=== PATIENT | female | born 1945 | race Caucasian/White ===

== ENCOUNTER → 2016-05-28 | Outpatient (CLI) | payer MEDICARE ==
[~2016-05-28] MED LIST: *BLDWK3; *CXR; /ESCI20TA OR; /ESOM40CA PO; /WARF25TA; /WARF2TA OR; ACET500T2 OR; ACET650T12 PO; ALBOTERNEB INHALATION; AMIT10TA2; AMIT25TA PO; AMITRIP25 PO; ANTIDEPRESSANT PO; AVELOX PO; BATTERY; BUDE3CAP INH; COUMADIN PO; COUMADIN25 PO; COUMADIN5 PO; DEPA500T PO; DEPA500T2; DRIS50002 PO; DYAZIDE PO; DuoNeb INH; ELIQ5TAB PO; EQL400TA PO; ESTRACE PO; FLEXERIL; FLEXERIL PO; FLEXERIL10 PO; FOLI1TAB; FOLI1TAB OR; FOLI1TAB2 PO; FOLIC1 PO; FURO40TA2 OR; IMODIUM2 PO; K-TA10TA PO; KADIAN PO; KDUR20 PO; KEFL500C; KEFL500C7 PO; LASI40TA; LASI40TA PO; LASIX40 PO; LEVAQUI500 PO; LIDODERM TOPICAL; LIPI20TA PO; LIS; LISINOPR10 PO; LISIPOW PO; LOSA50TA20 PO; LOTRIMIN; LOVENOX150 SQ; LYRI150C; LYRI150C PO; LYRICA PO; MAGN200T PO; MILKSUS; MS C PO; MS C30TA2; MULTIVIT PO; NEURONTIN3 PO; NEXI20CA; NEXI40CA PO; NEXI40GR OR; NEXIUM PO; NITR0.4S; NITR0.4S SL; NORC10TA2 PO; NYST100024 TOP; OMEPRAZ20 PO; POTA10CA2 OR; POTA20TA; POTASSI20 PO; PREDNISO10 PO; PREDNISO20 PO; PREG50CA OR; SENN8.6T7 PO; TESSALO100 PO; TYLENOLCOD PO; ULTRTA PO; VALTREX100 PO; VICO5TAB; VICODIN PO; VICODIN7.5 PO; VICODINES TAB; VOLT1GEL24 TD; ZANA4TAB PO; ZEBE5TAB PO; [UNRECOGNIZED DRUG - CODE] PO; [UNRECOGNIZED DRUG - CODE] PO; [UNRECOGNIZED DRUG - OTHER]; [UNRECOGNIZED DRUG - OTHER]; [UNRECOGNIZED DRUG - SUPPLY]; [UNRECOGNIZED DRUG - SUPPLY]
--- NOTE | 2016-05-28 11:35 | REPMRS ---
Patient History The patient states she has not had a clinical breast exam in over a year. Patient is postmenopausal. Family history of breast cancer in sister at age 67 and breast cancer in mother at age 50 or over. Benign radio exam breast specimen of the left breast, November 03, 2014. Benign stereotatic loc for ea lesion of the left breast, November 03, 2014. Benign lumpectomy of the right breast. Digital Mammo Screening Bilat: May 28, 2016 - Exam #: [id number] Bilateral CC and MLO view(s) were taken. Technologist: Nay Neumann Technologist Prior study comparison: October 18, 2014, digital mammo diagnostic bilateral performed at [facility]. October 04, 2014, digital woman screen mammo, performed at [facility]. FINDINGS: There are scattered fibroglandular densities. There has been no change in the appearance of the mammogram from the prior studies. There is a mild amount of scattered fibroglandular density which is fairly symmetric. There is no interval development of dominant mass, architectural distortion, or clustered microcalcification suggestive of malignancy. ASSESSMENT: BI-RADS/ACR category 1 mammogram. Negative. Recommendation Routine screening mammogram in 1 year (for women over age 40). This mammogram was interpreted with the aid of an FDA-approved computer-aided dectection system. Electronically Signed By: Kirill Chong MD 05/28/16 [id number]
== END ==
LOC: M RAD 09:40
PROVIDERS: ATTEND Family Medicine
DX: Z12.31 Encounter for screening mammogram for malignant neoplasm of breast (principal); Z78.0 Asymptomatic menopausal state; Z80.3 Family history of malignant neoplasm of breast

== ENCOUNTER → 2016-06-14 | Outpatient (CLI) | payer MEDICARE ==
--- NOTE | 2016-06-14 14:24 | REP ---
LEFT KNEE: HISTORY: Pain and arthritis. There is tricompartmental marginal osteophytosis with asymmetric patellofemoral joint space narrowing and medial compartmental narrowing. Calcifications are seen in both medial and lateral compartments. There is no acute fracture. IMPRESSION: Chronic changes as described above. Meniscal calcification secondary to either calcified degenerative meniscal changes or calcium pyrophosphate deposition disorder. Correlate clinically. Signed by Jeff Perales DO 06/14/2016 02:25 P
--- NOTE | 2016-06-14 14:24 | REP ---
LEFT HIP: HISTORY: Pain and arthritis. COMPARISON: 11/27/2011 There is no change in the appearance of the hip joint. There is no prominent marginal osteophytosis or buttressing. There is mild unchanged rather symmetric appearing hip joint space narrowing. There is no acute fracture or dislocation. IMPRESSION: No significant change. Signed by Jeff Perales DO 06/14/2016 02:24 P
== END ==
LOC: M RAD 07:13
PROVIDERS: ATTEND Family Medicine
DX: M17.0 Bilateral primary osteoarthritis of knee (principal)

== ENCOUNTER → 2016-06-20 | Outpatient (REF) | payer MEDICARE ==
[2016-06-20 12:03] LABS: BASO # 0.1 K/mm3 (0.0-0.2); BASO % 2.2 % (0.0-1.0); EOS # 0.2 K/mm3 (0.0-0.50); EOS % 4.3 % (0.0-3.0); LARGE UNSTAINED CELL # 0.1 K/mm3 (0.0-0.4); LARGE UNSTAINED CELL % 1.8 % (0.0-4.0); LYMPH # 2.4 K/mm3 (1.5-4.5); LYMPH % 38.8 % (24.0-44.0); MEAN CORPUSCULAR HEMOGLOBIN 33.5 pg (27.0-33.0); MEAN CORPUSCULAR HGB CONC 33.7 g/dl (32.0-36.5); MEAN CORPUSCULAR VOLUME 99.2 fl (80.0-96.0); MONO # 0.6 K/mm3 (0.0-0.8); MONO % 9.8 % (0.0-5.0); NEUTROPHILS # 2.5 K/mm3 (1.8-7.7); NEUTROPHILS % 43.1 % (36.0-66.0); PLATELET COUNT, AUTOMATED 238 k/mm3 (150-450); RED CELL DISTRIBUTION WIDTH 12.4 % (11.5-14.5); WHITE BLOOD COUNT 5.8 K/mm3 (4.0-10.0)
[2016-06-20 12:26] LABS: VITAMIN B12 LEVEL 409 PG/ML (247-911)
[2016-06-20 12:29] LABS: ALBUMIN 3.6 GM/DL (3.2-5.2); ALBUMIN/GLOBULIN RATIO 1.24 (1.00-1.93); ALKALINE PHOSPHATASE 65 U/L (45-117); ALT/SGPT 19 U/L (12-78); ANION GAP 5 MEQ/L (8-16); AST/SGOT 16 U/L (15-37); BILIRUBIN,TOTAL 0.5 MG/DL (0.2-1.0); BLOOD UREA NITROGEN 15 MG/DL (7-18); CALCIUM LEVEL 8.4 MG/DL (8.8-10.2); CARBON DIOXIDE LEVEL 32 MEQ/L (21-32); CHLORIDE LEVEL 102 MEQ/L (98-107); CHOLESTEROL LEVEL 211 MG/DL (<200); CREATININE FOR GFR 0.94 MG/DL (0.55-1.02); GLOMERULAR FILTRATION RATE > 60.0 (>39); GLUCOSE, FASTING 91 MG/DL (83-110); POTASSIUM SERUM 3.7 MEQ/L (3.5-5.1); SODIUM LEVEL 139 MEQ/L (136-145); TOTAL PROTEIN 6.5 GM/DL (6.4-8.2); TRIGLYCERIDES LEVEL 126 MG/DL (<150)
[2016-06-20 14:31] LABS: PRETREATED FOLATE FOR RBCFOL 7.5 NG/ML
[2016-06-23 13:39] LABS: ALBUMIN % 59.3 % (55.8-66.1)
[2016-06-23 13:40] LABS: ALBUMIN 3.85 GM/DL (3.29-5.55); GAMMA GLOBULIN % 10.4 % (11.1-18.8)
== END ==
LOC: M SFHCPLAZ 09:14
PROVIDERS: ATTEND Family Medicine
DX: E78.2 Mixed hyperlipidemia (principal); D75.89 Other specified diseases of blood and blood-forming organs; K52.9 Noninfective gastroenteritis and colitis, unspecified

== ENCOUNTER → 2016-06-20 | Outpatient (REF) | payer MEDICARE | LOC: M SFHCPLAZ 09:33 | PROVIDERS: ATTEND Family Medicine | DX: K52.9 Noninfective gastroenteritis and colitis, unspecified (principal); E78.2 Mixed hyperlipidemia; D75.89 Other specified diseases of blood and blood-forming organs ==

== ENCOUNTER → 2016-07-10 | Outpatient (CLI) | payer MEDICARE ==
[~2016-07-10] VITALS: Ht 160 cm; Wt 74.8 kg
[~2016-07-10] MED LIST changes: +BISO10TA PO; +BISO5TAB5 PO; +DULO1CAP PO; +MAG400TA PO; +NORC7.5T PO; +NS 1,000 ML IV ONE; +PROPOFOL 200 MG/20 ML VIAL As Ordered ONE
--- NOTE | 2016-07-10 09:01 | ROOR ---
Patient Name: Latisha Carrasco Procedure Date: 07/10/2016 8:49 AM Date of : 1945 Age: 70 Room: [facility] Gender: Female Note Status: Finalized Procedure: Colonoscopy Indications: High risk colon cancer surveillance: Personal history of colonic polyps, Last colonoscopy: October 2012 Providers: Eliazar MARKHAM MD Referring MD: Ayad De La Cruz MD Requesting Provider: Medicines: Monitored Anesthesia Care Complications: No immediate complications. Procedure: Pre-Anesthesia Assessment: - The heart rate, respiratory rate, oxygen saturations, blood pressure, adequacy of pulmonary ventilation, and response to care were monitored throughout the procedure. The Colonoscope was introduced through the anus and advanced to the cecum, identified by appendiceal orifice and ileocecal valve. The colonoscopy was performed without difficulty. The patient tolerated the procedure well. The quality of the bowel preparation was good. Findings: The perianal and digital rectal examinations were normal. Multiple medium-mouthed diverticula were found in the sigmoid colon. An area of mild melanosis was found in the entire colon. The entire examined colon appeared normal on direct and retroflexion views. Impression: - Mild diverticulosis in the sigmoid colon. - The entire examined colon is normal on direct and retroflexion views. - No specimens collected. Recommendation: - Repeat colonoscopy in 5 years for surveillance based on personal history of previous adenomatous polyps. Eliazar Markham MD Eliazar MARKHAM MD 07/10/2016 9:01:39 AM This report has been signed electronically. Number of Addenda: 0 Note Initiated On: 07/10/2016 8:49 AM Estimated Blood Loss: Estimated blood loss: none.
[2016-07-10 09:20] VITALS: BP 131/69
== END | disposition home or self-care (01) ==
LOC: M OPP 07:53
PROVIDERS: ATTEND Internal Medicine Gastroenterology
DX: Z12.11 Encounter for screening for malignant neoplasm of colon (principal); Z86.010 Personal history of colon polyps; K57.30 Diverticulosis of large intestine without perforation or abscess without bleeding; K63.89 Other specified diseases of intestine; E78.00 Pure hypercholesterolemia, unspecified; M19.90 Unspecified osteoarthritis, unspecified site; J44.9 Chronic obstructive pulmonary disease, unspecified; G47.30 Sleep apnea, unspecified; F17.210 Nicotine dependence, cigarettes, uncomplicated; Z79.899 Other long term (current) drug therapy; Z88.8 Allergy status to other drugs, medicaments and biological substances; Z88.5 Allergy status to narcotic agent; Z88.0 Allergy status to penicillin; Z91.040 Latex allergy status; Z91.013 Allergy to seafood; Z86.718 Personal history of other venous thrombosis and embolism; Z86.73 Personal history of transient ischemic attack (TIA), and cerebral infarction without residual deficits

== ENCOUNTER → 2016-08-15 | Outpatient (REF) | payer MEDICARE, MEDICAID ==
[~2016-08-15] MED LIST changes: -FOLI1TAB2 PO; +FOLI1TAB4 PO; +KEFL500C17 PO; -KEFL500C7 PO; -NORC10TA2 PO; +NORC10TA21 PO; -NORC7.5T PO; +NORC7.5T35 PO; -NS 1,000 ML IV ONE; -NYST100024 TOP; +NYST1POW9 TOP; -PROPOFOL 200 MG/20 ML VIAL As Ordered ONE; +VOLT1GEL15 TD; -VOLT1GEL24 TD
== END ==
LOC: M SFHCPLAZ 15:10
PROVIDERS: ATTEND Family Medicine
DX: M19.041 Primary osteoarthritis, right hand (principal)
CPT/HCPCS: 36415; 85652; 86038; 86140; 86200; 86334; 86431; G0463

== ENCOUNTER → 2016-10-21 | Outpatient (REF) | payer MEDICARE, MEDICAID ==
[2016-10-21 13:46] LABS: MAGNESIUM LEVEL 2.3 MG/DL (1.8-2.4)
[2016-10-21 14:53] LABS: PRETREATED FOLATE FOR RBCFOL 17.1 NG/ML
== END ==
LOC: M SFHCPLAZ 11:02
PROVIDERS: ATTEND Family Medicine
DX: E78.2 Mixed hyperlipidemia (principal); D75.89 Other specified diseases of blood and blood-forming organs
CPT/HCPCS: 36415; 80061; 82550; 82747; 83735; 86140; G0463

== ENCOUNTER → 2016-12-12 | Outpatient (CLI) | payer MEDICARE ==
--- NOTE | 2016-12-29 00:38 | ECWPNPC ---
PATIENT NAME: ALEKSANDER LOUIS : 1945 GENDER: FEMALE VISIT DATE: 12/12/2016 DISCHARGE DATE: 12/12/16 1303 VISIT LOCKED DATE TIME: PHYSICIAN: WILIAN SANTIAGO PHYSICIAN PAGER NO: [phone] RESOURCE: WILIAN SANTIAGO REASON FOR APPOINTMENT 1. BACK PAIN HISTORY OF PRESENT ILLNESS FALL RISK SCREENING: SCREENING :NO FALLS IN THE PAST YEAR 71 YEAR OLD FEMALE PATIENT WITH HISTORY OF CHRONIC LOW BACK PAIN. PATIENT DESCRIBES THE PAIN SHARP, STABBING, TENDER, SORE AND HAVING IT ALL THE TIME WITH A PAIN SCORE OF 8/10. PATIENT STATES THAT THE PAIN STARTED TWO YEARS AGO WITH NO TRAUMA AND HAS GOTTEN PROGRESSIVELY WORSE. PATIENT STATES THAT ANY TYPE OF ACTIVITY INCREASES THE PAIN IN HER LOWER BACK, SUCH WALKING, STANDING, AND SITTING. PATIENT REPORTS HAVING A BALANCE ISSUE AND USES A WALKER DUE TO THIS. CURRENTLY THE PATIENT IS USING LYRICA AND TIZANIDINE FOR PAIN MANAGEMENT AT THIS TIME AND THE PATIENT STATES THAT THE MEDICATION DOES AID IN RELIEF AT TIMES. PATIENT DENIES UNEXPLAINABLE WEIGHT LOSS, FEVER, CHILLS, NEW CHANGES ON HER URINARY OR BOWEL CONTROL. PAIN SCREENING: PATIENT HAS A COMPLAINT OF ACUTE OR CHRONIC PAIN :YES CURRENT MEDICATIONS TAKING DRISDOL 03786 UNIT CAPSULE 1 CAPSULE ORALLY WEEKLY TAKING ELIQUIS 5 MG TABLET 1 TABLET ORALLY TWICE A DAY TAKING DUONEB 0.5-2.5 (3) MG/3ML SOLUTION 3 ML INHALATION QID PRN TAKING NYSTATIN - POWDER 1 NULL TO AFFECTED AREA EXTERNALLY TWICE A DAY TO B BREAST TAKING LASIX 40 MG TABLET 1 TABLET ORALLY ONCE A DAY TAKING LOSARTAN POTASSIUM 50 MG TABLET 1 TABLET ORALLY TWICE DAILY TAKING ZEBETA 5 MG TABLET 1 TABLET BY MOUTH ONCE A DAY TAKING B & B CARPAL TUNNEL BRACE - MISCELLANEOUS DIRECTED _ DAILY LEFT TAKING IMODIUM A-D 2 MG TABLET 1 TAB ORALLY BID PRN DIARRHEA TAKING LIPITOR 40 MG TABLET 1 TABLET ORALLY ONCE A DAY TAKING LYRICA 150 MG CAPSULE 1 CAPSULE ORALLY THREE TIMES DAILY MDD3 TAKING TIZANIDINE HCL 6 MG CAPSULE 1 CAPSULE NEEDED ORALLY THREE TIMES A DAY TAKING HEARING AID BATTERY 1 HEARING AID BATTERY DX: 389.9 CHANGE BATTERY NEEDED TAKING NEBULIZER/TUBING/MOUTHPIECE CUPS AND TUBING - FOR NEBULIZER ICD:496 USE NEEDED TAKING NEXIUM 40 MG CAPSULE DELAYED RELEASE 1 CAPSULE ORALLY DAILY TAKING VOLTAREN 1 % GEL DIRECTED TRANSDERMAL 4 GMS QID TO B HANDS TAKING NORCO 10-325 MG TABLET 1 TABLET NEEDED ORALLY EVERY 6 HRS, MDD 4 TAKING MAGNESIUM OXIDE 400 MG CAPSULE 1 CAPSULE ORALLY TWICE A DAY TAKING CYMBALTA 20 MG CAPSULE DELAYED RELEASE PARTICLES 1 CAPSULE ORALLY TWICE A DAY NOT-TAKING BUDESONIDE 1 MG/2ML SUSPENSION DIRECTED INHALATION BID PRN NOT-TAKING LASIX 40 MG TABLET 1 TABLET ORALLY ONCE A DAY NOT-TAKING TIZANIDINE HCL 6 MG CAPSULE 1 CAPSULE NEEDED ORALLY THREE TIMES A DAY NOT-TAKING ELIQUIS 5 MG TABLET 1 TABLET ORALLY TWICE A DAY NOT-TAKING IMODIUM A-D 2 MG TABLET 1 TAB ORALLY BID PRN DIARRHEA MEDICATION LIST REVIEWED AND RECONCILED WITH THE PATIENT PAST MEDICAL HISTORY LEFT GREAT THAN RIGHT SHOULDER IMPIGNMENT HX OF DVT/PE MULTI-LEVEL THROACIC DJD BY 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 TAVAREZ VITAMIN D DEFICIENCY BILATERAL PROFOUND HEARING LOSS SINCE CHILDHOOD SECONDARY TO INFECTION RIGHT GREATER THAN LEFT 3 5-8 MM ADENOMATOUS POLYPS BY 10/2012 COLONOSCOPY REINDL DIARRHEA, CHRONIC-10/2012 - RANDOM COLONIC BIOPSIES-REINDL MODERATE-ADVANCED PF AND MEDIAL COMPARTMENT L KNEE OA BY 08/2013 XRAY LUMBAR [id number] C L2-S1 DIFFUSE BULGES C MINIMAL TS COMPRESSION, L5/S1 GRADE 1 LITHESIS BY 04/2015 MRI L HIP MINIMAL/L KNEE MODERATE TRICOMPARTMENTAL OA BY 06/2016 XRAY ALLERGIES CIPRO: HIVES: ALLERGY DURAGESIC-25: ITCH: SIDE EFFECTS FLECTOR: IRRITABLE SKIN: SIDE EFFECTS MACROBID: NAUSEA/VOMITING: SIDE EFFECTS PENICILLIN V POTASSIUM: HIVES: ALLERGY PHENOBARBITAL: HYSTERIA: SIDE EFFECTS VALPROIC ACID: LACK OF THERAPEUTIC EFFECT SHELLFISH: ANAPHYLAXIS: ALLERGY SURGICAL HISTORY EGD/[id number] (GRADE B),NORMAL STOMACH BIOPSY, EG JUNCTION WITH MINIMAL CHRONIC INFLAMMATION BY BIOPSY, ADENOMATOUS POLYP//[id number]-V 02/2009, 07/2016 BILATERAL CATERACT-LEFT THEN RIGHT-DARCY 1 AND 04/2010 CHOLECYSTECTOMY LEFT KNEE ARTHROSCOPIC TONSILLECTOMY/ADENOIDECTOMY HERNIA REPAIR X3 BLADDER SUSPENSION SURGERY L BREAST STEREOTACTIC [facility]BENIGN[facility] 11/03/14 FAMILY HISTORY FATHER: , DIAGNOSED WITH HEART DISEASE MOTHER: , DIAGNOSED WITH OTHER 2 BROTHER(S) , 1 SISTER(S) . 3 SON(S) , 3 DAUGHTER(S) - HEALTHY. SISTER BREAST CA. SOCIAL HISTORY GENERAL: TOBACCO USE ARE YOU A:CURRENT SMOKER ARE YOU INTERESTED IN QUITTING?THINKING ABOUT QUITTING PREVIOUS QUIT ATTEMPTS?NO. COUNSELED THE PATIENT ON SMOKING CESSATION, EDUCATION [id number]/03/2017 HOW MANY CIGARETTES A DAY DO YOU SMOKE?6-10 HOW SOON AFTER YOU WAKE UP DO YOU SMOKE YOUR FIRST CIGARETTE?6-30 MIN HOW OFTEN DO YOU SMOKE CIGARETTES?EVERY DAY PATIENT COUNSELED ON THE DANGERS OF TOBACCO USE AND URGED TO QUIT:12/12/2016 SMOKING CESSATION INFORMATION GIVEN11/18/2016 LUNG CANCER SCREENING SMOKING STATUS:CURRENT SMOKER BMI CARE GOAL FOLLOW-UP ABOVE NORMAL BMI FOLLOW-UPGIVING ENCOURAGEMENT TO EXERCISE ALCOHOL SCREENING POINTS1 INTERPRETATIONNEGATIVE RECREATIONAL DRUG USE DRUG USE?YES CAFFEINE CAFFEINE USE?YES HOW OFTEN AND HOW MUCH? 2 CUPS OF COFFEE SEXUAL HX HAD SEX IN THE LAST 12 MONTHS (VAGINAL, ORAL, OR ANAL)?NO HAVE YOU EVER HAD AN STD?NO OCCUPATION: RETIRED ECONOMICS LECTURER. DIET: REGULAR. EXERCISE: NO REGULAR EXERCISE. MARITAL STATUS: .. CHRISTIAN [id number] MANDAEN LANGUAGE LANGUAGES SPOKEN:KYRGYZ EDUCATION LEVEL OF EDUCATION:GRADE SCHOOL 9TH GRADE LEARNING BARRIERS / SPECIAL NEEDS CHANGE FROM LAST VISIT?NO BARRIERS TO LEARNING?NO HEARING IMPAIRED?YES :HEARING AIDES BUT DOESN'T WEAR VISION IMPAIRED?NO COGNITIVELY IMPAIRED?NO READINESS TO LEARN?YES LEARNING PREFERENCES?NO LEARNING CAPABILITIES PRESENT?YES EMOTIONAL BARRIERS?NO SPECIAL DEVICES?YES :[facility] PFS, CLERGY, PUBLIC HEALTH REFERRALS HAS THE PATIENT BEEN EDUCATED REGARDING HIS/HER PLAN OF CARE?YES HAS THE PATIENT BEEN EDUCATED REGARDING PAIN, THE RISK FOR PAIN, THE IMPORTANCE OF EFFECTIVE PAIN MANAGEMENT, AND THE PAIN ASSESSMENT PROCESS?YES ADVANCE DIRECTIVES HEALTH CARE PROXY?YES NAME OF HCP SARAH PINEDA CONTACT # FOR HCP DAUGHTER [phone] DO YOU HAVE A DNR?YES LIVING WILL?YES POWER OF LEASE BROKER?YES NAME OF POA? SARAH PINEDA TRAVEL OUTSIDE US: NO. DOMESTIC VIOLENCE NONE. LIVES WITH DAUGHTER SARAH PINEDA(HCP/POA) AND SON-IN-LAW. HOSPITALIZATION/MAJOR DIAGNOSTIC PROCEDURE LEFT FOOT LARGE TOE INFECTION 12/2014 REVIEW OF SYSTEMS REVIEWED BY: PROVIDER: WILIAN SANTIAGO MD . CONSTITUTIONAL: ANY CHANGE IN YOUR MEDICAL CONDITION? NO, DAUGHTER STATES PT IS 80% DEAF. DAUGHTER IS CHILLING HOOD OPERATOR, PT ABLE TO READ LIPS, PT WEARS HEARING AIDE . CHILLS NO . FEVER NO . INFECTION: DO YOU HAVE NEW INFECTIONS? NO . DO YOU HAVE HISTORY OF MRSA? NO . MUSCULOSKELETAL: ANY NEW PATTERNS OF PAIN OR NUMBNESS? NO . SYTEMIC LUPUS NO . GASTROENTEROLOGY: ANY NEW CHANGE IN BOWEL CONTROL? YES, IMMODIUM FOR DIARRHEA . BARRETTS ESOPHAGUS NO . CIRRHOSIS NO . HEPATITIS NO . LIVER FAILURE NO . ACID REFLUX NO . UNEXPLAINED WEIGHT LOSS NO . GENITOURINARY: ANY NEW CHANGE IN BLADDER CONTROL? YES, UTI'S ANNUALLY . IS THERE A CHANCE YOU COULD BE ? NO . HEMATOLOGY/LYMPH: DO YOU TAKE ANY BLOOD THINNERS? (FOR EXAMPLE- COUMADIN, PLAVIX, AGGRENOX, PLATEL, PRADAXA, OR XARELTO) YES, ELIQUIS . WHEN WAS YOUR LAST DOSE? DATE: TIME: . LOW PLATELET COUNT NO . SICKLE CELL DISEASE NO . VON WILLIEBRANDS NO . FACTOR V LEIDEN NO . THALLASEMIA NO . ANEMIA NO . EASY BRUISING NO . NEUROLOGY: HAVE YOU FALLEN IN THE PAST 6 MONTHS? YES, FROM PAIN, WEAKNESS AND LOSS OF BALANCE, PT DENIES INJURIES REQUIRING MEDICAL TX . ANY NEW EXTREMITY NUMBNESS OR WEAKNESS? NO . HEAD INJURY NO . DEMENTIA NO . CEREBRAL PALSY NO . MULTIPLE SCLEROSIS NO . DIZZINESS NO . HEADACHE NO . STROKES NO . VERTIGO NO . CARDIOLOGY: DO YOU HAVE A PACEMAKER OR DEFIBRILLATOR? NO . ANGINA NO . HEART ATTACK NO . HEART SURGERY NO . CONGESTIVE HEART FAILURE/FLUID OVERLOAD NO . CHEST PAIN NO . HIGH BLOOD PRESSURE NO . IRREGULAR HEART BEAT NO . RESPIRATORY: HAVE YOU BEEN SICK IN THE PAST WEEK? NO . FEVER NO . FLU LIKE SYMPTOMS? NO . CPAP NO . BYPAP NO . ASTHMA NO . EMPHYSEMA NO . CHRONIC LUNG DISEASES NO . SHORTNESS OF BREATH ON EXERTION NO . COUGH NO . SNORING NO . INTEGUMENTARY: DO YOU HAVE ANY RASHES OR OPEN SORES? NO . ALLERGIC/IMMUNO: ARE YOU ALLERGIC TO SHELLFISH OR IV DYE? YES, SHELLFISH . ANY NEW ALLERGIES? NO . PSYCHIATRIC: DO YOU HAVE THOUGHTS OF HURTING YOURSELF OR SOMEONE ELSE? NO . ARE YOU ABUSED, NEGLECTED, OR IN AN UNSAFE ENVIRONMENT? NO . ENDOCRINOLOGY: ARE YOU DIABETIC? NO . THYROID DISORDER NO . OTHER: DO YOU NEED ANY PRESCRIPTIONS? NO . IF YES, PLEASE LIST: ____ . ANY NEW PROBLEMS WITH YOUR MEDICATIONS? NO . WHEN DID YOU LAST EAT? ____ . WHEN DID YOU LAST DRINK? ____ . WHAT DID YOU LAST DRINK? ____ . NAME OF PERSON DRIVING YOU HOME? ____ . DO YOU HAVE ANY OTHER QUESTIONS OR CONCERNS NO . VITAL SIGNS WT 173.8 LBS, HT 66 IN, BMI 28.05 INDEX, BP 124/59 MM HG, HR 66 /MIN, RR 16 /MIN, TEMP 97.4 F, OXYGEN SAT % 95%, NA INITIALS SC 10:49, REVIEWED BY: CASSANDRA. EXAMINATION : PATIENT IS ALERT O X 3 AND COOPERATIVE. TENDERNESS IN THE LOWER BACK AND PARASPINAL MUSCLE. SEVERE IN THE SACROILIAC JOINT AREA. ANTALGIC AND UNSTEADY GAIT. BOTH LEGS ARE VERY WEAK. MRI OF THE LUMBAR SPINE DONE ON 05/02/15 SHOWS DISC BULGES FROM L2-L3 THROUGH L5-S1. ASSESSMENTS SACROILIITIS, NOT ELSEWHERE CLASSIFIED - M46.1 (PRIMARY) INTERVERTEBRAL DISC DISORDER WITH RADICULOPATHY OF LUMBAR REGION - M51.16 TREATMENT SACROILIITIS, NOT ELSEWHERE CLASSIFIED NOTES: WE DISCUSSED SEVERAL ISSUES WITH MRS. LOUIS'S PAIN MANAGEMENT CASE. AT THIS TIME THE PATIENT WILL CONTINUE WITH THE SAME MEDICATION REGIME. I WOULD LIKE TO RECEIVE A CLEARANCE FROM DR. ORELLANA TO STOP THE ELOQUIS SO THAT WE MAY PROCEED WITH INTERVENTIONS IN THE SPINE IN THE FUTURE. AFTER WE HAVE RECEIVED THE CLEARANCE I WOULD LIKE TO PROCEED WITH A BILATERAL SACROILIAC JOINT INJECTION. WE DISCUSSED THE RISKS, BENEFITS, AND ALTNERATIVES OF THE INJECTION AND THE PATIENT WOULD LIKE TO PROCEED AT THIS TIME. I WOULD ALSO LIKE THE PATIENT TO BE REFERRED TO THE NEUROLOGIST DUE TO THE SEVERE WEAKNESS IN THE LEGS. INSTRUCTIONS WERE GIVEN, QUESTIONS WERE ANSWERED, PATIENT REPORTS UNDERSTANDING AND AGREES WITH THE PLAN. I, HANNA COLLAZO, DOCUMENTED THE ABOVE INFORMATION ACTING A SCRIBE FOR DR. SANTIAGO. I HAVE REVIEWED THE ABOVE DOCUMENT, WRITTEN BY HANNA SHAMPINE SCRIBE AND I VERIFY THAT IT IS ACCURATE. DEAR DR. TRAORE:THANK YOU FOR YOUR KIND REFERRAL OF MRS. LOUIS. IF YOU WANT TO DISCUSS HER CASE WITH ME PLEASE CALL ME AT THE PAIN CENTER AT [phone]. SINCERELY, WILIAN SANTIAGO MD PAIN MEDICINE. PROCEDURE CODES FA211 ESTABILISHED PATIENT THE [facility] FACILITY CHARGE G8427 DOC MEDS VERIFIED W/PT OR RE G8730 PAIN ASSESS POS TOOL F/U PLAN DOC DISPOSITION & COMMUNICATION FOLLOW UP 4 WEEKS ELECTRONICALLY SIGNED BY WILIAN SANTIAGO MD ON 12/28/2016 AT 08:32 PM EST DISCLAIMER : THIS IS A VISIT SUMMARY EXTRACTED FROM THE [employer] CHART. IT IS NOT A COPY OF THE [employer] PROGRESS NOTE. AKBAR
== END | disposition home or self-care (01) ==
LOC: M PAIN 10:45
PROVIDERS: ATTEND Anesthesiology
DX: G89.29 Other chronic pain (principal); M46.1 Sacroiliitis, not elsewhere classified; M51.16 Intervertebral disc disorders with radiculopathy, lumbar region; G43.909 Migraine, unspecified, not intractable, without status migrainosus; J44.9 Chronic obstructive pulmonary disease, unspecified; F33.9 Major depressive disorder, recurrent, unspecified; K21.9 Gastro-esophageal reflux disease without esophagitis; E55.9 Vitamin D deficiency, unspecified; Z86.711 Personal history of pulmonary embolism; Z86.718 Personal history of other venous thrombosis and embolism; Z79.899 Other long term (current) drug therapy; Z79.01 Long term (current) use of anticoagulants; Z88.0 Allergy status to penicillin; Z88.1 Allergy status to other antibiotic agents; Z88.8 Allergy status to other drugs, medicaments and biological substances; Z91.013 Allergy to seafood; F17.210 Nicotine dependence, cigarettes, uncomplicated

== ENCOUNTER → 2016-12-25 | Outpatient (CLI) | payer MEDICARE ==
[~2016-12-25] MED LIST changes: +PROHANCE 279.3MG/ML 15ML VIAL (A9576) As Ordered ONE
--- NOTE | 2016-12-25 12:36 | REP ---
MR BRAIN WITHOUT AND WITH CONTRAST: HISTORY: Diplopia. CONTRAST: ProHance 14 mL. COMPARISON: 05/01/2008 Multiple areas of increased signal intensity on T2-weighted images are present in the periventricular and subcortical white matter and olivier. These have increased in number compared to the previous study. There are no areas of abnormal signal intensity in the corpus callosum or cerebellum. There is no intraparenchymal hemorrhage, infarct, mass or midline shift. There is no abnormal enhancement. The ventricular system and cortical sulci are dilated consistent with minimal volume loss. There is no extracerebral collection. Mucosal thickening is present in the left mastoid air cells. The sinuses are clear. IMPRESSION: 1. There are multiple areas of increased signal intensity in the periventricular and subcortical white matter and olivier that have increased in number compared to the previous study. This may represent small vessel ischemic disease or atypical demyelinating disease. 2. Minimal volume loss. Signed by Ismael Jackson MD 12/25/2016 12:38 P
== END ==
LOC: M RAD 10:12
PROVIDERS: ATTEND Family Medicine
DX: H53.2 Diplopia (principal); G31.9 Degenerative disease of nervous system, unspecified
CPT/HCPCS: 70553; A9576

== ENCOUNTER → 2017-01-09 | Outpatient (CLI) | payer MEDICARE ==
[~2017-01-09] MED LIST changes: -PROHANCE 279.3MG/ML 15ML VIAL (A9576) As Ordered ONE
--- NOTE | 2017-01-09 12:43 | REP ---
Clinical: Diplopia and cerebrovascular disease . Technique: Anderson scale and color Doppler evaluation using linear high frequency transducer Findings: Two-dimensional anderson scale and color images demonstrate mild mixed atheromatous plaquing extending through the common carotid arteries, carotid bulbs and visualized internal and external carotid arteries. Normal laminar flow is appreciated bilaterally without turbulence or obvious stenosis. Color Doppler interrogation demonstrates normal arterial wave patterns and velocities with no significant spectral broadening. Normal flow direction is appreciated in the bilateral vertebral arteries. RIGHT (cm/s) LEFT (cm/s) ICA peak systolic velocity 79.4 81.9 ICA diastolic velocity 22.2 12.7 ECA peak systolic velocity 73.9 81.9 CCA peak systolic velocity 68.1 78.7 ICA/CCA ratio 1.17 0.92 Impression: No hemodynamically significant areas of narrowing or stenosis appreciated. Based on set standards narrowing falls within the less than 50% range. Signed by Ish Fiore MD 01/09/2017 12:34 P
--- NOTE | 2017-01-09 13:40 | REP ---
MRA BRAIN WITHOUT CONTRAST: HISTORY: Cerebrovascular disease. 3D [id number] MR angiography was performed at the level of the [place]. A small aneurysm is present arising from the distal right internal carotid artery. The aneurysm measures 1.5 x 2.6 mm. The aneurysm projects superior and anterior from the distal right internal carotid artery. There is no other aneurysm or arteriovenous malformation. Mild atherosclerotic disease involves the cavernous internal carotid arteries. The major intracranial vessels are patent. The right vertebral artery is dominant. IMPRESSION: 1. 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 2. Atherosclerotic disease as described above. Signed by Ismael Jackson MD 01/09/2017 01:42 P
== END ==
LOC: M RAD 10:46
PROVIDERS: ATTEND Family Medicine
DX: I65.29 Occlusion and stenosis of unspecified carotid artery (principal)

== ENCOUNTER → 2017-01-28 | Outpatient (CLI) | payer MEDICARE | LOC: M PAIN 11:30 | DX: G89.29 Other chronic pain (principal); M51.9 Unspecified thoracic, thoracolumbar and lumbosacral intervertebral disc disorder; M53.3 Sacrococcygeal disorders, not elsewhere classified; G43.909 Migraine, unspecified, not intractable, without status migrainosus; J44.9 Chronic obstructive pulmonary disease, unspecified; F32.9 Major depressive disorder, single episode, unspecified; I67.9 Cerebrovascular disease, unspecified; M17.12 Unilateral primary osteoarthritis, left knee; M16.12 Unilateral primary osteoarthritis, left hip; F17.210 Nicotine dependence, cigarettes, uncomplicated; Z88.1 Allergy status to other antibiotic agents; Z88.8 Allergy status to other drugs, medicaments and biological substances; Z91.013 Allergy to seafood; Z79.01 Long term (current) use of anticoagulants; Z79.899 Other long term (current) drug therapy | CPT/HCPCS: G0463 ==

== ENCOUNTER 2017-02-15 13:28 | Emergency (ER) | payer MEDICARE | END 2017-02-15 16:19 | disposition home or self-care (01) | LOC: M ED 13:28 | DX: J20.8 Acute bronchitis due to other specified organisms (principal); I50.9 Heart failure, unspecified; J45.909 Unspecified asthma, uncomplicated; Z86.711 Personal history of pulmonary embolism; Z79.899 Other long term (current) drug therapy; Z79.01 Long term (current) use of anticoagulants; Z88.0 Allergy status to penicillin; Z88.1 Allergy status to other antibiotic agents; Z88.8 Allergy status to other drugs, medicaments and biological substances; Z91.018 Allergy to other foods; Z91.040 Latex allergy status | CPT/HCPCS: 71046 ==

== ENCOUNTER → 2017-03-16 | Outpatient (CLI) | payer MEDICARE ==
[2017-03-16 15:54] LABS: ESTIMATED AVERAGE GLUCOSE 117 MG/DL (60-110); HEMOGLOBIN A1c 5.7 %
[2017-03-16 16:04] LABS: CPK CREATINE PHOSPHOKINASE 51 U/L (26-192)
[2017-03-16 16:04] LABS: TOTAL PROTEIN 6.7 GM/DL (6.4-8.2)
[2017-03-16 16:09] LABS: VITAMIN B12 LEVEL 830 PG/ML
[2017-03-16 16:10] LABS: FOLATE 11.3 NG/ML
[2017-03-17 11:15] LABS: ALBUMIN 3.89 GM/DL (3.29-5.55); ALBUMIN % 58.1 % (55.8-66.1); ALPHA-1-GLOBULIN % 4.9 % (2.9-4.9); ALPHA-1-GLOBULINS 0.33 GM/DL (0.17-0.41); ALPHA-2-GLOBULINS 0.84 GM/DL (0.42-0.99); ALPHA-2-GLOBULINS % 12.6 % (7.1-11.8); BETA-1-GLOBULINS 0.45 GM/DL (0.28-0.60); BETA-1-GLOBULINS % 6.7 % (4.7-7.2); BETA-2-GLOBULINS 0.36 GM/DL (0.19-0.55); BETA-2-GLOBULINS % 5.3 % (3.2-6.5); GAMMA GLOBULIN % 12.4 % (11.1-18.8); GAMMA GLOBULINS 0.83 GM/DL (0.65-1.58)
== END ==
LOC: M LAB 14:17
DX: G72.9 Myopathy, unspecified (principal); G70.00 Myasthenia gravis without (acute) exacerbation; G62.9 Polyneuropathy, unspecified; E11.9 Type 2 diabetes mellitus without complications
CPT/HCPCS: 82525

== ENCOUNTER → 2017-03-31 | Outpatient (CLI) | payer MEDICARE ==
[~2017-03-31] MED LIST changes: -*BLDWK3; -*CXR; -/ESCI20TA OR; -/ESOM40CA PO; -/WARF25TA; -/WARF2TA OR; -ACET500T2 OR; -ACET650T12 PO; -ALBOTERNEB INHALATION; -AMIT10TA2; -AMIT25TA PO; -AMITRIP25 PO; -ANTIDEPRESSANT PO; -AVELOX PO; -BATTERY; -BISO10TA PO; -BISO5TAB5 PO; -BUDE3CAP INH; +BUPIVACAINE HCL 0.25% 30 ML VIAL As Ordered; -COUMADIN PO; -COUMADIN25 PO; -COUMADIN5 PO; -DEPA500T PO; -DEPA500T2; -DRIS50002 PO; -DULO1CAP PO; -DYAZIDE PO; -DuoNeb INH; -ELIQ5TAB PO; -EQL400TA PO; -ESTRACE PO; -FLEXERIL; -FLEXERIL PO; -FLEXERIL10 PO; -FOLI1TAB; -FOLI1TAB OR; -FOLI1TAB4 PO; -FOLIC1 PO; -FURO40TA2 OR; -IMODIUM2 PO; +ISOVUE-M 300 61% 15ML VIAL (Q9967) As Ordered; -K-TA10TA PO; -KADIAN PO; -KDUR20 PO; -KEFL500C; -KEFL500C17 PO; -LASI40TA; -LASI40TA PO; -LASIX40 PO; -LEVAQUI500 PO; +LIDOCAINE 1% SDV INJ 30 ML VIAL As Ordered; -LIDODERM TOPICAL; -LIPI20TA PO; -LIS; -LISINOPR10 PO; -LISIPOW PO; -LOSA50TA20 PO; -LOTRIMIN; -LOVENOX150 SQ; -LYRI150C; -LYRI150C PO; -LYRICA PO; -MAG400TA PO; -MAGN200T PO; -MILKSUS; -MS C PO; -MS C30TA2; -MULTIVIT PO; -NEURONTIN3 PO; -NEXI20CA; -NEXI40CA PO; -NEXI40GR OR; -NEXIUM PO; -NITR0.4S; -NITR0.4S SL; -NORC10TA21 PO; -NORC7.5T35 PO; -NYST1POW9 TOP; -OMEPRAZ20 PO; -POTA10CA2 OR; -POTA20TA; -POTASSI20 PO; -PREDNISO10 PO; -PREDNISO20 PO; -PREG50CA OR; -SENN8.6T7 PO; -TESSALO100 PO; +TRIAMCINOLONE ACETONIDE SUSP 40 MG/ML VIAL (J3301) As Ordered; -TYLENOLCOD PO; -ULTRTA PO; -VALTREX100 PO; -VICO5TAB; -VICODIN PO; -VICODIN7.5 PO; -VICODINES TAB; -VOLT1GEL15 TD; -ZANA4TAB PO; -ZEBE5TAB PO; -[UNRECOGNIZED DRUG - CODE] PO; -[UNRECOGNIZED DRUG - CODE] PO; -[UNRECOGNIZED DRUG - OTHER]; -[UNRECOGNIZED DRUG - OTHER]; -[UNRECOGNIZED DRUG - SUPPLY]; -[UNRECOGNIZED DRUG - SUPPLY]
== END ==
LOC: M PAIN 11:45
DX: G89.29 Other chronic pain (principal); M46.1 Sacroiliitis, not elsewhere classified; M53.88 Other specified dorsopathies, sacral and sacrococcygeal region; G43.909 Migraine, unspecified, not intractable, without status migrainosus; J44.9 Chronic obstructive pulmonary disease, unspecified; F32.9 Major depressive disorder, single episode, unspecified; K21.9 Gastro-esophageal reflux disease without esophagitis; I87.2 Venous insufficiency (chronic) (peripheral); F17.210 Nicotine dependence, cigarettes, uncomplicated; M17.12 Unilateral primary osteoarthritis, left knee; M16.12 Unilateral primary osteoarthritis, left hip; I67.1 Cerebral aneurysm, nonruptured; R19.7 Diarrhea, unspecified; Z79.899 Other long term (current) drug therapy; Z88.0 Allergy status to penicillin; Z88.8 Allergy status to other drugs, medicaments and biological substances; Z91.013 Allergy to seafood
CPT/HCPCS: J3301

== ENCOUNTER → 2017-07-27 | Outpatient (REF) | payer MEDICARE ==
[2017-07-27 15:42] LABS: ALBUMIN 3.5 GM/DL (3.2-5.2); ALBUMIN/GLOBULIN RATIO 1.25 (1.00-1.93); ALKALINE PHOSPHATASE 106 U/L (45-117); ALT/SGPT 45 U/L (12-78); ANION GAP 8 MEQ/L (8-16); AST/SGOT 12 U/L (7-37); BILIRUBIN,TOTAL 0.4 MG/DL (0.2-1.0); BLOOD UREA NITROGEN 23 MG/DL (7-18); CALCIUM LEVEL 8.9 MG/DL (8.8-10.2); CARBON DIOXIDE LEVEL 30 MEQ/L (21-32); CHLORIDE LEVEL 106 MEQ/L (98-107); CREATININE FOR GFR 0.83 MG/DL (0.55-1.30); GLOMERULAR FILTRATION RATE > 60.0 (>39); GLUCOSE, FASTING 95 MG/DL (70-100); MAGNESIUM LEVEL 2.2 MG/DL (1.8-2.4); SODIUM LEVEL 144 MEQ/L (136-145); TOTAL PROTEIN 6.3 GM/DL (6.4-8.2)
[2017-07-27 15:45] LABS: TOTAL 25(OH) VITAMIN D 111.8 NG/ML (30.0-100.0)
[2017-07-27 16:18] LABS: ESTIMATED AVERAGE GLUCOSE 114 MG/DL (60-110); HEMOGLOBIN A1c 5.6 %
== END ==
LOC: M SFHCPLAZ 12:04
DX: I10 Essential (primary) hypertension (principal); R73.01 Impaired fasting glucose; E55.9 Vitamin D deficiency, unspecified; Z79.899 Other long term (current) drug therapy
CPT/HCPCS: 83735

== ENCOUNTER → 2018-01-04 | Outpatient (CLI) | payer MEDICARE ==
[2018-01-04 13:15] LABS: APPEARANCE, URINE CLEAR (CLEAR); BACTERIA, URINE AUTO 3+ (NEGATIVE); BILIRUBIN, URINE AUTO NEGATIVE (NEGATIVE); BLOOD, URINE BLOOD 2+ (NEGATIVE); COLOR, URINE YELLOW (YELLOW); GLUCOSE, URINE (UA) AUTO NEGATIVE (NEGATIVE); KETONE, URINE AUTO NEGATIVE (NEGATIVE); LEUKOCYTE ESTERASE, URINE AUTO NEGATIVE (NEGATIVE); MUCUS, URINE SMALL (NEGATIVE); NITRITE, URINE AUTO POSITIVE (NEGATIVE); PROTEIN, URINE AUTO NEGATIVE (NEGATIVE); RBC, URINE AUTO 5 /HPF (0-3); SPECIFIC GRAVITY URINE AUTO 1.013 (1.002-1.035); SQUAMOUS EPITHELIAL CELL UR AU 1 /HPF (0-6); UROBILINOGEN, URINE AUTO 0.2 mg/dL (0.0-2.0); WBC, URINE AUTO 3 /HPF (0-3)
[2018-01-04 13:20] LABS: RETIC HEMOGLOBIN EQUIVALENT 38.5 pg (24-36); RETICULOCYTE # 83.8 10^9/L (17-77); RETICULOCYTE % 1.8 % (0.5-1.5)
[2018-01-04 14:05] LABS: ALBUMIN 3.4 GM/DL (3.2-5.2); ALBUMIN/GLOBULIN RATIO 1.26 (1.00-1.93); ALKALINE PHOSPHATASE 77 U/L (45-117); ALT/SGPT 18 U/L (12-78); ANION GAP 7 MEQ/L (8-16); AST/SGOT 11 U/L (7-37); BILIRUBIN,TOTAL 0.3 MG/DL (0.2-1.0); BLOOD UREA NITROGEN 15 MG/DL (7-18); C REACTIVE PROTEIN QUANTITATIV < 0.30 MG/DL (0.00-0.30); CALCIUM LEVEL 8.8 MG/DL (8.8-10.2); CARBON DIOXIDE LEVEL 29 MEQ/L (21-32); CHLORIDE LEVEL 107 MEQ/L (98-107); CHOLESTEROL LEVEL 125 MG/DL (<200); CHOLESTEROL RISK RATIO 2.403 (<5); CPK CREATINE PHOSPHOKINASE 40 U/L (26-192); CREATININE FOR GFR 0.97 MG/DL (0.55-1.30); GLOMERULAR FILTRATION RATE > 60.0 (>39); GLUCOSE, FASTING 91 MG/DL (70-100); HDL CHOLESTEROL 52 MG/DL (>40); LDL CHOLESTEROL 44 MG/DL (<100); NON-HDL-C 73 MG/DL; POTASSIUM SERUM 4.3 MEQ/L (3.5-5.1); PTH INTACT 54.6 PG/ML (18.5-88.0); SODIUM LEVEL 143 MEQ/L (136-145); TOTAL PROTEIN 6.1 GM/DL (6.4-8.2); TRIGLYCERIDES LEVEL 146 MG/DL (<150)
[2018-01-04 14:47] LABS: TOTAL 25(OH) VITAMIN D 70.5 NG/ML (30.0-100.0)
== END ==
LOC: M LAB 12:04
DX: D75.89 Other specified diseases of blood and blood-forming organs (principal); Z79.899 Other long term (current) drug therapy
CPT/HCPCS: 82550

== ENCOUNTER → 2018-09-17 | Outpatient (REF) | payer MEDICARE ==
[~2018-09-17] MED LIST changes: +*BLDWK3; +*CXR; +ACET500T2 OR; +ACET650T12 PO; +ALBOTERNEB INHALATION; +AMIT10TA2; +AMIT25TA PO; +AMITRIP25 PO; +ANTIDEPRESSANT PO; +AVELOX PO; +BATTERY; +BISO10TA13 PO; +BISO5TAB9 PO; +BUDE2SUS3 IN; +BUDE3CAP INH; -BUPIVACAINE HCL 0.25% 30 ML VIAL As Ordered; +COUM1TAB16 OR; +COUM1TAB18; +COUMADIN PO; +COUMADIN25 PO; +COUMADIN5 PO; +DEPA500T PO; +DEPA500T2; +DRIS50003 PO; +DULO1CAP4 PO; +DYAZIDE PO; +DuoNeb INH; +ELIQ5TAB PO; +EQL400TA PO; +ESTRACE PO; +FLEXERIL; +FLEXERIL PO; +FLEXERIL10 PO; +FOLI1TAB; +FOLI1TAB OR; +FOLI1TAB11 PO; +FOLIC1 PO; +FURO40TA2 OR; +IMODIUM2 PO; -ISOVUE-M 300 61% 15ML VIAL (Q9967) As Ordered; +K-TA10TA PO; +KADIAN PO; +KDUR20 PO; +KEFL500C; +KEFL500C17 PO; +LASI40TA; +LASI40TA9 PO; +LASIX40 PO; +LEVAQUI500 PO; +LEXA1TAB2 OR; -LIDOCAINE 1% SDV INJ 30 ML VIAL As Ordered; +LIDODERM TOPICAL; +LIPI20TA PO; +LIS; +LISINOPR10 PO; +LISIPOW PO; +LOSA50TA88 PO; +LOTRIMIN; +LOVENOX150 SQ; +LYRI150C; +LYRI150C PO; +LYRICA PO; +MAG400TA PO; +MAGN200T PO; +MILKSUS; +MS C PO; +MS C30TA2; +MUCI600T31 PO; +MULTIVIT PO; +NEURONTIN3 PO; +NEXI1CAP3 PO; +NEXI20CA; +NEXI40CA PO; +NEXI40GR OR; +NEXIUM PO; +NITR0.4S; +NITR0.4S SL; +NORC1TAB5 PO; +NORC1TAB8 PO; +NYST1POW9 TOP; +OMEPRAZ20 PO; +POTA10CA2 OR; +POTA20TA; +POTASSI20 PO; +PREDNISO10 PO; +PREDNISO20 PO; +PREG50CA OR; +SENN1TAB41 PO; +TESSALO100 PO; -TRIAMCINOLONE ACETONIDE SUSP 40 MG/ML VIAL (J3301) As Ordered; +TYLENOLCOD PO; +ULTRTA PO; +VALTREX100 PO; +VICO5TAB; +VICODIN PO; +VICODIN7.5 PO; +VICODINES TAB; +VOLT1GEL15 TD; +ZANA4TAB PO; +ZEBE5TAB PO; +[UNRECOGNIZED DRUG - CODE] PO; +[UNRECOGNIZED DRUG - CODE] PO; +[UNRECOGNIZED DRUG - OTHER]; +[UNRECOGNIZED DRUG - OTHER]; +[UNRECOGNIZED DRUG - SUPPLY]; +[UNRECOGNIZED DRUG - SUPPLY]
[2018-09-17 12:44] LABS: BASO # 0.1 10^3/uL (0.0-0.2); BASO % 0.8 % (0.0-1.0); EOS # 0.3 10^3/uL (0.0-0.50); EOS % 3.2 % (0.0-3.0); HEMATOCRIT 47.9 % (36.0-47.0); HEMOGLOBIN 16.3 g/dl (12.0-15.5); LYMPH # 2.7 10^3/uL (1.5-4.5); MEAN CORPUSCULAR HEMOGLOBIN 33.5 pg (27.0-33.0); MEAN CORPUSCULAR VOLUME 98.4 fl (80.0-96.0); MONO # 1.3 10^3/uL (0.0-0.8); MONO % 15.7 % (0.0-5.0); NEUTROPHILS % 47.9 % (36.0-66.0); PLATELET COUNT, AUTOMATED 236 10^3/uL (150-450); RED BLOOD COUNT 4.87 10^6/uL (4.00-5.40); WHITE BLOOD COUNT 8.3 10^3/uL (4.0-10.0)
[2018-09-17 13:17] LABS: ALBUMIN 3.5 GM/DL (3.2-5.2); ALT/SGPT 21 U/L (12-78); BILIRUBIN,TOTAL 0.4 MG/DL (0.2-1.0); BLOOD UREA NITROGEN 22 MG/DL (7-18); CALCIUM LEVEL 9.6 MG/DL (8.8-10.2); CARBON DIOXIDE LEVEL 36 MEQ/L (21-32); CHLORIDE LEVEL 95 MEQ/L (98-107); CK-MB VALUE MASS < 1.0 NG/ML (<3.6); CPK CREATINE PHOSPHOKINASE 73 U/L (26-192); CREATININE FOR GFR 1.52 MG/DL (0.55-1.30); FREE T4 1.18 NG/DL (0.76-1.46); GLOMERULAR FILTRATION RATE 35.8 (>39); GLUCOSE, FASTING 92 MG/DL (70-100); MB/CK RELATIVE INDEX 1.37 (< OR =4); POTASSIUM SERUM 3.6 MEQ/L (3.5-5.1); SODIUM LEVEL 138 MEQ/L (136-145); TOTAL PROTEIN 6.7 GM/DL (6.4-8.2); TROPONIN I < 0.02 NG/ML (< 0.10)
== END ==
LOC: M SFHCPLAZ 10:55
PROVIDERS: ATTEND Physician Assistant Medical
DX: R55 Syncope and collapse (principal); I67.1 Cerebral aneurysm, nonruptured; Z86.711 Personal history of pulmonary embolism; R90.89 Other abnormal findings on diagnostic imaging of central nervous system

== ENCOUNTER → 2018-09-29 | Outpatient (CLI) | payer MEDICARE ==
[~2018-09-29] MED LIST changes: +BISO5TAB5 PO; -BISO5TAB9 PO; +PROHANCE 279.3MG/ML 15ML VIAL (A9576) As Ordered ONE
--- NOTE | 2018-09-29 11:50 | REPVR ---
EXAM: MR Head Without and With Contrast EXAM DATE/TIME: 09/29/2018 10:27 AM CLINICAL HISTORY: 72 years old, female; Walking, difficulty and weakness, extremity; Bilateral; Patient HX: Unbalanced gait, syncopal episodes increasing, memory loss, vertigo; Additional info: Cerebral vascular disease TECHNIQUE: Imaging protocol: MR of the head without and with intravenous contrast. Contrast material: PROHANCE; Contrast volume: 7 ml; Contrast route: 22G BUTTERFLY; COMPARISON: MRI-Brain W/O FOLL BY WITH 12/25/2016 11:05 AM FINDINGS: Brain: Atrophic changes. No evidence of acute cortical infarct. No evidence of restricted diffusion. There is no evidence of intracranial hemorrhage. Exam redemonstrates nonspecific Flair/T2 hyperintensities within the cerebral white matter/brainstem statistically most likely on the basis of chronic small vessel ischemic change. The burden of disease is similar to previous study. No cerebellar mass. No Chiari malformation. No abnormal enhancement. No CP angle mass. Ventricles: The ventricular system is midline and appropriate in size. No hydrocephalus. Bones/joints: Unremarkable. Soft tissues: Normal. Sinuses: The demonstrated paranasal sinuses are free of air-fluid level or suspicious mass. Mastoid air cells: Exam redemonstrates opacified inferior left mastoid air cells. The majority of the mastoid air cells are clear. Orbits: The optic chiasm is normal. No pituitary region mass. There is a partially empty sella. No suspicious orbital mass. Vasculature: Prominent flow void near the terminus of the right internal carotid artery directed anteriorly. This is consistent with patient's known aneurysm. Correlation with MRA could be considered to assess for changes in size. IMPRESSION: Prominent flow void near the terminus of the right internal carotid artery directed anteriorly. This is consistent with patient's known aneurysm. Correlation with MRA could be considered to assess for changes in size from an earlier study of 01/09/2017. Exam redemonstrates nonspecific Flair/T2 hyperintensities within the cerebral white matter/brainstem statistically most likely on the basis of chronic small vessel ischemic change. The burden of disease is similar to previous study. No abnormal enhancement. Exam redemonstrates opacified inferior left mastoid air cells. The majority of the mastoid air cells are clear. Electronically signed by: Ish Ayala On 09/29/2018 11:50:11 AM
== END ==
LOC: M RAD 09:29
PROVIDERS: ATTEND Physician Assistant Medical
DX: I67.9 Cerebrovascular disease, unspecified (principal)
CPT/HCPCS: 70553; A9576

== ENCOUNTER → 2018-10-07 | Outpatient (CLI) | payer MEDICARE ==
[~2018-10-07] MED LIST changes: -BISO5TAB5 PO; +BISO5TAB9 PO; -PROHANCE 279.3MG/ML 15ML VIAL (A9576) As Ordered ONE
--- NOTE | 2018-10-07 16:21 | REP ---
MRA of the brain without contrast Indication: Aneurysm, carotid artery, internal. Comparison: MRA brain of 01/09/2017. Technique: 3-D [id number] MR angiogram of the [place] was performed without contrast. MIP images were obtained including tumble and spin MIP projections. Findings: There is an unchanged right ICA terminus aneurysm which projects anteriorly, measuring 3 x 1 mm. No other aneurysm identified. There is antegrade flow within the distal ICAs and proximal MCAs and ACAs, the distal vertebral arteries, basilar artery and proximal java lead developer. The right vertebral artery is dominant. There is no evidence of cerebrovascular occlusion. Impression: 3 mm distal right ICA aneurysm, unchanged in appearance from the 01/09/2017 examination. Electronically Signed by Rc Mcnulty MD 10/07/2018 04:13 P
== END ==
LOC: M RAD 13:17
PROVIDERS: ATTEND Family Medicine
DX: I67.1 Cerebral aneurysm, nonruptured (principal)

== ENCOUNTER → 2018-10-20 | Outpatient (CLI) | payer MEDICARE ==
--- NOTE | 2018-10-20 14:36 | REP ---
CHEST, TWO VIEWS: COMPARISON: 02/25/2017 Two views of the chest are performed. There is bibasilar fibroatelectatic change. There is no new infiltrate. The heart does not appear to be significantly enlarged. Mediastinal silhouette is unchanged. There are degenerative changes of the spine. Metallic clips are seen in the right upper quadrant of the abdomen. IMPRESSION: Stable chronic findings without acute infiltrate. Electronically Signed by Rojas Anderson MD 10/21/2018 09:35 A
== END ==
LOC: M LRY 13:10
PROVIDERS: ATTEND Physician Assistant
DX: R05 Cough (principal)
CPT/HCPCS: 71046; 94640; G0463

== ENCOUNTER → 2019-01-31 | Outpatient (REF) | payer MEDICARE ==
[2019-01-31 13:45] LABS: BASO # 0.1 10^3/uL (0.0-0.2); BASO % 0.7 % (0.0-1.0); EOS # 0.3 10^3/uL (0.0-0.5); EOS % 4.5 % (0.0-3.0); HEMATOCRIT 48.8 % (36.0-47.0); HEMOGLOBIN 15.7 g/dl (12.0-15.5); LYMPH # 2.5 10^3/uL (1.5-5.0); LYMPH % 34.9 % (24.0-44.0); MEAN CORPUSCULAR HEMOGLOBIN 32.4 pg (27.0-33.0); MEAN CORPUSCULAR HGB CONC 32.2 g/dl (32.0-36.5); MEAN CORPUSCULAR VOLUME 100.6 fl (80.0-96.0); MONO % 13.2 % (0.0-5.0); NEUTROPHILS # 3.4 10^3/uL (1.5-8.5); NEUTROPHILS % 46.6 % (36.0-66.0); PLATELET COUNT, AUTOMATED 214 10^3/uL (150-450); RED BLOOD COUNT 4.85 10^6/uL (4.00-5.40); WHITE BLOOD COUNT 7.3 10^3/uL (4.0-10.0)
[2019-01-31 13:56] LABS: ALBUMIN 3.6 GM/DL (3.2-5.2); ALT/SGPT 16 U/L (12-78); BILIRUBIN,TOTAL 0.4 MG/DL (0.2-1.0); BLOOD UREA NITROGEN 16 MG/DL (7-18); CALCIUM LEVEL 9.2 MG/DL (8.8-10.2); CARBON DIOXIDE LEVEL 31 MEQ/L (21-32); CHLORIDE LEVEL 106 MEQ/L (98-107); CREATININE FOR GFR 0.93 MG/DL (0.55-1.30); GLOMERULAR FILTRATION RATE > 60.0 (>39); GLUCOSE, FASTING 100 MG/DL (70-100); MAGNESIUM LEVEL 1.9 MG/DL (1.8-2.4); POTASSIUM SERUM 4.3 MEQ/L (3.5-5.1); SODIUM LEVEL 142 MEQ/L (136-145); TOTAL PROTEIN 6.4 GM/DL (6.4-8.2)
[2019-01-31 13:59] LABS: VITAMIN B12 LEVEL 354 PG/ML (247-911)
[2019-02-01 11:52] LABS: ALBUMIN % 59.4 % (55.8-66.1)
[2019-02-01 11:53] LABS: ALPHA-1-GLOBULIN % 5.2 % (2.9-4.9); ALPHA-1-GLOBULINS 0.33 GM/DL (0.17-0.41); ALPHA-2-GLOBULINS 0.92 GM/DL (0.42-0.99); ALPHA-2-GLOBULINS % 14.3 % (7.1-11.8); BETA-1-GLOBULINS 0.39 GM/DL (0.28-0.60); BETA-1-GLOBULINS % 6.1 % (4.7-7.2); BETA-2-GLOBULINS 0.33 GM/DL (0.19-0.55); BETA-2-GLOBULINS % 5.2 % (3.2-6.5); GAMMA GLOBULIN % 9.8 % (11.1-18.8); GAMMA GLOBULINS 0.63 GM/DL (0.65-1.58)
== END ==
LOC: M SFHCPLAZ 11:14
PROVIDERS: ATTEND Family Medicine
DX: I10 Essential (primary) hypertension (principal); D75.89 Other specified diseases of blood and blood-forming organs; Z23 Encounter for immunization
CPT/HCPCS: 36415; 80053; 82607; 83735; 84165; 85025; 85046; 90682; G0008; G0463

== ENCOUNTER → 2019-05-13 | Outpatient (REF) | payer MEDICARE, OTHER ==
[~2019-05-13] MED LIST changes: +BISO5TAB14 PO; -BISO5TAB9 PO
[2019-05-13 13:45] LABS: CHOLESTEROL LEVEL 139 MG/DL (<200); CHOLESTEROL RISK RATIO 2.895 (<5); FERRITIN 51 NG/ML (8-252); FREE T4 0.99 NG/DL (0.76-1.46); HDL CHOLESTEROL 48 MG/DL (>40); IMMUNOGLOBULIN G 658 MG/DL (681-1648); IMMUNOGLOBULIN M 33.3 MG/DL (40-230); IRON (FE) 134 UG/DL (50-170); LDL CHOLESTEROL 63 MG/DL (<100); NON-HDL-C 91 MG/DL; PERCENT SATURATION 36.9 % (13.2-45.0); PTH INTACT 59.2 PG/ML (18.5-88.0); TOTAL 25(OH) VITAMIN D 42.5 NG/ML (30.0-100.0); TOTAL IRON BINDING CAPACITY 363 UG/DL (250-450); TOTAL PROTEIN 6.5 GM/DL (6.4-8.2); TRIGLYCERIDES LEVEL 142 MG/DL (<150); VITAMIN B12 LEVEL 412 PG/ML (247-911)
[2019-05-13 13:48] LABS: HEMOGLOBIN A1c 6.1 %
[2019-05-14 14:06] LABS: FREE KAPPA LIGHT CHAINS SERUM 20.6 mg/L (3.3-19.4); FREE LAMBDA LIGHT CHAINS SERUM 21.2 mg/L (5.7-26.3); INSULIN LEVEL 11.2 uIU/mL (2.6-24.9); KAPPA/LAMBDA RATIO SERUM 0.97 (0.26-1.65)
[2019-05-17 12:01] LABS: ALBUMIN 3.84 GM/DL (3.29-5.55); ALPHA-1-GLOBULIN % 4.6 % (2.9-4.9); ALPHA-2-GLOBULINS % 13.9 % (7.1-11.8); BETA-1-GLOBULINS 0.46 GM/DL (0.28-0.60); BETA-1-GLOBULINS % 7.1 % (4.7-7.2); BETA-2-GLOBULINS 0.34 GM/DL (0.19-0.55); BETA-2-GLOBULINS % 5.2 % (3.2-6.5); GAMMA GLOBULIN % 10.2 % (11.1-18.8); GAMMA GLOBULINS 0.66 GM/DL (0.65-1.58)
== END ==
LOC: M SFHCPLAZ 11:11
PROVIDERS: ATTEND Family Medicine
DX: E03.9 Hypothyroidism, unspecified (principal); D75.89 Other specified diseases of blood and blood-forming organs; E55.9 Vitamin D deficiency, unspecified; R73.01 Impaired fasting glucose; E78.2 Mixed hyperlipidemia; Z79.899 Other long term (current) drug therapy
CPT/HCPCS: 36415; 80061; 82306; 82607; 82728; 82784; 83036; 83525; 83550; 83883; 83970; 84165; 84439; 84443; 86335; G0463

== ENCOUNTER → 2019-07-29 | Outpatient (REF) | payer MEDICARE, OTHER ==
[~2019-07-29] MED LIST changes: +AMLO2.5T3 PO; +ATOR40TA75 PO; +CEPH500C PO; +DOCU100C16 PO; +HYDR-3719 PO; +LEVO25TA5 PO; +LOPE2CAP PO; +NORT25CA2 PO; +OMEP-221 PO; +PROAAER10 INH
[2019-07-29 17:23] LABS: HEMATOCRIT 49.6 % (36.0-47.0); HEMOGLOBIN 17.2 g/dl (12.0-15.5); MEAN CORPUSCULAR HEMOGLOBIN 32.5 pg (27.0-33.0); MEAN CORPUSCULAR HGB CONC 34.7 g/dl (32.0-36.5); MEAN CORPUSCULAR VOLUME 93.6 fl (80.0-96.0); WHITE BLOOD COUNT 4.6 10^3/uL (4.0-10.0)
[2019-07-29 17:48] LABS: ALBUMIN 3.4 GM/DL (3.2-5.2); BILIRUBIN,TOTAL 0.8 MG/DL (0.2-1.0); CALCIUM LEVEL 8.9 MG/DL (8.8-10.2); CREATININE FOR GFR 1.7 MG/DL (0.55-1.30); GLOMERULAR FILTRATION RATE 31.4 (>39); POTASSIUM SERUM 3.1 MEQ/L (3.5-5.1); TOTAL PROTEIN 7.2 GM/DL (6.4-8.2)
[2019-07-29 18:02] LABS: PLATELET COUNT, AUTOMATED 71 10^3/uL (150-450)
[2019-07-29 18:09] LABS: ATYPICAL LYMPH 10 % (0-5); LYMPHOCYTES 7 % (16-44); MONOCYTES 16 % (0-5); MYELOCYTES 1 % (0-0); NEUTROPHILS 63 % (28-66)
[2019-07-29 18:10] LABS: PLATELET ESTIMATE DECREASED (NORMAL)
== END ==
LOC: M SFHCPLAZ 15:38
PROVIDERS: ATTEND Family Medicine
DX: I10 Essential (primary) hypertension (principal); R41.0 Disorientation, unspecified; M47.816 Spondylosis without myelopathy or radiculopathy, lumbar region

== ENCOUNTER 2019-07-30 09:33 | Inpatient (IN) | payer MEDICARE, OTHER, SELFPAY ==
[~2019-07-30] VITALS: Ht 165.1 cm; Wt 81.6 kg
[~2019-07-30 09:33] MED LIST changes: -AMLO2.5T3 PO; -ATOR40TA75 PO; -CEPH500C PO; -DOCU100C16 PO; -HYDR-3719 PO; -LEVO25TA5 PO; -LOPE2CAP PO; -NORT25CA2 PO; -OMEP-221 PO; -PROAAER10 INH
[2019-07-30] MEDS ORDERED: ACETAMINOPHEN 325 MG TAB PO ONE (10:15)
--- NOTE | 2019-07-30 10:34 | REP ---
Portable chest x-ray: Single view. History: Dyspnea and cough. Comparison chest x-ray: October 20, 2018. Findings: Monitoring electrodes and oxygen delivery tubing are seen. Mild cardiomegaly is observed. Left hemidiaphragm is somewhat elevated and there is some adjacent pleuroparenchymal scarring. No romelia pleural angle blunting is seen. Mild linear scarring is seen in the left mid lung zone as well. Impression: Cardiomegaly and pleuroparenchymal scarring changes on the left. No acute abnormality. Electronically Signed by Maximus Chong MD 07/30/2019 10:26 A
[2019-07-30 10:47] LABS: VENOUS BASE EXCESS 2.4 (-2.0-2.0); VENOUS HCO3 26.5 MEQ/L (23.0-27.0); VENOUS O2 SATURATION 98.7 % (60.0-80.0); VENOUS PARTIAL PRESSURE CO2 39.3 mmHg (38.0-50.0); VENOUS PARTIAL PRESSURE O2 125.8 mmHg (30.0-50.0); VENOUS PH 7.446 UNITS (7.330-7.430); VENOUS STANDARD HCO3 26.6 MEQ/L; VENOUS TOTAL CO2 27.7 MEQ/L (24.0-28.0)
[2019-07-30] MEDS ORDERED: LEVO25TA5 PO (10:51)
[2019-07-30] MEDS ORDERED: ATOR40TA75 PO (10:51)
[2019-07-30] MEDS ORDERED: NORT25CA2 PO (10:51)
[2019-07-30] MEDS ORDERED: AMLO2.5T3 PO (10:51)
[2019-07-30] MEDS ORDERED: OMEP-221 PO (10:51)
[2019-07-30] MEDS ORDERED: HYDR-3719 PO (10:51)
[2019-07-30 10:57] LABS: INR 1.06; PROTHROMBIN TIME 13.5 SECONDS (11.8-14.0)
[2019-07-30 11:28] LABS: ALBUMIN 3.1 GM/DL (3.2-5.2); BILIRUBIN,DIRECT 0.4 MG/DL (0.0-0.2); BILIRUBIN,TOTAL 0.8 MG/DL (0.2-1.0); CALCIUM LEVEL 8.3 MG/DL (8.8-10.2); CREATININE FOR GFR 1.35 MG/DL (0.55-1.30); GLOMERULAR FILTRATION RATE 40.9 (>39); POTASSIUM SERUM 2.7 MEQ/L (3.5-5.1); THYROID STIMULATING HORMONE 1.73 uIU/ML (0.358-3.740); TOTAL PROTEIN 6.6 GM/DL (6.4-8.2)
--- NOTE | 2019-07-30 11:40 | REP ---
Duplex extremity venous ultrasound: Right lower extremity. History: Right lower extremity pain, rule out DVT. Findings: The deep veins are anechoic and fully compressible from the groin to the popliteal fossa in the right lower extremity. Color flow imaging is homogeneous. Spectral Doppler interrogation demonstrates intact respiratory variation in flow and normal manual augmentation of flow. There is no evidence of deep vein thrombosis. Impression: Negative right lower extremity duplex venous ultrasound. No evidence of deep vein thrombosis. Electronically Signed by Maximus Chong MD 07/30/2019 11:30 A
[2019-07-30 12:12] LABS: HEMATOCRIT 47.2 % (36.0-47.0); HEMOGLOBIN 16.4 g/dl (12.0-15.5); MEAN CORPUSCULAR HEMOGLOBIN 31.4 pg (27.0-33.0); MEAN CORPUSCULAR HGB CONC 34.7 g/dl (32.0-36.5); MEAN CORPUSCULAR VOLUME 90.2 fl (80.0-96.0); RED BLOOD COUNT 5.23 10^6/uL (4.00-5.40); WHITE BLOOD COUNT 3.4 10^3/uL (4.0-10.0)
[2019-07-30] MEDS ORDERED: POTASSIUM CHLORIDE 10 MEQ SR TABLET PO ONE ×3 (12:15→22:30)
[2019-07-30] MEDS ORDERED: KCL 10MEQ/100ML SWI (KRUN) 10 MEQ in IV 1 EA IV ONE (12:15)
--- NOTE | 2019-07-30 12:32 | REP ---
CT brain without contrast: History: Altered mental status. Comparison MRI study of the brain September 29, 2018. Comparison brain CT study October 14, 2009. CT findings: Preliminary digital straightener gun parts radiograph is unremarkable. Bone window settings demonstrate an intact bony calvarium. No intraorbital abnormality is seen. There is no CT evidence of significant paranasal sinus disease. There is mild distal carotid artery vascular calcification. On soft tissue window settings there are is fairly extensive small vessel atherosclerotic change in the subcortical and periventricular white matter. This is somewhat more extensive but not new when compared with the 2009 study. It is felt to be unchanged when compared with the MRI study from September 29, 2018. There is no evidence of intracranial hemorrhage. No acute infarction is seen. No mass, extra-axial fluid collection, or midline shift is appreciated. Impression: Fairly extensive small vessel changes. Vascular calcification. Minimal volume loss. No acute intracranial abnormality. Electronically Signed by Maximus Chong MD 07/30/2019 12:23 P
[2019-07-30 12:59] LABS: PLATELET COUNT, AUTOMATED 44 10^3/uL (150-450)
[2019-07-30 13:09] LABS: ATYPICAL LYMPH 3 % (0-5); LYMPHOCYTES 16 % (16-44); MONOCYTES 13 % (0-5); NEUTROPHILS 67 % (28-66); PLATELET ESTIMATE MARKED DECREASE (NORMAL)
[2019-07-30] MEDS ORDERED: GI COCKTAIL 50ML BTL(HYOSCYAMINE/MAALOX/LIDOCAINE VISCOUS)(1:3:1) PO ONE (14:00)
--- NOTE | 2019-07-30 14:38 | ECGEPIP ---
[facility] - ED Test Date: 2019-07-30 Pat Name: ALEKSANDER LOUIS Department: Room: - Gender: Female Child Guidance Counselor: : 1945 Requested By: Kathy Jones Order Number: [id number] Reading MD: Kathy Jones Measurements Intervals [place] Rate: 113 P: 22 TN: 156 QRS: 12 QRSD: 96 T: 50 QT: 332 QTc: 456 Interpretive Statements SINUS TACHYCARDIA INFERIOR MYOCARDIAL INFARCTION, PROBABLY OLD WITH POSTERIOR EXTENSION NSTTW abnormalities Electronically Signed on 07-30-2019 14:38:38 EDT by Kathy Jones
--- NOTE | 2019-07-30 14:40 | ECGEPIP ---
[facility] - ED Test Date: 2019-07-30 Pat Name: ALEKSANDER LOUIS Department: Room: - Gender: Female Tipple Supervisor: : 1945 Requested By: Kathy Jones Order Number: [id number] Reading MD: Kathy Jones Measurements Intervals [place] Rate: 91 P: 48 AL: 177 QRS: 20 QRSD: 92 T: 51 QT: 359 QTc: 444 Interpretive Statements SINUS RHYTHM PROBABLE INFERIOR MYOCARDIAL INFARCTION, PROBABLY OLD WITH POSTERIOR EXTENSION MODERATE T-WAVE ABNORMALITY, CONSIDER ISCHEMIA, MORE PRONOUNCED 07/30/19 Electronically Signed on 07-30-2019 14:40:10 EDT by Kathy Jones
[2019-07-30] MEDS ORDERED: NS IV SCH (14:45)
[2019-07-30] MEDS ORDERED: POTASSIUM CHLORIDE IV SCH (14:45)
[2019-07-30] MEDS ORDERED: LOPE2CAP PO (15:13)
[2019-07-30] MEDS ORDERED: PROAAER10 INH (15:13)
--- NOTE | 2019-07-30 15:18 | REP ---
CT CHEST WITHOUT CONTRAST: HISTORY: Fever. Hypoxia. Comparison is made with today's portable chest x-ray. Comparison chest CT study is from October 20, 2008. CT FINDINGS: There is chronic pleuroparenchymal scarring in the right lung apex, unchanged from 2009 study. There is linear fibrosis in the left upper lobe, mild in degree, also noted previously. There is pleuroparenchymal scarring in the left lung base involving the lingula and lower lobe, which is unchanged from the 2009 prior study as well. No new infiltrate is seen. No pulmonary mass lesion or significant pulmonary nodule is appreciated. There is a stable posteromedial right upper lobe pulmonary nodule, unchanged from 2009 and 7 mm in diameter. No significant pulmonary nodule is appreciated. There are scattered normal-sized stable mediastinal lymph nodes. No adrenal lesion is observed. No pleural or pericardial effusion is seen. Mild vascular calcification is seen. No bony destructive lesion is appreciated. IMPRESSION: Stable pleuroparenchymal fibrotic changes and stable 7 mm right upper lobe pulmonary nodule, unchanged from the 2009 prior study. No acute infiltrate is seen. Electronically Signed by Maximus Chong MD 07/30/2019 03:29 P
[2019-07-30 16:19] LABS: PLTBLUE- EDTA FREE CALC 41 K/mm3 (172-450)
--- NOTE | 2019-07-30 16:48 | HPEPDOC ---
General Date of Admission Jul 30, 2019 at 14:35 Date of Service: Jul 30, 2019 Chief Complaint The patient is a 73-year-old female admitted with a reason for visit of Willie,Thrombocytopenia. History of Present Illness 73 year old female with PMH of Cold agglutinin hemolytic anemia, hypertension, COPD, DVT and Pulmonary embolism , Raynauds phenomenon, came to the ED due to abnormal Lab work with primary care on 07/29/19. As per patient she has been sick for 3 days. On 3 days ago she was "completely out of it". She did not known anything and cannot remember much of the day. In the evening her daughter put on a movie which she remembers watching. The next day she made an appointment with PMD and was seen there and blood work done. Blood work showed new thrombocytopenia , WILLIE so she was sent to the ED. As per daughter she has been intermittently confused for the past 3 days. She denied any cough or phlegm, denied any dysuria or frequency of urination, denied any abdominal pain. In the ed she was febrile to 101.5. Labs were significant for thrombocytopenia of 44, Hypokalemia of 2.6, WILLIE with creatinine of 1.4 yesterday was 1.7. Lactate was normal, UA was dirty with 6 WBC. She was mildly hypoxic at 89% in room air. CT chest did not show any acute changes. Has chronic pleuroparanchymal changes. To me she complained of only right leg pain lateral aspect when she tries to walk radiating down her leg. She also complained that her fingers become white and painful when exposed to cold. She denied ny bleeding from any site. Denied any diarrhea or abdominal pain. Home Medications Scheduled Amlodipine Besylate (Amlodipine Besylate) 2.5 Mg Tablet, 2.5 MG PO DAILY, (Reported) Apixaban (Eliquis) 5 Mg Tab, 5 MG PO BID, (Reported) Atorvastatin Calcium (Atorvastatin Calcium) 40 Mg Tablet, 40 MG PO QHS, (Reported) Ergocalciferol (Vitamin D2) (Drisdol) 50,000 Unit Cap, 50,000 UNIT PO QWEEK, (Reported) THURSDAY Levothyroxine Sodium (Levothyroxine Sodium) 25 Mcg Tablet, 25 MCG PO DAILY, (Reported) Magnesium Oxide (Magnesium Oxide) 400 Mg Tab, 800 MG PO BID, (Reported) Nortriptyline HCl (Nortriptyline HCl) 25 Mg Capsule, 25 MG PO QHS, (Reported) Omeprazole (Omeprazole) 40 Mg Capsule.dr, 40 MG PO QHS, (Reported) Pregabalin (Lyrica) 150 Mg Cap, 150 MG PO TID, (Reported) Scheduled PRN Albuterol Sulfate (Proair Hfa) 8.5 Gm Hfa.aer.ad, 2 PUFF INH Q4H PRN for SHORTNESS OF BREATH, (Reported) Hydrocodone/Acetaminophen (Hydrocodone-Acetamin 10-325 mg) 1 Each Tablet, 1 TAB PO QID PRN for PAIN, (Reported) Loperamide HCl (Loperamide) 2 Mg Capsule, 2 MG PO TID PRN for DIARRHEA, (Reported) Nystatin (Nystatin Powder) 100,000 Unit/Gm Pow, 1 UNIT TOP BIDP PRN for REDNESS/IRRITATION, (Reported) UNDER BELLY AND BREASTS Tizanidine HCl (Zanaflex) 4 Mg Tab, 4 MG PO Q8H PRN for SPASMS, (Reported) [DuoNeb] , 0.5-2.5 MG INH QIDP PRN for SHORTNESS OF BREATH, (Reported) Allergies Coded Allergies: Sulfa (Sulfonamide Antibiotics) (Verified Allergy, Mild, RASH, 07/30/19) ciprofloxacin (Verified Allergy, Mild, RASH, 07/30/19) Penicillins (Verified Allergy, Unknown, 07/30/19) phenobarbital (Verified Allergy, Unknown, 07/30/19) INCREASES ANXIETY AND HEART RATE PER DAUGHTER Past Medical History Medical History HX OF DVT/PE MIGRAINE HEADACHE, ATYPICAL RECURRENT UTI COPD HX OF COLD AGGLUTININ HEMOLYTIC ANEMIA CHRONIC MDD GERD PERIPHERAL EDEMA SECONDARY TO VENOUS INSUFFICIENCY NICOTINE USE DISORDER RIGHT 6 MM NONOBSTRUCTING INTRARENAL CALCULUS STABLE VITAMIN D DEFICIENCY LEFT GREATER THAN RIGHT SHOULDER IMPINGEMENT BILATERAL PROFOUND HEARING LOSS SINCE CHILDHOOD SECONDARY INFECTION RIGHT GREATER THAN LEFT READS LIPS MODERATE-ADVANCED PF AND MEDIAL COMPARTMENT L KNEE OA , MINIMAL HIP OA MULTI-LEVEL THROACIC DJD , LUMBAR ICS-CPBK-VCOEZ ALSO CERVICAL DJD MULTIPLE T2 HI IN PV, SCWM AND CORIE 2.6 MM R ICA ANEURYSM AND B ICA STENOSIS < 50% BY 01/2017 MRI/MRA BRAIN Surgical History BILATERAL CATARACT CHOLECYSTECTOMY LEFT KNEE ARTHROSCOPIC TONSILLECTOMY/ADENOIDECTOMY HERNIA REPAIR X3 BLADDER SUSPENSION SURGERY L BREAST STEREOTACTIC BIOPSYBENIGN Family History FATHER: , DIAGNOSED WITH UNSPECIFIED HEART DISEASE SISTER BREAST CA. Social History * Smoker: current smoker Alcohol: Denies Drugs: denies A-FIB/CHADSVASC A-FIB History Current/History of A-Fib/PAF?: No Current PO Anticoag Therapy: Yes Review of Systems Constitutional: Reports: Fever, Fatigue Eyes: Denies: Pain, Vision change ENT: Denies: Head Aches, Ear Pain, Dysphagia Skin: Denies: Rash, Lesions, Breakdown Pulmonary: Denies: Dyspnea, Cough Cardiovascular: Denies: Chest Pain, Palpitations, Orthopnea, Paroxysmal Noc. Dyspnea, Lt Headedness Gastrointestinal: Denies: Nausea, Vomiting, Abdominal Pain, Diarrhea Genitourinary: Denies: Dysuria, Frequency, Incontinence, Retention Hematologic: Denies: Bruising, Bleeding Excessively Musculoskeletal: Reports: Back Pain, Shoulder Pain Neurological: Reports: Numbness, Confusion Physical Examination General Exam: Positive: Alert, Cooperative, No Acute Distress Eye Exam: Positive: PERRLA, Conjunctiva & lids normal, EOMI; Negative: Sclera icteric ENT Exam: Positive: Atraumatic, Mucous membr. moist/pink, Pharynx Normal Neck Exam: Positive: Supple; Negative: JVD, thyromegaly Chest Exam: Positive: Normal air movement, Other (bilateral basal crackles) Heart Exam: Positive: Tachycardic, Regular Rhythm, Normal S1, Normal S2; Negative: Murmurs, Rubs Abdomen Exam: Positive: Normal bowel sounds, Soft; Negative: Tenderness, Hepatospenomegaly Extremity Exam: Negative: Clubbing, Cyanosis, Edema Skin Exam: Positive: Nl turgor and temperature; Negative: Breakdown, Lesion Neuro Exam: Positive: Normal Speech, Strength at 5/5 X4 ext, Normal Tone Vital Signs Vital Signs Date Time Temp Pulse Resp B/P (MAP) Pulse Ox O2 Delivery O2 Flow Rate FiO2 07/30/19 15:30 96 82 07/30/19 15:15 131/76 (94) 07/30/19 15:00 Room Air 07/30/19 13:30 17 07/30/19 13:00 2.0 07/30/19 11:30 98.8 Laboratory Data Labs 24H Laboratory Tests 2 07/30/19 10:17: Anion Gap 9, Glomerular Filtration Rate 40.9, Lactic Acid Level 1.0, Calcium Level 8.3L, Total Bilirubin 0.8, Direct Bilirubin 0.4H, Aspartate Amino Transf (AST/SGOT) 102H, Alanine Aminotransferase (ALT/SGPT) 61, Alkaline Phosphatase 168H, FC-Hxw-C-Type Natriuretic Peptide 410H, Total Protein 6.6, Albumin 3.1L, Albumin/Globulin Ratio 0.9L, Thyroid Stimulating Hormone (TSH) 1.730 07/30/19 10:29: Prothrombin Time 13.5, Prothromb Time International Ratio 1.06, POC Glucose (Misc Panel) 119H, POC Sodium (Misc Panel) 133L, POC Potassium (Misc Panel) 2.6*L, POC Chloride (Misc Panel) 91L, POC Total CO2 (Misc Panel) 26.0, POC Blood Urea Nitrogen (Misc Panel 37H, POC Ionized Calcium (Misc Panel) 4.4L, POC Creatinine (Misc Panel) 1.4H, POC Hematocrit (Misc Panel) 49.0, Blood Gas Bicarbonate Standard 26.6, Venous Blood pH 7.446H, Venous Blood Partial Pressure CO2 39.3, Venous Blood Partial Pressure O2 125.8H, Venous Blood Total Carbon Dioxide 27.7, Venous Blood HCO3 26.5, Venous Blood Oxygen Saturation 98.7H, Venous Blood Base Excess 2.4H 07/30/19 10:31: POC Troponin I (Misc) 0.03 07/30/19 11:56: Neutrophils (%) (Auto) , Nucleated Red Blood Cells % (auto) 0.0, Neutrophils 67H, Band Neutrophils 1, Lymphocytes (Manual) 16, Monocytes (Manual) 13H, Atypi shavonne Lymphocytes 3, Platelet Estimate MARKED DECREASE 07/30/19 12:40: Urine Color YELLOW, Urine Appearance CLOUDYH, Urine pH 5.0, Urine Specific [place] 1.016, Urine Protein 2+H, Urine Glucose (UA) NEGATIVE, Urine Ketones NEGATIVE, Urine Blood 3+H, Urine Nitrite NEGATIVE, Urine Bilirubin NEGATIVE, Urine Urobilinogen 2.0H, Urine Leukocyte Esterase TRACEH, Urine WBC (Auto) 6H, Urine RBC (Auto) 14H, Urine Hyaline Casts (Auto) 0, Urine Bacteria (Auto) 3+H, Urine Squamous Epithelial Cells 0, Urine Amorphous Sediment SMALLH, Urine Mucus (Auto) SMALL, Urine Sperm (Auto) 07/30/19 16:12: CBC/BMP Laboratory Tests 07/30/19 10:17 07/30/19 11:56 Microbiology Microbiology 07/30/19 Urine Culture, Received Pending 07/30/19 Blood Culture, Received Pending 07/30/19 Blood Culture, Received Pending 07/30/19 Respiratory Virus Panel (PCR) (KONG) - Final, Complete Assessment/Plan 73 year old female with PMH of Cold agglutinin hemolytic anemia, hypertension, COPD, DVT and Pulmonary embolism , Raynauds phenomenon, came to the ED due to abnormal Lab work with primary care on 07/29/19. As per patient she has been sick for 3 days. She has been having intermittent confusion at home was febrile in ED and was found to have thrombocytopenia, WILLIE, hypokalemia. Fever and confusion In ED patient is alert and oriented rule out any infection CT chest negative UA dirty ? UTI though no symptoms Tick borne infection will give ceftriaxone. Thrombocytopenia ? etiology Infection/ medications/ ITP lyrica can cause 3% thrombocytopenia, will consult hematology Dr Robbins Elevated LDH questionable hemolysis there is noanemia, no elevation of indirect bili will check haptoglobin, peripheral smear. DVT/PE will continue eliquis at reduced dose will have to stop it if Platelet drops below 30K. COPD continue home inhalors. MONTSE ARAIZA MD Jul 30, 2019 16:48
[2019-07-30 17:02] LABS: PLTBLUE- EDTA FREE MACHINE 37 10^3/uL (172-450)
[2019-07-30] MEDS: KCL 40MEQ in NS 1000ML 1,000 ML IV SCH (17:39)
[2019-07-30] MEDS: cefTRIAXone SOD 2 GM in D5W MINI-BAG PLUS 50 ML IV SCH (17:40)
[2019-07-30] MEDS: ACETAMINOPHEN TAB 650MG DOSE (2X325MG) PO PRN ×2 (18:16→20:36)
[2019-07-30 20:00] VITALS: BP 157/68
[2019-07-30 20:18] LABS: CALCIUM LEVEL 8.1 MG/DL (8.8-10.2); CREATININE FOR GFR 1.56 MG/DL (0.55-1.30); GLOMERULAR FILTRATION RATE 34.6 (>39); POTASSIUM SERUM 2.6 MEQ/L (3.5-5.1)
[2019-07-30] MEDS: DOCUSATE SODIUM 100 MG CAP PO SCH (20:36)
[2019-07-30] MEDS: ATORVASTATIN 20 MG TAB PO SCH (20:36)
[2019-07-30] MEDS ORDERED: APIXABAN 5 MG TAB (ELIQUIS) PO SCH (21:00)
[2019-07-30] MEDS ORDERED: NORTRIPTYLINE 25 MG CAP PO SCH (21:00)
[2019-07-30] MEDS ORDERED: ALBUTEROL SULFATE 2.5 MG/0.5 ML INH NEB SOLN NEB PRN (21:30)
[2019-07-30] MEDS: OMEPRAZOLE 20 MG CAP PO SCH (21:42)
[2019-07-30] MEDS: NORCO, ANEXSIA 5/325MG TABLET (HYDROcodone/ACETAMINOPHEN) PO PRN (21:43)
[2019-07-30] MEDS: BUDESONIDE 0.5 MG/2 ML INHALATION SUSPENSION INH SCH (23:49)
[2019-07-30] MEDS: IPRATROPIUM 0.5MG/ALBUTEROL 2.5MG INH SOL UD 3ML (DUONEB) NEB SCH (23:49)
[2019-07-31] VITALS: BP 119/56
[2019-07-31 04:00] VITALS: BP 123/65
[2019-07-31] MEDS: KCL 40MEQ in NS 1000ML 1,000 ML IV SCH ×2 (04:30→11:00)
[2019-07-31 04:43] LABS: HEMATOCRIT 42.4 % (36.0-47.0); HEMOGLOBIN 14.5 g/dl (12.0-15.5); MEAN CORPUSCULAR HEMOGLOBIN 31.9 pg (27.0-33.0); MEAN CORPUSCULAR HGB CONC 34.2 g/dl (32.0-36.5); MEAN CORPUSCULAR VOLUME 93.2 fl (80.0-96.0); RED BLOOD COUNT 4.55 10^6/uL (4.00-5.40); WHITE BLOOD COUNT 3.1 10^3/uL (4.0-10.0)
[2019-07-31 04:45] LABS: PLATELET COUNT, AUTOMATED 37 10^3/uL (150-450)
[2019-07-31 05:06] LABS: BLOOD UREA NITROGEN 37 MG/DL (7-18); CALCIUM LEVEL 8.1 MG/DL (8.8-10.2); CARBON DIOXIDE LEVEL 28 MEQ/L (21-32); CHLORIDE LEVEL 103 MEQ/L (98-107); CREATININE FOR GFR 1.16 MG/DL (0.55-1.30); GLOMERULAR FILTRATION RATE 48.8 (>39); GLUCOSE, FASTING 86 MG/DL (70-100); LDH LACTATE DEHYDROGENASE 434 U/L (84-246); SODIUM LEVEL 136 MEQ/L (136-145)
[2019-07-31 05:18] LABS: ATYPICAL LYMPH 3 % (0-5); LYMPHOCYTES 35 % (16-44); MONOCYTES 10 % (0-5); NEUTROPHILS 48 % (28-66); PLATELET ESTIMATE MARKED DECREASE (NORMAL)
[2019-07-31] MEDS: LEVOTHYROXINE 25MCG TABLET (0.025MG) PO SCH (05:59)
[2019-07-31] MEDS: NORCO, ANEXSIA 5/325MG TABLET (HYDROcodone/ACETAMINOPHEN) PO PRN ×3 (07:01→21:38)
[2019-07-31] MEDS: BUDESONIDE 0.5 MG/2 ML INHALATION SUSPENSION INH SCH ×2 (07:10→23:13)
[2019-07-31] MEDS: IPRATROPIUM 0.5MG/ALBUTEROL 2.5MG INH SOL UD 3ML (DUONEB) NEB SCH ×3 (07:10→23:13)
[2019-07-31 08:00] VITALS: BP 137/65
[2019-07-31] MEDS: APIXABAN 5 MG TAB (ELIQUIS) PO SCH ×2 (10:14→21:35)
[2019-07-31] MEDS: DOCUSATE SODIUM 100 MG CAP PO SCH ×2 (10:14→21:34)
--- NOTE | 2019-07-31 11:19 | CR.PDOC ---
General Date of Consultation: Jul 30, 2019 Referring Provider: MONTSE ARAIZA MD Primary Care Physician: Ayad De La Cruz M.D. Consultation Hematology REASON FOR CONSULTATION/CHIEF COMPLAINT:Leukopenia and thrombocytopenia in setting of hyperpyrexia x 1 and progressive acute illness x 7 days History of Present Illness This pleasant 73 year old female has had a very remote history of cold aggluti kayla hemolytic anemia 15 years ago as well as a bilateral DVT present without formal diagnosis of pulmonary embolism arrived to the hospital after a week of having a systemic illness with a three day progression. She did not eat in past 24 hours prior to admission and did not take any of her medications. She has had profound fatigue x 1 week. She was well maintained on duloxetine for neuropathic pain and was forced to be switched to nortriptyline approximately 4 weeks ago. This was driven con by her insurance company and had caused havoc over the past month. She cannot tolerate BID dosing and has only be able to tolerate daily dosing. This medication caused significant hypotension. Patient has been under the excellent care of Dr. De La Cruz Prolonged discussion with the patient's daughter [phone] who is not only the primary financial solutions advisor of the patient, but a Nurses Aid at the hospital The patient was had hyperpyrexia on admission with a Temp of 101.5 The daughter reports that the patient has never been off a blood thinner and was kept on initially because of bilateral DVT without pulmonary embolism proven. Of late, she has been maintained on anticoagulation primarily due to advanced vascular disease. On admission has been on apixaban 5mg BID. Of importance was that the patient was gardening 2 weeks ago and devolved a rash on the left mid thigh. A red rash devloped. The daughter was unsure if thee was central clearing. Patient's son-in-law is working and developed a 2 day history of viral syndrome with nausea approximately 2 weeks ago. The only new medication is nortryptiiline whish can case aganulocytosis, leukopenia and thrombocytopenia Peripheral smear did indeed have some platelet clumping as well as atypical lymphocytes Elevated immature platelet fraction is reassuring that we will have recovery of counts within the next week. 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 Expect worsening on leukopenia and thrombocytopenia prior to improvement. Clinical picture consistent with systemic illness such as a viral illness causing severe fatigue, altered mental status changes dehydration with resultant acute kidney failure and hyperpyrexia x 1. Leukocyte esterase trace positive.There is a concern for tick bite on thigh. Patient has been started on empiric ceftriaxone to cover non-viral infectious cause of acute illness. RECOMMENDATIONS: 1. Would discontinue nortriptyline as this is her only new medication and has been associated with leukopenia and thrombocytopenia. It this drug is responsible for participating or causing blood count aberrations, can take more than 2 weeks to recover 2. Given she has not had a blood clot in 15 yrs, cut down abixaban to 2.5 mg BID and discontinue is platelet count goes less than 30,000 which I suspect will happen tomorrow. 3. Tick bourne panel testing initiated 4. Haptoglobin pending 5. Pancultured- await results 6. Hepatitis testing given tansaminitis and suspect that elevation of LDH is liver derived instead of hematologic Will follow with you. Thank you kindly for consult Vital Signs/I&O Vital Signs Date Time Temp Pulse Resp B/P (MAP) Pulse Ox O2 Delivery O2 Flow Rate FiO2 07/30/19 21:43 20 Room Air 07/30/19 20:00 97.4 108 157/68 (97) 97 07/30/19 13:00 2.0 Laboratory Data Labs 24H Laboratory Tests 2 07/30/19 10:17: Anion Gap 9, Glomerular Filtration Rate 40.9, Lactic Acid Level 1.0, Calcium Level 8.3L, Total Bilirubin 0.8, Direct Bilirubin 0.4H, Aspartate Amino Transf (AST/SGOT) 102H, Alanine Aminotransferase (ALT/SGPT) 61, Alkaline Phosphatase 168H, AT-Umj-Y-Type Natriuretic Peptide 410H, Total Protein 6.6, Albumin 3.1L, Albumin/Globulin Ratio 0.9L, Thyroid Stimulating Hormone (TSH) 1.730 07/30/19 10:29: Prothrombin Time 13.5, Prothromb Time International Ratio 1.06, POC Glucose (Misc Panel) 119H, POC Sodium (Misc Panel) 133L, POC Potassium (Misc Panel) 2.6*L, POC Chloride (Misc Panel) 91L, POC Total CO2 (Misc Panel) 26.0, POC Blood Urea Nitrogen (Misc Panel 37H, POC Ionized Calcium (Misc Panel) 4.4L, POC Creatinine (Misc Panel) 1.4H, POC Hematocrit (Misc Panel) 49.0, Blood Gas Bicarbonate Standard 26.6, Venous Blood pH 7.446H, Venous Blood Partial Pressure CO2 39.3, Venous Blood Partial Pressure O2 125.8H, Venous Blood Total Carbon Dioxide 27.7, Venous Blood HCO3 26.5, Venous Blood Oxygen Saturation 98.7H, Venous Blood Base Excess 2.4H 07/30/19 10:31: POC Troponin I (Misc) 0.03 07/30/19 11:55: 07/30/19 11:56: Neutrophils (%) (Auto) , Nucleated Red Blood Cells % (auto) 0.0, Neutrophils 67H, Band Neutrophils 1, Lymphocytes (Manual) 16, Monocytes (Manual) 13H, Atypical Lymphocytes 3, Platelet Estimate MARKED DECREASE, Differential Slide Review Report, Peripheral Blood Smear Path Consult PERIPHERAL SMEAR 07/30/19 12:40: Urine Color YELLOW, Urine Appearance CLOUDYH, Urine pH 5.0, Urine Specific [place] 1.016, Urine Protein 2+H, Urine Glucose (UA) NEGATIVE, Urine Ketones NEGATIVE, Urine Blood 3+H, Urine Nitrite NEGATIVE, Urine Bilirubin NEGATIVE, Urine Urobilinogen 2.0H, Urine Leukocyte Esterase TRACEH, Urine WBC (Auto) 6H, Urine RBC (Auto) 14H, Urine Hyaline Casts (Auto) 0, Urine Bacteria (Auto) 3+H, Urine Squamous Epithelial Cells 0, Urine Amorphous Sediment SMALLH, Urine Mucus (Auto) SMALL, Urine Sperm (Auto) 07/30/19 16:12: Platelet Count, EDTA Free 41L, Lactate Dehydrogenase 452H 07/30/19 19:38: Anion Gap 9, Glomerular Filtration Rate 34.6L, Calcium Level 8.1L 07/30/19 21:11: Fibrinogen 440 CBC/BMP Laboratory Tests 07/30/19 10:17 07/30/19 11:56 07/30/19 19:38 Microbiology Microbiology 07/30/19 Urine Culture, Received Pending 07/30/19 Blood Culture, Received Pending 07/30/19 Blood Culture, Received Pending 07/30/19 Respiratory Virus Panel (PCR) (KONG) - Final, Complete Allergies Coded Allergies: Sulfa (Sulfonamide Antibiotics) (Verified Allergy, Mild, RASH, 07/30/19) ciprofloxacin (Verified Allergy, Mild, RASH, 07/30/19) Penicillins (Verified Allergy, Unknown, 07/30/19) phenobarbital (Verified Allergy, Unknown, 07/30/19) INCREASES ANXIETY AND HEART RATE PER DAUGHTER Home Medications Scheduled Amlodipine Besylate (Amlodipine Besylate) 2.5 Mg Tablet, 2.5 MG PO DAILY, (Reported) Apixaban (Eliquis) 5 Mg Tab, 5 MG PO BID, (Reported) Atorvastatin Calcium (Atorvastatin Calcium) 40 Mg Tablet, 40 MG PO QHS, (Reported) Ergocalciferol (Vitamin D2) (Drisdol) 50,000 Unit Cap, 50,000 UNIT PO QWEEK, (Reported) THURSDAY Levothyroxine Sodium (Levothyroxine Sodium) 25 Mcg Tablet, 25 MCG PO DAILY, (Reported) Magnesium Oxide (Magnesium Oxide) 400 Mg Tab, 800 MG PO BID, #60 (Reported) Nortriptyline HCl (Nortriptyline HCl) 25 Mg Capsule, 25 MG PO QHS, (Reported) Omeprazole (Omeprazole) 40 Mg Capsule.dr, 40 MG PO QHS, (Reported) Pregabalin (Lyrica) 150 Mg Cap, 150 MG PO TID, (Reported) Scheduled PRN Albuterol Sulfate (Proair Hfa) 8.5 Gm Hfa.aer.ad, 2 PUFF INH Q4H PRN for SHORTNESS OF BREATH, (Reported) Hydrocodone/Acetaminophen (Hydrocodone-Acetamin 10-325 mg) 1 Each Tablet, 1 TAB PO QID PRN for PAIN, (Reported) Loperamide HCl (Loperamide) 2 Mg Capsule, 2 MG PO TID PRN for DIARRHEA, (Reported) Nystatin (Nystatin Powder) 100,000 Unit/Gm Pow, 1 UNIT TOP BIDP PRN for REDNESS/IRRITATION, (Reported) UNDER BELLY AND BREASTS Tizanidine HCl (Zanaflex) 4 Mg Tab, 4 MG PO Q8H PRN for SPASMS, (Reported) [DuoNeb] , 0.5-2.5 MG INH QIDP PRN for SHORTNESS OF BREATH, (Reported) DENISSE LOO MD Jul 30, 2019 23:10
--- NOTE | 2019-07-31 12:14 | IPNPDOC ---
Text Note Date of Service The patient was seen on 07/31/19. 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 Patient reports that she's been sick for the last 3 days and noted that on 07/27, was "completely out of it." Phone follow-up with her primary care provider. She was found to have thrombocytopenia and acute kidney injury and was sent to the emergency room for further evaluation. In the emergency room, patient was found to have a fever of 101.5. Patient was admitted to the spitalist service for further evaluation and treatment and oncology was called on consultation. Patient was seen and examined at the bedside. Currently, patient is sitting up at the side of the bed. Reports that she feels fine. Denies shortness of breath, cough, abdominal pain, nausea, vomiting, diarrhea, or urinary discomfort. Objective: Vitals (See below) General: Lying in bed, appears comfortable, AAOx3 HEENT: NC, AT CVS: +S1S2 Lungs: Fair air entry b/l, appreciable wheezing, rhonchi or crackles Abdomen: Soft, ND, NT Extremities: No evidence of edema, - Calf tenderness Assessment and plan: s/p Acute metabolic encephalopathy - possibly 2/2 infection - Currently has improved, and remains oriented to person, place and time - No focal neurologic deficits - CT head 07/30: Fairly extensive small vessel changes. Vascular calcification. Minimal volume loss. No acute intracranial abnormality. - Will start PT and OT Fever - Currently afebrile / hemodynamically stable - Leukopenia / Monocytosis - Lyme disease workup pending - UA with possible infection; Urine / Blood culture pending - CXR 07/29: Cardiomegaly and pleuroparenchymal scarring changes on the left. No acute abnormality. - Chest CT 07/29: Stable pleuroparenchymal fibrotic changes and stable 7 mm right upper lobe pulmonary nodule, unchanged from the 2009 prior study. No acute infiltrate is seen. - c/w Ceftriaxone (Day #2) Thrombocytopenia - etiology remains unclear; possibly 2/2 viral illness, possibly 2/2 medications - Patient reported questionable viral illness over the last 1 week - Hepatitis profile pending - s/p Lyrica - Oncology consulted; appreciate their input Elevated LDH - Hx of Cold agglutinin hemolytic anemia - LDH trending down - Currently Hg remains stable - Haptoglobin pending - Will continue to follow HTN - BP well controlled DLP - c/w Atorvastatin Hypothyroidism - c/w Levothyroxine COPD - No evidence of exacerbation - c/w Inhaled therapy as ordered DVT History - Duplex US R Leg 07/29: Negative right lower extremity duplex venous ultrasound. No evidence of deep vein thrombosis. - c/w adjusted dose of Eliquis Raynaud phenomenon Neuropathic pain - c/w Nortriptyline GERD - c/w Omeprazole DVT prophylaxis - c/w adjusted dose of Eliquis VS,Fishbone, I+O VS, Fishbone, I+O Laboratory Tests 07/30/19 11:56 07/30/19 19:38 07/31/19 04:20 Vital Signs Date Time Temp Pulse Resp B/P (MAP) Pulse Ox O2 Delivery O2 Flow Rate FiO2 07/31/19 08:00 99.3 109 19 137/65 (89) 93 Room Air 07/30/19 13:00 2.0 I&O- Last 24 Hours up to 6 AM 07/31/19 06:00 Intake Total 6060 ml Output Total 1325 ml Balance 4735 ml FRANKI VILLAFANA MD Jul 31, 2019 12:14
[2019-07-31 16:00] VITALS: BP 135/67
[2019-07-31] MEDS: tiZANidine 4 MG TAB PO PRN (17:33)
[2019-07-31] MEDS: cefTRIAXone SOD 2 GM in D5W MINI-BAG PLUS 50 ML IV SCH (17:34)
[2019-07-31 20:00] VITALS: BP 102/54
[2019-07-31] MEDS: ATORVASTATIN 20 MG TAB PO SCH (21:34)
[2019-07-31] MEDS: OMEPRAZOLE 20 MG CAP PO SCH (21:34)
[2019-07-31 23:32] VITALS: BP_SYST 124; BP_SYST 161; BP_DIAS 64; BP_DIAS 67
[2019-08-01] MEDS: ONDANSETRON 4 MG TAB PO PRN ×2 (01:08→08:28)
[2019-08-01] MEDS: tiZANidine 4 MG TAB PO PRN (01:08)
[2019-08-01 04:00] VITALS: BP 108/59
[2019-08-01] MEDS: NORCO, ANEXSIA 5/325MG TABLET (HYDROcodone/ACETAMINOPHEN) PO PRN ×2 (04:02→09:52)
[2019-08-01 05:34] LABS: HEMATOCRIT 38.8 % (36.0-47.0); HEMOGLOBIN 13.7 g/dl (12.0-15.5); MEAN CORPUSCULAR HEMOGLOBIN 32.6 pg (27.0-33.0); MEAN CORPUSCULAR HGB CONC 35.3 g/dl (32.0-36.5); MEAN CORPUSCULAR VOLUME 92.4 fl (80.0-96.0); WHITE BLOOD COUNT 4.5 10^3/uL (4.0-10.0)
[2019-08-01 05:41] LABS: PLATELET COUNT, AUTOMATED 45 10^3/uL (150-450)
[2019-08-01 05:53] LABS: BLOOD UREA NITROGEN 21 MG/DL (7-18); CALCIUM LEVEL 8.4 MG/DL (8.8-10.2); CARBON DIOXIDE LEVEL 29 MEQ/L (21-32); CHLORIDE LEVEL 102 MEQ/L (98-107); CREATININE FOR GFR 0.73 MG/DL (0.55-1.30); GLOMERULAR FILTRATION RATE > 60.0 (>39); GLUCOSE, FASTING 115 MG/DL (70-100); POTASSIUM SERUM 3.5 MEQ/L (3.5-5.1); SODIUM LEVEL 135 MEQ/L (136-145)
[2019-08-01] MEDS: LEVOTHYROXINE 25MCG TABLET (0.025MG) PO SCH (06:01)
[2019-08-01 06:14] LABS: ATYPICAL LYMPH 7 % (0-5); EOSINOPHILS 1 % (0-3); LYMPHOCYTES 41 % (16-44); MONOCYTES 9 % (0-5); NEUTROPHILS 40 % (28-66)
[2019-08-01 06:15] LABS: PLATELET ESTIMATE MARKED DECREASE (NORMAL)
[2019-08-01] MEDS: IPRATROPIUM 0.5MG/ALBUTEROL 2.5MG INH SOL UD 3ML (DUONEB) NEB SCH ×2 (07:58→16:00)
[2019-08-01] MEDS: BUDESONIDE 0.5 MG/2 ML INHALATION SUSPENSION INH SCH ×2 (07:59→20:00)
[2019-08-01 08:00] VITALS: BP 141/67
[2019-08-01] MEDS: DOCUSATE SODIUM 100 MG CAP PO SCH ×2 (08:29→21:41)
[2019-08-01] MEDS: ACETAMINOPHEN TAB 650MG DOSE (2X325MG) PO PRN (08:29)
[2019-08-01] MEDS: APIXABAN 5 MG TAB (ELIQUIS) PO SCH ×2 (08:30→21:41)
[2019-08-01] MEDS ORDERED: PREGABALIN 75 MG CAP(LYRICA) PO SCH (09:00)
[2019-08-01] MEDS: PREGABALIN 75 MG CAP(LYRICA) PO SCH ×3 (09:51→21:41)
[2019-08-01 09:54] LABS: HEPATITIS B SURFACE ANTIGEN NEGATIVE (NEGATIVE)
[2019-08-01] MEDS ORDERED: PERCOCET 5MG/325MG TAB PO PRN (10:00)
--- NOTE | 2019-08-01 10:10 | IPNPDOC ---
Text Note Date of Service The patient was seen on 08/01/19. NOTE Subjective: Patient was seen and examined at the bedside. Currently, patient is sitting up at the side of the bed. Reports that she feels fine. Denies shortness of breath, cough, abdominal pain, nausea, vomiting, diarrhea, or urinary discomfort. Complains of leg pain on the right lateral aspect going up to her thighs. Also as left knee soreness an both hip soreness. Daughter reported that earlier int eh month she had a bite in her thigh with black centre and surrounding redness. Pateint likes to work in the garden. Objective: Vitals (See below) General: Lying in bed, appears comfortable, AAOx3 HEENT: NC, AT CVS: +S1S2 Lungs: Fair air entry b/l, appreciable wheezing, rhonchi or crackles Abdomen: Soft, ND, NT Extremities: No evidence of edema, - Calf tenderness Assessment and plan: s/p Acute metabolic encephalopathy 2/2 infection improved. UTI Ecoli on ceftriaxone. Fever in ED. Lyme disease and other tick borne disease workup pending CXR 07/29: Cardiomegaly and pleuroparenchymal scarring changes on the left. No acute abnormality. Chest CT 07/29: Stable pleuroparenchymal fibrotic changes and stable 7 mm right upper lobe pulmonary nodule, unchanged from the 2009 prior study. No acute infiltrate is seen. c/w Ceftriaxone (Day #3) Thrombocytopenia - etiology remains unclear; possibly 2/2 viral illness/ Bacterial infection / tick borne infection/ medications /ITP Patient reported questionable viral illness over the last 1 week Hepatitis profile pending Oncology consulted; appreciate their input Elevated LDH , No signs of hemolysis at present. Peripheral smear does not show any schistocytes. Hx of Cold agglutinin hemolytic anemia LDH trending down HTN BP well controlled DLP c/w Atorvastatin Hypothyroidism c/w Levothyroxine COPD No evidence of exacerbation c/w Inhaled therapy as ordered DVT History Duplex US R Leg 07/29: Negative right lower extremity duplex venous ultrasound. No evidence of deep vein thrombosis. c/w adjusted dose of Eliquis Raynaud phenomenon Neuropathic pain dc nortriptyline due to thrombocytopenia as this may e the cause restart lyrica. GERD Omeprazole DVT prophylaxis c/w adjusted dose of Eliquis VS,Fishbone, I+O VS, Fishbone, I+O Laboratory Tests 08/01/19 05:23 Vital Signs Date Time Temp Pulse Resp B/P (MAP) Pulse Ox O2 Delivery O2 Flow Rate FiO2 08/01/19 08:00 97.5 83 18 141/67 (91) 99 Room Air 07/30/19 13:00 2.0 I&O- Last 24 Hours up to 6 AM 08/01/19 06:00 Intake Total 960 ml Output Total 850 ml Balance 110 ml MONTSE ARAIZA MD Aug 01, 2019 10:10
[2019-08-01 10:22] LABS: HEPATITIS C VIRUS ABY INDEX 0.2 INDEX (<0.8)
[2019-08-01 10:23] LABS: HEPATITIS B CORE ANTIBODY IGM NEGATIVE (NEGATIVE)
[2019-08-01 10:24] LABS: HEPATITIS A ANTIBODY IGM NEGATIVE (NEGATIVE)
[2019-08-01] MEDS ORDERED: SLF 3 ML SYR IV PRN (11:45)
[2019-08-01 12:00] VITALS: BP 142/65
[2019-08-01] MEDS: SLF 3 ML SYR IV SCH ×2 (14:39→21:41)
[2019-08-01] MEDS: cefTRIAXone SOD 2 GM in D5W MINI-BAG PLUS 50 ML IV SCH (15:55)
[2019-08-01] MEDS: PERCOCET 5MG/325MG TAB PO PRN ×2 (15:56→21:40)
[2019-08-01 16:00] VITALS: BP 130/65
[2019-08-01 19:52] VITALS: BP 126/61
[2019-08-01] MEDS: OMEPRAZOLE 20 MG CAP PO SCH (21:40)
[2019-08-01] MEDS: ATORVASTATIN 20 MG TAB PO SCH (21:41)
[2019-08-02] MEDS: PERCOCET 5MG/325MG TAB PO PRN ×2 (03:35→09:31)
[2019-08-02 04:00] VITALS: BP 128/60
[2019-08-02 05:34] LABS: HEMATOCRIT 38.1 % (36.0-47.0); HEMOGLOBIN 12.9 g/dl (12.0-15.5); MEAN CORPUSCULAR HEMOGLOBIN 31.7 pg (27.0-33.0); MEAN CORPUSCULAR HGB CONC 33.9 g/dl (32.0-36.5); MEAN CORPUSCULAR VOLUME 93.6 fl (80.0-96.0); RED BLOOD COUNT 4.07 10^6/uL (4.00-5.40); WHITE BLOOD COUNT 5.1 10^3/uL (4.0-10.0)
[2019-08-02 05:35] LABS: PLATELET COUNT, AUTOMATED 56 10^3/uL (150-450)
[2019-08-02] MEDS: SLF 3 ML SYR IV SCH (05:46)
[2019-08-02] MEDS: LEVOTHYROXINE 25MCG TABLET (0.025MG) PO SCH (05:46)
[2019-08-02] MEDS: PREGABALIN 75 MG CAP(LYRICA) PO SCH ×2 (05:46→14:09)
[2019-08-02 06:03] LABS: BLOOD UREA NITROGEN 13 MG/DL (7-18); CALCIUM LEVEL 8.5 MG/DL (8.8-10.2); CARBON DIOXIDE LEVEL 30 MEQ/L (21-32); CHLORIDE LEVEL 103 MEQ/L (98-107); CREATININE FOR GFR 0.62 MG/DL (0.55-1.30); GLOMERULAR FILTRATION RATE > 60.0 (>39); GLUCOSE, FASTING 92 MG/DL (70-100); POTASSIUM SERUM 3.5 MEQ/L (3.5-5.1); SODIUM LEVEL 137 MEQ/L (136-145)
[2019-08-02 06:39] LABS: ATYPICAL LYMPH 9 % (0-5); LYMPHOCYTES 44 % (16-44); MONOCYTES 11 % (0-5); NEUTROPHILS 36 % (28-66); PLATELET ESTIMATE MARKED DECREASE (NORMAL)
[2019-08-02] MEDS: IPRATROPIUM 0.5MG/ALBUTEROL 2.5MG INH SOL UD 3ML (DUONEB) NEB SCH ×2 (07:28)
[2019-08-02] MEDS: BUDESONIDE 0.5 MG/2 ML INHALATION SUSPENSION INH SCH (07:28)
[2019-08-02 08:00] VITALS: BP 146/65
[2019-08-02] MEDS: DOCUSATE SODIUM 100 MG CAP PO SCH (09:27)
[2019-08-02] MEDS: APIXABAN 5 MG TAB (ELIQUIS) PO SCH (09:27)
[2019-08-02] MEDS: CEPHALEXIN 500 MG CAP PO SCH ×2 (09:27→14:09)
[2019-08-02] MEDS ORDERED: DOCU100C16 PO (11:17)
[2019-08-02] MEDS ORDERED: CEPH500C PO (11:17)
--- NOTE | 2019-08-02 11:31 | DS.PDOC ---
Discharge Summary General Date of Admission Jul 30, 2019 at 14:35 Date of Discharge 08/02/2019 Specialist/Consultants Involve: DAVID GUZMAN MD Discharge Summary PROCEDURES PERFORMED DURING STAY: None ADMITTING DIAGNOSES: 1. UTI DISCHARGE DIAGNOSES: 1. Pansensitive E.coli UTI 2. Acute thrombocytopenia 3. WILLIE COMPLICATIONS/CHIEF COMPLAINT: Willie,Thrombocytopenia. 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 HOSPITAL COURSE: On evaluation she was found to have a UTI and also with new thrombocytopenia, and an WILLIE, with a fever to 101.5. CT chest did not show any acute changes despite mild hypoxemia at presentation, and only showed chronic pleuroparanchymal changes. She is ultimately being treated for an E.coli UTI and under investigation for an acute infection with a tickborne illness with pending Lyme, Ehrlichia, Babesia and I just added on Anaplasma given the strong history of a recent bite, possible transient erythema migrans and newly noted thrombocytopenia and transaminitis. She is to follow up closely with Dr. De La Cruz on this matter in the next 5d. At discharge, she has no bleeding sequela and her thrombocytopenia is improving. DISCHARGE MEDICATIONS: Please see below. ALLERGIES: Please see below. PHYSICAL EXAMINATION ON DISCHARGE: VITAL SIGNS: Please see below. Vitals: HDS, afebrile General: NAD HEENT: NC, AT CVS: RRR, no mrg, +S1S2 Lungs: CTAB, no rales, rhonchi or wheezing Abdomen: Normoactive bowel sounds, soft, NTND Extremities: No LE edema, WWP, no asymmetrical swelling or calf tenderness LABORATORY DATA: Please see below. IMAGING: CT chest did not show any acute changes despite mild hypoxemia at presentation, and only showed chronic pleuroparanchymal changes. PROGNOSIS: Good ACTIVITY: As tolerated DIET: Regular DISCHARGE PLAN: Home with services DISPOSITION: Home DISCHARGE INSTRUCTIONS: 1. Home with Keflex for 4 more days for a total 7d course for E.coli UTI. Needs close PCP follow up within 5d for tickborne panel results and potential treatment, as well a follow up labs for thrombocytopenia and transaminitis. ITEMS TO FOLLOWUP ON ON OUTPATIENT: 1. Needs close PCP follow up within 5d for tickborne panel results and potential treatment, as well a follow up labs for thrombocytopenia and transaminitis. DISCHARGE CONDITION: Stable TIME SPENT ON DISCHARGE: 34 minutes. Vital Signs/I&Os Vital Signs Date Time Temp Pulse Resp B/P (MAP) Pulse Ox O2 Delivery O2 Flow Rate FiO2 08/02/19 10:01 20 08/02/19 08:00 96.9 99 146/65 (92) 97 08/02/19 04:00 Room Air 07/30/19 13:00 2.0 I&O- Last 24 Hours up to 6 AM 08/02/19 06:00 Intake Total 150 ml Output Total 100 ml Balance 50 ml Laboratory Data Labs 24H Laboratory Tests 2 08/02/19 05:06: Neutrophils (%) (Auto) , Nucleated Red Blood Cells % (auto) 0.0, Neutrophils 36, Lymphocytes (Manual) 44, Monocytes (Manual) 11H, Atypical Lymphocytes 9H, Red Blood Cell Morphology NORMAL, Platelet Estimate MARKED DECREASE, Anion Gap 4L, Glomerular Filtration Rate > 60.0, Calcium Level 8.5L CBC/BMP Laboratory Tests 08/02/19 05:06 Microbiology Microbiology 07/30/19 Urine Culture - Final, Complete Escherichia Coli 07/30/19 Blood Culture - Preliminary, Resulted No Growth after 72 hours. All specime... 07/30/19 Blood Culture - Preliminary, Resulted No Growth after 72 hours. All specime... 07/30/19 Respiratory Virus Panel (PCR) (KONG) - Final, Complete Discharge Medications Scheduled Amlodipine Besylate (Amlodipine Besylate) 2.5 Mg Tablet, 2.5 MG PO DAILY, (Reported) Apixaban (Eliquis) 5 Mg Tab, 5 MG PO BID, (Reported) Atorvastatin Calcium (Atorvastatin Calcium) 40 Mg Tablet, 40 MG PO QHS, (Reported) Cephalexin (Cephalexin) 500 Mg Capsule, 500 MG PO QID Docusate Sodium (Docusate Sodium) 100 Mg Capsule, 100 MG PO BID Ergocalciferol (Vitamin D2) (Drisdol) 50,000 Unit Cap, 50,000 UNIT PO QWEEK, (Reported) THURSDAY Levothyroxine Sodium (Levothyroxine Sodium) 25 Mcg Tablet, 25 MCG PO DAILY, (Reported) Magnesium Oxide (Magnesium Oxide) 400 Mg Tab, 800 MG PO BID, (Reported) Omeprazole (Omeprazole) 40 Mg Capsule.dr, 40 MG PO QHS, (Reported) Pregabalin (Lyrica) 150 Mg Cap, 150 MG PO TID, (Reported) Scheduled PRN Albuterol Sulfate (Proair Hfa) 8.5 Gm Hfa.aer.ad, 2 PUFF INH Q4H PRN for SHORTNESS OF BREATH, (Reported) Hydrocodone/Acetaminophen (Hydrocodone-Acetamin 10-325 mg) 1 Each Tablet, 1 TAB PO QID PRN for PAIN, (Reported) Loperamide HCl (Loperamide) 2 Mg Capsule, 2 MG PO TID PRN for DIARRHEA, (Reported) Nystatin (Nystatin Powder) 100,000 Unit/Gm Pow, 1 UNIT TOP BIDP PRN for REDNESS/IRRITATION, (Reported) UNDER BELLY AND BREASTS Tizanidine HCl (Zanaflex) 4 Mg Tab, 4 MG PO Q8H PRN for SPASMS, (Reported) [DuoNeb] , 0.5-2.5 MG INH QIDP PRN for SHORTNESS OF BREATH, (Reported) Allergies Coded Allergies: Sulfa (Sulfonamide Antibiotics) (Verified Allergy, Mild, RASH, 07/30/19) ciprofloxacin (Verified Allergy, Mild, RASH, 07/30/19) Penicillins (Verified Allergy, Unknown, 07/30/19) phenobarbital (Verified Allergy, Unknown, 07/30/19) INCREASES ANXIETY AND HEART RATE PER DAUGHTER DAVID GUZMAN MD Aug 02, 2019 11:27
--- NOTE | 2019-08-02 11:32 | IPNPDOC ---
Text Note Date of Service The patient was seen on 08/02/19. NOTE Subjective: Feels well this AM, looking forward to getting home Objective: Vitals: HDS, afebrile General: NAD HEENT: NC, AT CVS: RRR, no mrg, +S1S2 Lungs: CTAB, no rales, rhonchi or wheezing Abdomen: Normoactive bowel sounds, soft, NTND Extremities: No LE edema, WWP, no asymmetrical swelling or calf tenderness Labs: reviewed WBC 5.1 hgb 12.9 platelets 56 na 137 K 3.5 Cr 0.62 Assessment and plan: Acute metabolic encephalopathy, resolved -2/2 pansensitive E.coli UTI fo which she is on abx as below Pansensitive E.coli UTI -switch ceftriaxone to keflex this morning. Day 3 of antibiotics. Acute thrombocytopenia: since 07/2019 etiology highly likely 2/2 viral illness vs. r/o tick borne infection vs. reactive to acute UTI. Unlikely ITP given chronicity and unlikely iatrogenic given acuity without recent med changes. -follow up tickborne panel, add anaplasma to lyme, Babesia, ehrlichia -f/u hepatitides serologies -covid-19 negative -follow up EBV -appreciate heme input Elevated LDH: No signs of hemolysis at present. Peripheral smear does not show any schistocytes. Hx of Cold agglutinin hemolytic anemia LDH trending down now, will continue to monitor HTN BP well controlled DLP c/w Atorvastatin Hypothyroidism c/w Levothyroxine COPD No evidence of exacerbation c/w Inhaled therapy as ordered DVT History Duplex US R Leg 07/29: Negative right lower extremity duplex venous ultrasound. No evidence of deep vein thrombosis. -c/w adjusted dose of Eliquis Neuropathic pain -dc'd nortriptyline in the setting of thrombocytopenia and restarted lyrica this admissions. GERD -continue Omeprazole DVT prophylaxis c/w adjusted dose of Eliquis Dispo: home with close PCP follow up VSCain, I+O VSCain, I+O Laboratory Tests 08/02/19 05:06 Vital Signs Date Time Temp Pulse Resp B/P (MAP) Pulse Ox O2 Delivery O2 Flow Rate FiO2 08/02/19 04:15 16 08/02/19 04:00 96.8 90 128/60 (82) 93 Room Air 07/30/19 13:00 2.0 I&O- Last 24 Hours up to 6 AM 08/02/19 06:00 Intake Total 150 ml Output Total 100 ml Balance 50 ml DAVID GUZMAN MD Aug 02, 2019 08:20
[2019-08-02 12:00] VITALS: BP 124/68
--- NOTE | 2019-08-02 13:08 | MEDONCTEEN ---
Date/Time of Encounter Date of Encounter: Aug 02, 2019 Time of Encounter: 13:10 Telephone Encounter Hematology Chart and labs reviewed Discharge planned for today Improvement in platelet count noted ecoli uti noted Recommend we cotinine apixaban. No contraindication for full dosing at this juncture. DENISSE LOO MD Aug 02, 2019 13:08
[2019-08-04 15:17] LABS: E CHAFFEENSIS IgG TITER Negative (Neg:<1:64); E CHAFFEENSIS IgM TITER Negative (Neg:<1:20); HUMAN GRANULCYTIC EHRLIC IgG Negative (Neg:<1:64); HUMAN GRANULCYTIC EHRLIC IgM Negative (Neg:<1:20)
== END 2019-08-02 14:00 | disposition home health service (06) | DRG 813 ==
LOC: M ED 09:33 → M ED INP 14:35 → ENRESERV 15:15 → M PCU 15:43
PROVIDERS: ADMIT Internal Medicine Nephrology; ATTEND Internal Medicine
DX: D69.59 Other secondary thrombocytopenia (principal); G93.41 Metabolic encephalopathy; N17.9 Acute kidney failure, unspecified; N39.0 Urinary tract infection, site not specified; D59.1 Other autoimmune hemolytic anemias; I10 Essential (primary) hypertension; I87.2 Venous insufficiency (chronic) (peripheral); R60.0 Localized edema; J44.9 Chronic obstructive pulmonary disease, unspecified; F32.9 Major depressive disorder, single episode, unspecified; H91.93 Unspecified hearing loss, bilateral; M51.36 Other intervertebral disc degeneration, lumbar region; M51.37 Other intervertebral disc degeneration, lumbosacral region; E03.9 Hypothyroidism, unspecified; B96.20 Unspecified Escherichia coli [E. coli] as the cause of diseases classified elsewhere; G62.9 Polyneuropathy, unspecified; M50.30 Other cervical disc degeneration, unspecified cervical region; R53.83 Other fatigue; R50.9 Fever, unspecified; M17.12 Unilateral primary osteoarthritis, left knee; F17.200 Nicotine dependence, unspecified, uncomplicated; E55.9 Vitamin D deficiency, unspecified; I73.00 Raynaud's syndrome without gangrene; Z86.711 Personal history of pulmonary embolism; Z86.718 Personal history of other venous thrombosis and embolism; Z79.01 Long term (current) use of anticoagulants; Z79.899 Other long term (current) drug therapy; Z88.2 Allergy status to sulfonamides; Z88.1 Allergy status to other antibiotic agents; Z88.0 Allergy status to penicillin; Z88.8 Allergy status to other drugs, medicaments and biological substances; Z87.442 Personal history of urinary calculi; Z98.41 Cataract extraction status, right eye; Z98.42 Cataract extraction status, left eye; Z90.49 Acquired absence of other specified parts of digestive tract; Z11.59 Encounter for screening for other viral diseases

== ENCOUNTER → 2019-08-11 | Outpatient (REF) | payer MEDICARE, OTHER ==
[~2019-08-11] MED LIST changes: +AMLO2.5T3 PO; +ATOR40TA75 PO; +CEPH500C PO; +DOCU100C16 PO; +HYDR-3719 PO; +LEVO25TA5 PO; +LOPE2CAP PO; +NORT25CA2 PO; +OMEP-221 PO; +PROAAER10 INH
[2019-08-11 13:31] LABS: HEMOGLOBIN 12.8 g/dl (12.0-15.5); MEAN CORPUSCULAR HEMOGLOBIN 31.4 pg (27.0-33.0); MEAN CORPUSCULAR HGB CONC 33.7 g/dl (32.0-36.5); MEAN CORPUSCULAR VOLUME 93.1 fl (80.0-96.0); PLATELET COUNT, AUTOMATED 272 10^3/uL (150-450); RED BLOOD COUNT 4.08 10^6/uL (4.00-5.40)
[2019-08-11 13:42] LABS: ATYPICAL LYMPH 10 % (0-5); LYMPHOCYTES 46 % (16-44); MONOCYTES 12 % (0-5); NEUTROPHILS 32 % (28-66); PLATELET ESTIMATE NORMAL (NORMAL)
[2019-08-11 13:43] LABS: ANISOCYTOSIS 1+; POIKILOCYTOSIS 1+; POLYCHROMASIA 1+
[2019-08-11 13:50] LABS: ALBUMIN 2.2 GM/DL (3.2-5.2); ALT/SGPT 29 U/L (12-78); BILIRUBIN,TOTAL 0.5 MG/DL (0.2-1.0); BLOOD UREA NITROGEN 6 MG/DL (7-18); CALCIUM LEVEL 8.1 MG/DL (8.8-10.2); CARBON DIOXIDE LEVEL 29 MEQ/L (21-32); CHLORIDE LEVEL 106 MEQ/L (98-107); CREATININE FOR GFR 0.67 MG/DL (0.55-1.30); GLOMERULAR FILTRATION RATE > 60.0 (>39); GLUCOSE, FASTING 93 MG/DL (70-100); POTASSIUM SERUM 3.3 MEQ/L (3.5-5.1); SODIUM LEVEL 140 MEQ/L (136-145); TOTAL PROTEIN 6.5 GM/DL (6.4-8.2)
[2019-08-11 18:20] LABS: APPEARANCE, URINE HAZY (CLEAR); BACTERIA, URINE AUTO 1+ (NEGATIVE); BILIRUBIN, URINE AUTO NEGATIVE (NEGATIVE); BLOOD, URINE BLOOD 1+ (NEGATIVE); COLOR, URINE YELLOW (YELLOW); GLUCOSE, URINE (UA) AUTO NEGATIVE (NEGATIVE); KETONE, URINE AUTO TRACE mg/dL (NEGATIVE); LEUKOCYTE ESTERASE, URINE AUTO NEGATIVE (NEGATIVE); MUCUS, URINE SMALL (NEGATIVE); NITRITE, URINE AUTO NEGATIVE (NEGATIVE); PROTEIN, URINE AUTO 1+ mg/dL (NEGATIVE); RBC, URINE AUTO 3 /HPF (0-3); SPECIFIC GRAVITY URINE AUTO 1.015 (1.002-1.035); SQUAMOUS EPITHELIAL CELL UR AU 16 /HPF (0-6); UROBILINOGEN, URINE AUTO 0.2 mg/dL (0.0-2.0); WBC, URINE AUTO 2 /HPF (0-3)
== END ==
LOC: M SFHCPLAZ 11:24
PROVIDERS: ATTEND Physician Assistant Medical
DX: N30.00 Acute cystitis without hematuria (principal); N17.9 Acute kidney failure, unspecified; D69.6 Thrombocytopenia, unspecified

== ENCOUNTER → 2019-08-22 | Outpatient (REF) | payer MEDICARE ==
[2019-08-22 15:54] LABS: APPEARANCE, URINE HAZY (CLEAR); BACTERIA, URINE AUTO 1+ (NEGATIVE); BILIRUBIN, URINE AUTO NEGATIVE (NEGATIVE); BLOOD, URINE BLOOD 1+ (NEGATIVE); COLOR, URINE YELLOW (YELLOW); GLUCOSE, URINE (UA) AUTO NEGATIVE (NEGATIVE); KETONE, URINE AUTO NEGATIVE (NEGATIVE); LEUKOCYTE ESTERASE, URINE AUTO 3+ (NEGATIVE); NITRITE, URINE AUTO POSITIVE (NEGATIVE); PROTEIN, URINE AUTO NEGATIVE (NEGATIVE); RBC, URINE AUTO 2 /HPF (0-3); SPECIFIC GRAVITY URINE AUTO 1.008 (1.002-1.035); SQUAMOUS EPITHELIAL CELL UR AU 0 /HPF (0-6); UROBILINOGEN, URINE AUTO 0.2 mg/dL (0.0-2.0); WBC, URINE AUTO TNTC /HPF (0-3)
== END ==
LOC: M SFHCPLAZ 14:55
PROVIDERS: ATTEND Family Medicine
DX: R30.0 Dysuria (principal)

== ENCOUNTER → 2019-10-21 | Outpatient (CLI) | payer MEDICARE ==
[2019-10-21 12:30] LABS: HEMATOCRIT 41.9 % (36.0-47.0); HEMOGLOBIN 13.9 g/dl (12.0-15.5); MEAN CORPUSCULAR HGB CONC 33.2 g/dl (32.0-36.5); MEAN CORPUSCULAR VOLUME 96.3 fl (80.0-96.0); PLATELET COUNT, AUTOMATED 211 10^3/uL (150-450); RED BLOOD COUNT 4.35 10^6/uL (4.00-5.40); WHITE BLOOD COUNT 5.7 10^3/uL (4.0-10.0)
[2019-10-21 12:47] LABS: INR 2.26; PROTHROMBIN TIME 25.5 SECONDS (11.8-14.0)
[2019-10-21 13:47] LABS: ALBUMIN 3.6 GM/DL (3.2-5.2); ALT/SGPT 18 U/L (12-78); BILIRUBIN,TOTAL 0.3 MG/DL (0.2-1.0); BLOOD UREA NITROGEN 18 MG/DL (7-18); CALCIUM LEVEL 8.9 MG/DL (8.8-10.2); CARBON DIOXIDE LEVEL 29 MEQ/L (21-32); CHLORIDE LEVEL 106 MEQ/L (98-107); CHOLESTEROL LEVEL 126 MG/DL (<200); CREATININE FOR GFR 0.79 MG/DL (0.55-1.30); FERRITIN 30 NG/ML (8-252); GLOMERULAR FILTRATION RATE > 60.0 (>39); GLUCOSE, FASTING 94 MG/DL (70-100); HDL CHOLESTEROL 51 MG/DL (>40); IRON (FE) 70 UG/DL (50-170); LDL CHOLESTEROL 49 MG/DL (<100); NON-HDL-C 75 MG/DL; PERCENT SATURATION 20.1 % (13.2-45.0); POTASSIUM SERUM 3.8 MEQ/L (3.5-5.1); SODIUM LEVEL 139 MEQ/L (136-145); TOTAL IRON BINDING CAPACITY 348 UG/DL (250-450); TRIGLYCERIDES LEVEL 130 MG/DL (<150)
== END ==
LOC: M LAB 11:26
PROVIDERS: ATTEND Family Medicine
DX: Z01.812 Encounter for preprocedural laboratory examination (principal); I50.30 Unspecified diastolic (congestive) heart failure; R73.01 Impaired fasting glucose

== ENCOUNTER → 2020-06-11 | Outpatient (CLI) | payer MEDICARE, MEDICAID ==
[~2020-06-11] MED LIST changes: -AMIT25TA PO; +AMIT25TA17 PO; -MAG400TA PO; +MAGN400T35 PO
--- NOTE | 2020-06-11 15:03 | REP ---
INDICATION: PAIN BOTH KNEES. COMPARISON: 06/14/2016. TECHNIQUE: Standing AP and lateral views performed bilaterally as well as bilateral sunrise views. FINDINGS: There is no acute fracture or dislocation bilaterally. On the right there is mild lateral joint space narrowing. There is mild spurring of the right lateral patellar facet. There is mild lateral patellofemoral compartment narrowing with subchondral sclerosis on the right. On the left there is moderate to severe medial joint space narrowing. There is subchondral sclerosis of the left medial femoral condyle and tibial plateau. There is moderate spurring of the superior pole of the left patella, as well as the medial and lateral patellar facets. There is moderately severe lateral patellofemoral compartment narrowing with subchondral sclerosis. I suspect small joint effusion on the left. IMPRESSION: Relatively mild arthritic changes right knee joint with moderate to severe arthritic changes left hip knee joint. <Electronically signed by Rojas Anderson > 06/11/20 1500
== END ==
LOC: M SOG 09:45
PROVIDERS: ATTEND Orthopaedic Surgery Adult Reconstructive Orthopaedic Surgery
DX: M17.11 Unilateral primary osteoarthritis, right knee (principal); M25.761 Osteophyte, right knee; M25.762 Osteophyte, left knee; M16.11 Unilateral primary osteoarthritis, right hip

== ENCOUNTER 2020-06-15 16:34 | Emergency (ER) | payer MEDICAID, MEDICARE ==
[~2020-06-15] VITALS: Ht 162.6 cm; Wt 75.9 kg
[2020-06-15] MEDS ORDERED: WARF-23 (16:52)
[2020-06-15] MEDS ORDERED: MORPHINE 4 MG/ML 1ML VIAL/SYRINGE (J2270) IM ONE (18:35)
[2020-06-15 19:03] LABS: BASO % 0.4 % (0.0-1.0); EOS # 0.1 10^3/uL (0.0-0.5); EOS % 0.6 % (0.0-3.0); HEMATOCRIT 48.3 % (36.0-47.0); HEMOGLOBIN 16.4 g/dl (12.0-15.5); LYMPH # 2.4 10^3/uL (1.5-5.0); LYMPH % 24.9 % (24.0-44.0); MEAN CORPUSCULAR HEMOGLOBIN 32.7 pg (27.0-33.0); MEAN CORPUSCULAR VOLUME 96.4 fl (80.0-96.0); MONO # 1.3 10^3/uL (0.0-0.8); NEUTROPHILS # 5.7 10^3/uL (1.5-8.5); NEUTROPHILS % 59.8 % (36.0-66.0); PLATELET COUNT, AUTOMATED 232 10^3/uL (150-450); RED BLOOD COUNT 5.01 10^6/uL (4.00-5.40); WHITE BLOOD COUNT 9.5 10^3/uL (4.0-10.0)
[2020-06-15 19:25] LABS: ERYTHROCYTE SEDIMENTATION RATE 2 mm/hr (0-30)
[2020-06-15 19:28] LABS: BLOOD UREA NITROGEN 11 MG/DL (7-18); C REACTIVE PROTEIN QUANTITATIV 0.39 MG/DL (0.00-0.30); CALCIUM LEVEL 9.7 MG/DL (8.8-10.2); CARBON DIOXIDE LEVEL 30 MEQ/L (21-32); CHLORIDE LEVEL 103 MEQ/L (98-107); CREATININE FOR GFR 0.77 MG/DL (0.55-1.30); GLOMERULAR FILTRATION RATE > 60.0 (>39); GLUCOSE, FASTING 94 MG/DL (70-100); POTASSIUM SERUM 4.3 MEQ/L (3.5-5.1); SODIUM LEVEL 136 MEQ/L (136-145); URIC ACID 3.8 MG/DL (2.6-6.0)
[2020-06-15] MEDS ORDERED: PRED20TA PO (20:09)
[2020-06-15] MEDS ORDERED: predniSONE 20 MG TAB PO ONE (20:10)
[2020-06-15] MEDS ORDERED: NORCO, ANEXSIA 5/325MG TABLET (HYDROcodone/ACETAMINOPHEN) PO ONE (20:45)
[2020-06-15] MEDS ORDERED: PERCOCET 5MG/325MG TAB PO ONE (20:55)
[2020-06-15 21:42] VITALS: BP 156/83
== END 2020-06-15 21:46 | disposition home or self-care (01) ==
LOC: M ED 16:34
DX: M25.462 Effusion, left knee (principal); M17.12 Unilateral primary osteoarthritis, left knee; I11.0 Hypertensive heart disease with heart failure; I50.9 Heart failure, unspecified; K21.9 Gastro-esophageal reflux disease without esophagitis; Z79.899 Other long term (current) drug therapy; Z79.890 Hormone replacement therapy; Z88.0 Allergy status to penicillin; Z88.1 Allergy status to other antibiotic agents; Z88.2 Allergy status to sulfonamides; Z88.8 Allergy status to other drugs, medicaments and biological substances
CPT/HCPCS: 36415; 80048; 84550; 85025; 85652; 86140; 96372; 99284; J2270

== ENCOUNTER → 2020-08-06 | Outpatient (REF) | payer MEDICARE ==
[~2020-08-06] MED LIST changes: +ERGO500029 PO; +PRED20TA PO; +WARF-23 PO
== END ==
LOC: M SFHCPLAZ 18:59
PROVIDERS: ATTEND Family Medicine
DX: R19.7 Diarrhea, unspecified (principal)

== ENCOUNTER → 2020-08-07 | Outpatient (CLI) | payer MEDICARE ==
[2020-08-07 15:41] LABS: BASO % 0.5 % (0.0-1.0); EOS # 0.2 10^3/uL (0.0-0.5); EOS % 3.1 % (0.0-3.0); HEMATOCRIT 47.4 % (36.0-47.0); HEMOGLOBIN 15.8 g/dl (12.0-15.5); LYMPH % 34.2 % (24.0-44.0); MEAN CORPUSCULAR HEMOGLOBIN 32.3 pg (27.0-33.0); MEAN CORPUSCULAR HGB CONC 33.3 g/dl (32.0-36.5); MEAN CORPUSCULAR VOLUME 96.9 fl (80.0-96.0); MONO # 0.8 10^3/uL (0.0-0.8); MONO % 13.3 % (2.0-8.0); NEUTROPHILS # 2.9 10^3/uL (1.5-8.5); NEUTROPHILS % 48.6 % (36.0-66.0); PLATELET COUNT, AUTOMATED 249 10^3/uL (150-450); RED BLOOD COUNT 4.89 10^6/uL (4.00-5.40); WHITE BLOOD COUNT 5.9 10^3/uL (4.0-10.0)
[2020-08-07 16:05] LABS: ERYTHROCYTE SEDIMENTATION RATE 6 mm/hr (0-30)
[2020-08-07 16:07] LABS: ALBUMIN 3.3 GM/DL (3.2-5.2); ALT/SGPT 19 U/L (12-78); BILIRUBIN,TOTAL 0.5 MG/DL (0.2-1.0); BLOOD UREA NITROGEN 13 MG/DL (7-18); CALCIUM LEVEL 8.9 MG/DL (8.8-10.2); CARBON DIOXIDE LEVEL 30 MEQ/L (21-32); CHLORIDE LEVEL 109 MEQ/L (98-107); CREATININE FOR GFR 0.72 MG/DL (0.55-1.30); GLOMERULAR FILTRATION RATE > 60.0 (>39); GLUCOSE, FASTING 90 MG/DL (70-100); LIPASE 71 U/L (73-393); POTASSIUM SERUM 3.7 MEQ/L (3.5-5.1); SODIUM LEVEL 144 MEQ/L (136-145); TOTAL PROTEIN 6.2 GM/DL (6.4-8.2)
== END ==
LOC: M PLALAB 13:55
PROVIDERS: ATTEND Physician Assistant
DX: R19.7 Diarrhea, unspecified (principal)

== ENCOUNTER → 2020-10-11 | Outpatient (CLI) | payer MEDICARE ==
--- NOTE | 2020-10-11 16:40 | REP ---
INDICATION: POST TRAUMATIC OSTEOARTHRITIS LEFT KNEE. Treatment planning. Assess bone quality and deformity. Preop. Unilateral posttraumatic osteoarthritis left knee. COMPARISON: Comparison radiographs June 11, 2020. TECHNIQUE: Estevan protocol. FINDINGS: Images at the left hip demonstrate femoroacetabular osteoarthritic spurring. There is tendon insertion site spurring on the greater trochanter. Femoral head is smooth and rounded. Hip joint space is preserved. Periarticular soft tissues are unremarkable. Images at the knee demonstrate 3 compartment osteoarthritis with patellofemoral, and medial joint space narrowing, sclerosis and spur formation. There is chondrocalcinosis predominantly in the lateral compartment the joint. Moderate spurring is seen laterally as well. No bony destructive lesion is seen. Mild subcortical cyst formation is seen beneath the tibial spines. There is a small accessory ossicle at the anterior and lateral aspect of the tibiotalar articulation. There is mild diffuse osteopenia. At the ankle, CT images show plantar and Achilles calcaneal spurring. There is mild subcortical cyst formation in the tarsal navicular bone. An os perineum is evident. IMPRESSION: Moderate osteoarthritis of the knee. Mild osteoarthritis at the hip. <Electronically signed by Kirill Chong > 10/11/20 [id number]
== END ==
LOC: M RAD 14:58
PROVIDERS: ATTEND Orthopaedic Surgery Adult Reconstructive Orthopaedic Surgery
DX: M17.32 Unilateral post-traumatic osteoarthritis, left knee (principal); M16.12 Unilateral primary osteoarthritis, left hip

== ENCOUNTER → 2020-10-15 | Outpatient (CLI) | payer MEDICARE ==
[2020-10-15 13:09] LABS: BASO # 0.1 10^3/uL (0.0-0.2); BASO % 0.9 % (0.0-1.0); EOS # 0.3 10^3/uL (0.0-0.5); EOS % 3.9 % (0.0-3.0); HEMATOCRIT 42.3 % (36.0-47.0); HEMOGLOBIN 14.4 g/dl (12.0-15.5); LYMPH # 2.7 10^3/uL (1.5-5.0); MEAN CORPUSCULAR HEMOGLOBIN 32.9 pg (27.0-33.0); MEAN CORPUSCULAR VOLUME 96.6 fl (80.0-96.0); MONO # 0.7 10^3/uL (0.0-0.8); MONO % 11.3 % (2.0-8.0); NEUTROPHILS # 2.7 10^3/uL (1.5-8.5); NEUTROPHILS % 41.7 % (36.0-66.0); PLATELET COUNT, AUTOMATED 203 10^3/uL (150-450); RED BLOOD COUNT 4.38 10^6/uL (4.00-5.40); WHITE BLOOD COUNT 6.4 10^3/uL (4.0-10.0)
[2020-10-15 13:20] LABS: INR 2.63; PARTIAL THROMBOPLASTIN TIME 43.1 SECONDS (25.9-37.0); PROTHROMBIN TIME 28.4 SECONDS (12.7-14.5)
[2020-10-15 13:28] LABS: HEMOGLOBIN A1c 5.4 %
[2020-10-15 13:54] LABS: ALBUMIN 3.1 GM/DL (3.2-5.2); BILIRUBIN,TOTAL 0.4 MG/DL (0.2-1.0); CALCIUM LEVEL 8.5 MG/DL (8.8-10.2); CREATININE FOR GFR 0.97 MG/DL (0.55-1.30); FREE T4 1.12 NG/DL (0.76-1.46); GLOMERULAR FILTRATION RATE 59.6 (>39); POTASSIUM SERUM 3.6 MEQ/L (3.5-5.1); THYROID STIMULATING HORMONE 0.855 uIU/ML (0.358-3.740); TOTAL PROTEIN 5.6 GM/DL (6.4-8.2)
[2020-10-15 13:55] LABS: PTH INTACT 55.5 PG/ML (18.5-88.0); TOTAL 25(OH) VITAMIN D 111.8 NG/ML (30.0-100.0)
== END ==
LOC: M LAB 12:46
PROVIDERS: ATTEND Physician Assistant Medical
DX: Z01.818 Encounter for other preprocedural examination (principal); I10 Essential (primary) hypertension; R73.01 Impaired fasting glucose; E55.9 Vitamin D deficiency, unspecified; Z79.899 Other long term (current) drug therapy

== ENCOUNTER → 2020-10-18 | Outpatient (CLI) | payer MEDICARE | LOC: M LABSMTC 09:33 | PROVIDERS: ATTEND Anesthesiology | DX: Z01.812 Encounter for preprocedural laboratory examination (principal); Z20.822 Contact with and (suspected) exposure to COVID-19 ==

== ENCOUNTER 2020-10-22 06:08 | Observation (INO) | payer MEDICARE ==
[~2020-10-22] VITALS: Ht 162.6 cm; Wt 70.8 kg
[2020-10-22] MEDS: LEVOTHYROXINE 25MCG TABLET (0.025MG) PO SCH (06:00)
[~2020-10-22 06:08] MED LIST changes: +LIDOCAINE 1% MDV 20ML VIAL SQ PRN; +LR 1,000 ML IV ONE
[2020-10-22 06:53] LABS: INR 0.93; PROTHROMBIN TIME 12.9 SECONDS (12.7-14.5)
[2020-10-22] MEDS ORDERED: NAPROXEN 250 MG TAB PO ONE (07:00)
[2020-10-22] MEDS ORDERED: ceFAZolin SOD 2 GM in IV 1 EA IV ONE (07:00)
[2020-10-22] MEDS ORDERED: NS 1,000 ML IV ONE (07:00)
[2020-10-22] MEDS ORDERED: dexameTHASONE 4 MG/ML 1ML VIAL (J1100 PER 1MG) IV ONE (07:00)
[2020-10-22] MEDS ORDERED: ACETAMINOPHEN 500 MG TAB PO ONE (07:00)
[2020-10-22] MEDS ORDERED: VANCOMYCIN HCL 1,000 MG, VIAL MATE ADAPTER 1 EACH in NS 250 ML IV SCH (07:00)
[2020-10-22] MEDS ORDERED: PREGABALIN 25 MG CAP (LYRICA) PO ONE (07:00)
[2020-10-22] MEDS ORDERED: ROPIVA 125MG/EPINEPH 0.25MG/CLONID 40MCG/KETOR 15MG IN NS 50ML SYRINGE PA ONE (07:00)
[2020-10-22] MEDS ORDERED: VANCOMYCIN 1000MG/20ML VIAL As Ordered ONE (07:10)
[2020-10-22] MEDS ORDERED: TRANEXAMIC ACID 100 MG/ML 10ML VIAL As Ordered ONE (07:12)
[2020-10-22] MEDS ORDERED: propofoL 200 MG/20 ML VIAL As Ordered ONE (07:19)
[2020-10-22] MEDS ORDERED: MIDAZOLAM INJ 2MG/2ML VIAL (J2250 PER 1MG) As Ordered ONE (07:19)
[2020-10-22] MEDS ORDERED: LIDOCAINE 2% 100MG/5ML SDV (FOR ANES.) As Ordered ONE (07:19)
[2020-10-22] MEDS ORDERED: ROCURONIUM BROMIDE 50 MG/5 ML VIAL As Ordered ONE (07:19)
[2020-10-22] MEDS ORDERED: fentaNYL 100 MCG/2 ML INJECTION (J3010) As Ordered ONE ×2 (07:20→08:12)
[2020-10-22] MEDS ORDERED: PHENYLephrine 500MCG 5ML (100MCG/ML) SYRINGE As Ordered ONE (07:45)
[2020-10-22] MEDS ORDERED: ePHEDrine SULFATE 25 MG/5 ML(5MG/ML) SYRINGE As Ordered ONE (08:04)
[2020-10-22] MEDS ORDERED: ONDANSETRON 4MG/2ML VIAL As Ordered ONE (08:11)
[2020-10-22] MEDS ORDERED: SUGAMMADEX SODIUM 500 MG/5 ML VIAL (BRIDION) As Ordered ONE (08:11)
[2020-10-22] MEDS ORDERED: HYDROmorphone HCL 2 MG/ML 1ML VIAL As Ordered ONE (08:49)
[2020-10-22] MEDS ORDERED: LR 1,000 ML IV SCH ×2 (09:30→10:45)
[2020-10-22] MEDS ORDERED: ONDANSETRON 4MG/2ML VIAL IV PRN ×2 (09:30→10:40)
[2020-10-22] MEDS: HYDROMORPHONE HCL 0.5 MG/ 0.5 ML SYRINGE (J1170 PER 1) IV PRN ×8 (09:50→12:50)
[2020-10-22] MEDS: oxyCODONE 5MG TAB PO PRN ×3 (09:52→16:05)
--- NOTE | 2020-10-22 09:55 | ROOPDOC ---
[facility] Report Of Operation Report of Operation DATE OF PROCEDURE: 10/22/20 PREPROCEDURE DIAGNOSES: Left knee osteoarthritis POSTPROCEDURE DIAGNOSES: Left knee osteoarthritis PROCEDURE PERFORMED: Left Estevan total knee SURGEON: Yadira Shah MD SOLID FIBER PASTER OPERATOR: Elyssa Sam PA-C ANESTHESIA: General. ESTIMATED BLOOD LOSS: Approximately less than 100 mL. COMPLICATIONS: No known complications. REMARKS: Patient was seen in the preoperative area and her left knee was marked. Consent was obtained for the Estevan left total knee arthroplasty as well. Risks and benefits were discussed as previously described. Components: [employer]bereason triathlon system press-fit 35 mm patella Size 3 tibia and size 3 femur CR 11 mm CS polyethylene FINDINGS: Tricompartmental osteoarthritis left knee SPECIMENS REMOVED: None PROCEDURE NOTE: The patient was seen in the preoperative area and her status was updated. [facility] plan was reviewed prior to surgery and adjusted appropriately. DESCRIPTION OF PROCEDURE: Patient was taken to the operating room and after a checklist was performed, the underwent a general anesthetic. The patient was then placed supine. The operative leg was then cleansed with chlorhexidine wash followed by 2 times alcohol swab followed by hydrogen peroxide wash. 2 chlorhexidine prep once were then used to clean the leg. The operative extremity was then prepped and draped in the standard sterile fashion. This was done utilizing the Estevan leg tanner device. An additional chlorhexidine wash was done after draping. Ioban was not utilized nor was Betadine utilized due to the patient's shellfish allergy. Vancomycin antibiotic was given due to a history of MRSA UTI in the remote past. A surgical pause was then carried out followed by the surgical safety checklist. 2 stab hole incisions were made approximately 4 fingerbreadths below the tibial tubercle of the left knee for the tibial array pins which were placed. The midline incision over the knee followed by the medial arthrotomy was then carried out. Cautery was used to control bleeders. The soft tissue and fat pad were removed using electrocautery. The femoral array pins were then placed in the medial femoral condyle. The femoral tracker was then placed followed by the tibial tracker. The arrays were then placed over the array pins. The hip center was checked followed by the medial and lateral condyles of the ankle. The registration of the femur and tibia then occurred using the arrays in the Estevan system. Osteophytes were removed at this point, as needed. The leg was then brought into extension and varus and valgus stresses were applied in extension and spoons were used for tensioning as well as a Bearden in flexion of approximately 95 degrees. Once the soft tissue adjustments were made to the Estevan plan, the plan was carried out utilizing the robot. The 90 degree blade cuts were made first followed by the straight blade cuts. Once all the cuts were completed with the assistance of the Estevan robot, the rongeur and osteotome were used to remove the bone segments. A lamina clothing manager was used to help remove the medial lateral menisci remnants followed by a curved osteotome to remove any posterior osteophytes from the medial or lateral femoral condyles. A trial femur was placed and secured with a pin. The tibial component was then placed with a 10 mm polyinsert. This was brought into extension and found to have appropriate stability in both flexion and extension. The leg was then brought into extension and the patella was measured using the caliper. A freehand cut using towel clips was used to remove the patellar surface. This was then clamped and reamed appropriately for the press-fit components. A trial was placed and taken through range of motion and found to be nice and stable. The tibia was then appropriately positioned with the correct amount of rotation lined up with the medial third of the tibial tubercle. This was pinned and the keel punch was completed followed by the four-point reaming for the press-fit component. The CR femur had the lug holes drilled. The RE CK local anesthetic cocktail was instilled in the standard fashion. The wound was thoroughly irrigated with pulse lavage. The tibia was then press-fit in position using the mallet and impactors. The femur was then flexed high and positioned aligning the lug holes. This component was impacted then brought out into 90 degrees and impacted further to avoid anywhere to the metal components. The 10 mm polyethylene insert was then trialed. This was increased to an 11, which found appropriate and the final component was placed and impacted. The leg was brought into extension and the p ress-fit polyethylene patellar component was tightened and impacted utilizing the compression device The leg was taken through stable range of motion. It was thoroughly irrigated. Electrocautery was used to control any bleeders. A layered closure using #1 Vicryl followed by strata fix for the arthrotomy. #1 Vicryl to close down the subcutaneous tissue followed by running subcutaneous 2.0 and then a three-point 0 Monocryl subcuticular stitch antibacterial. Layered irrigation with saline occurred. Steri-Strips were applied followed by the Mepilex dressing Patient tolerated the procedure well with no known complications. They were taken to the recovery room in stable condition. The patient will be admitted to the hospitalist service with plan for evaluation with physical therapy and possible discharge home tomorrow. She will be restarted on her blood thinner warfarin tomorrow morning. Her daughter who accompanied her in preop was advised that an appointment with her primary care for checking her anticoagulation and reassessing her warfarin dose should occur this week. Discharge Instructions Total Knee Arthroplasty 1. Pain: You may take oxycodone as prescribed for pain. Supplement with Naproxen and Tylenol as needed. Ice pack to operative knee as tolerated. 2. Wound care: Remove dressing on postop day 7. Call [phone] with any questions or concerns. Hygiene: The patient may shower. No tub baths. Check dressing seal prior to bathing. 3. Activity: WBAT left lower extremity. Front wheeled walker versus crutches for ambulation. Fall precautions. 4. Driving: No driving until cleared by your surgeon. Do not drive if taking narcotic pain medications as these may make you drowsy. 5. DVT Prophylaxis: Continue taking warfarin as prescribed for the prevention of blood clots. Ankle pumps every 1 hour while awake. RUSS hose at all times for 1 month after surgery. May remove for hygiene and wound care. 6. Placement: Plan is to discharge patient to home with home health including nursing and physical therapy. 7. Surgeon Follow-up: The patient is scheduled to be seen in Dr. Shah's office 2 weeks post op with xrays. 8. Primary care Follow-up: Please see your primary care provider in the next 2 to 5 weeks for general medical re-evaluation and medication review. 9. Labs: CBC without differential and BMP to be drawn on postop day 3 with results to PCP and please fax to [phone]. 10. Please contact [facility] if you have any questions or concerns at [phone]. YADIRA SHAH MD Oct 22, 2020 09:55
[2020-10-22] MEDS: fentaNYL 100 MCG/2 ML INJECTION (J3010) IV PRN ×4 (10:15→10:35)
--- NOTE | 2020-10-22 10:38 | REP ---
INDICATION: POST OP IN PACU COMPARISON: 06/11/2020. TECHNIQUE: AP and lateral left knee. FINDINGS: There is a total knee prosthesis in good position. Osseous structures are intact and well aligned. Postsurgical air is seen anteriorly. IMPRESSION: Total knee arthroplasty in good position <Electronically signed by Rojas Anderson > 10/22/20 1031
[2020-10-22] MEDS ORDERED: traMADol 50 MG TAB PO PRN (10:40)
[2020-10-22] MEDS ORDERED: SENNA 8.6 MG TAB (SENOKOT) PO PRN (10:40)
[2020-10-22] MEDS ORDERED: oxyCODONE 5MG TAB PO PRN (10:45)
[2020-10-22] MEDS: ACETAMINOPHEN TAB 650MG DOSE (2X325MG) PO SCH ×3 (12:00→23:20)
[2020-10-22 13:30] VITALS: BP 150/73
[2020-10-22] MEDS ORDERED: IPRATROPIUM 0.5MG/ALBUTEROL 2.5MG INH SOL UD 3ML (DUONEB) NEB PRN (13:55)
[2020-10-22] MEDS ORDERED: tiZANidine 4 MG TAB PO PRN (13:55)
[2020-10-22 14:00] VITALS: BP 149/74
[2020-10-22 15:00] VITALS: BP 128/58
[2020-10-22 16:00] VITALS: BP 131/90
[2020-10-22] MEDS: PREGABALIN 75 MG CAP(LYRICA) PO SCH ×2 (16:05→20:08)
[2020-10-22] MEDS: ASCORBIC ACID 500 MG TAB PO SCH (16:07)
[2020-10-22] MEDS: FERROUS SULFATE 325MG TAB PO SCH (16:07)
--- NOTE | 2020-10-22 16:09 | HPEPDOC ---
General Date of Admission 10/22/20 Date of Service: Oct 22, 2020 Chief Complaint The patient is a 75-year-old female admitted with a reason for visit of Left Knee Osteoarthritis. History of Present Illness 75-year-old female with past medical history of Hypertension, cold agglutinin hemolytic anemia, Raynaud's phenomenon, DVT/ PE, migraine, COPD, GERD, depression, renal stones, and severe left knee osteoarthritis was admitted for elective total left knee replacement. I am seeing the patient after surgery. Patient complains of left knee pain 5/10 in intensity sharp aching in nature with severe muscle spasms on minor movement. Home Medications Scheduled Amlodipine Besylate (Amlodipine Besylate) 2.5 Mg Tablet, 2.5 MG PO DAILY, (Rep orted) Atorvastatin Calcium (Atorvastatin Calcium) 40 Mg Tablet, 40 MG PO QHS, (Reported) Ergocalciferol (Vitamin D2) (Vitamin D2) 50,000 Units Cap, 50,000 UNITS PO 1XWK, (Reported) Levothyroxine Sodium (Levothyroxine Sodium) 25 Mcg Tablet, 25 MCG PO DAILY, (Reported) Magnesium Oxide (Magnesium Oxide) 400 Mg Tab, 800 MG PO BID, (Reported) Omeprazole (Omeprazole) 40 Mg Capsule.dr, 40 MG PO QHS, (Reported) Pregabalin (Lyrica) 150 Mg Cap, 150 MG PO TID, (Reported) Warfarin Sodium (Warfarin Sodium) 5 Mg Tablet, 5 MG PO DAILY, (Reported) Scheduled PRN Albuterol Sulfate (Proair Hfa) 8.5 Gm Hfa.aer.ad, 2 PUFF INH Q4H PRN for SHORTNESS OF BREATH, (Reported) Hydrocodone/Acetaminophen (Hydrocodone-Acetamin 10-325 mg) 1 Each Tablet, 1 TAB PO QID PRN for PAIN, (Reported) Loperamide HCl (Loperamide) 2 Mg Capsule, 2 MG PO TID PRN for DIARRHEA, (Reported) Nystatin (Nystatin Powder) 100,000 Unit/Gm Pow, 1 UNIT TOP BIDP PRN for RE DNESS/IRRITATION, (Reported) UNDER BELLY AND BREASTS Tizanidine HCl (Zanaflex) 4 Mg Tab, 4 MG PO Q8H PRN for SPASMS, (Reported) [DuoNeb] , 0.5-2.5 MG INH QIDP PRN for SHORTNESS OF BREATH, (Reported) Allergies Coded Allergies: shellfish derived (Verified Allergy, Severe, ANAPHALAXIS, 10/01/20) latex (Verified Allergy, Intermediate, swelling/rash, 10/01/20) Sulfa (Sulfonamide Antibiotics) (Verified Allergy, Mild, RASH, 10/01/20) ciprofloxacin (Verified Allergy, Mild, RASH, 10/01/20) Penicillins (Verified Allergy, Unknown, 10/01/20) phenobarbital (Verified Adverse Reaction, Intermediate, INCREASES ANXIETY AND HEART RATE, 10/01/20) PER DAUGHTER Past Medical History Medical History Hypertension, Hypothyroid, chronic diarrhea, cold agglutinin hemolytic anemia, Raynaud's phenomenon, DVT/ PE, migraine, COPD, GERD, depression, renal stones, vitamin D deficiency, bilaterally profound hearing loss since childhood secondary to infections, knee and hip osteoarthritis, spinal degenerative joint disease, right ICA aneurysm 2.6 mm, chronic venous insufficiency, bilateral shoulder impingement. Surgical History BILATERAL CATARACT SURGERY CHOLECYSTECTOMY LEFT KNEE ARTHROSCOPIC TONSILLECTOMY/ADENOIDECTOMY HERNIA REPAIR X3 BLADDER SUSPENSION SURGERY L BREAST STEREOTACTIC BIOPSY BENIGN Family History FATHER: , HEART DISEASE SISTER BREAST CA. Social History * Smoker: former Smoker, quit greater than 1 year Alcohol: Denies Drugs: denies A-FIB/CHADSVASC A-FIB History Current/History of A-Fib/PAF?: No Current PO Anticoag Therapy: Yes Review of Systems Constitutional: Denies: Chills, Fever, Night Sweats Eyes: Denies: Pain, Vision change ENT: Denies: Head Aches, Ear Pain, Dysphagia Skin: Denies: Rash, Lesions, Breakdown Pulmonary: Denies: Dyspnea, Cough Cardiovascular: Denies: Chest Pain, Palpitations, Orthopnea, Paroxysmal Noc. Dyspnea, Lt Headedness Gastrointestinal: Denies: Nausea, Vomiting, Abdominal Pain, Diarrhea Genitourinary: Denies: Dysuria, Frequency, Incontinence, Retention Hematologic: Denies: Bruising, Bleeding Excessively Musculoskeletal: Reports: Joint Pain (left knee); Denies: Neck Pain, Back Pain, Muscle Pain, Spasms Physical Examination General Exam: Positive: Alert, Cooperative, No Acute Distress Eye Exam: Positive: PERRLA, Conjunctiva & lids normal, EOMI; Negative: Sclera icteric ENT Exam: Positive: Atraumatic, Mucous membr. moist/pink, Pharynx Normal, Other ENT (bilateral hearing loss profound, reads lips. ) Neck Exam: Positive: Supple; Negative: JVD, thyromegaly Chest Exam: Positive: Clear to auscultation, Normal air movement Heart Exam: Positive: Rate Normal, Regular Rhythm, Normal S1, Normal S2; Negative: Murmurs, Rubs Abdomen Exam: Positive: Normal bowel sounds, Soft; Negative: Tenderness Extremity Exam: Negative: Clubbing, Cyanosis, Edema Skin Exam: Positive: Nl turgor and temperature; Negative: Breakdown Psych Exam: Positive: Memory Intact, Oriented x 3 Vital Signs Vital Signs Date Time Temp Pulse Resp B/P (MAP) Pulse Ox O2 Delivery O2 Flow Rate FiO2 10/22/20 10:25 87 16 163/78 (106) 93 Nasal Cannula 2.0 10/22/20 10:10 97.6 Laboratory Data Labs 24H Laboratory Tests 2 10/22/20 06:22: Prothrombin Time 12.9, Prothromb Time International Ratio 0.93 Assessment/Plan 75-year-old female with past medical history of Hypertension, cold agglutinin hemolytic anemia, Raynaud's phenomenon, DVT/ PE, migraine, COPD, GERD, depression, renal stones, and severe left knee osteoarthritis was admitted for elective total left knee replacement. Left Knee advanced OA s/p left total knee replacement on 10/22/20, Dr Arreola pain control and activity as per orthopedics continue lyrica and tizanidine PT/OT Bowel meds restart coumadin. DVT and Pulmonary embolism remote history restart coumadin Hypertension BP controlled at present. will restart amlodipine as Bp rises. COPD duonebs prn HLD statin Hypothyroid synthroid Plan / VTE VTE Prophylaxis Ordered?: Yes Ainsley Garcia MD Oct 22, 2020 10:39
[2020-10-22] MEDS ORDERED: WARFARIN SOD 5MG TAB PO SCH (17:00)
[2020-10-22] MEDS: VANCOMYCIN HCL 1,000 MG, VIAL MATE ADAPTER 1 EACH in NS 250 ML IV SCH (20:07)
[2020-10-22] MEDS: NAPROXEN 250 MG TAB PO SCH (20:09)
[2020-10-22] MEDS: DOCUSATE SODIUM 100MG CAPSULE PO SCH (20:09)
[2020-10-22 20:22] VITALS: BP 127/59
[2020-10-22] MEDS ORDERED: ATORVASTATIN 20 MG TAB PO SCH (21:00)
[2020-10-22] MEDS ORDERED: OMEPRAZOLE 20 MG CAP PO SCH (21:00)
[2020-10-23] MEDS: oxyCODONE 5MG TAB PO PRN ×3 (03:21→12:37)
[2020-10-23] MEDS: ACETAMINOPHEN TAB 650MG DOSE (2X325MG) PO SCH ×2 (05:32→12:38)
[2020-10-23] MEDS: LEVOTHYROXINE 25MCG TABLET (0.025MG) PO SCH (05:32)
[2020-10-23 05:47] VITALS: BP 125/61
[2020-10-23 06:24] LABS: BASO % 0.1 % (0.0-1.0); EOS % 0.1 % (0.0-3.0); HEMATOCRIT 34.7 % (36.0-47.0); HEMOGLOBIN 11.7 g/dl (12.0-15.5); LYMPH # 1.8 10^3/uL (1.5-5.0); LYMPH % 22.6 % (24.0-44.0); MEAN CORPUSCULAR HEMOGLOBIN 32.6 pg (27.0-33.0); MEAN CORPUSCULAR HGB CONC 33.7 g/dl (32.0-36.5); MEAN CORPUSCULAR VOLUME 96.7 fl (80.0-96.0); MONO # 1.6 10^3/uL (0.0-0.8); MONO % 20.3 % (2.0-8.0); NEUTROPHILS # 4.4 10^3/uL (1.5-8.5); NEUTROPHILS % 56.6 % (36.0-66.0); PLATELET COUNT, AUTOMATED 157 10^3/uL (150-450); RED BLOOD COUNT 3.59 10^6/uL (4.00-5.40)
[2020-10-23 06:28] LABS: INR 1.03; PROTHROMBIN TIME 13.9 SECONDS (12.7-14.5)
[2020-10-23 06:56] LABS: WHITE BLOOD COUNT 7.8 10^3/uL (4.0-10.0)
[2020-10-23 07:09] LABS: BLOOD UREA NITROGEN 12 MG/DL (7-18); CALCIUM LEVEL 8.4 MG/DL (8.8-10.2); CARBON DIOXIDE LEVEL 27 MEQ/L (21-32); CHLORIDE LEVEL 112 MEQ/L (98-107); CREATININE FOR GFR 0.56 MG/DL (0.55-1.30); GLOMERULAR FILTRATION RATE > 60.0 (>39); GLUCOSE, FASTING 95 MG/DL (70-100); POTASSIUM SERUM 3.8 MEQ/L (3.5-5.1); SODIUM LEVEL 142 MEQ/L (136-145)
--- NOTE | 2020-10-23 08:42 | IPNPDOC ---
Text Note Date of Service The patient was seen on 10/23/20. NOTE Postop day 1 left total knee arthroplasty Patient reports that she is having pain and was taking pain medication last night. She has not been mobilizing significantly with the walker due to the pain in her leg. She also reports that the leg feels heavy is difficult to bend. The bulky dressing was in place. This was taken down. The Mepilex dressing was intact without any disruption of the seal. There is no staining of blood to the dressing. Patient is grossly neurovascular intact to the left foot and ankle. She has a palpable posterior tibial pulse and dorsalis pedis pulse. X-ray imaging was independently ordered and reviewed by myself in the recovery room. This demonstrated the left total knee arthroplasty prosthesis in good position. The patient will be assessed by physical therapy and the hospitalist service today, with likely discharge home. Discharge Instructions Total Knee Arthroplasty 1. Pain: You may take oxycodone as prescribed for pain. Supplement with Naproxen and Tylenol as needed. Ice pack to operative knee as tolerated. 2. Wound care: Remove dressing on postop day 7. Call [phone] with any questions or concerns. Hygiene: The patient may shower. No tub baths. Check dressing seal prior to bathing. 3. Activity: WBAT Left lower extremity. Front wheeled walker versus crutches for ambulation. Fall precautions. 4. Driving: No driving until cleared by your surgeon. Do not drive if taking narcotic pain medications as these may make you drowsy. 5. DVT Prophylaxis: Continue taking warfarin as prescribed for the prevention of blood clots. Patient and her daughter were advised to touch base with her primary care in terms of her warfarin management this week, postoperatively. Ankle pumps every 1 hour while awake. RUSS hose at all times for 1 month after surgery. May remove for hygiene and wound care. 6. Placement: Plan is to discharge patient to home with home health including nursing and physical therapy. 7. Surgeon Follow-up: The patient is scheduled to be seen in Dr. Shah's office 2 weeks post op with xrays. 8. Primary care Follow-up: Please see your primary care provider in the next 2 to 5 weeks for general medical re-evaluation and medication review. 9. Labs: CBC without differential and BMP to be drawn on postop day 3 with results to PCP and please fax to [phone]. 10. Please contact [facility] if you have any questions or concerns at [phone]. VS,Fishbone, I+O VS, Fishbone, I+O Laboratory Tests 10/23/20 05:43 Vital Signs Date Time Temp Pulse Resp B/P (MAP) Pulse Ox O2 Delivery O2 Flow Rate FiO2 10/23/20 05:47 97.2 65 18 125/61 (82) 97 Nasal Cannula 2.0 I&O- Last 24 Hours up to 6 AM 10/23/20 06:00 Intake Total 2260 ml Output Total 1375 ml Balance 885 ml YADIRA SHAH MD Oct 23, 2020 08:42
[2020-10-23] MEDS: VANCOMYCIN HCL 1,000 MG, VIAL MATE ADAPTER 1 EACH in NS 250 ML IV SCH (08:44)
[2020-10-23] MEDS: DOCUSATE SODIUM 100MG CAPSULE PO SCH (08:45)
[2020-10-23] MEDS: PREGABALIN 75 MG CAP(LYRICA) PO SCH (08:45)
[2020-10-23] MEDS: ASCORBIC ACID 500 MG TAB PO SCH (08:45)
[2020-10-23] MEDS: FERROUS SULFATE 325MG TAB PO SCH (08:45)
[2020-10-23] MEDS: NAPROXEN 250 MG TAB PO SCH (08:46)
[2020-10-23 10:00] VITALS: BP 131/62
[2020-10-23] MEDS ORDERED: LOVE0.8I SC (11:47)
--- NOTE | 2020-10-23 11:54 | DS.PDOC ---
Discharge Summary General Date of Admission 10/22/20 Date of Discharge 10/23/20 Discharge Summary PROCEDURES PERFORMED DURING STAY: [None]. DISCHARGE DIAGNOSES: 1. Left knee replacement 2. Osteoarthritis 3. PE/DVT (chronic) COMPLICATIONS/CHIEF COMPLAINT: Left Knee Osteoarthritis. HOSPITAL COURSE: 75-year-old female with a past medical history of hypertension, cold agglutinin hemolytic anemia, Raynaud's phenomenon, DVT/PE, migraine, COPD, GERD, depression, nephrolithiasis, and severe left knee osteoarthritis was admitted for an elective total left knee replacement. This was successfully done on without complications. Following surgery, patient worked with physical therapy and she was deemed stable to return home. Of note, she was on warfarin for her history of DVT/PE which was held for the surgery. Her INR was subtherapeutic therefore she is being discharged home with Lovenox 100 mg/1Ml for which she was instructed (as well as her daughter) to administer 70 mg every 12 hours for the next 5 days overlapping with her Coumadin, and following up with her primary care physician to ensure that her INR is therapeutic (goal 2- 3). The patient understood the reason why this was being done and accepted all risks. Daughter aware of plan (as per patient's wishes) and reports she would be calling the patient's primary care physician to schedule appointment. Of note, patient was also asked to follow-up with her primary care physician for anemia (hemoglobin was 11.7g/dl at the time of discharge). DISCHARGE MEDICATIONS: Please see below. ALLERGIES: Please see below. PHYSICAL EXAMINATION ON DISCHARGE: VITAL SIGNS: Please see below General: Lying in bed, no acute distress Head/Neck/Throat: Trachea midline, mucous membranes moist Eyes: Sclera anicteric, no erythema or discharge appreciated bilaterally Thorax: Normal respiratory effort on room air, lungs clear to auscultation bilaterally, no wheezes/rales/rhonchi Cardiovascular: Normal rate, regular rhythm, normal S1, S2; no S3, S4, rubs/gallops/murmurs Abdomen: Bowel sounds present, soft/nontender/nondistended Genitourinary: No CVA tenderness, no Blake in place Musculoskeletal: Moving all extremities, no edema Skin: Right knee was wrapped without soaking appreciated (previously examined by primary orthopedics team) Neurologic: AAOx3, speech fluent and goal-directed, no focal deficits, grossly intact LABORATORY DATA: Please see below. IMAGIN10/22/20 AP and lateral left knee. FINDINGS: There is a total knee prosthesis in good position. Osseous structures are intact and well aligned. Postsurgical air is seen anteriorly. IMPRESSION: Total knee arthroplasty in good position PROGNOSIS: Good ACTIVITY: [As tolerated]. DIET: As tolerated DISCHARGE PLAN: Home with assistance brought by daughter DISCHARGE CONDITION: Stable TIME SPENT ON DISCHARGE: 25 minutes. Vital Signs/I&Os Vital Signs Date Time Temp Pulse Resp B/P (MAP) Pulse Ox O2 Delivery O2 Flow Rate FiO2 10/23/20 10:00 98.3 70 18 131/62 (85) 97 Nasal Cannula 2.0 I&O- Last 24 Hours up to 6 AM 10/23/20 06:00 Intake Total 2260 ml Output Total 1375 ml Balance 885 ml Laboratory Data Labs 24H Laboratory Tests 2 10/23/20 05:43: Immature Granulocyte % (Auto) 0.3, Neutrophils (%) (Auto) 56.6, Lymphocytes (%) (Auto) 22.6L, Monocytes (%) (Auto) 20.3H, Eosinophils (%) (Auto) 0.1, Basophils (%) (Auto) 0.1, Neutrophils # (Auto) 4.4, Lymphocytes # (Auto) 1.8, Monocytes # (Auto) 1.6H, Eosinophils # (Auto) 0.0, Basophils # (Auto) 0.0, Nucleated Red Blood Cells % (auto) 0.0, Prothrombin Time 13.9, Prothromb Time International Ratio 1.03, Activated Partial Thromboplast Time 32.0, Anion Gap 3L, Glomerular Filtration Rate > 60.0, Calcium Level 8.4L CBC/BMP Laboratory Tests 10/23/20 05:43 Discharge Medications Scheduled Amlodipine Besylate (Amlodipine Besylate) 2.5 Mg Tablet, 2.5 MG PO DAILY, (Reported) Atorvastatin Calcium (Atorvastatin Calcium) 40 Mg Tablet, 40 MG PO QHS, (Reported) Enoxaparin Sodium (Lovenox) 100 Mg/1 Ml Syringe, 70 MG SC Q12H Only administer 70 mg every 12 hours. Ergocalciferol (Vitamin D2) (Vitamin D2) 50,000 Units Cap, 50,000 UNITS PO 1XWK, (Reported) Levothyroxine Sodium (Levothyroxine Sodium) 25 Mcg Tablet, 25 MCG PO DAILY, (Reported) Magnesium Oxide (Magnesium Oxide) 400 Mg Tab, 800 MG PO BID, (Reported) Omeprazole (Omeprazole) 40 Mg Capsule.dr, 40 MG PO QHS, (Reported) Pregabalin (Lyrica) 150 Mg Cap, 150 MG PO TID, (Reported) Warfarin Sodium (Warfarin Sodium) 5 Mg Tablet, 5 MG PO DAILY, (Reported) Scheduled PRN Albuterol Sulfate (Proair Hfa) 8.5 Gm Hfa.aer.ad, 2 PUFF INH Q4H PRN for SHORTNESS OF BREATH, (Reported) Hydrocodone/Acetaminophen (Hydrocodone-Acetamin 10-325 mg) 1 Each Tablet, 1 TAB PO QID PRN for PAIN, (Reported) Loperamide HCl (Loperamide) 2 Mg Capsule, 2 MG PO TID PRN for DIARRHEA, (Reported) Nystatin (Nystatin Powder) 100,000 Unit/Gm Pow, 1 UNIT TOP BIDP PRN for REDNESS/IRRITATION, (Reported) UNDER BELLY AND BREASTS Tizanidine HCl (Zanaflex) 4 Mg Tab, 4 MG PO Q8H PRN for SPASMS, (Reported) [DuoNeb] , 0.5-2.5 MG INH QIDP PRN for SHORTNESS OF BREATH, (Reported) Allergies Coded Allergies: shellfish derived (Verified Allergy, Severe, ANAPHALAXIS, 10/01/20) latex (Verified Allergy, Intermediate, swelling/rash, 10/01/20) Sulfa (Sulfonamide Antibiotics) (Verified Allergy, Mild, RASH, 10/01/20) ciprofloxacin (Verified Allergy, Mild, RASH, 10/01/20) Penicillins (Verified Allergy, Unknown, 10/01/20) phenobarbital (Verified Adverse Reaction, Intermediate, INCREASES ANXIETY AND HEART RATE, 10/01/20) PER DAUGHTER ANGELICA BERNAL M.D. Oct 23, 2020 11:30
== END 2020-10-23 13:15 | disposition home health service (06) ==
LOC: M SDC 06:08 → M MS5PR 06:09 → M SDC 10-23 13:15
PROVIDERS: ADMIT Internal Medicine Nephrology; ATTEND Internal Medicine Nephrology
DX: M17.12 Unilateral primary osteoarthritis, left knee (principal); Z86.711 Personal history of pulmonary embolism; Z86.718 Personal history of other venous thrombosis and embolism; I10 Essential (primary) hypertension; D59.12 Cold autoimmune hemolytic anemia; I73.00 Raynaud's syndrome without gangrene; G43.909 Migraine, unspecified, not intractable, without status migrainosus; J44.9 Chronic obstructive pulmonary disease, unspecified; F32.9 Major depressive disorder, single episode, unspecified; E03.9 Hypothyroidism, unspecified; E78.5 Hyperlipidemia, unspecified; E55.9 Vitamin D deficiency, unspecified; Z86.14 Personal history of Methicillin resistant Staphylococcus aureus infection; Z87.891 Personal history of nicotine dependence; Z79.899 Other long term (current) drug therapy; Z79.01 Long term (current) use of anticoagulants; Z91.013 Allergy to seafood; Z91.040 Latex allergy status; Z88.0 Allergy status to penicillin; Z88.2 Allergy status to sulfonamides; Z88.1 Allergy status to other antibiotic agents; Z88.8 Allergy status to other drugs, medicaments and biological substances
CPT/HCPCS: 27447; 36415; 64454; 73560; 80048; 85025; 85610; 85730; 88304; 88311; 97161; 97165; 97530; C1776; G0378; J1100; J1170; J2250; J2370; J2405; J3010; J3370; S2900

== ENCOUNTER → 2020-10-24 | Outpatient (REF) | payer MEDICARE ==
[~2020-10-24] MED LIST changes: -LIDOCAINE 1% MDV 20ML VIAL SQ PRN; +LOVE0.8I SC; -LR 1,000 ML IV ONE
[2020-10-24 14:32] LABS: BASO % 0.4 % (0.0-1.0); EOS % 0.1 % (0.0-3.0); HEMATOCRIT 38.7 % (36.0-47.0); HEMOGLOBIN 12.9 g/dl (12.0-15.5); LYMPH # 1.8 10^3/uL (1.5-5.0); MEAN CORPUSCULAR HEMOGLOBIN 32.8 pg (27.0-33.0); MEAN CORPUSCULAR HGB CONC 33.3 g/dl (32.0-36.5); MEAN CORPUSCULAR VOLUME 98.5 fl (80.0-96.0); MONO % 23.4 % (2.0-8.0); NEUTROPHILS # 4.5 10^3/uL (1.5-8.5); NEUTROPHILS % 53.4 % (36.0-66.0); PLATELET COUNT, AUTOMATED 159 10^3/uL (150-450); RED BLOOD COUNT 3.93 10^6/uL (4.00-5.40)
[2020-10-24 15:01] LABS: WHITE BLOOD COUNT 8.4 10^3/uL (4.0-10.0)
[2020-10-24 15:10] LABS: BLOOD UREA NITROGEN 11 MG/DL (7-18); CALCIUM LEVEL 8.7 MG/DL (8.8-10.2); CARBON DIOXIDE LEVEL 27 MEQ/L (21-32); CHLORIDE LEVEL 109 MEQ/L (98-107); CREATININE FOR GFR 0.59 MG/DL (0.55-1.30); GLOMERULAR FILTRATION RATE > 60.0 (>39); GLUCOSE, FASTING 66 MG/DL (70-100); POTASSIUM SERUM 2.9 MEQ/L (3.5-5.1); SODIUM LEVEL 142 MEQ/L (136-145)
== END ==
LOC: M SHH 14:17
PROVIDERS: ATTEND Orthopaedic Surgery Adult Reconstructive Orthopaedic Surgery
DX: Z01.818 Encounter for other preprocedural examination (principal)

== ENCOUNTER → 2020-11-05 | Outpatient (CLI) | payer MEDICARE ==
--- NOTE | 2020-11-05 10:25 | REP ---
INDICATION: ARTIFICIAL KNEE. COMPARISON: October 22, 2020. TECHNIQUE: Three views of the left knee. FINDINGS: Three views of the left knee demonstrate left knee arthroplasty components in good position. There is minimal prepatellar soft tissue swelling. Old pin tracks are seen in the proximal tibia. IMPRESSION: Post left knee arthroplasty. <Electronically signed by Kirill Chong > 11/05/20 1021
== END ==
LOC: M SOG 09:49
PROVIDERS: ATTEND Orthopaedic Surgery Adult Reconstructive Orthopaedic Surgery
DX: Z96.652 Presence of left artificial knee joint (principal)

== ENCOUNTER 2020-11-14 14:09 | Outpatient (RCR) | payer MEDICARE | END 2020-12-09 | LOC: M PT 14:09 | PROVIDERS: ATTEND Orthopaedic Surgery Adult Reconstructive Orthopaedic Surgery | DX: Z96.652 Presence of left artificial knee joint (principal) ==

== ENCOUNTER 2020-12-11 15:35 | Inpatient (IN) | payer MEDICARE ==
[~2020-12-11] VITALS: Ht 162.6 cm; Wt 66.6 kg
[2020-12-11 16:09] VITALS: BP 173/89
[2020-12-11 16:09] LABS: BASO # 0.1 10^3/uL (0.0-0.2); BASO % 0.6 % (0.0-1.0); EOS # 0.1 10^3/uL (0.0-0.5); EOS % 0.8 % (0.0-3.0); HEMATOCRIT 46.2 % (36.0-47.0); LYMPH # 3.2 10^3/uL (1.5-5.0); LYMPH % 27.3 % (24.0-44.0); MEAN CORPUSCULAR HEMOGLOBIN 32.7 pg (27.0-33.0); MEAN CORPUSCULAR HGB CONC 34.6 g/dl (32.0-36.5); MEAN CORPUSCULAR VOLUME 94.3 fl (80.0-96.0); MONO # 1.2 10^3/uL (0.0-0.8); MONO % 10.7 % (2.0-8.0); NEUTROPHILS # 6.9 10^3/uL (1.5-8.5); NEUTROPHILS % 60.2 % (36.0-66.0); PLATELET COUNT, AUTOMATED 374 10^3/uL (150-450); WHITE BLOOD COUNT 11.5 10^3/uL (4.0-10.0)
[2020-12-11] MEDS ORDERED: ONDANSETRON 4MG/2ML VIAL IV ONE (16:15)
[2020-12-11] MEDS ORDERED: NS 1,000 ML IV ONE (16:15)
[2020-12-11 16:22] LABS: PARTIAL THROMBOPLASTIN TIME 61.4 SECONDS (25.9-37.0)
[2020-12-11] MEDS ORDERED: OXYC1TAB23 PO (16:24)
--- NOTE | 2020-12-11 16:25 | REP ---
INDICATION: CVA - Nursing interventions must not delay CT. COMPARISON: 07/30/2019 TECHNIQUE: Noncontrast s reconstructions provided oft tissue and bone windows with coronal provided. FINDINGS: The lateral ventricles are midline symmetric and proportionate in size to the mild diffuse cerebral atrophy that atrophy is greatest in the temporal and frontal lobes. Third and 4th ventricles proportionate as well. Heterogeneous low-attenuation white matter bilaterally consistent with chronic small vessel ischemic disease. I do not see a vascular territory infarct, intracranial hemorrhage, mass or mass effect. Some atherosclerotic calcifications are noted in the carotid siphons. There is spray artifact from hearing aid at the left ear somewhat limiting periphery of the posterior right temporal region. Brainstem intact the some minor atrophy of the cerebellum without posterior fossa mass or hemorrhage basal cisterns intact. Mastoid aeration and visualized sinuses were clear skull base and calvarium are without fracture or focal lesion. IMPRESSION: 1. Mild atrophy, age-appropriate proportionate ventricular size. 2. Chronic small vessel white matter ischemic changes. 3. There is no definite acute infarct, intracranial hemorrhage, mass or mass effect. 4. Skull base and calvarium without acute findings. <Electronically signed by Sandro Smith > 12/11/20 [id number]
[2020-12-11 16:40] LABS: CK-MB VALUE MASS 4.2 NG/ML (<3.6); CPK CREATINE PHOSPHOKINASE 161 U/L (26-192); MB/CK RELATIVE INDEX 2.61 (< OR =4); TROPONIN I 0.08 NG/ML (< 0.10)
--- NOTE | 2020-12-11 16:42 | REP ---
INDICATION: CVA. COMPARISON: None. TECHNIQUE: Single portable AP view of the chest was performed. FINDINGS: There is mild stable cardiomegaly. The mediastinal silhouette is unchanged. There are chronic fibrotic changes in the left lung base. There is no acute infiltrate. Metallic clips are seen in the right upper quadrant of the abdomen. IMPRESSION: No acute pulmonary disease.Stable chronic findings as above. <Electronically signed by Rojas Anderson > 12/11/20 [id number]
--- OUTSIDE RECORDS SUMMARY | 2020-12-11 16:45 | CCD ---
Author Author [facility] [employer] Organization [facility] [employer] Address Unknown Phone Unavailable Support Name Relationship Address Phone ALEKSANDER LOUIS [address] [place] [address] Abby Tg HCP & POA ECON [address] [facility] [address] [place], [place] [id number] Care Team Providers Care Industrial Rehabilitation Consultant Name Role Phone Ayad De La Cruz Unavailable PROBLEMS Type Condition ICD9-CM Code PWO91-GI Code Onset Dates Condition S tatus W/U Status Risk SNOMED Code Notes Problem Primary osteoarthritis of both knees M17.0 Act tacos confirmed 356268210 Problem Osteoarthritis of both hands M19.041 Active confirm ed 866939847 Problem Primary osteoarthritis, right hand M19.041 Activ e confirmed 13899801 Problem Chronic diarrhea K52.9 Active confirmed 236 777522 Problem Primary osteoarthritis of left hand M19.042 Acti ve confirmed 26911874 Problem Sacroiliitis, not elsewhere classified M46.1 A ctive confirmed 02127511 Problem Intervertebral disc disorder with radiculopathy of lumbar region M51.16 Active confirmed 00720261 Problem Syncope, unspecified syncope type R55 Active con firmed 282116869 Problem Bilateral carpal tunnel syndrome G56.03 Active conf irmed 57267518 Problem Personal history of pulmonary embolism Z86.711 A ctive confirmed 519883276 Problem Adenomatous polyp of colon, unspecified part of colon D12.6 Active confirmed 515533411 Problem Intertriginous candidiasis B37.2 Active confirmed 20067411 Problem Macrocytosis D75.89 Active confirmed 3283012 00 Problem Cerebral vascular disease I67.9 Active confirmed 34781044 Problem BYRON (generalized anxiety disorder) F41.1 Activ e confirmed 17443933 Problem T2 hyperintense foci present in deep weiner matter nuclei on magnetic resonance imaging R90.89 Active confirmed 781630251 Problem DJD (degenerative joint disease), lumbar M47.816 Active confirmed 743627735 Problem Aneurysm, carotid artery, internal I67.1 Activ e confirmed 47317921 Problem UTI (urinary tract infection) N39.0 Active confirm ed 90542220 Problem Sacroiliac joint pain M53.3 Active confirmed 885659967 Problem H/O deep venous thrombosis Z86.718 Active confirmed 423203361 Problem Intervertebral disc disorder M51.9 Active confirme d 05562458 Problem COPD (chronic obstructive pulmonary disease) J44.9 Active confirmed 79090320 Problem Acquired hypothyroidism E03.9 Active confirmed 808992414 Problem Breast cancer screening Z12.39 Active confirmed 958735065 Problem Osteoarthritis of spine with radiculopathy, cervical regio n M47.22 Active confirmed 014600007 Problem Nicotine addiction F17.200 Active confirmed 03978624 Problem History of pulmonary embolism Z86.711 Active confir med 457899731 Problem COPD with exacerbation J44.1 Active confirmed 016969011 Problem Gastroesophageal reflux disease, esophagitis pre sence not specified K21.9 Active confirmed 377270455 Problem intermediate designer current use of anticoagulant Z79.01 A ctive confirmed 932369079 Problem IFG (impaired fasting glucose) R73.01 Active confir med 565364998 Problem Encounter for therapeutic drug monitoring Z51.81 Active confirmed 179814214 Problem Diplopia H53.2 Active confirmed 03527484 Problem Vitamin D deficiency, unspecified E55.9 Active con firmed 12109760 Problem Carpal tunnel syndrome G56.00 Active confirmed 38380260 Problem Mixed hyperlipidemia E78.2 Active confirmed 572489122 Problem Raynaud's disease without gangrene I73.00 Activ e confirmed 634391709 Problem Chronic pain syndrome G89.4 Active confirmed 815770572 Problem Essential (primary) hypertension I10 Active conf irmed 52466863 Problem Thrombocytopenia D69.6 Active confirmed 415 113228 Problem Encounter for screening for lung cancer Z12.2 Active confirmed 533122269 ALLERGIES Allergen (clinical drug ingredient) Drug/Non Drug Allergy do cumented on EMR Reaction Allergy Type Onset Date Status ciprofloxacin Cipro(NDC Code:[address]-54) Hives Drug Allergy Active Shellfish shellfish Anaphylaxis Non Drug Allergy Active penicillin V Penicillin V Potassium(NDC Code:[address]-25) Hives Drug Allergy Active diclofenac Flector(NDC Code:[address]-11) irritable skin Drug Allerg y Active fentanyl Duragesic-25([facility] Code:[address]-57) itch Drug Aller gy Active valproate Valproic Acid([facility] Code:[address]-86) Unknown Drug [facility] r[facility] Active phenobarbital Phenobarbital([facility] Code:[address]-24) hysteria Drug A llergy Active nitrofurantoin, macrocrystals / nitrofurantoin, monohy drate Macrobid([facility] Code:[address]-56) Nausea/Vomiting Drug Allergy Active ENCOUNTERS from 1945 to 2020-10-26 Encounter Location Date Provider Diagnosis [address] [phone] [place] [address] Oct, Ayad De La Cruz H/O deep venous thrombosis Z 86.718 IMMUNIZATIONS Vaccine Route Administration Date Status Influenza 18 yrs & older Flublok IM Intramuscular Jan 31, 2019 Administered Influenza 18 yrs & older Flublok IM Intramuscular Dec 01, 2017 Administered Influenza (High Dose 65 & up) IM Intramuscular Nov 18, 2016 A dministered Pneumococcal Adult 0.5mL Pneumovax 23 IM Intramuscular April 18, 2010 Administered TDAP IM Intramuscular Dec 21, 2014 Administered Influenza 6mo & up Fluzone IM Intramuscular Nov 18, 2013 Admi nistered Influenza 6mo & up Fluzone IM Intramuscular Dec 02, 2012 Admi nistered Influenza 6mo & up Fluzone IM Intramuscular Nov 15, 2010 Admi nistered SOCIAL HISTORY Tobacco Use: Social History Observation Description Date Details (start date - stop date) Former Smoker Sex Assigned At : Social History Observation Description Sex Assigned At Unknown Education: Question Answer Notes Level of Education: Grade School 9th grade Audit Question Answer Notes Total Score: 0 Interpretation: Alcohol Education Language: Question Answer Notes Languages spoken: Icelandic Bahai: Question Answer Notes [employer] Sexual Hx: Question Answer Notes Had sex in the last 12 months (vaginal, oral, or anal)? No Have you ever had an STD? No Drug and Alcohol Question Answer Notes Total Score: 0 Interpretation: No problems reported Alcohol Screening: Question Answer Notes Did you have a drink containing alcohol in the past year? Ye s Points 1 Interpretation Negative How often did you have six or more drinks on one occas ion in the past year? Never (0 points) How many drinks did you have on a typica l day when you were drinking in the past year? 1 or 2 (0 points) How often did you have a drink containing alcohol in t he past year? Monthly or less (1 point) BMI Care Goal Follow-Up Question Answer Notes Above Normal BMI Follow-Up Giving encouragement to exercise Tobacco Use: Question Answer Notes Are you a: former smoker Smoking Cessation Information Given 05/13/2019 How long has it been since you last smoked? < 1 month REASON FOR REFERRAL No Information VITAL SIGNS No information MEDICATIONS Medication SIG (Take, Route, Frequency, Duration) Notes Start Da te End Date Status Coumadin 5 MG TAKE ONE TABLET BY MOUTH EVERY DAY Active Omeprazole 40 MG 1 cap Orally every morning for 90 day(s) Active DuoNeb 0.5-2.5 (3) MG/3ML 3 ml Inhalation qid prn for 30 day(s) Active HYDROcodone-Acetaminophen 10-325 MG 1 tablet as needed Orally every 6 hrs MDD 4 for 30 Days Oct, Active Ergocalciferol 20078 UNIT 1 capsule Orally every 7 days for 90 day(s) Active amLODIPine Besylate 2.5 MG 1 tablet Orally every morning for 90 day(s ) Active B & B Carpal Tunnel Brace - as directed _ Daily left for 99 months Active Voltaren 1 % 4 gm Transdermal QID to B knees for 30 day(s) Active Levothyroxine Sodium 25 MCG 1 tablet on an empty stoma ch in the morning Orally Once a day for 90 day(s) Active Welchol 625 MG 2 tablets Orally Twice a day for 30 day(s) Aug, Active Nystatin - 1 null to affected area Exte rnally Twice a day to B breast for 30 day(s) Active tiZANidine HCl 4 MG 1 cap Orally tid for 30 Days Active tiZANidine HCl 4 MG TAKE ONE TABLET BY MOUTH THREE TIMES A D AY NEEDED for 30 Active Imodium A-D 2 MG 1 tab Orally bid prn diarrhea for 30 day(s) Active Atorvastatin Calcium 40 MG 1 tablet Orally Once a day for 90 day(s) Active ProAir HFA 108 (90 Base) MCG/ACT 2 puffs as needed Inhalation every 4-6 hrs Active Lyrica 150 MG 1 capsule Orally three times daily MDD3 for 30 Active PROCEDURES No Information RESULTS No Results REASON FOR VISIT PT INR order MEDICAL (GENERAL) HISTORY Type Description Date Medical History left great than right shoulder impignmen t Medical History hx of DVT/PE Medical History multi-level throacic DJD by 10/2013 xray Medical History migraine headache, atypical Medical History Recurrent UTI-April 2008 MRSA UTI Medical History COPD-unable to perform spirometry Medical History Hx of cold agglutinin hemolytic anemia Medical History chronic MDD Medical History GERD Medical History Peripheral edema secondary to venous ins ufficiency Medical History nicotine use disorder Medical History right 6 mm nonobstructing in trarenal calculus stable by 10/19 ultrasound Medical History mild mitral annular calcific ation by TTE July 2005 otherwise normal- Dr. 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 greater than left Medical History 3 5-8 mm adenomatous polyps by 10/2012 co lonoscopy Reindl Medical History diarrhea, chronic-10/2012 - random coloni c biopsies-Reindl Medical History moderate-advanced PF and med ial compartment L knee OA by 08/2013 xray Medical History lumbar SQF-gixo-rmbkq c L2-S 1 diffuse bulges c minimal TS compression, L5/S1 grade 1 lithesis by 04/2015 MRI Medical History L hip minimal/L knee moderat e tricompartmental OA by 06/2016 xray Medical History multiple T2 HI in [place], [facility] a nd olivier (increased cw 04/2008), 2.6 mm R ICA aneurysm and B ICA stenosis < 50% by 01/2017 MRI/MRA brain and carotid US Medical History cervical/thoracic DJD-03/2017 MRI c mild C5-7 FA and mild diffuse thoracic FA Surgical History EGD/peopptpomop-Xqftdt-qrexs agitis (grade B),normal stomach biopsy, EG junction with minimal chronic inflammation by biopsy, adenomatous polyp//auvfz-gkftb-S 02/2009, 07/2016 Surgical History bilateral cateract-left then right-Farrah and 04/2010 Surgical History cholecystectomy Surgical History left knee arthroscopic Surgical History tonsillectomy/adenoidectomy Surgical History hernia repair x3 Surgical History bladder suspension surgery Surgical History L breast stereotactic biopsybenign-[facility] I R 11/03/14 Surgical History Total left knee-Dr. Arreola 08/14/2020 Hospitalization History Left foot large toe infection 5 Hospitalization History UTI/Tick Bite 07/2019 Goals Section No Information Health Concerns No Information MEDICAL EQUIPMENT No Information MENTAL STATUS No Information FUNCTIONAL STATUS No Information ASSESSMENTS Encounter Date Diagnosis Assessment Notes Treatment Notes Treatm ent Clinical Notes Oct, H/O deep venous thrombosis (ICD-10 - Z86.718) PLAN OF TREATMENT Medication Medication Name Sig Start Date Stop Date Voltaren 1 % 4 gm Transdermal QID to B knees for 30 day(s) Atorvastatin Calcium 40 MG 1 tablet Orally Once a day for 90 day (s) B & B Carpal Tunnel Brace - as directed _ Daily left for 99 dianne hs amLODIPine Besylate 2.5 MG 1 tablet Orally every morning for 90 day(s) Imodium A-D 2 MG 1 tab Orally bid prn diarrhea for 30 day(s) Levothyroxine Sodium 25 MCG 1 tablet on an empty stoma ch in the morning Orally Once a day for 90 day(s) Nystatin - 1 null to affected area Exte rnally Twice a day to B breast for 30 day(s) Ergocalciferol 62385 UNIT 1 capsule Orally every 7 days for 90 d ay(s) DuoNeb 0.5-2.5 (3) MG/3ML 3 ml Inhalation qid prn for 30 day(s) ProAir HFA 108 (90 Base) MCG/ACT 2 puffs as needed Inhalation ev akash 4-6 hrs tiZANidine HCl 4 MG 1 cap Orally tid for 30 Days Omeprazole 40 MG 1 cap Orally every morning for 90 day(s) Lyrica 150 MG 1 capsule Orally three times daily MDD3 for 30 HYDROcodone-Acetaminophen 10-325 MG 1 tablet as needed Orally every 6 hrs MDD 4 for 30 Days Oct, Coumadin 5 MG TAKE ONE TABLET BY MOUTH EVERY DAY Treatment Notes Test Name Order Date PT-INR 2020-10-26 Next Appt Details Provider Name:Ayad Calderón Jono, 2020-12-14 1 1:45:00 AM, [address] [facility], , [place], [address], Insurance Providers Payer Name Payer Address Payer Phone Insured Name Patient Relati onship to Insured Coverage Start Date Coverage End Date MEDICARE COMPLETE [employer] [address] [facility] [phone] ALEKSANDER LOUIS self
--- OUTSIDE RECORDS SUMMARY | 2020-12-11 16:45 | CCD | Continuity of Care Document ---
Author Author Latisha SHAH MD Organization Unknown Address [address] [facility], [facility] [place] [address] Phone [phone] Care Team Providers Care Mercantile Agent Name Role Phone Ayad De La Cruz M.D. AUTM [phone] AUTM Unavailable Problems Active Problems Provider Date Essential hypertension Onset: 08/05/2012 Social History Type Date Description Comments Sex Unknown ETOH Use Denies alcohol use Tobacco Use Start: Unknown Smokes 1/2 Pack A Day Recreational Drug Use Denies Drug Use Tobacco Use Start: Unknown Report Cessation Counseling Was Provided Smoking Status Reviewed: 09/12/20 Report Cessation Counseling W as Provided Allergies, Adverse Reactions, Alerts Active Allergies Criticality Reaction | Severity Comments Date Shellfish Unable to assess criticality 11/30/2008 Penicillins Unable to assess criticality 11/30/2008 Phenobarbital Unable to assess criticality 11/30/2008 Valproic Acid Unable to assess criticality 08/05/2012 Cipro Unable to assess criticality hives 08/05/2012 Flector Unable to assess criticality irritable skin 08/05/2012 Duragesic 25 Unable to assess criticality itching 08/05/2012 Macrobid Unable to assess criticality nausea/vomiting 08/05/2012 Penicillin Unable to assess criticality hives 08/05/2012 Phenobarbital Unable to assess criticality 09/28/2006 Penicillin Unable to assess criticality Skin Rashes/Hives 09/28/2006 Medications Active Medications SIG Qnty Indications Ordering Provide r Date Oxycodone HCL 5mg Tablets 2 tablets every 4 hours for pain, as needed 60tabs Eliazar Shah MD Potassium Chloride Cindy ER 20Meq Tablets ER 1 tablet PO Daily 14tabs Eliazar Shah MD 09/15/ 2021 Ventolin HFA 108(90Base) mcg/Act A erosol 2 Puffs qid/prn 1units Letty Matias A.N.P. 09/30/2006 Loperamide HCL 2mg Capsules Take One Capsule By Mouth Twice A Day as Needed Diarrhea Unknown Levothyroxine Sodium 25mcg Tablets Take One Tablet By Mouth Every Morning On Empty Stomach Unknown Omeprazole 40mg Capsules DR Take One Capsule By Mouth Every Morning Unknown 0 Warfarin Sodium 5mg Tablets Take One Tablet By Mouth Every Day Unknown Atorvastatin Calcium 40mg Tablets Take One Tablet By Mouth Every Day Unknown Amlodipine Besylate 2.5mg Tablets Take One Tablet By Mouth Every Morning Unknown Tizanidine HCL 4mg Tablets Take One Tablet By Mouth Three Times A Day as Needed Unknown Pregabalin 150mg Capsules Take One Capsule By Mouth Three Times A Day Maximum Daily Dose 3 Capsules Unknown Folic Acid 1mg Tablets 1 PO q d 90tabs Unknown Nexium 20mg Packet qd Unknown Klor-Con M20 20Meq Tablets ER 1 PO bid Unknown [place] 7.5-325mg Tablets take 1 tab by mouth four times daily as needed for pain Unknow n Cymbalta 20mg Caps DR Part bi d Unknown Zanaflex 4mg Capsules three times a day as needed for muscle spasms Unknown 000 Lyrica 150mg Capsules tid Unknown Magnesium Oxide 400mg Capsules bid Unknown Losartan Potassium 50mg Tablets 1 by mouth every day Unknown Vitamin D (Ergocalciferol) [id number] Capsules every week Unknown Immunizations Description No Information Available Vital Signs Date Vital Result Comment 09/12/2020 9:08am Body Temperature 97.5 F 06/11/2020 1:53pm BP Systolic 149 mmHg BP Diastolic 83 mmHg Heart Rate 81 /min O2 % BldC Oximetry 96 % Respiratory Rate 16 /min Body Temperature 97.1 F Height 63 inches 5'3" Weight 167.00 lb BMI (Body Mass Index) 29.6 kg/m2 [place] Body Weight 115 lb Weight 75.751 kg BSA (Body Surface Area) 1.79 m2 Results Description No Information Available Procedures Date Code Description Status 10/22/2020 89356 Arthroplasty Knee Total Complete d 09/12/2020 75051 Office/Outpatient Established Mo d MDM 30-39 Min Completed 06/11/2020 17217 Office/Outpatient New Moderate M DM 45-59 Minutes Completed Medical Devices Description No Information Available Encounters Type Date Location Provider Dx Diagnosis Office Visit 09/12/2020 9:00a [facility] Eliazar Shah MD 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, left knee Office Visit 06/11/2020 2:00p [facility] Eliazar Shah MD 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 Her GI issues have subsided.I did explain to the patient that a total joint replacement procedure is an elective procedure. Candidacy for the procedure is based on imaging and the patient's symptoms and whether or not the patient would like to proceed with the surgery. The procedure is performed for pain relief only. Any other gains are secondary. The risks of the procedure include but are not limited to infection, periprosthetic fracture, damage to local neurovascular or soft tissue structures, deep vein thrombosis or pulmonary emboli, and need for revision surgery. Anesthetic risks will be discussed with the anesthesiologist. These include but are not limited to, heart attack, stroke and .Total knee arthroplasty patients typically fall into 3 categories of outcomes. Approximately 85% of patients are happy with the results and would have the surgery performed, again without any concerns. Approximately 10-15% of patients are happy with the results and would have the surgery performed. Again, but may have some persistent aches and pains or other symptoms. These patients typically have had a fracture of bone around the joint or the F had an open surgical procedure or infection around the naa int. Approximately 1% of patients have the joint replacement procedure performed and did not experience any alleviation or sometimes worsening of her symptoms. If there is no identifiable cause of their persistent or worsening symptoms, then there is nothing that can be done. If there is no obvious cause of pain or discomfort, it can take a prolonged period of time in determining cause, if any, is the early period for a total joint replacement is approximately 1 year whereas the early period for most surgical intervention to 6 weeks.The patient is aware that she has an increased risk associated with her history of DVT and PE. She does have a history of smoking as well and will need to transition to nicotine replacement. She also is taking narcotics for her pain medication and has a plan to wean down with her PCP.The patient has signed consent for the left total knee arthroplasty. Her daughter who is helping with communication due to her hearing issues has also cosigned consent with her.We will move forward with the booking process for sometime in October * Follow up:* Booking surgery Functional Status Description No Information Available Mental Status Description No Information Available Referrals Description No Information Available
--- OUTSIDE RECORDS SUMMARY | 2020-12-11 16:45 | CCD | Continuity of Care Document ---
Author Author Latisha SHAH MD Organization Unknown Address [address] [facility], [facility] [place] [place] [address] Phone [phone] Care Team Providers Care Director Energy Name Role Phone Ayad De La Cruz M.D. AUTM [phone] AUTM Unavailable Problems Active Problems Provider Date [...] r Date Oxycodone HCL 5mg Tablets 2 tablet every 6 hours for pain, as needed 42tabs Eliazar Shah MD 11/01 Oxycodone HCL 5mg Tablets 2 tablets every 4 hours for pain, as needed 60tabs Eliazar Shah MD Potassium Chloride Cindy ER 20Meq Tablets ER 1 tablet PO Daily 14tabs Eliazar Shah MD 2020 Ventolin HFA 108(90Base) mcg/Act A erosol 2 Puffs qid/prn 1units Letty Matias, SaraNMelonyPMelony 09/30/2006 Loperamide HCL 2mg Capsules Take One [...] 20Meq Tablets ER 1 PO bid Unknown Neptune 7.5-325mg Tablets take 1 tab by mouth four times daily as needed for pain Unknow n Cymbalta 20mg Caps DR Part bi d Unknown Zanaflex 4mg Capsules three times a day as needed for muscle spasms Unknown 000 Lyrica 150mg Capsules tid Unknown Magnesium Oxide 400mg Capsules bid Unknown Losartan Potassium 50mg Tablets 1 by mouth every day Unknown Vitamin D (Ergocalciferol) [id number] Capsules every week Unknown Immunizations Description No Information Available Vital Signs Date Vital Result Comment 09/12/2020 9:08am Body Temperature 97.5 F 06/11/2020 1:53pm BP Systolic 149 mmHg BP Diastolic 83 mmHg Heart Rate 81 /min O2 % BldC Oximetry 96 % Respiratory Rate 16 /min Body Temperature 97.1 F Height 63 inches 5'3" Weight 167.00 lb BMI (Body Mass Index) 29.6 kg/m2 [place] Body Weight 115 lb Weight 75.751 kg BSA (Body Surface Area) 1.79 m2 Results Description No Information Available Procedures Date Code Description Status 10/22/2020 39241 Arthroplasty Knee Total Complete d 09/12/2020 04509 Office/Outpatient Established Mo d MDM 30-39 Min Completed 06/11/2020 26140 Office/Outpatient New Moderate M DM 45-59 Minutes Completed Medical Devices Description No Information Available Encounters Type Date Location Provider Dx Diagnosis Office Visit 09/12/2020 9:00a [facility] Eliazar Shah MD 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
--- OUTSIDE RECORDS SUMMARY | 2020-12-11 16:45 | CCD ---
Author Author [facility] Organization [facility] Address Unknown Phone Unavailable Support Name Relationship Address Phone ALEKSANDER LOUIS [address] [place] [address] Abby Tg HCP & POA ECON [address] [facility] [address] [place], [place] [id number] Care Team Providers Care Senior Project Engineer Name Role Phone Ayad De La Cruz Unavailable PROBLEMS Type Condition ICD9-CM Code [id number] Code Onset Dates Condition S tatus W/U Status Risk SNOMED Code Notes Problem Primary osteoarthritis of both knees M17.0 Act tacos confirmed 370618332 Problem Osteoarthritis of both hands M19.041 Active confirm ed 892994497 Problem Primary osteoarthritis, right hand M19.041 Activ e confirmed 86265980 Problem Chronic diarrhea K52.9 Active confirmed 236 536930 Problem Primary osteoarthritis of left hand M19.042 Acti ve confirmed 55725442 Problem Sacroiliitis, not elsewhere classified M46.1 A ctive confirmed 77454846 Problem Intervertebral disc disorder with radiculopathy of lumbar region M51.16 Active confirmed 87014943 Problem Syncope, unspecified syncope type R55 Active con firmed 445520639 Problem Bilateral carpal tunnel syndrome G56.03 Active conf irmed 68366637 Problem Personal history of pulmonary embolism Z86.711 A ctive confirmed 348339854 Problem Adenomatous polyp of colon, unspecified part of colon D12.6 Active confirmed 665272285 Problem Intertriginous candidiasis B37.2 Active confirmed 29417824 Problem Macrocytosis D75.89 Active confirmed 4330152 00 Problem Cerebral vascular disease I67.9 Active confirmed 46676891 Problem BYRON (generalized anxiety disorder) F41.1 Activ e confirmed 74234639 Problem T2 hyperintense foci present in deep weiner matter nuclei on magnetic resonance imaging R90.89 Active confirmed 847903990 Problem DJD (degenerative joint disease), lumbar M47.816 Active confirmed 228757778 Problem Aneurysm, carotid artery, internal I67.1 Activ e confirmed 29978743 Problem UTI (urinary tract infection) N39.0 Active confirm ed 83237637 Problem Sacroiliac joint pain M53.3 Active confirmed 895563873 Problem H/O deep venous thrombosis Z86.718 Active confirmed 382188912 Problem Intervertebral disc disorder M51.9 Active confirme d 19618032 Problem COPD (chronic obstructive pulmonary disease) J44.9 Active confirmed 90795158 Problem Acquired hypothyroidism E03.9 Active confirmed 639881298 Problem Breast cancer screening Z12.39 Active confirmed 158862637 Problem Osteoarthritis of spine with radiculopathy, cervical regio n M47.22 Active confirmed 020428377 Problem Nicotine addiction F17.200 Active confirmed 46485901 Problem History of pulmonary embolism Z86.711 Active confir med 379329783 Problem COPD with exacerbation J44.1 Active confirmed 900860373 Problem Gastroesophageal reflux disease, esophagitis pre sence not specified K21.9 Active confirmed 587433864 Problem terminal gauger current use of anticoagulant Z79.01 A ctive confirmed 667806309 Problem IFG (impaired fasting glucose) R73.01 Active confir med 490217843 Problem Encounter for therapeutic drug monitoring Z51.81 Active confirmed 561510086 Problem Diplopia H53.2 Active confirmed 15972130 Problem Vitamin D deficiency, unspecified E55.9 Active con firmed 17624413 Problem Carpal tunnel syndrome G56.00 Active confirmed 90105973 Problem Mixed hyperlipidemia E78.2 Active confirmed 115582062 Problem Raynaud's disease without gangrene I73.00 Activ e confirmed 503765832 Problem Chronic pain syndrome G89.4 Active confirmed 345134748 Problem Essential (primary) hypertension I10 Active conf irmed 30878180 Problem Thrombocytopenia D69.6 Active confirmed 415 521756 Problem Encounter for screening for lung cancer Z12.2 Active confirmed 259922010 ALLERGIES Allergen (clinical drug ingredient) Drug/Non Drug Allergy do cumented on EMR Reaction Allergy Type Onset Date Status ciprofloxacin Cipro(NDC Code:[address]-96) Hives Drug Allergy Active Shellfish shellfish Anaphylaxis Non Drug Allergy Active penicillin V Penicillin V Potassium(NDC Code:[address]-29) Hives Drug Allergy Active diclofenac Flector(NDC Code:[address]-24) irritable skin Drug Allerg y Active fentanyl Duragesic-25([facility] Code:[address]-90) itch Drug Aller gy Active valproate Valproic Acid([facility] Code:[address]-45) Unknown Drug Kaiser rgy Active phenobarbital Phenobarbital([facility] Code:[address]-35) hysteria Drug A llergy Active nitrofurantoin, macrocrystals / nitrofurantoin, monohy drate Macrobid([facility] Code:[address]-49) Nausea/Vomiting Drug Allergy Active ENCOUNTERS from 1945 to 2020-10-26 Encounter Location Date Provider Diagnosis [address] [phone] [place] [address] Oct, Ayad De La Cruz IMMUNIZATIONS Vaccine Route Administration Date Status Influenza [...] Education Language: Question Answer Notes Languages spoken: Hebrew Taoist: Question Answer Notes Taoist 21 Mormonism Sexual Hx: Question Answer Notes Had sex [...] 4 for 30 Days Oct, Active Ergocalciferol 65319 UNIT 1 capsule Orally every 7 days [...] Information RESULTS No Results REASON FOR VISIT lab work MEDICAL (GENERAL) HISTORY Type Description Date Medical [...] OA by 08/2013 xray Medical History lumbar SKQ-qsoq-afcza c L2-S 1 diffuse bulges c minimal [...] and mild diffuse thoracic FA Surgical History EGD/kugwqzwlimu-Ubyqfo-elioi agitis (grade B),normal stomach biopsy, EG junction with minimal chronic inflammation by biopsy, adenomatous polyp//fqcsa-snppm-T 02/2009, 07/2016 Surgical History bilateral cateract-left then right-Farrah 1 and 04/2010 Surgical History cholecystectomy Surgical History [...] No Information FUNCTIONAL STATUS No Information ASSESSMENTS No Information PLAN OF TREATMENT Medication Medication Name Sig [...] to B breast for 30 day(s) Ergocalciferol 78543 UNIT 1 capsule Orally every 7 days [...] TAKE ONE TABLET BY MOUTH EVERY DAY Next Appt Details Provider Name:Ayad De La Cruz, 2020-12-14 1 1:45:00 AM, [address] [facility], , [place], [address], Insurance Providers Payer Name Payer Address Payer Phone Insured Name Patient Relati onship to Insured Coverage Start Date Coverage End Date MEDICARE COMPLETE [employer] [address] [address] [facility] [id number] ALEKSANDER LOUIS self
--- OUTSIDE RECORDS SUMMARY | 2020-12-11 16:45 | CCD ---
Author Author [facility] [employer] Organization [facility] [employer] Address Unknown Phone Unavailable Support Name Relationship Address Phone ALEKSANDER LOUIS [address] [place] [address] Tg Mora HCP & POA ECON [address] [facility] [address] [place], [place] [phone] Care Team Providers Care Semiconductor Equipment Technician Name Role Phone Ayad De La Cruz Unavailable PROBLEMS Type Condition ICD9-CM Code NTB58-IC Code Onset Dates Condition S tatus W/U Status Risk SNOMED Code Notes Problem Primary osteoarthritis of both knees M17.0 Act tacos confirmed 262126122 Problem Osteoarthritis of both hands M19.041 Active confirm ed 159781170 Problem Primary osteoarthritis, right hand M19.041 Activ e confirmed 23785393 Problem Chronic diarrhea K52.9 Active confirmed 236 446254 Problem Primary osteoarthritis of left hand M19.042 Acti ve confirmed 91672317 Problem Sacroiliitis, not elsewhere classified M46.1 A ctive confirmed 03460552 Problem Intervertebral disc disorder with radiculopathy of lumbar region M51.16 Active confirmed 97123195 Problem Syncope, unspecified syncope type R55 Active con firmed 565132940 Problem Bilateral carpal tunnel syndrome G56.03 Active conf irmed 67202727 Problem Personal history of pulmonary embolism Z86.711 A ctive confirmed 153992154 Problem Adenomatous polyp of colon, unspecified part of colon D12.6 Active confirmed 266527791 Problem Intertriginous candidiasis B37.2 Active confirmed 82168052 Problem Macrocytosis D75.89 Active confirmed 5064927 00 Problem Cerebral vascular disease I67.9 Active confirmed 50584665 Problem BYRON (generalized anxiety disorder) F41.1 Activ e confirmed 12028936 Problem T2 hyperintense foci present in deep weiner matter nuclei on magnetic resonance imaging R90.89 Active confirmed 458608188 Problem DJD (degenerative joint disease), lumbar M47.816 Active confirmed 065307004 Problem Aneurysm, carotid artery, internal I67.1 Activ e confirmed 35546977 Problem UTI (urinary tract infection) N39.0 Active confirm ed 68715149 Problem Sacroiliac joint pain M53.3 Active confirmed 604352170 Problem H/O deep venous thrombosis Z86.718 Active confirmed 071624277 Problem Intervertebral disc disorder M51.9 Active confirme d 63592646 Problem COPD (chronic obstructive pulmonary disease) J44.9 Active confirmed 05460868 Problem Acquired hypothyroidism E03.9 Active confirmed 252579481 Problem Breast cancer screening Z12.39 Active confirmed 607132203 Problem Osteoarthritis of spine with radiculopathy, cervical regio n M47.22 Active confirmed 188110287 Problem Nicotine addiction F17.200 Active confirmed 06822451 Problem History of pulmonary embolism Z86.711 Active confir med 320843304 Problem COPD with exacerbation J44.1 Active confirmed 423759897 Problem Gastroesophageal reflux disease, esophagitis pre sence not specified K21.9 Active confirmed 392043177 Problem intermodal customer service current use of anticoagulant Z79.01 A ctive confirmed 853736599 Problem IFG (impaired fasting glucose) R73.01 Active confir med 788660858 Problem Encounter for therapeutic drug monitoring Z51.81 Active confirmed 057650996 Problem Diplopia H53.2 Active confirmed 87012776 Problem Vitamin D deficiency, unspecified E55.9 Active con firmed 86054622 Problem Carpal tunnel syndrome G56.00 Active confirmed 98870728 Problem Mixed hyperlipidemia E78.2 Active confirmed 997481922 Problem Raynaud's disease without gangrene I73.00 Activ e confirmed 344765626 Problem Chronic pain syndrome G89.4 Active confirmed 853420654 Problem Essential (primary) hypertension I10 Active conf irmed 53184709 Problem Thrombocytopenia D69.6 Active confirmed 415 087536 Problem Encounter for screening for lung cancer Z12.2 Active confirmed 313299708 ALLERGIES Allergen (clinical drug ingredient) Drug/Non Drug Allergy do cumented on EMR Reaction Allergy Type Onset Date Status ciprofloxacin Cipro(NDC Code:[address]-09) Hives Drug Allergy Active Shellfish shellfish Anaphylaxis Non Drug Allergy Active penicillin V Penicillin V Potassium([facility]C Code:[address]-09) Hives Drug Allergy Active diclofenac Flector([facility]C Code:[address]-00) irritable skin Drug Allerg y Active fentanyl Duragesic-25([facility] Code:[address]-58) itch Drug Aller gy Active valproate Valproic Acid([facility] Code:[address]-33) Unknown Drug Kaiser rgy Active phenobarbital Phenobarbital([facility] Code:[address]-56) hysteria Drug A llergy Active nitrofurantoin, macrocrystals / nitrofurantoin, monohy drate Macrobid([facility] Code:[address]-87) Nausea/Vomiting Drug Allergy Active ENCOUNTERS from 1945 to 2020-11-06 Encounter Location Date Provider Diagnosis [address] [phone] [place] [address] Oct, Ayad De La Cruz H/O deep venous thrombosis Z 86.718 and Encounter for therapeutic drug monitoring Z51.81 IMMUNIZATIONS Vaccine Route Administration Date Status Influenza [...] Education Language: Question Answer Notes Languages spoken: Eritrean Mormon: Question Answer Notes Mormon 21 Oriental Orthodox Sexual Hx: Question Answer Notes Had sex [...] 4 for 30 Days Oct, Active Ergocalciferol 21432 UNIT 1 capsule Orally every 7 days [...] Information RESULTS No Results REASON FOR VISIT pt/inr MEDICAL (GENERAL) HISTORY Type Description Date Medical [...] OA by 08/2013 xray Medical History lumbar ECX-kate-hluym c L2-S 1 diffuse bulges c minimal [...] and mild diffuse thoracic FA Surgical History EGD/ceqbrvvrnmo-Fkdlxe-mzqwm agitis (grade B),normal stomach biopsy, EG junction with minimal chronic inflammation by biopsy, adenomatous polyp//[id number]-zqaub-F 02/2009, 07/2016 Surgical History bilateral cateract-left then [...] H/O deep venous thrombosis (ICD-10 - Z86.718) Oct, Encounter for therapeutic drug monitoring (ICD-1 0 - Z51.81) PLAN OF TREATMENT Medication Medication Name Sig [...] to B breast for 30 day(s) Ergocalciferol 53668 UNIT 1 capsule Orally every 7 days [...] Treatment Notes Test Name Order Date PT-INR 2020-11-02 Next Appt Details Provider Name:Ayad De La Cruz, 2020-12-14 1 1:45:00 AM, [address] [facility], , [place], [address], Insurance Providers Payer Name Payer Address Payer Phone Insured Name Patient Relati onship to Insured Coverage Start Date Coverage End Date MEDICARE COMPLETE [facility] [address] [address] [facility] [address] ALEKSANDER LOUIS self
--- OUTSIDE RECORDS SUMMARY | 2020-12-11 16:45 | CCD | Continuity of Care Document ---
Author Author Latisha SHAH MD Organization Unknown Address [address] [facility], [facility] [place] [address] Phone [phone] Care Team Providers Care Customer Service Supervisor Name Role Phone Ayad De La Cruz M.D. AUTM [phone] [facility] Unavailable Problems Active Problems Provider Date Essential hypertension Onset: 08/05/2012 Social History Type Date Description Comments Sex Unknown ETOH Use Denies alcohol use Tobacco Use Start: Unknown Smokes 1/2 Pack A Day Recreational Drug Use Denies Drug Use Tobacco Use Start: Unknown Report Cessation Counseling Was Provided Smoking Status Reviewed: 09/12/20 Report Cessation Counseling W as Provided Allergies and adverse reactions Active Allergies Criticality Reaction | Severity Comments [...] every 6 hours for pain, as needed 48tabs Eliazar Shah MD 11/13 Oxycodone HCL 5mg Tablets 2 tablet every 6 hours for pain, as needed 48tabs Eliazar Shah MD 11/07 Oxycodone HCL 5mg Tablets 2 tablet every 6 hours for pain, as needed 42tabs Eliazar Shah MD 11/01 Oxycodone HCL 5mg Tablets 2 tablets every 4 hours for pain, as needed 60tabs Eliazar Shah MD Potassium Chloride Cindy ER 20Meq Tablets ER 1 tablet PO Daily 14tabs Eliazar Shah MD 2020 Ventolin HFA 108(90Base) mcg/Act A erosol 2 Puffs qid/prn 1units Letty Matias, SaraNNoah 09/30/2006 Loperamide HCL 2mg Capsules Take One [...] 20Meq Tablets ER 1 PO bid Unknown Porter 7.5-325mg Tablets take 1 tab by mouth four times daily as needed for pain Unknow n Cymbalta 20mg Caps DR Part bi d Unknown Zanaflex 4mg Capsules three times a day as needed for muscle spasms Unknown 000 Lyrica 150mg Capsules tid Unknown Magnesium Oxide 400mg Capsules bid Unknown Losartan Potassium 50mg Tablets 1 by mouth every day Unknown Vitamin D (Ergocalciferol) 55873Emej Capsules every week Unknown Immunizations Description No Information Available Vital Signs Date Vital Result Comment 09/12/2020 9:08am Body Temperature 97.5 F 06/11/2020 1:53pm BP Systolic 149 mmHg BP Diastolic 83 mmHg Heart Rate 81 /min O2 % BldC Oximetry 96 % Respiratory Rate 16 /min Body Temperature 97.1 F Height 63 inches 5'3" Weight 167.00 lb BMI (Body Mass Index) 29.6 kg/m2 [place] Body Weight 115 lb Weight 75.751 kg BSA (Body Surface Area) 1.79 m2 Results Description No Information Available Procedures Date Code Description Status 10/22/2020 15718 Arthroplasty Knee Total Complete d 09/12/2020 00436 Office/Outpatient Established Mo d MDM 30-39 Min Completed 06/11/2020 72710 Office/Outpatient New Moderate M DM 45-59 Minutes Completed Medical Devices Description No Information Available Encounters Type Date Location Provider Dx Diagnosis Office Visit 11/05/2020 9:30a [facility] Eliazar Shah MD Z96.652 Presence of left artificial knee joint Z47.89 Encounter for other orthoped ic aftercare Office Visit 09/12/2020 9:00a [facility] Eliazar Shah MD 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, left knee Office Visit 06/11/2020 2:00p [facility] Eliazar Shah MD 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, left knee Assessments Date Code Description Provider 11/05/2020 Z96.652 Presence of left artificial knee joint Eliazar Shah MD 11/05/2020 Z47.89 Encounter for other orthopedic a ftercare Eliazar Shah MD 10/22/2020 M17.12 Unilateral primary osteoarthriti s, left knee Eliazar Shah MD 09/12/2020 M17.32 Unilateral post-traumatic osteoa rthritis, left knee Eliazar Shah MD 06/11/2020 M17.32 Unilateral post-traumatic osteoa rthritis, left knee Eliazar Shah MD Plan of Treatment Future Appointment(s):* 12/03/2020 11:00 am - Eliazar Shah MD at [facility] 11/05/2020 - Eliazar Shah MD* Z96.652 Presence of left artificial knee joint* Comments:* The patient appears to be doing well. She is still weaning off of her pain medications but would like another prescription at the reduced frequency. This will be filled for her. She was advised to avoid bathing and soaking for the next 4 weeks until she is reassessed at her 6-week postoperative visit. I did milieu counselor on cigarette smoking cessation due to concerns of wound healing and the prosthesis healing to the bone. She states that she will work on this.The Telfa island dressing will remain in place for 3 days. The Steri-Strips can fall off on their own. They will contact the office if there are any concerns with regards to the wound.Outpatient physical therapy will be set up at [facility] at the patient's request. * Follow up:* 4 weeks * Z47.89 Encounter for other orthopedic aftercare Functional Status Description No Information Available Mental Status Description No Information Available Referrals Description No Information Available
--- OUTSIDE RECORDS SUMMARY | 2020-12-11 16:45 | CCD ---
Author Author [facility] [employer] Organization [facility] [employer] Address Unknown Phone Unavailable Support Name Relationship Address Phone ALEKSANDER LOUIS [address] [place] [address] Abby Tg HCP & POA ECON [address] [facility] [address] [place], [place] [id number] Care Team Providers Care Administrative Support Specialist Name Role Phone Ayad De La Cruz Unavailable PROBLEMS Type Condition ICD9-CM Code LUT24-RD Code Onset Dates Condition S tatus W/U Status Risk SNOMED Code Notes Problem Primary osteoarthritis of both knees M17.0 Act tacos confirmed 903826640 Problem Osteoarthritis of both hands M19.041 Active confirm ed 223201106 Problem Primary osteoarthritis, right hand M19.041 Activ e confirmed 97296741 Problem Chronic diarrhea K52.9 Active confirmed 236 327114 Problem Primary osteoarthritis of left hand M19.042 Acti ve confirmed 65128769 Problem Sacroiliitis, not elsewhere classified M46.1 A ctive confirmed 66727385 Problem Intervertebral disc disorder with radiculopathy of lumbar region M51.16 Active confirmed 74243435 Problem Syncope, unspecified syncope type R55 Active con firmed 582098601 Problem Bilateral carpal tunnel syndrome G56.03 Active conf irmed 83569691 Problem Personal history of pulmonary embolism Z86.711 A ctive confirmed 164837179 Problem Adenomatous polyp of colon, unspecified part of colon D12.6 Active confirmed 545163858 Problem Intertriginous candidiasis B37.2 Active confirmed 45020042 Problem Macrocytosis D75.89 Active confirmed 9648143 00 Problem Cerebral vascular disease I67.9 Active confirmed 67931935 Problem BYRON (generalized anxiety disorder) F41.1 Activ e confirmed 74375664 Problem T2 hyperintense foci present in deep weiner matter nuclei on magnetic resonance imaging R90.89 Active confirmed 449249500 Problem DJD (degenerative joint disease), lumbar M47.816 Active confirmed 071349594 Problem Aneurysm, carotid artery, internal I67.1 Activ e confirmed 43761981 Problem UTI (urinary tract infection) N39.0 Active confirm ed 24938595 Problem Sacroiliac joint pain M53.3 Active confirmed 874230238 Problem H/O deep venous thrombosis Z86.718 Active confirmed 511755592 Problem Intervertebral disc disorder M51.9 Active confirme d 91774436 Problem COPD (chronic obstructive pulmonary disease) J44.9 Active confirmed 22286485 Problem Acquired hypothyroidism E03.9 Active confirmed 750122809 Problem Breast cancer screening Z12.39 Active confirmed 812027898 Problem Osteoarthritis of spine with radiculopathy, cervical regio n M47.22 Active confirmed 086873256 Problem Nicotine addiction F17.200 Active confirmed 60628327 Problem History of pulmonary embolism Z86.711 Active confir med 296738917 Problem COPD with exacerbation J44.1 Active confirmed 393087050 Problem Gastroesophageal reflux disease, esophagitis pre sence not specified K21.9 Active confirmed 372505774 Problem 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 A ctive confirmed 037323797 Problem IFG (impaired fasting glucose) R73.01 Active confir med 308767548 Problem Encounter for therapeutic drug monitoring Z51.81 Active confirmed 103204793 Problem Diplopia H53.2 Active confirmed 19657323 Problem Vitamin D deficiency, unspecified E55.9 Active con firmed 31823674 Problem Carpal tunnel syndrome G56.00 Active confirmed 93755659 Problem Mixed hyperlipidemia E78.2 Active confirmed 412747082 Problem Raynaud's disease without gangrene I73.00 Activ e confirmed 922644750 Problem Chronic pain syndrome G89.4 Active confirmed 204037621 Problem Essential (primary) hypertension I10 Active conf irmed 88071303 Problem Thrombocytopenia D69.6 Active confirmed 415 780627 Problem Encounter for screening for lung cancer Z12.2 Active confirmed 669539150 ALLERGIES Allergen (clinical drug ingredient) Drug/Non Drug Allergy do cumented on EMR Reaction Allergy Type Onset Date Status ciprofloxacin Cipro([facility] Code:[address]-79) Hives Drug Allergy Active penicillin V Penicillin V Potassium(ND Code:[address]-67) Hives Drug Allergy Active Glucosamine Shellfish-derived Products Anaphylaxis Drug Allergy Active diclofenac Flector([facility] Code:[address]-12) irritable skin Drug Allerg y Active fentanyl Duragesic-25 itch Drug Allergy Active valproate Valproic Acid([facility] Code:[address]-01) Unknown Drug [facility] rgy Active phenobarbital Phenobarbital([facility] Code:[address]-14) hysteria Drug A llergy Active nitrofurantoin, macrocrystals / nitrofurantoin, monohy drate Macrobid([facility] Code:[address]-20) Nausea/Vomiting Drug Allergy Active ENCOUNTERS from 1945 to 2020-11-22 Encounter Location Date Provider Diagnosis [facility] [address] [phone] [place] [address] 11 Nov, 2020 Ayad De La Cruz IMMUNIZATIONS Vaccine Route [...] Education Language: Question Answer Notes Languages spoken: Maori Jain: Question Answer Notes Jain 21 Yazidi Sexual Hx: Question Answer Notes Had sex [...] Notes Start Da te End Date Status Omeprazole 40 MG 1 cap Orally every morning for 90 day(s) Active Lyrica 150 MG 1 capsule Orally three times daily MDD3 for 30 Active tiZANidine HCl 4 MG TAKE ONE TABLET BY MOUTH THREE TIMES A D AY NEEDED for 30 Active Coumadin 5 MG TAKE ONE TABLET BY MOUTH EVERY DAY Active Ergocalciferol 33762 UNIT 1 capsule Orally every 7 days for 90 day(s) Active amLODIPine Besylate 2.5 MG 1 tablet Orally every morning for 90 day(s ) Active B & B Carpal Tunnel Brace - as directed _ Daily left for 99 months Active Voltaren 1 % 4 gm Transdermal QID to B knees for 30 day(s) Active Welchol 625 MG 2 tablets Orally Twice a day for 30 day(s) Aug, Active DuoNeb 0.5-2.5 (3) MG/3ML 3 ml Inhalation qid prn for 30 day(s) Active Nystatin - 1 null to affected area Exte rnally Twice a day to B breast for 30 day(s) Active Imodium A-D 2 MG 1 tab Orally bid prn diarrhea for 30 day(s) Active Percocet 5-325 MG 2 tablet as needed Orally every 6 hrs for 30 D ays Nov, Active Levothyroxine Sodium 25 MCG 1 tablet on an empty stoma ch in the morning Orally Once a day for 90 day(s) Active Atorvastatin Calcium 40 MG 1 tablet Orally Once a day for 90 day(s) Active ProAir HFA 108 (90 Base) MCG/ACT 2 puffs as needed Inhalation every 4-6 hrs Active tiZANidine HCl 4 MG 1 cap Orally tid for 30 Days Active PROCEDURES No Information RESULTS No Results REASON FOR VISIT Pain Medication MEDICAL (GENERAL) HISTORY Type Description Date Medical [...] OA by 08/2013 xray Medical History lumbar KYX-njjk-mbshd c L2-S 1 diffuse bulges c minimal [...] and mild diffuse thoracic FA Surgical History EGD/loeiullzyle-Kkaoeq-ecras agitis (grade B),normal stomach biopsy, EG junction with minimal chronic inflammation by biopsy, adenomatous polyp//[id number]-twqpq-F 02/2009, 07/2016 Surgical History bilateral cateract-left then [...] tablet Orally every morning for 90 day(s) Levothyroxine Sodium 25 MCG 1 tablet on an empty stoma ch in the morning Orally Once a day for 90 day(s) DuoNeb 0.5-2.5 (3) MG/3ML 3 ml Inhalation qid prn for 30 day(s) Nystatin - 1 null to affected area Exte rnally Twice a day to B breast for 30 day(s) Ergocalciferol 20026 UNIT 1 capsule Orally every 7 days for 90 d ay(s) Percocet 5-325 MG 2 tablet as needed Orally every 6 hrs fo r 30 Days Nov, ProAir HFA 108 (90 Base) MCG/ACT 2 puffs as needed Inhalation ev akash 4-6 hrs Imodium A-D 2 MG 1 tab Orally bid prn diarrhea for 30 day(s) Lyrica 150 MG 1 capsule Orally three times daily MDD3 for 30 tiZANidine HCl 4 MG 1 cap Orally tid for 30 Days Coumadin 5 MG TAKE ONE TABLET BY MOUTH EVERY DAY Omeprazole 40 MG 1 cap Orally every morning for 90 day(s) Next Appt Details Provider Name:Ayad De La Cruz, 2020-12-14 1 1:45:00 AM, [address], , [place], [address], Insurance Providers Payer Name Payer Address Payer Phone Insured Name Patient Relati onship to Insured Coverage Start Date Coverage End Date MEDICARE COMPLETE UNITED [employer] [address] [address] [facility] [id number] ALEKSANDER LOUIS self
--- OUTSIDE RECORDS SUMMARY | 2020-12-11 16:45 | CCD ---
Author Author [facility] [employer] Organization [facility] Address Unknown Phone Unavailable Support Name Relationship Address Phone ALEKSANDER LOUIS [address] [place] [address] Abby Tg HCP & POA ECON [address] [facility] [address] [place], [place] [address] Care Team Providers Care Transportation Engineer Name Role Phone Ayad De La Cruz Unavailable PROBLEMS Type Condition ICD9-CM Code QYT79-CM Code Onset Dates Condition S tatus W/U Status Risk SNOMED Code Notes Problem Primary osteoarthritis of both knees M17.0 Act tacos confirmed 621080285 Problem Osteoarthritis of both hands M19.041 Active confirm ed 076636661 Problem Primary osteoarthritis, right hand M19.041 Activ e confirmed 53351365 Problem Chronic diarrhea K52.9 Active confirmed 236 640173 Problem Primary osteoarthritis of left hand M19.042 Acti ve confirmed 79087139 Problem Sacroiliitis, not elsewhere classified M46.1 A ctive confirmed 06046213 Problem Intervertebral disc disorder with radiculopathy of lumbar region M51.16 Active confirmed 10763594 Problem Syncope, unspecified syncope type R55 Active con firmed 260008352 Problem Bilateral carpal tunnel syndrome G56.03 Active conf irmed 60194882 Problem Personal history of pulmonary embolism Z86.711 A ctive confirmed 699719473 Problem Adenomatous polyp of colon, unspecified part of colon D12.6 Active confirmed 816486983 Problem Intertriginous candidiasis B37.2 Active confirmed 36297471 Problem Macrocytosis D75.89 Active confirmed 3541994 00 Problem Cerebral vascular disease I67.9 Active confirmed 32226488 Problem BYRON (generalized anxiety disorder) F41.1 Activ e confirmed 07695902 Problem T2 hyperintense foci present in deep weiner matter nuclei on magnetic resonance imaging R90.89 Active confirmed 657530251 Problem DJD (degenerative joint disease), lumbar M47.816 Active confirmed 896133222 Problem Aneurysm, carotid artery, internal I67.1 Activ e confirmed 45395582 Problem UTI (urinary tract infection) N39.0 Active confirm ed 71193202 Problem Sacroiliac joint pain M53.3 Active confirmed 236847763 Problem H/O deep venous thrombosis Z86.718 Active confirmed 743242158 Problem Intervertebral disc disorder M51.9 Active confirme d 54394443 Problem COPD (chronic obstructive pulmonary disease) J44.9 Active confirmed 78999847 Problem Acquired hypothyroidism E03.9 Active confirmed 299688112 Problem Breast cancer screening Z12.39 Active confirmed 958888806 Problem Osteoarthritis of spine with radiculopathy, cervical regio n M47.22 Active confirmed 131581116 Problem Nicotine addiction F17.200 Active confirmed 07961087 Problem History of pulmonary embolism Z86.711 Active confir med 007702226 Problem COPD with exacerbation J44.1 Active confirmed 432159282 Problem Gastroesophageal reflux disease, esophagitis pre sence not specified K21.9 Active confirmed 285169952 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 A ctive confirmed 676080021 Problem IFG (impaired fasting glucose) R73.01 Active confir med 219229312 Problem Encounter for therapeutic drug monitoring Z51.81 Active confirmed 647968356 Problem Diplopia H53.2 Active confirmed 13134232 Problem Vitamin D deficiency, unspecified E55.9 Active con firmed 49022345 Problem Carpal tunnel syndrome G56.00 Active confirmed 62013979 Problem Mixed hyperlipidemia E78.2 Active confirmed 716742024 Problem Raynaud's disease without gangrene I73.00 Activ e confirmed 360716684 Problem Chronic pain syndrome G89.4 Active confirmed 288823055 Problem Essential (primary) hypertension I10 Active conf irmed 00763476 Problem Thrombocytopenia D69.6 Active confirmed 415 408686 Problem Encounter for screening for lung cancer Z12.2 Active confirmed 193623545 ALLERGIES Allergen (clinical drug ingredient) Drug/Non Drug Allergy do cumented on EMR Reaction Allergy Type Onset Date Status ciprofloxacin Cipro([facility] Code:[address]-62) Hives Drug Allergy Active Shellfish shellfish Anaphylaxis Non Drug Allergy Active penicillin V Penicillin V Potassium([facility] Code:[address]-63) Hives Drug Allergy Active diclofenac Flector([facility] Code:[address]-84) irritable skin Drug Allerg y Active fentanyl Duragesic-25([facility] Code:[address]-30) itch Drug Aller gy Active valproate Valproic Acid([facility] Code:[address]-76) Unknown Drug [facility] rgy Active phenobarbital Phenobarbital([facility] Code:[address]-27) hysteria Drug A llergy Active nitrofurantoin, macrocrystals / nitrofurantoin, monohy drate Macrobid([facility] Code:[address]-24) Nausea/Vomiting Drug Allergy Active ENCOUNTERS from 1945 to 2020-11-02 Encounter Location Date Provider Diagnosis [address] [phone] [place] [address] Oct, Ayad De La Cruz IMMUNIZATIONS Vaccine [...] Education Language: Question Answer Notes Languages spoken: Kyrgyz Anglican: Question Answer Notes Anglican 21 Samaritan Sexual Hx: Question Answer Notes Had sex [...] 4 for 30 Days Oct, Active Ergocalciferol 70710 UNIT 1 capsule Orally every 7 days [...] No Results REASON FOR VISIT PT INR MEDICAL (GENERAL) HISTORY Type Description Date Medical [...] OA by 08/2013 xray Medical History lumbar LOS-oraz-fdorj c L2-S 1 diffuse bulges c minimal [...] and mild diffuse thoracic FA Surgical History EGD/knymhqvixqa-Qnhegk-hjend agitis (grade B),normal stomach biopsy, EG junction with minimal chronic inflammation by biopsy, adenomatous polyp//opljz-xrqhv-F 02/2009, 07/2016 Surgical History bilateral cateract-left then [...] to B breast for 30 day(s) Ergocalciferol 29974 UNIT 1 capsule Orally every 7 days [...] La Cruz, 2020-12-14 1 1:45:00 AM, [address] [facility], , [place], [address], Insurance Providers Payer Name Payer Address Payer Phone Insured Name Patient Relati onship to Insured Coverage Start Date Coverage End Date MEDICARE COMPLETE [employer] [address] [address] [facility] [id number] ALEKSANDER LOUIS self
--- OUTSIDE RECORDS SUMMARY | 2020-12-11 16:46 | CCD ---
Author Author [facility] [employer] Organization [facility] [employer] Address Unknown Phone Unavailable Support Name Relationship Address Phone ALEKSANDER LOUIS [address] [place] [address] Abby Tg HCP & POA ECON [address] [facility] [address] [place], [place] [address] Care Team Providers Care Camera Assembler Name Role Phone Ayad De La Cruz Unavailable PROBLEMS Type Condition ICD9-CM Code WZK58-OR Code Onset Dates Condition S tatus W/U Status Risk SNOMED Code Notes Problem Primary osteoarthritis of both knees M17.0 Act tacos confirmed 478186067 Problem Osteoarthritis of both hands M19.041 Active confirm ed 673660638 Problem Primary osteoarthritis, right hand M19.041 Activ e confirmed 31709168 Problem Chronic diarrhea K52.9 Active confirmed 236 429588 Problem Primary osteoarthritis of left hand M19.042 Acti ve confirmed 45057075 Problem Sacroiliitis, not elsewhere classified M46.1 A ctive confirmed 87546545 Problem Intervertebral disc disorder with radiculopathy of lumbar region M51.16 Active confirmed 69707552 Problem Syncope, unspecified syncope type R55 Active con firmed 227145864 Problem Bilateral carpal tunnel syndrome G56.03 Active conf irmed 09085362 Problem Personal history of pulmonary embolism Z86.711 A ctive confirmed 575737721 Problem Adenomatous polyp of colon, unspecified part of colon D12.6 Active confirmed 627096319 Problem Intertriginous candidiasis B37.2 Active confirmed 76525255 Problem Macrocytosis D75.89 Active confirmed 5536999 00 Problem Cerebral vascular disease I67.9 Active confirmed 91005700 Problem BYRON (generalized anxiety disorder) F41.1 Activ e confirmed 07668508 Problem T2 hyperintense foci present in deep weiner matter nuclei on magnetic resonance imaging R90.89 Active confirmed 070235262 Problem DJD (degenerative joint disease), lumbar M47.816 Active confirmed 456551800 Problem Aneurysm, carotid artery, internal I67.1 Activ e confirmed 69390945 Problem UTI (urinary tract infection) N39.0 Active confirm ed 75480611 Problem Sacroiliac joint pain M53.3 Active confirmed 495555916 Problem H/O deep venous thrombosis Z86.718 Active confirmed 363931765 Problem Intervertebral disc disorder M51.9 Active confirme d 58938226 Problem COPD (chronic obstructive pulmonary disease) J44.9 Active confirmed 14158188 Problem Acquired hypothyroidism E03.9 Active confirmed 142453417 Problem Breast cancer screening Z12.39 Active confirmed 026433033 Problem Osteoarthritis of spine with radiculopathy, cervical regio n M47.22 Active confirmed 974965966 Problem Nicotine addiction F17.200 Active confirmed 90131993 Problem History of pulmonary embolism Z86.711 Active confir med 756747620 Problem COPD with exacerbation J44.1 Active confirmed 529216791 Problem Gastroesophageal reflux disease, esophagitis pre sence not specified K21.9 Active confirmed 518785591 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 A ctive confirmed 970102876 Problem IFG (impaired fasting glucose) R73.01 Active confir med 740255122 Problem Encounter for therapeutic drug monitoring Z51.81 Active confirmed 837905994 Problem Diplopia H53.2 Active confirmed 41565545 Problem Vitamin D deficiency, unspecified E55.9 Active con firmed 03184504 Problem Carpal tunnel syndrome G56.00 Active confirmed 78745045 Problem Mixed hyperlipidemia E78.2 Active confirmed 394647108 Problem Raynaud's disease without gangrene I73.00 Activ e confirmed 062173082 Problem Chronic pain syndrome G89.4 Active confirmed 360097657 Problem Essential (primary) hypertension I10 Active conf irmed 15585908 Problem Thrombocytopenia D69.6 Active confirmed 415 782271 Problem Encounter for screening for lung cancer Z12.2 Active confirmed 417622993 ALLERGIES Allergen (clinical drug ingredient) Drug/Non Drug Allergy do cumented on EMR Reaction Allergy Type Onset Date Status ciprofloxacin Cipro([facility] Code:[address]-22) Hives Drug Allergy Active Shellfish shellfish Anaphylaxis Non Drug Allergy Active penicillin V Penicillin V Potassium([facility] Code:[address]-42) Hives Drug Allergy Active diclofenac Flector([facility] Code:[address]-54) irritable skin Drug Allerg y Active fentanyl Duragesic-25([facility] Code:[address]-47) itch Drug Aller gy Active valproate Valproic Acid([facility] Code:[address]-30) Unknown Drug [facility] rgy Active phenobarbital Phenobarbital([facility] Code:[address]-86) hysteria Drug A llergy Active nitrofurantoin, macrocrystals / nitrofurantoin, monohy drate Macrobid([facility] Code:[address]-67) Nausea/Vomiting Drug Allergy Active ENCOUNTERS from 1945 to 2020-10-25 Encounter Location Date Provider Diagnosis [address] [phone] [place] [address] Oct, Ayad De La Cruz IMMUNIZATIONS Vaccine [...] Education Language: Question Answer Notes Languages spoken: Belarusian Scientologist: Question Answer Notes Scientologist 21 Voodoo Sexual Hx: Question Answer Notes Had sex [...] 4 for 30 Days Oct, Active Ergocalciferol 00401 UNIT 1 capsule Orally every 7 days [...] Information RESULTS No Results REASON FOR VISIT Started home health services MEDICAL (GENERAL) HISTORY Type Description Date Medical [...] OA by 08/2013 xray Medical History lumbar GBR-vasr-tsfrg c L2-S 1 diffuse bulges c minimal [...] and mild diffuse thoracic FA Surgical History EGD/pklwwangbmp-Rpgtkd-ckyvb agitis (grade B),normal stomach biopsy, EG junction with minimal chronic inflammation by biopsy, adenomatous polyp//mqdsn-bxxqe-V 02/2009, 07/2016 Surgical History bilateral cateract-left then [...] to B breast for 30 day(s) Ergocalciferol 52794 UNIT 1 capsule Orally every 7 days [...] La Cruz, 2020-12-14 1 1:45:00 AM, [address] [facility], , [place], [address], Insurance Providers Payer Name Payer Address Payer Phone Insured Name Patient Relati onship to Insured Coverage Start Date Coverage End Date MEDICARE COMPLETE [employer] [address] [facility] [id number] ALEKSANDER LOUIS self
--- OUTSIDE RECORDS SUMMARY | 2020-12-11 16:46 | CCD ---
Author Author [facility] [employer] Organization [facility] [employer] Address Unknown Phone Unavailable Support Name Relationship Address Phone ALEKSANDER LOUIS [address] [place] [address] Abby Tg HCP & POA ECON [address] [facility] [address] [place], [place] [address] Care Team Providers Care Clinical Cytogenetics Director Name Role Phone Ayad De La Cruz Unavailable PROBLEMS Type Condition ICD9-CM Code [id number] Code Onset Dates Condition S tatus W/U Status Risk SNOMED Code Notes Problem Primary osteoarthritis of both knees M17.0 Act tacos confirmed 980212241 Problem Osteoarthritis of both hands M19.041 Active confirm ed 002354240 Problem Primary osteoarthritis, right hand M19.041 Activ e confirmed 08867348 Problem Chronic diarrhea K52.9 Active confirmed 236 076184 Problem Primary osteoarthritis of left hand M19.042 Acti ve confirmed 95177014 Problem Sacroiliitis, not elsewhere classified M46.1 A ctive confirmed 87223368 Problem Intervertebral disc disorder with radiculopathy of lumbar region M51.16 Active confirmed 24318920 Problem Syncope, unspecified syncope type R55 Active con firmed 209594647 Problem Bilateral carpal tunnel syndrome G56.03 Active conf irmed 79916026 Problem Personal history of pulmonary embolism Z86.711 A ctive confirmed 290236711 Problem Adenomatous polyp of colon, unspecified part of colon D12.6 Active confirmed 922281912 Problem Intertriginous candidiasis B37.2 Active confirmed 91275358 Problem Macrocytosis D75.89 Active confirmed 7522980 00 Problem Cerebral vascular disease I67.9 Active confirmed 87910068 Problem BYRON (generalized anxiety disorder) F41.1 Activ e confirmed 37135135 Problem T2 hyperintense foci present in deep weiner matter nuclei on magnetic resonance imaging R90.89 Active confirmed 292629824 Problem DJD (degenerative joint disease), lumbar M47.816 Active confirmed 072189140 Problem Aneurysm, carotid artery, internal I67.1 Activ e confirmed 70189077 Problem UTI (urinary tract infection) N39.0 Active confirm ed 53112540 Problem Sacroiliac joint pain M53.3 Active confirmed 959033473 Problem H/O deep venous thrombosis Z86.718 Active confirmed 247539656 Problem Intervertebral disc disorder M51.9 Active confirme d 47540525 Problem COPD (chronic obstructive pulmonary disease) J44.9 Active confirmed 70958717 Problem Acquired hypothyroidism E03.9 Active confirmed 152884342 Problem Breast cancer screening Z12.39 Active confirmed 142853564 Problem Osteoarthritis of spine with radiculopathy, cervical regio n M47.22 Active confirmed 892377175 Problem Nicotine addiction F17.200 Active confirmed 21856577 Problem History of pulmonary embolism Z86.711 Active confir med 968995959 Problem COPD with exacerbation J44.1 Active confirmed 997402574 Problem Gastroesophageal reflux disease, esophagitis pre sence not specified K21.9 Active confirmed 776274517 Problem 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 A ctive confirmed 300116840 Problem IFG (impaired fasting glucose) R73.01 Active confir med 656741975 Problem Encounter for therapeutic drug monitoring Z51.81 Active confirmed 979179872 Problem Diplopia H53.2 Active confirmed 77708487 Problem Vitamin D deficiency, unspecified E55.9 Active con firmed 42698724 Problem Carpal tunnel syndrome G56.00 Active confirmed 30417117 Problem Mixed hyperlipidemia E78.2 Active confirmed 407653572 Problem Raynaud's disease without gangrene I73.00 Activ e confirmed 662669846 Problem Chronic pain syndrome G89.4 Active confirmed 955988620 Problem Essential (primary) hypertension I10 Active conf irmed 07075788 Problem Thrombocytopenia D69.6 Active confirmed 415 148902 Problem Encounter for screening for lung cancer Z12.2 Active confirmed 074330531 ALLERGIES Allergen (clinical drug ingredient) Drug/Non Drug Allergy do cumented on EMR Reaction Allergy Type Onset Date Status ciprofloxacin Cipro([facility] Code:[address]-36) Hives Drug Allergy Active Shellfish shellfish Anaphylaxis Non Drug Allergy Active penicillin V Penicillin V Potassium([facility] Code:[address]-15) Hives Drug Allergy Active diclofenac Flector([facility] Code:[address]-87) irritable skin Drug Allerg y Active fentanyl Duragesic-25([facility] Code:[address]-64) itch Drug Aller gy Active valproate Valproic Acid([facility] Code:[address]-41) Unknown Drug Kaiesr rgy Active phenobarbital Phenobarbital([facility] Code:[address]-16) hysteria Drug A llergy Active nitrofurantoin, macrocrystals / nitrofurantoin, monohy drate Macrobid([facility] Code:[address]-43) Nausea/Vomiting Drug Allergy Active ENCOUNTERS from 1945 to 2020-10-25 Encounter Location Date Provider Diagnosis [address] [phone] [place] [address] Oct, Ayad De La Cruz Hypokalemia E87.6 IMMUNIZATIONS Vaccine Route Administration Date Status Influenza [...] Education Language: Question Answer Notes Languages spoken: Georgian Orthodoxy: Question Answer Notes Orthodoxy 21 Restorationist Sexual Hx: Question Answer Notes Had sex [...] 4 for 30 Days Oct, Active Ergocalciferol 60056 UNIT 1 capsule Orally every 7 days [...] Information RESULTS No Results REASON FOR VISIT critical lab MEDICAL (GENERAL) HISTORY Type Description Date Medical [...] OA by 08/2013 xray Medical History lumbar ICD-zsrq-jcpnr c L2-S 1 diffuse bulges c minimal [...] and mild diffuse thoracic FA Surgical History EGD/xpsdywxvzjj-Ggjqws-fjhby agitis (grade B),normal stomach biopsy, EG junction with minimal chronic inflammation by biopsy, adenomatous polyp//slxxz-johbs-M 02/2009, 07/2016 Surgical History bilateral cateract-left then [...] Treatment Notes Treatm ent Clinical Notes Oct, Hypokalemia (ICD-10 - E87.6) PLAN OF TREATMENT Medication Medication Name Sig [...] to B breast for 30 day(s) Ergocalciferol 67154 UNIT 1 capsule Orally every 7 days [...] DAY Treatment Notes Test Name Order Date MAGNESIUM LEVEL 2020-10-24 Basic Metabolic Profile (BMP) 2020-10-24 Next Appt Details Provider Name:Ayad De La Cruz, 2020-12-14 1 1:45:00 AM, [address] [facility], , [place], [address], Insurance Providers Payer Name Payer Address Payer Phone Insured Name Patient Relati onship to Insured Coverage Start Date Coverage End Date MEDICARE COMPLETE UNITED [employer]CARE [address] [address] [facility] [phone] ALEKSANDER LOUIS self
--- OUTSIDE RECORDS SUMMARY | 2020-12-11 16:46 | CCD ---
Author Author [facility] [employer] Organization [facility] [employer] Address Unknown Phone Unavailable Support Name Relationship Address Phone ALEKSANDER LOUIS [address] [place] [address] Tg Mora HCP & POA ECON [address] [facility] [address] [place], [place] [id number] Care Team Providers Care Compliance Attorney Name Role Phone Liyah Canales Unavailable PROBLEMS Type Condition ICD9-CM Code [id number] Code Onset Dates Condition S tatus W/U Status Risk SNOMED Code Notes Problem Primary osteoarthritis of both knees M17.0 Act tacos confirmed 096929323 Problem Osteoarthritis of both hands M19.041 Active confirm ed 860099605 Problem Primary osteoarthritis, right hand M19.041 Activ e confirmed 18146985 Problem Chronic diarrhea K52.9 Active confirmed 236 616075 Problem Primary osteoarthritis of left hand M19.042 Acti ve confirmed 59846524 Problem Sacroiliitis, not elsewhere classified M46.1 A ctive confirmed 75872465 Problem Intervertebral disc disorder with radiculopathy of lumbar region M51.16 Active confirmed 54087252 Problem Syncope, unspecified syncope type R55 Active con firmed 303450842 Problem Bilateral carpal tunnel syndrome G56.03 Active conf irmed 47706055 Problem Personal history of pulmonary embolism Z86.711 A ctive confirmed 164716817 Problem Adenomatous polyp of colon, unspecified part of colon D12.6 Active confirmed 535145174 Problem Intertriginous candidiasis B37.2 Active confirmed 13556663 Problem Macrocytosis D75.89 Active confirmed 5772580 00 Problem Cerebral vascular disease I67.9 Active confirmed 14740281 Problem BYRON (generalized anxiety disorder) F41.1 Activ e confirmed 04920481 Problem T2 hyperintense foci present in deep weiner matter nuclei on magnetic resonance imaging R90.89 Active confirmed 226866992 Problem DJD (degenerative joint disease), lumbar M47.816 Active confirmed 594154756 Problem Aneurysm, carotid artery, internal I67.1 Activ e confirmed 98775848 Problem UTI (urinary tract infection) N39.0 Active confirm ed 39007034 Problem Sacroiliac joint pain M53.3 Active confirmed 501577475 Problem H/O deep venous thrombosis Z86.718 Active confirmed 229634694 Problem Intervertebral disc disorder M51.9 Active confirme d 60714662 Problem COPD (chronic obstructive pulmonary disease) J44.9 Active confirmed 41572183 Problem Acquired hypothyroidism E03.9 Active confirmed 979298901 Problem Breast cancer screening Z12.39 Active confirmed 324027037 Problem Osteoarthritis of spine with radiculopathy, cervical regio n M47.22 Active confirmed 905762965 Problem Nicotine addiction F17.200 Active confirmed 62286960 Problem History of pulmonary embolism Z86.711 Active confir med 083474197 Problem COPD with exacerbation J44.1 Active confirmed 791575211 Problem Gastroesophageal reflux disease, esophagitis pre sence not specified K21.9 Active confirmed 426117048 Problem [facility]FP current use of anticoagulant Z79.01 A ctive confirmed 638966189 Problem IFG (impaired fasting glucose) R73.01 Active confir med 148332495 Problem Encounter for therapeutic drug monitoring Z51.81 Active confirmed 816526800 Problem Diplopia H53.2 Active confirmed 09046968 Problem Vitamin D deficiency, unspecified E55.9 Active con firmed 02491602 Problem Carpal tunnel syndrome G56.00 Active confirmed 58071775 Problem Mixed hyperlipidemia E78.2 Active confirmed 825823476 Problem Raynaud's disease without gangrene I73.00 Activ e confirmed 734545539 Problem Chronic pain syndrome G89.4 Active confirmed 329875318 Problem Essential (primary) hypertension I10 Active conf irmed 73569707 Problem Thrombocytopenia D69.6 Active confirmed 415 124374 Problem Encounter for screening for lung cancer Z12.2 Active confirmed 877993838 ALLERGIES Allergen (clinical drug ingredient) Drug/Non Drug Allergy do cumented on EMR Reaction Allergy Type Onset Date Status ciprofloxacin Cipro([facility] Code:[address]-11) Hives Drug Allergy Active Shellfish shellfish Anaphylaxis Non Drug Allergy Active penicillin V Penicillin V Potassium([facility] Code:[address]-98) Hives Drug Allergy Active diclofenac Flector([facility] Code:[address]-78) irritable skin Drug Allerg y Active fentanyl Duragesic-25([facility] Code:[address]-07) itch Drug Aller gy Active valproate Valproic Acid([facility] Code:[address]-60) Unknown Drug Kaiser rgy Active phenobarbital Phenobarbital([facility] Code:[address]-64) hysteria Drug A llergy Active nitrofurantoin, macrocrystals / nitrofurantoin, monohy drate Macrobid([facility] Code:[address]-21) Nausea/Vomiting Drug Allergy Active ENCOUNTERS from 1945 to 2020-10-04 Encounter Location Date Provider Diagnosis [address] [phone] [place] [address] Sep, Liyah Canales Encounter for therapeutic dr ug monitoring Z51.81 ; [facility] current use of anticoagulant Z79.01 ; H/O deep venous thrombosis Z86.718 ; Acquired hypothyroidism E03.9 ; Pre-op evaluation Z01.818 ; Essential (primary) hypertension I10 ; IFG (impaired fasting glucose) R73.01 and Vitamin D deficiency, unspecified E55.9 IMMUNIZATIONS Vaccine Route Administration Date Status Influenza [...] Education Language: Question Answer Notes Languages spoken: Malawian Jewish: Question Answer Notes Jewish 21 Gnosticism Sexual Hx: Question Answer Notes Had sex [...] REASON FOR REFERRAL No Information VITAL SIGNS Weight 159 lbs Sep, Weight-kg 72.12 kg Sep, Height 66 in Sep, BMI 25.66 kg/m2 Sep, Heart Rate 87 /min Sep, Respiratory Rate 16 /min Sep, Temperature 98.7 degrees Fahrenheit Sep, Oximetry 94% Sep, Blood pressure systolic 124 mm Hg Sep, Blood pressure diastolic 64 mm Hg Sep, MEDICATIONS Medication SIG (Take, Route, Frequency, Duration) Notes Start Da te End Date Status Coumadin 5 MG take one tablet by mouth every day orally Daily for 30 Days Active amLODIPine Besylate 2.5 MG 1 tablet Orally every morning for 90 day(s ) Active Warfarin Sodium 2.5 MG 1 tablet Orally Once a day Active tiZANidine HCl 4 MG TAKE ONE TABLET BY MOUTH THREE TIMES A D AY NEEDED for 30 Active Nystatin - 1 null to affected area Exte rnally Twice a day to B breast for 30 day(s) Active Omeprazole 40 MG 1 cap Orally every morning for 90 day(s) Active B & B Carpal Tunnel Brace - as directed _ Daily left for 99 months Active Atorvastatin Calcium 40 MG 1 tablet Orally Once a day for 90 day(s) Active HYDROcodone-Acetaminophen 10-325 MG 1 tablet as needed Orally every 6 hrs MDD 4 for 30 Days Aug, Active Voltaren 1 % 4 gm Transdermal QID to B knees for 30 day(s) Active Lyrica 150 MG 1 capsule Orally three times daily MDD3 for 30 D ays Sep, Active ProAir HFA 108 (90 Base) MCG/ACT 2 puffs as needed Inhalation every 4-6 hrs Active Imodium A-D 2 MG 1 tab Orally bid prn diarrhea for 30 Active Magnesium Oxide 400 MG 1 tab Orally Twice a day for 30 day(s) Active DuoNeb 0.5-2.5 (3) MG/3ML 3 ml Inhalation qid prn for 30 day(s) Active Ergocalciferol 19158 UNIT 1 capsule Orally every 7 days for 90 day(s) Active Welchol 625 MG 2 tablets Orally Twice a day for 30 day(s) Aug, Active HYDROcodone-Acetaminophen 10-325 MG 1 tablet as needed Orally every 6 hrs MDD 4 for 30 Days Sep, Active Levothyroxine Sodium 25 MCG 1 tablet on an empty stoma ch in the morning Orally Once a day for 90 day(s) Active PROCEDURES No Information RESULTS Component Value Reference Range PT-INR Fingerstick Reviewed date:10/03/2020 10:02:03 Interpretation: Performing Lab:[facility], [place] [address] INR 4.0 Verified Patient's Name and yes Current Dose 1 5 mg qd Current Dose 2 5 mg QD Tab Strength 5 mg Indication for Anticoagulation DVT Recent Bleeding no Internal QC Acceptable (Y/N) YES Therapeutic Range 2-3 Education Given (Date / Initials) New Dose 1 2.5mg W New Dose 2 5mg ROW Weekly Total 32.5mg/W Next PT-INR 10/16/20 c RET - - REASON FOR VISIT : 4 Weeks (Reason: PT/INR) MEDICAL (GENERAL) HISTORY Type Description Date Medical [...] OA by 08/2013 xray Medical History lumbar QAH-qayc-zykfp c L2-S 1 diffuse bulges c minimal [...] and mild diffuse thoracic FA Surgical History EGD/rwekfdxtlob-Nmabzi-gkywy agitis (grade B),normal stomach biopsy, EG junction with minimal chronic inflammation by biopsy, adenomatous polyp//cpfmu-ddamc-O 02/2009, 07/2016 Surgical History bilateral cateract-left then right-Farrah and 04/2010 Surgical History cholecystectomy Surgical History left knee arthroscopic Surgical History tonsillectomy/adenoidectomy Surgical History hernia repair x3 Surgical History bladder suspension surgery Surgical History L breast stereotactic biopsybenign-[facility] I R 11/03/14 Surgical History Total left knee-Dr. Arreola 08/14/2020 Hospitalization History Left foot large toe infection 5 Hospitalization History UTI/Tick Bite 07/2019 Goals Section No Information Health Concerns No Information MEDICAL EQUIPMENT No Information MENTAL STATUS No Information FUNCTIONAL STATUS No Information ASSESSMENTS Encounter Date Diagnosis Assessment Notes Treatment Notes Treatm ent Clinical Notes Sep, Encounter for therapeutic drug monitoring (ICD-1 0 - Z51.81) INR SupraTherapeutic 4.0 Sep, [facility]FP current use of anticoagulant (ICD-10 - Z79.01) Goal INR 2-3 Sep, H/O deep venous thrombosis (ICD-10 - Z86.718) Has been having diarrhea not eating as well, c the heat. Takes 35mg/W so decrease to 32.5mg/W so f/u in 2W at preop Sep, Acquired hypothyroidism (ICD-10 - E03.9) Sep, Pre-op evaluation (ICD-10 - Z01.818) Sep, Essential (primary) hypertension (ICD-10 - I10) Sep, IFG (impaired fasting glucose) (ICD-10 - R73.01) Sep, Vitamin D deficiency, unspecified (ICD-10 - E55. 9) Sep, Other 15" chart rev., H&P, orders/plan PLAN OF TREATMENT Medication Medication Name Sig Start Date Stop Date Coumadin 5 MG take one tablet by mouth every day orally Daily for 30 Days Levothyroxine Sodium 25 MCG 1 tablet on an empty stoma ch in the morning Orally Once a day for 90 day(s) Warfarin Sodium 2.5 MG 1 tablet Orally Once a day Treatment Notes Assessment Notes Clinical Notes Encounter for therapeutic drug monitoring INR SupraTherapeutic 4.0 exterminator current use of anticoagulant G oal INR 2-3 H/O deep venous thrombosis Has been havi ng diarrhea not eating as well, c the heat. Takes 35mg/W so decrease to 32.5mg/W so f/u in 2W at preop Treatment Notes Test Name Order Date Comprehensive Metabolic Profile (CMP) 2020-10-03 CBC with Differential 2020-10-03 FERRITIN 2020-10-03 HEMOGLOBIN A1c 2020-10-03 INSULIN LEVEL 2020-10-03 FREE T4 & TSH PANEL 2020-10-03 VITAMIN D 25-HYDROXY 2020-10-03 PTH INTACT 2020-10-03 PT & APTT 2020-10-03 Next Appt Details 10/16/2020 c RET Reason: Provider Name:Ayad De La Cruz, 2020-10-16 0 9:45:00 AM, [address] [place] [address] , [place], [address], Provider Name:Ayad De La Cruz, 2020-12-14 1 1:45:00 AM, [address] [place] [address] , [place], [address], Insurance Providers Payer Name Payer Address Payer Phone Insured Name Patient Relati onship to Insured Coverage Start Date Coverage End Date MEDICARE COMPLETE UNITED HEALTHCARE [address] [facility] [id number] ALEKSANDER LOUIS self
--- OUTSIDE RECORDS SUMMARY | 2020-12-11 16:46 | CCD ---
Author Author [facility] [employer] Organization [facility] [employer] Address Unknown Phone Unavailable Support Name Relationship Address Phone ALEKSANDER LOUIS [address] [place] [address] Abby Tg HCP & POA ECON [address] [facility] [address] [place], [place] [id number] Care Team Providers [facility] [employer] Driver Name Role Phone Ayad De La Cruz Unavailable PROBLEMS Type Condition ICD9-CM Code [id number] Code Onset Dates Condition S tatus W/U Status Risk SNOMED Code Notes Problem Primary osteoarthritis of both knees M17.0 Act tacos confirmed 984231110 Problem Osteoarthritis of both hands M19.041 Active confirm ed 553364182 Problem Primary osteoarthritis, right hand M19.041 Activ e confirmed 98534577 Problem Chronic diarrhea K52.9 Active confirmed 236 130787 Problem Primary osteoarthritis of left hand M19.042 Acti ve confirmed 67827417 Problem Sacroiliitis, not elsewhere classified M46.1 A ctive confirmed 65689269 Problem Intervertebral disc disorder with radiculopathy of lumbar region M51.16 Active confirmed 94774933 Problem Syncope, unspecified syncope type R55 Active con firmed 785833783 Problem Bilateral carpal tunnel syndrome G56.03 Active conf irmed 37189501 Problem Personal history of pulmonary embolism Z86.711 A ctive confirmed 563953250 Problem Adenomatous polyp of colon, unspecified part of colon D12.6 Active confirmed 974122570 Problem Intertriginous candidiasis B37.2 Active confirmed 25461876 Problem Macrocytosis D75.89 Active confirmed 3034097 00 Problem Cerebral vascular disease I67.9 Active confirmed 83336340 Problem BYRON (generalized anxiety disorder) F41.1 Activ e confirmed 19229546 Problem T2 hyperintense foci present in deep weiner matter nuclei on magnetic resonance imaging R90.89 Active confirmed 413124512 Problem DJD (degenerative joint disease), lumbar M47.816 Active confirmed 639456578 Problem Aneurysm, carotid artery, internal I67.1 Activ e confirmed 71094760 Problem UTI (urinary tract infection) N39.0 Active confirm ed 87278863 Problem Sacroiliac joint pain M53.3 Active confirmed 889156350 Problem H/O deep venous thrombosis Z86.718 Active confirmed 218263825 Problem Intervertebral disc disorder M51.9 Active confirme d 28583891 Problem COPD (chronic obstructive pulmonary disease) J44.9 Active confirmed 54943295 Problem Acquired hypothyroidism E03.9 Active confirmed 464397589 Problem Breast cancer screening Z12.39 Active confirmed 901439474 Problem Osteoarthritis of spine with radiculopathy, cervical regio n M47.22 Active confirmed 433148664 Problem Nicotine addiction F17.200 Active confirmed 32902478 Problem History of pulmonary embolism Z86.711 Active confir med 596132448 Problem COPD with exacerbation J44.1 Active confirmed 436852482 Problem Gastroesophageal reflux disease, esophagitis pre sence not specified K21.9 Active confirmed 355042232 Problem 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 A ctive confirmed 556411759 Problem IFG (impaired fasting glucose) R73.01 Active confir med 628046924 Problem Encounter for therapeutic drug monitoring Z51.81 Active confirmed 056438018 Problem Diplopia H53.2 Active confirmed 25300463 Problem Vitamin D deficiency, unspecified E55.9 Active con firmed 92135654 Problem Carpal tunnel syndrome G56.00 Active confirmed 18973401 Problem Mixed hyperlipidemia E78.2 Active confirmed 972936159 Problem Raynaud's disease without gangrene I73.00 Activ e confirmed 162359312 Problem Chronic pain syndrome G89.4 Active confirmed 663718666 Problem Essential (primary) hypertension I10 Active conf irmed 90332563 Problem Thrombocytopenia D69.6 Active confirmed 415 860002 Problem Encounter for screening for lung cancer Z12.2 Active confirmed 311602356 ALLERGIES Allergen (clinical drug ingredient) Drug/Non Drug Allergy do cumented on EMR Reaction Allergy Type Onset Date Status ciprofloxacin Cipro(NDC Code:[address]-83) Hives Drug Allergy Active Shellfish shellfish Anaphylaxis Non Drug Allergy Active penicillin V Penicillin V Potassium(NDC Code:[address]-67) Hives Drug Allergy Active diclofenac Flector(NDC Code:[address]-70) irritable skin Drug Allerg y Active fentanyl Duragesic-25([facility] Code:[address]-72) itch Drug Aller gy Active valproate Valproic Acid([facility] Code:[address]-94) Unknown Drug Kaiser rgy Active phenobarbital Phenobarbital([facility] Code:[address]-32) hysteria Drug A llergy Active nitrofurantoin, macrocrystals / nitrofurantoin, monohy drate Macrobid([facility] Code:[address]-22) Nausea/Vomiting Drug Allergy Active ENCOUNTERS from 1945 to 2020-10-18 Encounter Location Date Provider Diagnosis [address] [phone] [place] [address] Oct, Ayad QUEEN (degenerative joint dise ase), lumbar M47.816 IMMUNIZATIONS Vaccine Route Administration Date Status Influenza [...] Education Language: Question Answer Notes Languages spoken: Hungarian Sabianist: Question Answer Notes Sabianist 21 Oriental Orthodox Sexual Hx: Question Answer [...] 4 for 30 Days Oct, Active Ergocalciferol 04258 UNIT 1 capsule Orally every 7 days [...] Information RESULTS No Results REASON FOR VISIT HYDROcodone-Acetaminophen 10-325 MG Tablet MEDICAL (GENERAL) HISTORY Type Description Date Medical [...] OA by 08/2013 xray Medical History lumbar HXK-kxqb-kzzsq c L2-S 1 diffuse bulges c minimal [...] and mild diffuse thoracic FA Surgical History EGD/cuvxnbjkvbk-Lspivy-adgwn agitis (grade B),normal stomach biopsy, EG junction with minimal chronic inflammation by biopsy, adenomatous polyp//[id number]-mfrmw-J 02/2009, 07/2016 Surgical History bilateral cateract-left then [...] Treatment Notes Treatm ent Clinical Notes Oct, DJD (degenerative joint disease), lumbar (ICD-10 - M47.816) PLAN OF TREATMENT Medication Medication Name Sig [...] to B breast for 30 day(s) Ergocalciferol 63854 UNIT 1 capsule Orally every 7 days [...] La Cruz, 2020-12-14 1 1:45:00 AM, [address] [facility], , [place], [address], Insurance Providers Payer Name Payer Address Payer Phone Insured Name Patient Relati onship to Insured Coverage Start Date Coverage End Date MEDICARE COMPLETE [employer] [address] [address] [facility] [id number] ALEKSANDER LOUIS self
--- OUTSIDE RECORDS SUMMARY | 2020-12-11 16:46 | CCD ---
Author Author [facility] [employer] Organization [facility] [employer] Address Unknown Phone Unavailable Support Name Relationship Address Phone ALEKSANDER LOUIS [address] [place] [address] Abby Tg HCP & POA ECON [address] [facility] [address] [place], [place] [address] Care Team Providers [facility] [employer] Name Role Phone Ayad De La Cruz Unavailable PROBLEMS Type Condition ICD9-CM Code DHY03-RP Code Onset Dates Condition S tatus W/U Status Risk SNOMED Code Notes Problem Primary osteoarthritis of both knees M17.0 Act tacos confirmed 102684709 Problem Osteoarthritis of both hands M19.041 Active confirm ed 048007532 Problem Primary osteoarthritis, right hand M19.041 Activ e confirmed 58478133 Problem Chronic diarrhea K52.9 Active confirmed 236 515799 Problem Primary osteoarthritis of left hand M19.042 Acti ve confirmed 33455619 Problem Sacroiliitis, not elsewhere classified M46.1 A ctive confirmed 11625842 Problem Intervertebral disc disorder with radiculopathy of lumbar region M51.16 Active confirmed 36354802 Problem Syncope, unspecified syncope type R55 Active con firmed 266775520 Problem Bilateral carpal tunnel syndrome G56.03 Active conf irmed 64209544 Problem Personal history of pulmonary embolism Z86.711 A ctive confirmed 498645999 Problem Adenomatous polyp of colon, unspecified part of colon D12.6 Active confirmed 557281262 Problem Intertriginous candidiasis B37.2 Active confirmed 83161759 Problem Macrocytosis D75.89 Active confirmed 6736508 00 Problem Cerebral vascular disease I67.9 Active confirmed 29695661 Problem BYRON (generalized anxiety disorder) F41.1 Activ e confirmed 16247096 Problem T2 hyperintense foci present in deep weiner matter nuclei on magnetic resonance imaging R90.89 Active confirmed 533378727 Problem DJD (degenerative joint disease), lumbar M47.816 Active confirmed 177971689 Problem Aneurysm, carotid artery, internal I67.1 Activ e confirmed 27305748 Problem UTI (urinary tract infection) N39.0 Active confirm ed 22135100 Problem Sacroiliac joint pain M53.3 Active confirmed 904292900 Problem H/O deep venous thrombosis Z86.718 Active confirmed 272925133 Problem Intervertebral disc disorder M51.9 Active confirme d 26642557 Problem COPD (chronic obstructive pulmonary disease) J44.9 Active confirmed 13825823 Problem Acquired hypothyroidism E03.9 Active confirmed 546133780 Problem Breast cancer screening Z12.39 Active confirmed 373177105 Problem Osteoarthritis of spine with radiculopathy, cervical regio n M47.22 Active confirmed 033929337 Problem Nicotine addiction F17.200 Active confirmed 45486213 Problem History of pulmonary embolism Z86.711 Active confir med 162659352 Problem COPD with exacerbation J44.1 Active confirmed 253690764 Problem Gastroesophageal reflux disease, esophagitis pre sence not specified K21.9 Active confirmed 945902570 Problem 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 A ctive confirmed 100495788 Problem IFG (impaired fasting glucose) R73.01 Active confir med 820400800 Problem Encounter for therapeutic drug monitoring Z51.81 Active confirmed 015660179 Problem Diplopia H53.2 Active confirmed 86936334 Problem Vitamin D deficiency, unspecified E55.9 Active con firmed 28189528 Problem Carpal tunnel syndrome G56.00 Active confirmed 45150280 Problem Mixed hyperlipidemia E78.2 Active confirmed 428802860 Problem Raynaud's disease without gangrene I73.00 Activ e confirmed 337617332 Problem Chronic pain syndrome G89.4 Active confirmed 535668651 Problem Essential (primary) hypertension I10 Active conf irmed 63650936 Problem Thrombocytopenia D69.6 Active confirmed 415 363601 Problem Encounter for screening for lung cancer Z12.2 Active confirmed 990717717 ALLERGIES Allergen (clinical drug ingredient) Drug/Non Drug Allergy do cumented on EMR Reaction Allergy Type Onset Date Status ciprofloxacin Cipro(NDC Code:[address]-50) Hives Drug Allergy Active Shellfish shellfish Anaphylaxis Non Drug Allergy Active penicillin V Penicillin V Potassium([facility]C Code:[address]-56) Hives Drug Allergy Active diclofenac Flector([facility]C Code:[address]-78) irritable skin Drug Allerg y Active fentanyl Duragesic-25([facility] Code:[address]-58) itch Drug Aller gy Active valproate Valproic Acid([facility] Code:[address]-85) Unknown Drug Kaiser rgy Active phenobarbital Phenobarbital([facility] Code:[address]-06) hysteria Drug A llergy Active nitrofurantoin, macrocrystals / nitrofurantoin, monohy drate Macrobid([facility] Code:[address]-56) Nausea/Vomiting Drug Allergy Active ENCOUNTERS from 1945 to 2020-09-18 Encounter Location Date Provider Diagnosis [address] [phone] [place] [address] Sep, Ayad De La Cruz IMMUNIZATIONS Vaccine Route [...] Education Language: Question Answer Notes Languages spoken: Luxembourgish Mandaen: Question Answer Notes Mandaen 21 Adventism Sexual Hx: Question Answer Notes Had sex [...] Notes Start Da te End Date Status Ergocalciferol 12058 UNIT 1 capsule Orally every 7 days for 90 day(s) Active ProAir HFA 108 (90 Base) MCG/ACT 2 puffs as needed Inhalation every 4-6 hrs Active Magnesium Oxide 400 MG 1 tab Orally Twice a day for 30 day(s) Active Coumadin 5 MG TAKE ONE TABLET BY MOUTH EVERY DAY Active HYDROcodone-Acetaminophen 10-325 MG 1 tablet as needed Orally every 6 hrs MDD 4 for 30 Days Sep, Active Levothyroxine Sodium 25 MCG 1 tablet on an empty stoma ch in the morning Orally Once a day for 90 day(s) Active Imodium A-D 2 MG 1 tab Orally bid prn diarrhea for 30 Active tiZANidine HCl 4 MG 1 cap Orally tid for 30 Days Active HYDROcodone-Acetaminophen 10-325 MG 1 tablet as needed Orally every 6 hrs MDD 4 for 30 Days Aug, Active Warfarin Sodium 2.5 MG 1 tablet Orally Once a day for 30 Active Atorvastatin Calcium 40 MG 1 tablet Orally Once a day for 90 day(s) Active Voltaren 1 % 4 gm Transdermal QID to B knees for 30 day(s) Active Nystatin - 1 null to affected area Exte rnally Twice a day to B breast for 30 day(s) Active DuoNeb 0.5-2.5 (3) MG/3ML 3 ml Inhalation qid prn for 30 day(s) Active B & B Carpal Tunnel Brace - as directed _ Daily left for 99 months Active Welchol 625 MG 2 tablets Orally Twice a day for 30 day(s) Aug, Active Omeprazole 40 MG 1 cap Orally every morning for 90 day(s) Active amLODIPine Besylate 2.5 MG 1 tablet Orally every morning for 90 day(s ) Active Lyrica 150 MG 1 capsule Orally three times daily MDD3 for 30 Days Active PROCEDURES No Information RESULTS No Results REASON FOR VISIT refill MEDICAL (GENERAL) HISTORY Type Description Date Medical [...] OA by 08/2013 xray Medical History lumbar CKB-mhre-pmxnx c L2-S 1 diffuse bulges c minimal [...] and mild diffuse thoracic FA Surgical History EGD/lvartvtcxjh-Owlnck-viuoj agitis (grade B),normal stomach biopsy, EG junction with minimal chronic inflammation by biopsy, adenomatous polyp//[id number]-rdyoy-R 02/2009, 07/2016 Surgical History bilateral cateract-left then right-Farrah and 04/2010 Surgical History cholecystectomy Surgical History left knee arthroscopic Surgical History tonsillectomy/adenoidectomy Surgical History hernia repair x3 Surgical History bladder suspension surgery Surgical History L breast stereotactic biopsybenign-[facility] I R 11/03/14 Surgical History Total left knee-Dr. Arreola 08/14/2020 Hospitalization History Left foot large toe infection 5 Hospitalization History UTI/Tick Bite 07/2019 Goals Section No Information Health Concerns No Information MEDICAL EQUIPMENT No Information MENTAL STATUS No Information FUNCTIONAL STATUS No Information ASSESSMENTS No Information PLAN OF TREATMENT Medication Medication Name Sig Start Date Stop Date HYDROcodone-Acetaminophen 10-325 MG 1 tablet as needed Orally every 6 hrs MDD 4 for 30 Days Sep, Next Appt Details Provider Name:Liyah Canales, 10-03 08:30:00 AM, [address] [place] [address] , [place], [address], Provider Name:Ayad De La Cruz, 2020-12-14 1 1:45:00 AM, [address] [place] [address] , [place], [address], Insurance Providers Payer Name Payer Address Payer Phone Insured Name Patient Relati onship to Insured Coverage Start Date Coverage End Date MEDICARE COMPLETE [employer] [address] [address] [facility] [phone] ALEKSANDER LOUIS self
--- OUTSIDE RECORDS SUMMARY | 2020-12-11 16:46 | CCD ---
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 Name Role Phone Ayad De La Cruz Unavailable PROBLEMS Type Condition ICD9-CM Code UVX47-CD Code Onset Dates Condition S tatus W/U Status Risk SNOMED Code Notes Problem Primary osteoarthritis of both knees M17.0 Act tacos confirmed 188991872 Problem Osteoarthritis of both hands M19.041 Active confirm ed 790138365 Problem Primary osteoarthritis, right hand M19.041 Activ e confirmed 18027518 Problem Chronic diarrhea K52.9 Active confirmed 236 347101 Problem Primary osteoarthritis of left hand M19.042 Acti ve confirmed 14350286 Problem Sacroiliitis, not elsewhere classified M46.1 A ctive confirmed 30160384 Problem Intervertebral disc disorder with radiculopathy of lumbar region M51.16 Active confirmed 15416526 Problem Syncope, unspecified syncope type R55 Active con firmed 927086299 Problem Bilateral carpal tunnel syndrome G56.03 Active conf irmed 03012811 Problem Personal history of pulmonary embolism Z86.711 A ctive confirmed 705610027 Problem Adenomatous polyp of colon, unspecified part of colon D12.6 Active confirmed 124653533 Problem Intertriginous candidiasis B37.2 Active confirmed 96315321 Problem Macrocytosis D75.89 Active confirmed 0918345 00 Problem Cerebral vascular disease I67.9 Active confirmed 86974675 Problem BYRON (generalized anxiety disorder) F41.1 Activ e confirmed 20692683 Problem T2 hyperintense foci present in deep weiner matter nuclei on magnetic resonance imaging R90.89 Active confirmed 321573790 Problem DJD (degenerative joint disease), lumbar M47.816 Active confirmed 440567481 Problem Aneurysm, carotid artery, internal I67.1 Activ e confirmed 43229609 Problem UTI (urinary tract infection) N39.0 Active confirm ed 94713393 Problem Sacroiliac joint pain M53.3 Active confirmed 691638905 Problem H/O deep venous thrombosis Z86.718 Active confirmed 072315216 Problem Intervertebral disc disorder M51.9 Active confirme d 88280808 Problem COPD (chronic obstructive pulmonary disease) J44.9 Active confirmed 32567679 Problem Acquired hypothyroidism E03.9 Active confirmed 403021714 Problem Breast cancer screening Z12.39 Active confirmed 589742234 Problem Osteoarthritis of spine with radiculopathy, cervical regio n M47.22 Active confirmed 697352502 Problem Nicotine addiction F17.200 Active confirmed 26666266 Problem History of pulmonary embolism Z86.711 Active confir med 655271351 Problem COPD with exacerbation J44.1 Active confirmed 843392733 Problem Gastroesophageal reflux disease, esophagitis pre sence not specified K21.9 Active confirmed 456903856 Problem terminal carman current use of anticoagulant Z79.01 A ctive confirmed 947209263 Problem IFG (impaired fasting glucose) R73.01 Active confir med 947764033 Problem Encounter for therapeutic drug monitoring Z51.81 Active confirmed 252633915 Problem Diplopia H53.2 Active confirmed 85172362 Problem Vitamin D deficiency, unspecified E55.9 Active con firmed 23740803 Problem Carpal tunnel syndrome G56.00 Active confirmed 13005634 Problem Mixed hyperlipidemia E78.2 Active confirmed 010458430 Problem Raynaud's disease without gangrene I73.00 Activ e confirmed 003022753 Problem Chronic pain syndrome G89.4 Active confirmed 284676243 Problem Essential (primary) hypertension I10 Active conf irmed 99102198 Problem Thrombocytopenia D69.6 Active confirmed 415 910198 Problem Encounter for screening for lung cancer Z12.2 Active confirmed 067727761 ALLERGIES Allergen (clinical drug ingredient) Drug/Non Drug Allergy do cumented on EMR Reaction Allergy Type Onset Date Status ciprofloxacin Cipro(NDC Code:[address]-83) Hives Drug Allergy Active Shellfish shellfish Anaphylaxis Non Drug Allergy Active penicillin V Penicillin V Potassium(NDC Code:[address]-70) Hives Drug Allergy Active diclofenac Flector(NDC Code:[address]-95) irritable skin Drug Allerg y Active fentanyl Duragesic-25([facility] Code:[address]-50) itch Drug Aller gy Active valproate Valproic Acid([facility] Code:[address]-58) Unknown Drug [facility] rgy Active phenobarbital Phenobarbital([facility] Code:[address]-68) hysteria Drug A llergy Active nitrofurantoin, macrocrystals / nitrofurantoin, monohy drate Macrobid([facility] Code:[address]-37) Nausea/Vomiting Drug Allergy Active ENCOUNTERS from 1945 to 2020-10-16 Encounter Location Date Provider Diagnosis [address] [phone] [place] [address] 07 Oct, 2020 Ayad De La Cruz Preoperative clearance Z01.8 18 ; Chronic diarrhea K52.9 ; Primary osteoarthritis of both knees M17.0 ; Essential (primary) hypertension I10 ; Encounter for therapeutic drug monitoring Z51.81 ; Delirium R41.0 ; H/O deep venous thrombosis Z86.718 ; Gastroesophageal reflux disease, esophagitis presence not specified K21.9 ; Raynaud's disease without gangrene I73.00 ; DJD (degenerative joint disease), lumbar M47.816 ; Encounter for screening for lung cancer Z12.2 ; Aneurysm, carotid artery, internal I67.1 ; Orthostatic hypotension I95.1 ; Acquired hypothyroidism E03.9 ; UTI (urinary tract infection) N39.0 ; Osteoarthritis of spine with radiculopathy, cervical region M47.22 ; Osteoarthritis of both hands M19.041 ; Macrocytosis D75.89 ; Carpal tunnel syndrome G56.00 ; Breast cancer screening Z12.39 ; BYRON (generalized anxiety disorder) F41.1 ; T2 hyperintense foci present in deep weiner matter nuclei on magnetic resonance imaging R90.89 ; Diplopia H53.2 ; IFG (impaired fasting glucose) R73.01 ; Mixed hyperlipidemia E78.2 ; Bilateral carpal tunnel syndrome G56.03 ; Intertriginous candidiasis B37.2 ; Adenomatous polyp of colon, unspecified part of colon D12.6 ; Nicotine addiction F17.200 ; COPD (chronic obstructive pulmonary disease) J44.9 and Vitamin D deficiency, unspecified E55.9 IMMUNIZATIONS [...] Education Language: Question Answer Notes Languages spoken: Angolan Yazidi: Question Answer Notes Yazidi 21 [employer] Sexual Hx: Question Answer Notes Had sex [...] FOR REFERRAL No Information VITAL SIGNS Weight 159.8 lbs Oct, Weight-kg 72.48 kg Oct, Height 66 in Oct, BMI 25.79 kg/m2 Oct, Heart Rate 87 /min Oct, Respiratory Rate 20 /min Oct, Temperature 97.4 degrees Fahrenheit Oct, Oximetry 98% Oct, Blood pressure systolic 138 mm Hg Oct, Blood pressure diastolic 78 mm Hg Oct, MEDICATIONS Medication SIG (Take, Route, Frequency, Duration) Notes Start Da te End Date Status Lyrica 150 MG 1 capsule Orally three times daily MDD3 for 30 Active Horse Shoe 10-325 MG 1 tablet as needed Orally every 6 hrs, MDD 4 for 30 day(s) Oct, Active Coumadin 5 MG TAKE ONE TABLET BY MOUTH EVERY DAY Active DuoNeb 0.5-2.5 (3) MG/3ML 3 ml Inhalation qid prn for 30 day(s) Active Omeprazole 40 MG 1 cap Orally every morning for 90 day(s) Active Ergocalciferol 84587 UNIT 1 capsule Orally every 7 days [...] MDD 4 for 30 Days Aug, Active Nystatin - 1 null to affected area Exte rnally Twice a day to B breast for 30 day(s) Active Imodium A-D 2 MG 1 tab Orally bid prn diarrhea for 30 day(s) Active tiZANidine HCl 4 MG TAKE ONE TABLET BY MOUTH THREE TIMES A D AY NEEDED for 30 Active Levothyroxine Sodium 25 MCG 1 tablet [...] Information RESULTS No Results REASON FOR VISIT pre op clearance for Left total knee-[facility]-Dr. Mcdaniel-10/22/20-spinal, Maria Elena @ [phone] fax # [phone] DX: M17.32 MEDICAL (GENERAL) HISTORY Type Description Date Medical [...] OA by 08/2013 xray Medical History lumbar DMP-lzmz-vcvre c L2-S 1 diffuse bulges c minimal [...] and mild diffuse thoracic FA Surgical History EGD/mgicsayzvqv-Itukwi-hybak agitis (grade B),normal stomach biopsy, EG junction with minimal chronic inflammation by biopsy, adenomatous polyp//uwwxr-jhxwd-U 02/2009, 07/2016 Surgical History bilateral cateract-left then [...] Treatment Notes Treatm ent Clinical Notes Oct, Preoperative clearance (ICD-10 - Z01.818) On 10/15/20 the patient had a stable CBCD, CMP and PT/APTT. On 08/06/20 CXR PA/lateral NAD. On 08/02/20 the patient's EKG revealed normal sinus rhythm at 74 beats per minute, no hypertrophy, normal axis and diffuse repolarization abnormality similar to 07/30/19 EKG. On the AM of the surgery, the patient will take amlodipine and omeprazole with a sip of water. The patient will hold warfarin for three (3) days prior to surgery. The patient is currently medically optimized for the above surgery. By the modified RCRI, the patient's 30 day MACE risk is 6%. The patient wishes to assume this risk and proceed with the above surgery. Oct, Chronic diarrhea (ICD-10 - K52.9) Stable on jason 2 BID prn C: trial off PPI intermittent since ~spring 2015-episodes ~q2W lasting ~1-2D-at least partially 2 lactose intolerance 10/16/20 dced MOX 400 BID as per HTN given contributes to diarrhea (and diarrhea will cause hypoMg) 06/2016 Reindl started jason 2 BID prn c marked improvement using 1-2 tabs QD 08/06/20 - GI panel 06/2016 -TTG 07/2016 normal colonoscopy-R Oct, Primary osteoarthritis of both knees (ICD-10 - M 17.0) No po NSAIDs given chronic DOAC C: TKR 04/30/20 given imcreased instability causing ataxia/falls; referred to Dr. Arreola tc L TKR 06/01/18, 09/29/17 L knee TA 40 c ~7-10D improvement 06/2016 xray as per cw mod tricompartmental OA; therefore, started Voltaren QID to L knee s improvement; Oct, Essential (primary) hypertension (ICD-10 - I10) Stable on amlo 2.5 qAM (caution on tiz as per lumbar DJD) 10/15/20 16/1.0, 3.6 04/30/20 decreased MOX 800 BID to 400 BID given chronic diarrhea (and 07/29/19 Mg 2.0 on MOX 800 BID) 05/13/19 biso 5 qAM to amlo 2.5 qAM given QD Raynaud's sx c cb BID HBPs in 7D 09/28/18 held CTD 25 given OH/presyncope, cr to 1.5; c cb BID HBPs c BW in 7D 05/2018 + CTD 25 qAM c cb BID HBPs in 7D 12/01/17 dc fur 40 qAM given OH in office SBP to 95 c standing c cb BID HBPs in 5D Oct, Encounter for therapeutic drug monitoring (ICD-1 0 - Z51.81) Oct, Delirium (ICD-10 - R41.0) 07/29/19 ~7D increasing fatigue/confusion s focality, F/C, denies LUTs (but daughter states ? 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 Per patient, request change VKA back to rivarox 20 (feels QD dosing would be more compliant and doubt rivarox caused diarrhea), holding VKA x 2D BEFORE starting 06/12/14 given persistent diarhhea since starting Xarelto (06/08/14 -SCX, O/P, C diff PCR not doen 2 formed stools), changed to Eliquis 5 BID 05/18/14 given persistent non-compliance c PT appointments and ~50% non- therapeutic PT levels, changed to Xarelto 20 QD Oct, Gastroesophageal reflux dise ase, esophagitis presence not specified (ICD-10 - K21.9) Stable on omep 40 qAM 03/25/19 i cahnged Nexium 40 JOSIAH t oomep 40 qAM Oct, Raynaud's disease without gangrene (ICD-10 - I73 .00) as per HTN Encouraged to dc nicotine Oct, DJD (degenerative joint disease), lumbar (ICD-10 - M47.816) Stable on pregalbin 150 TID and tiz 4 QID (maximally tolerated dose-higher causes tachycardia) Contingency: repeat MRI-last 04/2015-? TOSHA Edwards (last seen 03/2017) (dulox 40 BID-too expensive) 07/29/19 decreased tiz 4 QID to TID given fatigue 06/02/19 attempted to readd dulox 30 BID, but too expensive; therefore, + nor 25 BID-but only tolerated 25 qAM 05/13/19 i changed tiz 6 TID to 4 QID (see 03/25/19 TE) and dulox 40 BID stopped bc too expensive 11/2017 increased dulox 20 BID to 40 BID given cervical/lumbar radicular pain 03/31/17 B SIJ injection c minimal unilateral benefit 09/2016 increased tizan 4 TID to 6 TID and increased HC 7.5 QID to 10 QID and again referred to [facility]-apt 12/12/1605/2015 total HC decreased from 40 to 30 QD given 2016 CDC guidelines and changed amitriptyline 25 BID to Cymbalta 20 BID 04/2015 given persistent severe RLE radicular pain despite maximal medical pain and PT, checked MRI LS as per , given non-surgical, referred to Dr. Grace ortega epidural trial but on further consideration, patient refused (because did not help >30 years ago for her) Oct, Encounter for screening for lung cancer (ICD-10 - Z12.2) Patient defers LD chest CT for screening Oct, Aneurysm, carotid artery, internal (ICD-10 - I67 .1) Patient remains asymptomatic 10/2019 repeat MRA brain 09/2018 stable MRA brain 01/2017 incidentally detected by MRA brain, R distal ICA a 2.6 mm Oct, Orthostatic hypotension (ICD-10 - I95.1) Encoruaged to rise SLOWLY presyncope c falls c quick changes; therefore, CTD 25 held Oct, Acquired hypothyroidism (ICD-10 - E03.9) 10/15/20 0.9, 1.1 05/13/19 1.6, 1.0 on 25 09/2018 7.1, 1.2; therefore, + LT4 25 12/2016 2.9, 1.0 11/2014 TSH 1.4 Oct, UTI (urinary tract infection) (ICD-10 - N39.0) No recurrent symptoms 12/2017 UCX E coli >100K, Bactrim 7D Oct, Osteoarthritis of spine with radiculopathy, cervical region (ICD-10 - M47.22) Stable on regimen as per lumbar DJD 11/2017 increased dulox as per lumbar DJD 03/2017 mild C5-7 FA by MRI Oct, Osteoarthritis of both hands (ICD-10 - M19.041) Stable on diclof top QID prn 08/2016 CRP 0.8, ESR 12, NAKITA 1:80 (but - direct NAKITA), -CCP/RF; therefore, c/w OA and started Voltaren QID Oct, Macrocytosis (ICD-10 - D75.89) 10/15/20 14.4, 97, trent 58 10/21/19 13.9, 96, trent 30 09/2018 16.3, 96 06/2016 15.2, 99 08/2015 stable at 15.4, 97 05/13/19 37%/51 s supplement 05/13/19 412 06/2016 409 08/2015 B12 433 s supplement 10/2016 RBC folate 900 05/13/19 sIFE s MCB, sKL /1.0, gGAM 658/159/33 06/2016 SPEP s M-spike (08/2016 ANDREW s MCB) Oct, Carpal tunnel syndrome (ICD-10 - G56.00) Stable on B CTS per 02/2017 NCS Ali; therefore, B CTS started Oct, Breast cancer screening (ICD-10 - Z12.39) 05/2016 B C1 mammogram 03/2017, 07/2017, 11/2017, 09/2018, 05/2019, 04/30/20 mammo order given 10/[address] biopsy Oct, BYRON (generalized anxiety disorder) (ICD-10 - F41 .1) Stable off medications 01/2017 Jono started citalo 10 QD but p 2W made her feel "like different person"; therefore, stopped it Oct, T2 hyperintense foci present in deep weiner matter nuclei on magnetic resonance imaging (ICD-10 - R90.89) christian as per Dr. Hutson 11/2017 dced gabapentin given dizziness 03/2017 Dr. Hutson ordered: cervical/thoracic MRI cw mild DJD, , NCS/EMG R L5 radic, mild B CTS and normal BW; therefore, added christian 300 BID (even though patient was already on pregalbin 300 BID), started B CTS and referred for PT 01/13/17 given atypical neuropathic pain B UE/BE/trunk, new onset binocular diplopia and 01/09/17 MRI brain c increased T2 HI; referred to [facility] for possible further allen for demyelinating disease Oct, Diplopia (ICD-10 - H53.2) 05/20/[address] Yan who made dx OD PVD, low risk glaucoma, nonex early AD dry ARMD, OU PCO considering YAG capsulotomy 12/2016 given new-onset binoncular diplopia; checked MRI brain (although ? progressive since ~06/2016), referred to Dr. Hutson and Dr. Yan (is established) 04/2008 CT brain s NAD Oct, IFG (impaired fasting glucose) (ICD-10 - R73.01) Continue ADA diet/weight loss 05/13/19 A1C 6.1 Oct, Mixed hyperlipidemia (ICD-10 - E78.2) 10/21/19 49/51/130 12/2017 44/52/146, 40, <0.3 on atorva 40 12/2016 42/47/87, 67, 0.4 on atorva 40 09/2016 atorva 40 held 2 generalized mylgia/weakness madeline BLE (? worse since last increase) s improvment p 6W off; therefore, restarted 11/18/1606/2016 138/48/126, 119, 0.8 on atorva 20; therefore, increased to 40 03/2011 lipids 150/51/108-therefore atorva 10 started 08/2018 normal LFTs Oct, Bilateral carpal tunnel syndrome (ICD-10 - G56.0 3) Stable c B CTS-defers NCS/surgical consideration for now 01/2016 started B CTS for ~5M R>L hand parasthesiae, AM numbness c mild improvement (but only wearing R and NOT at night); therefore, wear B qhs, c/b if not improved in 4W Oct, Intertriginous candidiasis (ICD-10 - B37.2) B breast-stable on nystatin p BID c flares Oct, Adenomatous polyp of colon, unspecified part of colon (ICD-10 - D12.6) repeat colon 07/2021-R Oct, Nicotine addiction (ICD-10 - F17.200) How to Quit Smoking material was printed Encouraged to stop No intention at this point Oct, COPD (chronic obstructive pulmonary disease) (IC D-10 - J44.9) Stable on alb MDI/Duoneb prn URI Oct, Vitamin D deficiency, unspecified (ICD-10 - E55. 9) 10/15/20 112, 8.5 (3.1), 56 05/13/19 43, 59 on D2 50K q7D 04/2015 35, 8.4, PTH 65 11/2014 20, 8.7, PTH 101; therefore Drisdol qW restarted Oct, Other [employer] material was printed How to Quit Smoking material was printed PLAN OF TREATMENT Medication Medication Name Sig [...] to B breast for 30 day(s) Ergocalciferol 25780 UNIT 1 capsule Orally every 7 days for 90 d ay(s) DuoNeb 0.5-2.5 (3) MG/3ML 3 ml Inhalation qid prn for 30 day(s) ProAir HFA 108 (90 Base) MCG/ACT 2 puffs as needed Inhalation ev akash 4-6 hrs tiZANidine HCl 4 MG 1 cap Orally tid for 30 Days Lyrica 150 MG 1 capsule Orally three times daily MDD3 for 30 Horse Shoe 10-325 MG 1 tablet as needed Orally every 6 hrs, M DD 4 for 30 day(s) Oct, Coumadin 5 MG TAKE ONE TABLET BY MOUTH EVERY DAY Omeprazole 40 MG 1 cap Orally every morning for 90 day(s) Treatment Notes Assessment Notes Clinical Notes UTI (urinary tract infection) No recurre nt gqidljxf97/2018 UCX E coli >100K, Bactrim 7D Acquired hypothyroidism 10/15/20 0.9, 1.14 /04/28 1.6, 1.0 on 7.1, 1.2; therefore, + LT4 25102/2016 2.9, 1.010 TSH 1.4 Osteoarthritis of both hands Stable on d iclof top QID prn08/2016 CRP 0.8, ESR 12, NAKITA 1:80 (but - direct NAKITA), -CCP/RF; therefore, c/w OA and started Voltaren QID Osteoarthritis of spine with radiculopathy, cervical region Stable on regimen as per lumbar DJD1 increased dulox as per lumbar DJ mild C5-7 FA by MRI Carpal tunnel syndrome Stable on B CTSpe r 02/2017 NCS Ali; therefore, B CTS started Macrocytosis 10/15/20 14.4, 97, trent 589 13.9, 96, tretn 308 16.3, 965 15.2, 997 stable at 15.4, 974/04/28 37%/51 s supplement05/13/19 4125 4097 B12 433 s supplement10/2016 RBC folate 9004 sIFE s MCB, sKL /1.0, gGAM 658/159/335/2016 SPEP s M-spike (08/2016 ANDREW s MCB) BYRON (generalized anxiety disorder) Stabl e off wvergyfvmqi01/2017 Jono started citalo 10 QD but p 2W made her feel "like different person"; therefore, stopped it Breast cancer screening 05/2016 B C1 mamm ogram03/2017, 07/2017, 11/2017, 09/2018, 05/2019, 04/30/20 mammo order given10/[address] biopsy Orthostatic hypotension Encoruaged to ri se SLOWLYpresyncope c falls c quick changes; therefore, CTD 25 held Aneurysm, carotid artery, internal Patie nt remains asymptomatic10/2019 repeat MRA brain09/2018 stable MRA brain01/2017 incidentally detected by MRA brain, R distal ICA a 2.6 mm Bilateral carpal tunnel syndrome Stable c B CTS-defers NCS/surgical consideration for now01/2016 started B CTS for ~5M R>L hand parasthesiae, AM numbness c mild improvement (but only wearing R and NOT at night); therefore, wear B qhs, c/b if not improved in 4W Preoperative clearance On 10/15/20 the pat ient had a stable CBCD, CMP and PT/APTT. On 08/06/20 CXR PA/lateral NAD. On 08/02/20 the patient's EKG revealed normal sinus rhythm at 74 beats per minute, no hypertrophy, normal axis and diffuse repolarization abnormality similar to 07/30/19 EKG. On the AM of the surgery, the patient will take amlodipine and omeprazole with a sip of water. The patient will hold warfarin for three (3) days prior to surgery. The patient is currently medically optimized for the above surgery. By the modified RCRI, the patient's 30 day MACE risk is 6%. The patient wishes to assume this risk and proceed with the above surgery. Mixed hyperlipidemia 10/21/19 49/51/07814 /2017 44/52/146, 40, <0.3 on atorva 42/47/87, 67, 0.4 on atorva atorva 40 held 2 generalized mylgia/weakness madeline BLE (? worse since last increase) s improvment p 6W off; therefore, restarted 138/48/126, 119, 0.8 on atorva 20; therefore, increased to /2011 lipids 150/51/108-therefore atorva 10 started08/2018 normal LFTs Chronic diarrhea Stable on jason 2 BI D prnC: trial off PPIintermittent since ~spring 2015-episodes ~q2W lasting ~1-2D-at least partially 2 lactose intolerance10/16/20 dced MOX 400 BID as per HTN given contributes to diarrhea (and diarrhea will cause hypoMg)06/2016 Reindl started jason 2 BID prn c marked improvement using 1-2 tabs QD08/06/20 - GI panel06/2016 -TTG07/2016 normal colonoscopy-R Adenomatous polyp of colon, unspecified part of colon repeat colon 07/2021-R Primary osteoarthritis of both knees No po NSAIDs given chronic DOACC: TK04/30/20 given imcreased instability causing ataxia/falls; referred to Dr. Arreola tc L TKR06/01/18, 09/29/17 L knee TA 40 c ~7-10D improvement06/2016 xray as per cw mod tricompartmental OA; therefore, started Voltaren QID to L knee s improvement; Intertriginous candidiasis B breast-stab le on nystatin p BID c flares Essential (primary) hypertension Stable on amlo 2.5 qAM (caution on tiz as per lumbar DJD)10/15/20 16/1.0, 3.63 decreased MOX 800 BID to 400 BID given chronic diarrhea (and 07/29/19 Mg 2.0 on MOX 800 BID)05/13/19 biso 5 qAM to amlo 2 .5 qAM given QD Raynaud's sx c cb BID HBPs in 7D09/28/18 held CTD 25 given OH/presyncope, cr to 1.5; c cb BID HBPs c BW in 7D05/2018 + CTD 25 qAM c cb BID HBPs in 7D12/01/17 dc fur 40 qAM given OH in office SBP to 95 c standing c cb BID HBPs in 5D COPD (chronic obstructive pulmonary disease) Stable on alb MDI/Duoneb prn URI Delirium 07/29/19 ~7D increasi ng fatigue/confusion s focality, F/C, denies LUTs (but daughter states ? foul-smelling urine); therefore, tiz 4 QID to 4 TID and STAT BW done-given BECK and decreased plt, advised admission Nicotine addiction How to Quit Smoking material was printed Encouraged to stopNo intention at this point H/O deep venous thrombosis No recurent V TE on lifeling VKA c goal INR 2-3h/o recurrent DVT/PE08/02/20 2.0 on VKA INR 2.7 on VKA 5 QD. Per patient, request change VKA back to rivarox 20 (feels QD dosing would be more compliant and doubt rivarox caused diarrhea), holding VKA x 2D BEFORE starting06/12/14 given persistent diarhhea since starting Xarelto (06/08/14 -SCX, O/P, C diff PCR not doen 2 formed stools), changed to Eliquis 5 BID05/18/14 given persistent non- compliance c PT appointments and ~50% non-therapeutic PT levels, changed to Xarelto 20 QD Gastroesophageal reflux disease, esophagitis presence not sp ecified Stable on omep 40 qA03/25/19 i cahnged Nexium 40 JOSIAH t oomep 40 qAM Vitamin D deficiency, unspecified 10/15/20 112, 8.5 (3.1), 564 43, 59 on D2 50K q7 35, 8.4, PTH 6511/2014 20, 8.7, PTH 101; therefore Drisdol qW restarted T2 hyperintense foci present in deep gra y matter nuclei on magnetic resonance imaging christian as per Dr. Hutson11/2017 d nicci gabapentin given dizziness03/2017 Dr. Hutson ordered: cervical/thoracic MRI cw mild DJD, , NCS/EMG R L5 radic, mild B CTS and normal BW; therefore, added christian 300 BID (even though patient was already on pregalbin 300 BID), started B CTS and referred for PT01/13/17 given atypical neuropathic pain B UE/BE/trunk, new onset binocular diplopia and 01/09/17 MRI brain c increased T2 HI; referred to [facility] for possible further allen for demyelinating disease IFG (impaired fasting glucose) Continue ADA diet/weight loss05/13/19 A1C 6.1 Diplopia 05/20/[address] Yan who made dx OD PVD, low risk glaucoma, nonex early AD dry ARMD, OU PCO considering YAG ktloctumhsh17/2017 given new-onset binoncular diplopia; checked MRI brain (although ? progressive since ~06/2016), referred to Dr. Hutson and Dr. Yan (is established)04/2008 CT brain s NAD Raynaud's disease without gangrene as pe r HTNEncouraged to dc nicotine DJD (degenerative joint disease), lumbar Stable on pregalbin 150 TID and tiz 4 QID (maximally tolerated dose-higher causes tachycardia)Contingency: repeat MRI-last 04/2015-? TOSHA Edwards (last seen 03/2017) (dulox 40 BID-too expensive)07/29/19 decreased tiz 4 QID to TID given fatigue06/02/19 attempted to readd dulox 30 BID, but too expensive; therefore, + nor 25 BID-but only tolerated 25 qAM05/13/19 i changed tiz 6 TID to 4 QID (see 03/25/19 TE) and dulox 40 BID stopped bc too ilrwnejjy71/2018 increased dulox 20 BID to 40 BID given cervical/lumbar radicular pain03/31/17 B SIJ injection c minimal unilateral benefit09/2016 increased tizan 4 TID to 6 TID and increased HC 7.5 QID to 10 QID and again referred to Grace [facility]-apt total HC decreased from 40 to 30 QD given 2015 CDC guidelines and changed amitriptyline 25 BID to C ymbalta 20 BID04/2015 given persistent severe RLE radicular pain despite maximal medical pain and PT, checked MRI LS as per , given non-surgical, referred to Dr. Grace ortega epidural trial but on further consideration, patient refused (because did not help >30 years ago for her) Encounter for screening for lung cancer Patient defers LD chest CT for screening Future Test Test Name Order Date Comprehensive Metabolic Profile (CMP) [id number] MAGNESIUM LEVEL [id number] NT-PRO BNP [id number] t-Transglutaminase (tTG) IgA [id number] CHROMOGRANIN A [id number] CBC with Auto Differential [id number] FERRITIN [id number] VITAMIN B12 LEVEL [id number] Next Appt Details , BW 1W prior Reason: Provider Name:Ayad De La Cruz, 2020-12-14 1 1:45:00 AM, [address] [facility], , [place], [address], Insurance Providers Payer Name Payer Address Payer Phone Insured Name Patient Relati onship to Insured Coverage Start Date Coverage End Date MEDICARE COMPLETE [employer] [address] [address] [facility] [id number] ALEKSANDER LOUIS self
--- OUTSIDE RECORDS SUMMARY | 2020-12-11 16:46 | CCD ---
Author Author [facility] [employer] Organization [facility] [employer] Address Unknown Phone Unavailable Support Name Relationship Address Phone ALEKSANDER LOUIS [address] [place] [address] Abby [facility] HCP & POA ECON [address] [facility] [address] [place], [place] [id number] Care Team Providers Care Diabetes Educator Name Role Phone Ayad De La Cruz Unavailable PROBLEMS Type Condition ICD9-CM Code AGV52-CF Code Onset Dates Condition S tatus W/U Status Risk SNOMED Code Notes Problem Primary osteoarthritis of both knees M17.0 Act tacos confirmed 755237564 Problem Osteoarthritis of both hands M19.041 Active confirm ed 227073210 Problem Primary osteoarthritis, right hand M19.041 Activ e confirmed 28416623 Problem Chronic diarrhea K52.9 Active confirmed 236 926796 Problem Primary osteoarthritis of left hand M19.042 Acti ve confirmed 70127163 Problem Sacroiliitis, not elsewhere classified M46.1 A ctive confirmed 99134540 Problem Intervertebral disc disorder with radiculopathy of lumbar region M51.16 Active confirmed 51797512 Problem Syncope, unspecified syncope type R55 Active con firmed 077733373 Problem Bilateral carpal tunnel syndrome G56.03 Active conf irmed 09047063 Problem Personal history of pulmonary embolism Z86.711 A ctive confirmed 510105749 Problem Adenomatous polyp of colon, unspecified part of colon D12.6 Active confirmed 127963185 Problem Intertriginous candidiasis B37.2 Active confirmed 85923150 Problem Macrocytosis D75.89 Active confirmed 0563086 00 Problem Cerebral vascular disease I67.9 Active confirmed 83071974 Problem BYRON (generalized anxiety disorder) F41.1 Activ e confirmed 15576863 Problem T2 hyperintense foci present in deep weiner matter nuclei on magnetic resonance imaging R90.89 Active confirmed 034728177 Problem DJD (degenerative joint disease), lumbar M47.816 Active confirmed 975201298 Problem Aneurysm, carotid artery, internal I67.1 Activ e confirmed 14626223 Problem UTI (urinary tract infection) N39.0 Active confirm ed 57355596 Problem Sacroiliac joint pain M53.3 Active confirmed 226905621 Problem H/O deep venous thrombosis Z86.718 Active confirmed 934073628 Problem Intervertebral disc disorder M51.9 Active confirme d 27932721 Problem COPD (chronic obstructive pulmonary disease) J44.9 Active confirmed 32614352 Problem Acquired hypothyroidism E03.9 Active confirmed 429093864 Problem Breast cancer screening Z12.39 Active confirmed 470042952 Problem Osteoarthritis of spine with radiculopathy, cervical regio n M47.22 Active confirmed 261196414 Problem Nicotine addiction F17.200 Active confirmed 07078243 Problem History of pulmonary embolism Z86.711 Active confir med 330247454 Problem COPD with exacerbation J44.1 Active confirmed 779094032 Problem Gastroesophageal reflux disease, esophagitis pre sence not specified K21.9 Active confirmed 430016301 Problem terminal gauger current use of anticoagulant Z79.01 A ctive confirmed 954869834 Problem IFG (impaired fasting glucose) R73.01 Active confir med 283666882 Problem Encounter for therapeutic drug monitoring Z51.81 Active confirmed 176637493 Problem Diplopia H53.2 Active confirmed 70612242 Problem Vitamin D deficiency, unspecified E55.9 Active con firmed 24635309 Problem Carpal tunnel syndrome G56.00 Active confirmed 28030314 Problem Mixed hyperlipidemia E78.2 Active confirmed 380719792 Problem Raynaud's disease without gangrene I73.00 Activ e confirmed 309601065 Problem Chronic pain syndrome G89.4 Active confirmed 729234612 Problem Essential (primary) hypertension I10 Active conf irmed 60801770 Problem Thrombocytopenia D69.6 Active confirmed 415 721956 Problem Encounter for screening for lung cancer Z12.2 Active confirmed 960244225 ALLERGIES Allergen (clinical drug ingredient) Drug/Non Drug Allergy do cumented on EMR Reaction Allergy Type Onset Date Status ciprofloxacin Cipro([facility] Code:[address]-52) Hives Drug Allergy Active Shellfish shellfish Anaphylaxis Non Drug Allergy Active penicillin V Penicillin V Potassium([facility] Code:[address]-74) Hives Drug Allergy Active diclofenac Flector([facility] Code:[address]-38) irritable skin Drug Allerg y Active fentanyl Duragesic-25([facility] Code:[address]-73) itch Drug Aller gy Active valproate Valproic Acid([facility] Code:[address]-23) Unknown Drug [facility] rgy Active phenobarbital Phenobarbital([facility] Code:[address]-94) hysteria Drug A llergy Active nitrofurantoin, macrocrystals / nitrofurantoin, monohy drate Macrobid([facility] Code:[address]-02) Nausea/Vomiting Drug Allergy Active ENCOUNTERS from 1945 to 2020-09-27 Encounter Location Date Provider Diagnosis [address] [phone] [place] [address] Sep, Ayad QUEEN (degenerative joint dise ase), lumbar [...] Language: Question Answer Notes Languages spoken: Hungarian [employer]: Question Answer Notes [employer] Sexual Hx: Question Answer Notes Had sex [...] Notes Start Da te End Date Status Magnesium Oxide 400 MG 1 tab Orally Twice a day for 30 day(s) Active HYDROcodone-Acetaminophen 10-325 MG 1 tablet as needed Orally every 6 hrs MDD 4 for 30 Days Sep, Active tiZANidine HCl 4 MG TAKE ONE TABLET BY MOUTH THREE TIMES A D AY NEEDED for 30 Active Voltaren 1 % 4 gm Transdermal QID to B knees for 30 day(s) Active Imodium A-D 2 MG 1 tab Orally bid prn diarrhea for 30 Active Nystatin - 1 null to affected area Exte rnally Twice a day to B breast for 30 day(s) Active Lyrica 150 MG 1 capsule Orally three times daily MDD3 for 30 D ays Sep, Active HYDROcodone-Acetaminophen 10-325 MG 1 tablet as needed Orally every 6 hrs MDD 4 for 30 Days Aug, Active Levothyroxine Sodium 25 MCG 1 tablet on an empty stoma ch in the morning Orally Once a day for 90 day(s) Active Warfarin Sodium 2.5 MG 1 tablet Orally Once a day for 30 Active Welchol 625 MG 2 tablets Orally Twice a day for 30 day(s) Aug, Active Atorvastatin Calcium 40 MG 1 tablet Orally Once a day for 90 day(s) Active amLODIPine Besylate 2.5 MG 1 tablet Orally every morning for 90 day(s ) Active ProAir HFA 108 (90 Base) MCG/ACT 2 puffs as needed Inhalation every 4-6 hrs Active Coumadin 5 MG TAKE ONE TABLET BY MOUTH EVERY DAY Active DuoNeb 0.5-2.5 (3) MG/3ML 3 ml Inhalation qid prn for 30 day(s) Active Omeprazole 40 MG 1 cap Orally every morning for 90 day(s) Active B & B Carpal Tunnel Brace - as directed _ Daily left for 99 months Active Ergocalciferol 48050 UNIT 1 capsule Orally every 7 days for 90 day(s) Active PROCEDURES No Information RESULTS No Results [...] OA by 08/2013 xray Medical History lumbar QQN-ytne-wpyrj c L2-S 1 diffuse bulges c minimal [...] and mild diffuse thoracic FA Surgical History EGD/qyxtgextlsl-Ivrgde-lnczr agitis (grade B),normal stomach biopsy, EG junction with minimal chronic inflammation by biopsy, adenomatous polyp//erwpi-ffnux-I 02/2009, 07/2016 Surgical History bilateral cateract-left then [...] Treatment Notes Treatm ent Clinical Notes Sep, DJD (degenerative joint disease), lumbar (ICD-10 - M47.816) PLAN OF TREATMENT Medication Medication Name Sig Start Date Stop Date tiZANidine HCl 4 MG TAKE ONE TABLET BY MOUTH THREE TIMES A D AY NEEDED for 30 HYDROcodone-Acetaminophen 10-325 MG 1 tablet as needed Orally every 6 hrs MDD 4 for 30 Days Sep, Lyrica 150 MG 1 capsule Orally three times daily MDD3 for 30 D ays Sep, Next Appt Details Provider Name:Liyah Canales, 10-03 08:30:00 AM, [address] [place], [place] [phone], [place], [place], [address] [place] [address] Provider Name:Ayad De La Cruz, 2020-10-16 0 9:45:00 AM, [address] [place], [place] [phone], [place] [address], Provider Name:Ayad De La Cruz, 2020-12-14 1 1:45:00 AM, [address] [place], [place] [id number], [place], [address], Insurance Providers Payer Name Payer Address Payer Phone Insured Name Patient Relati onship to Insured Coverage Start Date Coverage End Date MEDICARE COMPLETE [facility] [address] [address] [facility] [id number] ALEKSANDER LOUIS self
--- OUTSIDE RECORDS SUMMARY | 2020-12-11 16:46 | CCD | Continuity of Care Document ---
Author Author Latisha SHAH MD Organization Unknown Address [address] [facility], [facility] [place] [address] Phone [phone] Care Team Providers Care Fish Trapper Name Role Phone Ayad De La Cruz M.D. AUTM [phone] AUTM Unavailable Problems Active Problems Provider Date [...] Provided Allergies, Adverse Reactions, Alerts Active Allergies Reaction Severity Comments Date Shellfish 11/30/2008 Penicillins 11/30/2008 Phenobarbital 11/30/2008 Valproic Acid 08/05/2012 Cipro hives 08/05/2012 Flector irritable skin 08/05/2012 Duragesic 25 itching 08/05/2012 Macrobid nausea/vomiting 08/05/2012 Penicillin hives 08/05/2012 Phenobarbital 09/28/2006 Penicillin Skin Rashes/Hives 09/28/2006 Medications Active Medications SIG Qnty Indications Ordering Provide r Date Ventolin HFA 108(90Base) mcg/Act A erosol 2 Puffs qid/prn 1units Letty Matias, A.N.PMelony 09/30/2006 Folic Acid 1mg Tablets 1 PO q d 90tabs Unknown Loperamide HCL 2mg Capsules Take One Capsule [...] Three Times A Day as Needed Unknown Hydrocodone-Acetaminophen 10-325mg Tablets Take One Tablet By Mouth Every 6 Hours as Needed Maxim um Daily Dose 4 Tablets Unknown Pregabalin 150mg Capsules Take One Capsule By Mouth Three Times A Day Maximum Daily Dose 3 Capsules Unknown Nexium 20mg Packet qd Unknown Klor-Con M20 20Meq Tablets ER 1 PO bid Unknown [place] 7.5-325mg Tablets take 1 tab by mouth four times daily as needed for pain Unknow n Cymbalta 20mg Caps DR Brosnon urbano Unknown Zanaflex 4mg Capsules three times a day as needed for muscle spasms Unknown 000 Lyrica 150mg Capsules tid Unknown Magnesium Oxide 400mg Capsules bid Unknown Losartan Potassium 50mg Tablets 1 by mouth every day Unknown Vitamin D (Ergocalciferol) 79220Iwcn Capsules every week Unknown Immunizations Description No Information Available Vital Signs Date Vital Result Comment 09/12/2020 9:08am Body Temperature 97.5 F 06/11/2020 1:53pm BP Systolic 149 mmHg BP Diastolic 83 mmHg Heart Rate 81 /min O2 % BldC Oximetry 96 % Respiratory Rate 16 /min Body Temperature 97.1 F Height 63 inches 5'3" Weight 167.00 lb BMI (Body Mass Index) 29.6 kg/m2 [place] Body Weight 115 lb Weight 75.751 kg BSA (Body Surface Area) 1.79 m2 Results Description No Information Available Procedures Date Code Description Status 09/12/2020 03057 Office/Outpatient Established Mo d MDM 30-39 Min Completed 06/11/2020 47170 Office/Outpatient New Moderate M DM 45-59 Minutes Completed Medical Devices Description No Information Available Encounters Type Date Location Provider Dx Diagnosis Office Visit 09/12/2020 9:00a [facility] Eliazar Shah MD 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
--- OUTSIDE RECORDS SUMMARY | 2020-12-11 16:46 | CCD | Continuity of Care Document ---
Author Author Latisha SHAH MD Organization Unknown Address [address] [facility], [facility] [place] [address] Phone [phone] Care Team Providers Care Jetting Machine Operator Name Role Phone Ayad De La Cruz M.D. AUTM [phone] AUTM Unavailable Problems Active Problems Provider Date [...] erosol 2 Puffs qid/prn 1units Letty Matias, A.N.PMelnoy 09/30/2006 Folic Acid 1mg Tablets 1 PO [...] 20Meq Tablets ER 1 PO bid Unknown [place] 7.5-325mg Tablets take 1 tab by mouth four times daily as needed for pain Unknow n Cymbalta 20mg Caps DR Bronson urbano Unknown Zanaflex 4mg Capsules three times a day as needed for muscle spasms Unknown 000 Lyrica 150mg Capsules tid Unknown Magnesium Oxide 400mg Capsules bid Unknown Losartan Potassium 50mg Tablets 1 by mouth every day Unknown Vitamin D (Ergocalciferol) [id number] Capsules every week Unknown Immunizations Description No Information Available Vital Signs Date Vital Result Comment 09/12/2020 9:08am Body Temperature 97.5 F 06/11/2020 1:53pm BP Systolic 149 mmHg BP Diastolic 83 mmHg Heart Rate 81 /min O2 % BldC Oximetry 96 % Respiratory Rate 16 /min Body Temperature 97.1 F Height 63 inches 5'3" Weight 167.00 lb BMI (Body Mass Index) 29.6 kg/m2 [place] Body Weight 115 lb Weight 75.751 kg BSA (Body Surface Area) 1.79 m2 Results Description No Information Available Procedures Date Code Description Status 06/11/2020 66952 Office/Outpatient New Moderate M DM 45-59 Minutes Completed Medical Devices Description No Information Available Encounters Type Date Location Provider Dx Diagnosis Office Visit 06/11/2020 2:00p [facility] Eliazar Shah MD 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
--- OUTSIDE RECORDS SUMMARY | 2020-12-11 16:47 | CCD ---
Author Author [facility] Organization [facility] Address Unknown Phone Unavailable Care Team Providers Care Tube Inspector Name Role Phone Stephane De La Cruz MD Unavailable Unavailable Stephane De La Cruz MD Unavailable Unavailable JonoStephane landin MD Unavailable Unavailable JonoStephane landin MD Unavailable Unavailable JonoStephane landin MD Unavailable Unavailable JonoStephane landin MD Unavailable Unavailable Stephane De La Cruz MD Unavailable Unavailable Stephane De La Cruz MD Unavailable Unavailable JonoStephane landin MD Unavailable Unavailable JonoStephane landin MD Unavailable Unavailable JonoStephane landin MD Unavailable Unavailable JonoStephane landin MD Unavailable Unavailable JonoStephane landin MD Unavailable Unavailable JonoStephane landin MD Unavailable Unavailable Stephane De La Cruz MD Unavailable Unavailable JonoStephane landin MD Unavailable Unavailable JonoStephane landin MD Unavailable Unavailable JonoStephane landin MD Unavailable Unavailable JonoStephane landin MD Unavailable Unavailable JonoStephane landin MD Unavailable Unavailable JonoStephane landin MD Unavailable Unavailable JonoStephane landin MD Unavailable Unavailable Stephane De La Cruz MD Unavailable Unavailable Stephane De La Cruz MD Unavailable Unavailable JonoStephane landin MD Unavailable Unavailable JonoStephane landin MD Unavailable Unavailable JonoStephane landin MD Unavailable Unavailable JonoStephane landin MD Unavailable Unavailable JonoStephane landin MD Unavailable Unavailable JonoStephane landin MD Unavailable Unavailable JonoStephane landin MD Unavailable Unavailable JonoStephane landin MD Unavailable Unavailable JonoStephane landin MD Unavailable Unavailable JonoStephane landin MD Unavailable Unavailable Jono, E Ayad MD Unavailable Unavailable Jono, E Ayad MD Unavailable Unavailable Jono, E Ayad MD Unavailable Unavailable Jono, E Ayad MD Unavailable Unavailable Jono, E Ayad MD Unavailable Unavailable Jono, E Ayad MD Unavailable Unavailable Jono, E Ayad MD Unavailable Unavailable Jono, E Ayad MD Unavailable Unavailable Jono, E Ayad MD Unavailable Unavailable Jono, E Ayad MD Unavailable Unavailable Jono, E Ayad MD Unavailable Unavailable Jnoo, E Ayad MD Unavailable Unavailable Jono, E Ayad MD Unavailable Unavailable Jono, E Ayad MD Unavailable Unavailable Jono, E Ayad MD Unavailable Unavailable Jono, E Ayad MD Unavailable Unavailable Jono, E Ayad MD Unavailable Unavailable Jono, E Ayad MD Unavailable Unavailable Jono, E Ayad MD Unavailable Unavailable Jono, E Ayad MD Unavailable Unavailable Jono, E Ayad MD Unavailable Unavailable Jono, E Ayad MD Unavailable Unavailable Jono, E Ayad MD Unavailable Unavailable Jono, E Ayad MD Unavailable Unavailable Jono, E Ayad MD Unavailable Unavailable Jono, E Ayad MD Unavailable Unavailable Eliazar Arreola MD Unavailable Unavailable Eliazar Arreola MD Unavailable Unavailable Eliazar Arreola MD Unavailable Unavailable Eliazar Arreola MD Unavailable Unavailable Eliazar Arreola MD Unavailable Unavailable Eliazar Arreola MD Unavailable Unavailable Eliazar Arreola MD Unavailable Unavailable Eliazar Arreola MD Unavailable Unavailable Eliazar Arreola MD Unavailable Unavailable Eliazar Arreola MD Unavailable Unavailable Alvarado, A Adina PA Unavailable Unavailable Alvarado, A Adina PA Unavailable Unavailable Alvarado, A Adina PA Unavailable Unavailable Alvarado, A Adina PA Unavailable Unavailable Alvarado, A Adina PA Unavailable Unavailable Alvarado, A Adina PA Unavailable Unavailable Alvarado, A Adina PA Unavailable Unavailable Alvarado, A Adina PA Unavailable Unavailable Alvarado, A Adina PA Unavailable Unavailable Alvarado, A Adina PA Unavailable Unavailable Alvarado, A Adina PA Unavailable Unavailable Alvarado, A Adina PA Unavailable Unavailable Alvarado, A Adina PA Unavailable Unavailable Alvarado, A Adina PA Unavailable Unavailable Alvarado, A Adina PA Unavailable Unavailable Alvarado, A Adina PA Unavailable Unavailable Alvarado, A Adina PA Unavailable Unavailable Alvarado, A Adina PA Unavailable Unavailable Alvarado, A Adina PA Unavailable Unavailable Alvarado, A Adina PA Unavailable Unavailable Alvarado, A Adina PA Unavailable Unavailable Alvarado, A Adina PA Unavailable Unavailable Lavarado, A Adina PA Unavailable Unavailable Alvarado, A Adina PA Unavailable Unavailable Alvarado, A Adina PA Unavailable Unavailable Alvarado, A Adina PA Unavailable Unavailable Alvarado, A Adina PA Unavailable Unavailable Alvarado, A Adina PA Unavailable Unavailable Alvarado, A Adina PA Unavailable Unavailable Alvarado, A Adina PA Unavailable Unavailable Alvarado, A Adina PA Unavailable Unavailable Alvarado, A Adina PA Unavailable Unavailable Alvarado, A Adina PA Unavailable Unavailable Alvarado, A Adina PA Unavailable Unavailable Alvarado, A Adina PA Unavailable Unavailable Alvarado, A Adina PA Unavailable Unavailable Re-disclosure Warning The records that you are about to access may contain information from federally-assisted alcohol or drug abuse programs. If such information is present, then the following federally mandated warning applies: This information has been disclosed to you from records protected by federal confidentiality rules (42 CFR part 2). The federal rules prohibit you from making any further disclosure of this information unless further disclosure is expressly permitted by the written consent of the person to whom it pertains or as otherwise permitted by 42 CFR part 2. A general authorization for the release of medical or other information is NOT sufficient for this purpose. The Federal rules restrict any use of the information to criminally investigate or prosecute any alcohol or drug abuse patient.The records that you are about to access may contain highly sensitive health information, the redisclosure of which is protected by Article 27-F of the [facility] Public Health law. If you continue you may have access to information: Regarding HIV / AIDS; Provided by facilities licensed or operated by the [facility] Office of Mental Health; or Provided by the [facility] Office for People With Developmental Disabilities. If such information is present, then the following [facility] mandated warning applies: This information has been disclosed to you from confidential records which are protected by state law. State law prohibits you from making any further disclosure of this information without the specific written consent of the person to whom it pertains, or as otherwise permitted by law. Any unauthorized further disclosure in violation of state law may result in a fine or prison sentence or both. A general authorization for the release of medical or other information is NOT sufficient authorization for further disc losure. Allergies and Adverse Reactions Type Description Substance Reaction Status Data Source(s ) Propensity to adverse reactions CIPRO CIPRO [facility] Propensity to adverse reactions FLECTOR FLECTOR [facility] Propensity to adverse reactions DURAGESIC DURAGESIC [facility] Drug allergy PHENOBARBITAL PHENOBARBITAL [facility] Propensity to adverse reactions PENICILLINS (CLASS) PENICILLINS (CLAS S) [facility] Family History Family Member Name Family Member Gender Family Member Status Date o f Status Description Data Source(s) Unknown Unknown Problem MEDENT ([facility]) Encounters Encounter Providers Location Date Indications Data Source(s ) [place] [address] [facility] [address] 11/19/2020 12:00:00 AM EDT eCW1 ([facility]) Office Visit Attender: Eliazar Mercado/Adelina/Justin/Patricia dl 11/05/2020 09:30:00 AM EDT MEDENT ([facility]) (PT/INR TV) Telephone Encounter Visit [address] [place] [address] 11/02/2020 12:00:00 AM EDT eCW1 ([facility]) [place] [address] [facility] [place] [address] 11/02/2020 12:00:00 AM EDT eCW1 ([facility]) Outpatient Attender: Ayad Doyle rer: Ayad De La Cruz MDConsultant: Adina PEARSON 10/29/2020 08:40:00 PM EDT - 10/29/2020 08:50:00 PM EDT [facility] [place] [address] [facility] [address] 10/26/2020 12:00:00 AM EDT eCW1 ([facility]) Unknown [address] [facility] [place] [address] 10/26/2020 12:00:00 AM EDT eCW1 ([facility]) Unknown [address] [facility] [place] [address] 10/24/2020 12:00:00 AM EDT eCW1 ([facility]) [place] [address] [facility] [address] 10/24/2020 12:00:00 AM EDT eCW1 ([facility]) [place] [address] [facility] [address] 10/18/2020 12:00:00 AM EDT eCW1 ([facility]) [place] [address] [facility] [address] 10/16/2020 12:00:00 AM EDT eCW1 ([facility]) [place]patient [address] [facility] [address] 10/16/2020 12:00:00 AM EDT eCW1 ([facility]) Office Visit, Est Pt., Level 3 PC [address] [place] [address] 10/03/2020 12:00:00 AM EDT eCW1 ([facility]) [place] [address] [facility] [address] 09/26/2020 12:00:00 AM EDT eCW1 ([facility]) [place] [address] [facility] [address] 09/17/2020 12:00:00 AM EDT eCW1 ([facility]) Outpatient Attender: Eliazar Mercado/Adelina/Justin/Patricia ro 09/12/2020 09:00:00 AM EDT MEDENT ([facility]) Office Visit, Est Pt., Level 2 PC [address] [place] [address] 09/05/2020 12:00:00 AM EDT eCW1 ([facility]) [place] [address] [facility] [address] 09/03/2020 12:00:00 AM EDT eCW1 ([facility]) [place] [address] [facility] [address] 08/28/2020 12:00:00 AM EDT eCW1 ([facility]) [place] [address] [facility] [address] 08/21/2020 12:00:00 AM EDT [facility]1 [facility] [place] [address] [facility] [address] 08/20/2020 12:00:00 AM EDT eCW1 ([facility]) [place] [address] [facility] [address] 08/14/2020 12:00:00 AM EDT eCW1 ([facility]) [place] [address] [facility] [address] 08/08/2020 12:00:00 AM EDT eCW1 ([facility]) Office Visit, Est Pt., Level 3 PC [address] [place] [address] 08/07/2020 12:00:00 AM EDT eCW1 ([facility]) [place] [address] [facility] [address] 08/07/2020 12:00:00 AM EDT eCW1 ([facility]) [place] [address] [facility] [address] 08/06/2020 12:00:00 AM EDT eCW1 ([facility]) [place] [address] [facility] [address] 08/06/2020 12:00:00 AM EDT eCW1 ([facility]) Outpatient [address] [facility] [place] [address] 08/02/2020 12:00:00 AM EDT eCW1 ([facility]) Unknown [address] [facility] [place] [address] 07/31/2020 12:00:00 AM EDT eCW1 ([facility]) Unknown [address] [facility] [place] [address] 07/23/2020 12:00:00 AM EDT eCW1 ([facility]) Office Visit, Est Pt., Level 2 PC [address] [place] [address] 07/23/2020 12:00:00 AM EDT eCW1 ([facility]) Unknown [address] [facility] [address] 07/19/2020 12:00:00 AM EDT eCW1 ([facility]) Office Visit, Est Pt., Level 2 PC [address] [place] [address] 07/04/2020 12:00:00 AM EDT eCW1 ([facility]) Unknown [address] [place] [address] 06/25/2020 12:00:00 AM EDT eCW1 ([facility]) Office Visit, Est Pt., Level 2 PC [address] [place] [address] 06/22/2020 12:00:00 AM EDT eCW1 ([facility]) Unknown [address] [place] [address] 06/22/2020 12:00:00 AM EDT eCW1 ([facility]) Unknown [address] [place] [address] 06/22/2020 12:00:00 AM EDT eCW1 ([facility]) Office Visit, Est Pt., Level 2 PC [address] [place] [address] 06/13/2020 12:00:00 AM EDT eCW1 ([facility]) Outpatient Attender: Eliazar Mercado/Adelina/Justin/Patricia ro 06/11/2020 02:00:00 PM EDT MEDENT ([facility]) Unknown [address] [place] [address] 06/05/2020 12:00:00 AM EDT eCW1 ([facility]) Unknown [address] [place] [address] 05/22/2020 12:00:00 AM EDT eCW1 ([facility]) Outpatient [address] [place] [address] 04/30/2020 12:00:00 AM EDT eCW1 ([facility]) [place] [address] [facility] [address] 04/24/2020 12:00:00 AM EDT eCW1 ([facility]) [place] [address] [facility] [address] 04/03/2020 12:00:00 AM EST eCW1 ([facility]) [place] [address] [facility] [address] 03/30/2020 12:00:00 AM EST eCW1 ([facility]) [place] [address] [facility] [address] 03/29/2020 12:00:00 AM EST eCW1 ([facility]) [place] [address] [facility] [address] 03/27/2020 12:00:00 AM EST eCW1 ([facility]) [place] [address] [facility] [address] 03/02/2020 12:00:00 AM EST eCW1 ([facility]) [place] [address] [facility] [address] 02/28/2020 12:00:00 AM EST eCW1 ([facility]) [place] [address] [facility] [address] 01/26/2020 12:00:00 AM EST eCW1 ([facility]) [place] [address] [facility] [address] 01/03/2020 12:00:00 AM EST eCW1 ([facility]) [place] [address] [facility] [address] 12/29/2019 12:00:00 AM EST eCW1 ([facility]) [place] [address] [facility] [address] 12/08/2019 12:00:00 AM EDT eCW1 ([facility]) [place] [address] [facility] [address] 12/05/2019 12:00:00 AM EDT eCW1 ([facility]) [place] [address] [facility] [address] 11/22/2019 12:00:00 AM EDT eCW1 ([facility]) [place] [address] [facility] [address] 11/14/2019 12:00:00 AM EDT eCW1 ([facility]) Medications Medication Brand Name Start Date Product Form Dose Route Admi nistrative Instructions Pharmacy Instructions Status Indications Reaction Description Data Source(s) Acetaminophen 325 MG / Oxycodone Hydroch loride 5 MG Oral Tablet [Percocet] Percocet 5-325 MG Percocet 5-325 MG 11/21/2020 12:00:00 AM EDT 2 .0 {tablet_as_needed} active Percocet 5-32 5 MG eCW1 ([facility]) 5-325 mg 11/21/2020 12:00:00 AM EDT tablet 240 TAKE TWO TABLETS BY MOUTH EVERY 6 HOURS NEEDED MAXIMUM DAILY DOSE = 8 TABLETS TAKE TWO TABLETS BY MOUTH EVERY 6 HOURS NEEDED MAXIMUM DAILY DOSE = 8 TABLETS SOLD: 11/21/2020 [facility] atorvastatin 40 MG Oral Tablet ATORVASTATIN CALCIUM 11/17/2020 1 2:00:00 AM EDT tablet 90 TAKE ONE TABLET BY MOUTH EVERY D AY TAKE ONE TABLET BY MOUTH EVERY DAY SOLD: 11/21/2020 [facility] 5 mg 11/13/2020 12:00:00 AM EDT tablet 48 TAKE TWO TABLETS BY MOUTH EVERY 6 HOURS NEEDED FOR PAIN MAXIMUM DAILY DOSE = 8 TABLETS TAKE TWO TABLETS BY MOUTH EVERY 6 HOURS NEEDED FOR PAIN MAXIMUM DAILY DOSE = 8 TABLETS SOLD: 11/13/2020 [facility] Oxycodone Hydrochloride 5 MG Oral Tablet Oxycodone HCL 11/13/2020 12:00:00 AM EDT active MEDENT ([facility], ) Oxycodone Hydrochloride 5 MG Oral Tablet Oxycodone HCL 11/07/2020 12:00:00 AM EDT active MEDENT ([facility], ) 5 mg 11/06/2020 12:00:00 AM EDT tablet 48 TAKE TWO TABLETS BY MOUTH EVERY 6 HOURS NEEDED FOR PAIN MAXIMUM DAILY DOSE = 8 TABLETS TAKE TWO TABLETS BY MOUTH EVERY 6 HOURS NEEDED FOR PAIN MAXIMUM DAILY DOSE = 8 TABLETS SOLD: 11/07/2020 [facility] 2.5 mg 11/06/2020 12:00:00 AM EDT tablet 90 TAKE ONE TABLET BY MOUTH EVERY MORNING TAKE ONE TABLET BY MOUTH EVERY MORNING SOLD: 11/07/2020 [facility] Oxycodone Hydrochloride 5 MG Oral Tablet Oxycodone HCL 11/01/2020 12:00:00 AM EDT active MEDENT ([facility], ) 5 mg 11/01/2020 12:00:00 AM EDT tablet 42 TAKE 2 TABLETS BY MOUTH EVERY 6 HOURS NEEDED FOR PAIN MAX DAILY DOSE = 8 TABLETS TAKE 2 TABLETS BY MOUTH EVERY 6 HOURS NEEDED FOR PAIN MAX DAILY DOSE = 8 TABLETS SOLD: 11/01/2020 [facility] 5 mg 10/26/2020 12:00:00 AM EDT tablet 60 TAKE TWO TABLETS BY MOUTH EVERY 4 HOURS NEEDED FOR PAIN MAXIMUM DAILY DOSE = 12 TABLETS TAKE TWO TABLETS BY MOUTH EVERY 4 HOURS NEEDED FOR PAIN MAXIMUM DAILY DOSE = 12 TABLETS SOLD: 10/26/2020 [facility] Oxycodone Hydrochloride 5 MG Oral Tablet Oxycodone HCL 10/26/2020 12:00:00 AM EDT active MEDENT ([facility], ) Potassium Chloride 20 MEQ Extended Release Oral Tablet Potassium Chloride [facility] 10/24/2020 12:00:00 AM EDT ORAL active MEDENT ([facility], ) Acetaminophen 325 MG / Hydrocodone Anya trate 10 MG Oral Tablet HYDROcodone- Acetaminophen 10-325 MG HYDROcodone-Acetaminophen 10-325 MG 10/18/2020 12:00:0 0 AM EDT 1.0 {tablet_as_needed} active HYDROcodone-Acetaminophen 10- 325 MG eCW1 ([facility]) Acetaminophen 325 MG / Hydrocodone Anya trate 10 MG Oral Tablet HYDROcodone- Acetaminophen 10-325 MG HYDROcodone-Acetaminophen 10-325 MG 10/18/2020 12:00:0 0 AM EDT 1.0 {tablet_as_needed} active HYDROcodone-Acetaminophen 10- 325 MG eCW1 ([facility]) Acetaminophen 325 MG / Hydrocodone Anya trate 10 MG Oral Tablet HYDROcodone- Acetaminophen 10-325 MG HYDROcodone-Acetaminophen 10-325 MG 10/18/2020 12:00:0 0 AM EDT 1.0 {tablet_as_needed} active HYDROcodone-Acetaminophen 10- 325 MG eCW1 ([facility]) Acetaminophen 325 MG / Hydrocodone Bitartrate 10 MG Or al Tablet 10-325 mg HYDROCODONE/ACETAMINOPHEN 10/18/2020 12:00:00 AM EDT tablet 120 TAKE 1 TABLET BY MOUTH EVERY 6 HOURS NEEDED MAX DAILY DOSE = 4 TABLETS TAKE 1 TABLET BY MOUTH EVERY 6 HOURS NEEDED MAX DAILY DOSE = 4 TABLETS SOLD: 10/19/2020 [facility] Acetaminophen 325 MG / Hydrocodone Anya trate 10 MG Oral Tablet HYDROcodone- Acetaminophen 10-325 MG HYDROcodone-Acetaminophen 10-325 MG 10/18/2020 12:00:0 0 AM EDT 1.0 {tablet_as_needed} active HYDROcodone-Acetaminophen 10- 325 MG eCW1 ([facility]) Acetaminophen 325 MG / Hydrocodone Anya trate 10 MG Oral Tablet HYDROcodone- Acetaminophen 10-325 MG HYDROcodone-Acetaminophen 10-325 MG 10/18/2020 12:00:0 0 AM EDT 1.0 {tablet_as_needed} active HYDROcodone-Acetaminophen 10- 325 MG eCW1 ([facility]) Acetaminophen 325 MG / Hydrocodone Anya trate 10 MG Oral Tablet HYDROcodone- Acetaminophen 10-325 MG HYDROcodone-Acetaminophen 10-325 MG 10/18/2020 12:00:0 0 AM EDT 1.0 {tablet_as_needed} active HYDROcodone-Acetaminophen 10- 325 MG eCW1 ([facility]) Acetaminophen 325 MG / Hydrocodone Anya trate 10 MG Oral Tablet HYDROcodone- Acetaminophen 10-325 MG HYDROcodone-Acetaminophen 10-325 MG 10/18/2020 12:00:0 0 AM EDT 1.0 {tablet_as_needed} active HYDROcodone-Acetaminophen 10- 325 MG eCW1 ([facility]) Acetaminophen 325 MG / Hydrocodone Anya trate 10 MG Oral Tablet HYDROcodone- Acetaminophen 10-325 MG HYDROcodone-Acetaminophen 10-325 MG 10/18/2020 12:00:0 0 AM EDT 1.0 {tablet_as_needed} active HYDROcodone-Acetaminophen 10- 325 MG eCW1 ([facility]) 2 mg 10/16/2020 12:00:00 AM EDT capsule 60 TAKE ONE CAPSULE BY MOUTH TWICE A DAY NEEDED FOR DIARRHEA TAKE ONE CAPSULE BY MOUTH TWICE A DAY NEEDED FOR DIARRHEA SOLD: 10/17/2020 [facility] 2 mg 10/16/2020 12:00:00 AM EDT capsule 60 TAKE ONE CAPSULE BY MOUTH TWICE A DAY NEEDED FOR DIARRHEA TAKE ONE CAPSULE BY MOUTH TWICE A DAY NEEDED FOR DIARRHEA SOLD: 11/21/2020 [facility] [place] 10-325 MG UNK 10/16/2020 12:00:00 AM EDT 1.0 {tablet_a s_needed} active [place] 10-325 MG eCW1 ([facility]) 1,250 mcg (50,000 unit) 10/16/2020 12:00:00 AM EDT capsule 12 TAKE ONE CAPSULE BY MOUTH EVERY 7 DAYS TAKE ONE CAPSULE BY MOUTH EVERY 7 DAYS SOLD: 10/17/2020 [facility] 40 mg 10/16/2020 12:00:00 AM EDT capsule,delayed release (DR/EC) 90 TAKE ONE CAPSULE BY MOUTH EVERY MORNING TAKE ONE CAPSULE BY MOUTH EVERY MORNING SOLD: 10/17/2020 [facility] 25 mcg 10/03/2020 12:00:00 AM EDT tablet 90 TAKE 1 TABLET BY MOUTH ONCE A DAY IN THE MORNING ON AN EMPTY STOMACH TAKE 1 TABLET BY MOUTH ONCE A DAY IN THE MORNING ON AN EMPTY STOMACH SOLD: 10/07/2020 [facility] 5 mg 10/03/2020 12:00:00 AM EDT tablet 30 TAKE ONE TABLET BY MOUTH EVERY DAY TAKE ONE TABLET BY MOUTH EVERY DAY SOLD: 10/07/2020 [facility] 150 mg 09/28/2020 12:00:00 AM EDT capsule 90 TAKE ONE CAPSULE BY MOUTH THREE TIMES A DAY MAXIMUM DAILY DOSE = 3 CAPSULES TAKE ONE CAPSULE BY MOUTH THREE TIMES A DAY MAXIMUM DAILY DOSE = 3 CAPSULES SOLD: 09/29/2020 [facility] pregabalin 150 MG Oral Capsule [Lyrica] Lyrica 150 MG Lyrica 150 MG 09/27/2020 12:00:00 AM EDT 1.0 {capsule} active L yrica 150 MG eCW1 ([facility]) pregabalin 150 MG Oral Capsule [Lyrica] Lyrica 150 MG Lyrica 150 MG 09/27/2020 12:00:00 AM EDT 1.0 {capsule} active L yrica 150 MG eCW1 ([facility]) tizanidine 4 MG Oral Tablet TIZANIDINE HCL 09/21/2020 12:00:00 AM EDT tablet 90 TAKE ONE TABLET BY MOUTH THREE TIMES A DAY NEEDED T SOLITARIO ONE TABLET BY MOUTH THREE TIMES A DAY NEEDED SOLD: 10/24/2020 [facility] tizanidine 4 MG Oral Tablet TIZANIDINE HCL 09/21/2020 12:00:00 AM EDT tablet 90 TAKE ONE TABLET BY MOUTH THREE TIMES A DAY NEEDED T SOLITARIO ONE TABLET BY MOUTH THREE TIMES A DAY NEEDED SOLD: 09/25/2020 [facility] tizanidine 4 MG Oral Tablet TIZANIDINE HCL 09/21/2020 12:00:00 AM EDT tablet 90 TAKE ONE TABLET BY MOUTH THREE TIMES A DAY NEEDED T SOLITARIO ONE TABLET BY MOUTH THREE TIMES A DAY NEEDED SOLD: 11/21/2020 [facility] Acetaminophen 325 MG / Hydrocodone Bitartrate 10 MG Or al Tablet 10-325 mg HYDROCODONE/ACETAMINOPHEN 09/20/2020 12:00:00 AM EDT tablet 120 TAKE ONE TABLET BY MOUTH EVERY 6 HOURS NEEDED MAXIMUM DAILY DOSE = 4 TABLETS TAKE ONE TABLET BY MOUTH EVERY 6 HOURS NEEDED MAXIMUM DAILY DOSE = 4 TABLETS SOLD: 09/20/2020 [facility] Acetaminophen 325 MG / Hydrocodone Anya trate 10 MG Oral Tablet HYDROcodone- Acetaminophen 10-325 MG HYDROcodone-Acetaminophen 10-325 MG 09/17/2020 12:00:0 0 AM EDT 1.0 {tablet_as_needed} active HYDROcodone-Acetaminophen 10- 325 MG eCW1 ([facility]) Acetaminophen 325 MG / Hydrocodone Anya trate 10 MG Oral Tablet HYDROcodone- Acetaminophen 10-325 MG HYDROcodone-Acetaminophen 10-325 MG 09/17/2020 12:00:0 0 AM EDT 1.0 {tablet_as_needed} active HYDROcodone-Acetaminophen 10- 325 MG eCW1 ([facility]) Acetaminophen 325 MG / Hydrocodone Anya trate 10 MG Oral Tablet HYDROcodone- Acetaminophen 10-325 MG HYDROcodone-Acetaminophen 10-325 MG 09/17/2020 12:00:0 0 AM EDT 1.0 {tablet_as_needed} active HYDROcodone-Acetaminophen 10- 325 MG eCW1 ([facility]) 150 mg 08/31/2020 12:00:00 AM EDT capsule 90 TAKE ONE CAPSULE BY MOUTH THREE TIMES A DAY MAXIMUM DAILY DOSE = 3 TAKE ONE CAPSULE BY MOUTH THREE TIMES A DAY MAXIMUM DAILY DOSE = 3 SOLD: 11/27/2020 [facility] 150 mg 08/31/2020 12:00:00 AM EDT capsule 90 TAKE ONE CAPSULE BY MOUTH THREE TIMES A DAY MAXIMUM DAILY DOSE = 3 TAKE ONE CAPSULE BY MOUTH THREE TIMES A DAY MAXIMUM DAILY DOSE = 3 SOLD: 08/31/2020 [facility] 150 mg 08/31/2020 12:00:00 AM EDT capsule 90 TAKE ONE CAPSULE BY MOUTH THREE TIMES A DAY MAXIMUM DAILY DOSE = 3 TAKE ONE CAPSULE BY MOUTH THREE TIMES A DAY MAXIMUM DAILY DOSE = 3 SOLD: 10/29/2020 [facility] 2 mg 08/22/2020 12:00:00 AM EDT capsule 60 TAKE ONE CAPSULE BY MOUTH TWICE A DAY NEEDED DIARRHEA TAKE ONE CAPSULE BY MOUTH TWICE A DAY NEEDED DIARRHEA SOLD: 09/25/2020 [facility] 2 mg 08/22/2020 12:00:00 AM EDT capsule 60 TAKE ONE CAPSULE BY MOUTH TWICE A DAY NEEDED DIARRHEA TAKE ONE CAPSULE BY MOUTH TWICE A DAY NEEDED DIARRHEA SOLD: 08/24/2020 [facility] Acetaminophen 325 MG / Hydrocodone Bitartrate 10 MG Or al Tablet 10-325 mg HYDROCODONE/ACETAMINOPHEN 08/21/2020 12:00:00 AM EDT tablet 120 TAKE 1 TABLET BY MOUTH EVERY 6 HOURS NEEDED MAX DAILY DOSE = 4 TABLETS TAKE 1 TABLET BY MOUTH EVERY 6 HOURS NEEDED MAX DAILY DOSE = 4 TABLETS SOLD: 08/22/2020 [facility] Acetaminophen 325 MG / Hydrocodone Anya trate 10 MG Oral Tablet HYDROcodone- Acetaminophen 10-325 MG HYDROcodone-Acetaminophen 10-325 MG 08/21/2020 12:00:0 0 AM EDT 1.0 {tablet_as_needed} active HYDROcodone-Acetaminophen 10- 325 MG eCW1 ([facility]) Acetaminophen 325 MG / Hydrocodone Anya trate 10 MG Oral Tablet HYDROcodone- Acetaminophen 10-325 MG HYDROcodone-Acetaminophen 10-325 MG 08/21/2020 12:00:0 0 AM EDT 1.0 {tablet_as_needed} active HYDROcodone-Acetaminophen 10- 325 MG eCW1 ([facility]) Acetaminophen 325 MG / Hydrocodone Anya trate 10 MG Oral Tablet HYDROcodone- Acetaminophen 10-325 MG HYDROcodone-Acetaminophen 10-325 MG 08/21/2020 12:00:0 0 AM EDT 1.0 {tablet_as_needed} active HYDROcodone-Acetaminophen 10- 325 MG eCW1 ([facility]) Acetaminophen 325 MG / Hydrocodone Anya trate 10 MG Oral Tablet HYDROcodone- Acetaminophen 10-325 MG HYDROcodone-Acetaminophen 10-325 MG 08/21/2020 12:00:0 0 AM EDT 1.0 {tablet_as_needed} active HYDROcodone-Acetaminophen 10- 325 MG eCW1 ([facility]) Acetaminophen 325 MG / Hydrocodone Anya trate 10 MG Oral Tablet HYDROcodone- Acetaminophen 10-325 MG HYDROcodone-Acetaminophen 10-325 MG 08/21/2020 12:00:0 0 AM EDT 1.0 {tablet_as_needed} active HYDROcodone-Acetaminophen 10- 325 MG eCW1 ([facility]) Acetaminophen 325 MG / Hydrocodone Anya trate 10 MG Oral Tablet HYDROcodone- Acetaminophen 10-325 MG HYDROcodone-Acetaminophen 10-325 MG 08/21/2020 12:00:0 0 AM EDT 1.0 {tablet_as_needed} active HYDROcodone-Acetaminophen 10- 325 MG eCW1 ([facility]) Acetaminophen 325 MG / Hydrocodone Anya trate 10 MG Oral Tablet HYDROcodone- Acetaminophen 10-325 MG HYDROcodone-Acetaminophen 10-325 MG 08/21/2020 12:00:0 0 AM EDT 1.0 {tablet_as_needed} active HYDROcodone-Acetaminophen 10- 325 MG eCW1 ([facility]) Acetaminophen 325 MG / Hydrocodone Anya trate 10 MG Oral Tablet HYDROcodone- Acetaminophen 10-325 MG HYDROcodone-Acetaminophen 10-325 MG 08/21/2020 12:00:0 0 AM EDT 1.0 {tablet_as_needed} active HYDROcodone-Acetaminophen 10- 325 MG eCW1 ([facility]) 2.5 mg 08/20/2020 12:00:00 AM EDT tablet 30 TAKE 1 TABLET BY MOUTH ONCE A DAY TAKE 1 TABLET BY MOUTH ONCE A DAY SOLD: 08/21/2020 [facility] [place] 10-325 MG UNK 08/20/2020 12:00:00 AM EDT 1.0 {tablet_a s_needed} active [place] 10-325 MG eCW1 ([facility]) 625 mg 08/15/2020 12:00:00 AM EDT tablet 120 TAKE TWO TABLETS BY MOUTH TWICE A DAY TAKE TWO TABLETS BY MOUTH TWICE A DAY SOLD: 08/17/2020 [facility] Colesevelam hydrochloride 625 MG Oral Tablet [Welchol] Welchol 625 MG Welchol 625 MG 08/14/2020 12:00:00 AM EDT 2.0 {tablets} acti ve Welchol 625 MG eCW1 ([facility]) Colesevelam hydrochloride 625 MG Oral Tablet [Welchol] Welchol 625 MG Welchol 625 MG 08/14/2020 12:00:00 AM EDT 2.0 {tablets} acti ve Welchol 625 MG eCW1 ([facility]) Colesevelam hydrochloride 625 MG Oral Tablet [Welchol] Welchol 625 MG Welchol 625 MG 08/14/2020 12:00:00 AM EDT 2.0 {tablets} acti ve Welchol 625 MG eCW1 ([facility]) Colesevelam hydrochloride 625 MG Oral Tablet [Welchol] Welchol 625 MG Welchol 625 MG 08/14/2020 12:00:00 AM EDT 2.0 {tablets} acti ve Welchol 625 MG eCW1 ([facility]) Colesevelam hydrochloride 625 MG Oral Tablet [Welchol] Welchol 625 MG Welchol 625 MG 08/14/2020 12:00:00 AM EDT 2.0 {tablets} acti ve Welchol 625 MG eCW1 ([facility]) Colesevelam hydrochloride 625 MG Oral Tablet [Welchol] Welchol 625 MG Welchol 625 MG 08/14/2020 12:00:00 AM EDT 2.0 {tablets} acti ve Welchol 625 MG eCW1 ([facility]) Colesevelam hydrochloride 625 MG Oral Tablet [Welchol] Welchol 625 MG Welchol 625 MG 08/14/2020 12:00:00 AM EDT 2.0 {tablets} acti ve Welchol 625 MG eCW1 ([facility]) Colesevelam hydrochloride 625 MG Oral Tablet [Welchol] Welchol 625 MG Welchol 625 MG 08/14/2020 12:00:00 AM EDT 2.0 {tablets} acti ve Welchol 625 MG eCW1 ([facility]) Colesevelam hydrochloride 625 MG Oral Tablet [Welchol] Welchol 625 MG Welchol 625 MG 08/14/2020 12:00:00 AM EDT 2.0 {tablets} acti ve Welchol 625 MG eCW1 ([facility]) Colesevelam hydrochloride 625 MG Oral Tablet [Welchol] Welchol 625 MG Welchol 625 MG 08/14/2020 12:00:00 AM EDT 2.0 {tablets} acti ve Welchol 625 MG eCW1 ([facility]) Colesevelam hydrochloride 625 MG Oral Tablet [Welchol] Welchol 625 MG Welchol 625 MG 08/14/2020 12:00:00 AM EDT 2.0 {tablets} acti ve Welchol 625 MG eCW1 ([facility]) Colesevelam hydrochloride 625 MG Oral Tablet [Welchol] Welchol 625 MG Welchol 625 MG 08/14/2020 12:00:00 AM EDT 2.0 {tablets} acti ve Welchol 625 MG eCW1 ([facility]) Colesevelam hydrochloride 625 MG Oral Tablet [Welchol] Welchol 625 MG Welchol 625 MG 08/14/2020 12:00:00 AM EDT 2.0 {tablets} acti ve Welchol 625 MG eCW1 ([facility]) Colesevelam hydrochloride 625 MG Oral Tablet [Welchol] Welchol 625 MG Welchol 625 MG 08/14/2020 12:00:00 AM EDT 2.0 {tablets} acti ve Welchol 625 MG eCW1 ([facility]) Colesevelam hydrochloride 625 MG Oral Tablet [Welchol] Welchol 625 MG Welchol 625 MG 08/14/2020 12:00:00 AM EDT 2.0 {tablets} acti ve Welchol 625 MG eCW1 ([facility]) Colesevelam hydrochloride 625 MG Oral Tablet [Welchol] Welchol 625 MG Welchol 625 MG 08/14/2020 12:00:00 AM EDT 2.0 {tablets} acti ve Welchol 625 MG eCW1 ([facility]) Colesevelam hydrochloride 625 MG Oral Tablet [Welchol] Welchol 625 MG Welchol 625 MG 08/14/2020 12:00:00 AM EDT 2.0 {tablets} acti ve Welchol 625 MG eCW1 ([facility]) Colesevelam hydrochloride 625 MG Oral Tablet [Welchol] Welchol 625 MG Welchol 625 MG 08/14/2020 12:00:00 AM EDT 2.0 {tablets} acti ve Welchol 625 MG eCW1 ([facility]) Colesevelam hydrochloride 625 MG Oral Tablet [Welchol] Welchol 625 MG Welchol 625 MG 08/14/2020 12:00:00 AM EDT 2.0 {tablets} acti ve Welchol 625 MG eCW1 ([facility]) Acetaminophen 325 MG / Hydrocodone Bitartrate 10 MG Or al Tablet 10-325 mg HYDROCODONE/ACETAMINOPHEN 07/23/2020 12:00:00 AM EDT tablet 120 TAKE ONE TABLET BY MOUTH EVERY 6 HOURS NEEDED MAXIMUM DAILY DOSE = 4 TABLETS TAKE ONE TABLET BY MOUTH EVERY 6 HOURS NEEDED MAXIMUM DAILY DOSE = 4 TABLETS SOLD: 07/24/2020 [facility] [place] 10-325 MG UNK 07/19/2020 12:00:00 AM EDT 1.0 {tablet_a s_needed} active [place] 10-325 MG eCW1 ([facility]) [place] 10-325 MG UNK 07/19/2020 12:00:00 AM EDT 1.0 {tablet_a s_needed} active [place] 10-325 MG eCW1 ([facility]) [place] 10-325 MG UNK 07/19/2020 12:00:00 AM EDT 1.0 {tablet_a s_needed} active [place] 10-325 MG eCW1 ([facility]) [place] 10-325 MG UNK 07/19/2020 12:00:00 AM EDT 1.0 {tablet_a s_needed} active [place] 10-325 MG eCW1 ([facility]) tizanidine 4 MG Oral Tablet TIZANIDINE HCL 06/25/2020 12:00:00 AM EDT tablet 90 TAKE ONE TABLET BY MOUTH THREE TIMES A DAY NEEDED T SOLITARIO ONE TABLET BY MOUTH THREE TIMES A DAY NEEDED SOLD: 06/26/2020 [facility] tizanidine 4 MG Oral Tablet TIZANIDINE HCL 06/25/2020 12:00:00 AM EDT tablet 90 TAKE ONE TABLET BY MOUTH THREE TIMES A DAY NEEDED T SOLITARIO ONE TABLET BY MOUTH THREE TIMES A DAY NEEDED SOLD: 07/28/2020 [facility] tizanidine 4 MG Oral Tablet TIZANIDINE HCL 06/25/2020 12:00:00 AM EDT tablet 90 TAKE ONE TABLET BY MOUTH THREE TIMES A DAY NEEDED T SOLITARIO ONE TABLET BY MOUTH THREE TIMES A DAY NEEDED SOLD: 08/25/2020 [facility] Acetaminophen 325 MG / Hydrocodone Bitartrate 10 MG Or al Tablet 10-325 mg HYDROCODONE/ACETAMINOPHEN 06/24/2020 12:00:00 AM EDT tablet 120 TAKE ONE TABLET BY MOUTH EVERY 6 HOURS NEEDED MAXIMUM DAILY DOSE = 4 TABLETS TAKE ONE TABLET BY MOUTH EVERY 6 HOURS NEEDED MAXIMUM DAILY DOSE = 4 TABLETS SOLD: 06/25/2020 [facility] Acetaminophen 325 MG / Hydrocodone Anya trate 10 MG Oral Tablet HYDROcodone- Acetaminophen 10-325 MG HYDROcodone-Acetaminophen 10-325 MG 06/22/2020 12:00:0 0 AM EDT 1.0 {tablet_as_needed} active HYDROcodone-Acetaminophen 10- 325 MG eCW1 ([facility]) 2.5 mg 06/22/2020 12:00:00 AM EDT tablet 30 TAKE 1 TABLET BY MOUTH ONCE DAILY FOR 30 DAYS TAKE 1 TABLET BY MOUTH ONCE DAILY FOR 30 DAYS SOLD: [facility] Acetaminophen 325 MG / Hydrocodone Anya trate 10 MG Oral Tablet HYDROcodone- Acetaminophen 10-325 MG HYDROcodone-Acetaminophen 10-325 MG 06/22/2020 12:00:0 0 AM EDT 1.0 {tablet_as_needed} active HYDROcodone-Acetaminophen 10- 325 MG eCW1 ([facility]) Acetaminophen 325 MG / Hydrocodone Anya trate 10 MG Oral Tablet HYDROcodone- Acetaminophen 10-325 MG HYDROcodone-Acetaminophen 10-325 MG 06/22/2020 12:00:0 0 AM EDT 1.0 {tablet_as_needed} active HYDROcodone-Acetaminophen 10- 325 MG eCW1 ([facility]) Acetaminophen 325 MG / Hydrocodone Anya trate 10 MG Oral Tablet HYDROcodone- Acetaminophen 10-325 MG HYDROcodone-Acetaminophen 10-325 MG 06/22/2020 12:00:0 0 AM EDT 1.0 {tablet_as_needed} active HYDROcodone-Acetaminophen 10- 325 MG eCW1 ([facility]) Acetaminophen 325 MG / Hydrocodone Anya trate 10 MG Oral Tablet HYDROcodone- Acetaminophen 10-325 MG HYDROcodone-Acetaminophen 10-325 MG 06/22/2020 12:00:0 0 AM EDT 1.0 {tablet_as_needed} active HYDROcodone-Acetaminophen 10- 325 MG eCW1 ([facility]) Warfarin Sodium 2.5 MG Oral Tablet Warfarin Sodium 2.5 MG 12:00:00 AM EDT 1.0 {tablet} active Warfarin So dium 2.5 MG eCW1 ([facility]) Acetaminophen 325 MG / Hydrocodone Anya trate 10 MG Oral Tablet HYDROcodone- Acetaminophen 10-325 MG HYDROcodone-Acetaminophen 10-325 MG 06/22/2020 12:00:0 0 AM EDT 1.0 {tablet_as_needed} active HYDROcodone-Acetaminophen 10- 325 MG eCW1 ([facility]) Acetaminophen 325 MG / Hydrocodone Anya trate 10 MG Oral Tablet HYDROcodone- Acetaminophen 10-325 MG HYDROcodone-Acetaminophen 10-325 MG 06/22/2020 12:00:0 0 AM EDT 1.0 {tablet_as_needed} active HYDROcodone-Acetaminophen 10- 325 MG eCW1 ([facility]) Acetaminophen 325 MG / Hydrocodone Anya trate 10 MG Oral Tablet HYDROcodone- Acetaminophen 10-325 MG HYDROcodone-Acetaminophen 10-325 MG 06/22/2020 12:00:0 0 AM EDT 1.0 {tablet_as_needed} active HYDROcodone-Acetaminophen 10- 325 MG eCW1 ([facility]) Acetaminophen 325 MG / Hydrocodone Anya trate 10 MG Oral Tablet HYDROcodone- Acetaminophen 10-325 MG HYDROcodone-Acetaminophen 10-325 MG 06/22/2020 12:00:0 0 AM EDT 1.0 {tablet_as_needed} active HYDROcodone-Acetaminophen 10- 325 MG eCW1 ([facility]) Acetaminophen 325 MG / Hydrocodone Anya trate 10 MG Oral Tablet Hydrocodone- Acetaminophen 10-325 MG Hydrocodone-Acetaminophen 10-325 MG 06/22/2020 12:00:0 0 AM EDT 1.0 {tablet_as_needed} active Hydrocodone-Acetaminophen 10- 325 MG eCW1 ([facility]) Acetaminophen 325 MG / Hydrocodone Anya trate 10 MG Oral Tablet HYDROcodone- Acetaminophen 10-325 MG HYDROcodone-Acetaminophen 10-325 MG 06/22/2020 12:00:0 0 AM EDT 1.0 {tablet_as_needed} active HYDROcodone-Acetaminophen 10- 325 MG eCW1 ([facility]) 2.5 mg 06/22/2020 12:00:00 AM EDT tablet 30 TAKE 1 TABLET BY MOUTH ONCE DAILY FOR 30 DAYS TAKE 1 TABLET BY MOUTH ONCE DAILY FOR 30 DAYS SOLD: [facility] Acetaminophen 325 MG / Hydrocodone Anya trate 10 MG Oral Tablet HYDROcodone- Acetaminophen 10-325 MG HYDROcodone-Acetaminophen 10-325 MG 06/22/2020 12:00:0 0 AM EDT 1.0 {tablet_as_needed} active HYDROcodone-Acetaminophen 10- 325 MG eCW1 ([facility]) Acetaminophen 325 MG / Hydrocodone Anya trate 10 MG Oral Tablet HYDROcodone- Acetaminophen 10-325 MG HYDROcodone-Acetaminophen 10-325 MG 06/22/2020 12:00:0 0 AM EDT 1.0 {tablet_as_needed} active HYDROcodone-Acetaminophen 10- 325 MG eCW1 ([facility]) Warfarin Sodium 2.5 MG Oral Tablet Warfarin Sodium 2.5 MG 12:00:00 AM EDT 1.0 {tablet} active eCW1 ([facility]) Acetaminophen 325 MG / Hydrocodone Anya trate 10 MG Oral Tablet HYDROcodone- Acetaminophen 10-325 MG HYDROcodone-Acetaminophen 10-325 MG 06/22/2020 12:00:0 0 AM EDT 1.0 {tablet_as_needed} active HYDROcodone-Acetaminophen 10- 325 MG eCW1 ([facility]) Acetaminophen 325 MG / Hydrocodone Anya trate 10 MG Oral Tablet HYDROcodone- Acetaminophen 10-325 MG HYDROcodone-Acetaminophen 10-325 MG 06/22/2020 12:00:0 0 AM EDT 1.0 {tablet_as_needed} active HYDROcodone-Acetaminophen 10- 325 MG eCW1 ([facility]) Acetaminophen 325 MG / Hydrocodone Anya trate 10 MG Oral Tablet Hydrocodone- Acetaminophen 10-325 MG Hydrocodone-Acetaminophen 10-325 MG 06/22/2020 12:00:0 0 AM EDT 1.0 {tablet_as_needed} active Hydrocodone-Acetaminophen 10- 325 MG eCW1 ([facility]) Acetaminophen 325 MG / Hydrocodone Anya trate 10 MG Oral Tablet HYDROcodone- Acetaminophen 10-325 MG HYDROcodone-Acetaminophen 10-325 MG 06/22/2020 12:00:0 0 AM EDT 1.0 {tablet_as_needed} active HYDROcodone-Acetaminophen 10- 325 MG eCW1 ([facility]) Warfarin Sodium 2.5 MG Oral Tablet Warfarin Sodium 2.5 MG 12:00:00 AM EDT 1.0 {tablet} active Warfarin So dium 2.5 MG eCW1 ([facility]) Acetaminophen 325 MG / Hydrocodone Anya trate 10 MG Oral Tablet HYDROcodone- Acetaminophen 10-325 MG HYDROcodone-Acetaminophen 10-325 MG 06/22/2020 12:00:0 0 AM EDT 1.0 {tablet_as_needed} active HYDROcodone-Acetaminophen 10- 325 MG eCW1 ([facility]) Warfarin Sodium 2.5 MG Oral Tablet Warfarin Sodium 2.5 MG 12:00:00 AM EDT 1.0 {tablet} active Warfarin So dium 2.5 MG eCW1 ([facility]) Acetaminophen 325 MG / Hydrocodone Anya trate 10 MG Oral Tablet Hydrocodone- Acetaminophen 10-325 MG Hydrocodone-Acetaminophen 10-325 MG 06/22/2020 12:00:0 0 AM EDT 1.0 {tablet_as_needed} active eCW1 ([facility]) Acetaminophen 325 MG / Hydrocodone Anya trate 10 MG Oral Tablet Hydrocodone- Acetaminophen 10-325 MG Hydrocodone-Acetaminophen 10-325 MG 06/22/2020 12:00:0 0 AM EDT 1.0 {tablet_as_needed} active Hydrocodone-Acetaminophen 10- 325 MG eCW1 ([facility]) Acetaminophen 325 MG / Hydrocodone Anya trate 10 MG Oral Tablet Hydrocodone- Acetaminophen 10-325 MG Hydrocodone-Acetaminophen 10-325 MG 06/22/2020 12:00:0 0 AM EDT 1.0 {tablet_as_needed} active Hydrocodone-Acetaminophen 10- 325 MG W1 ([facility]) 25 mcg 06/19/2020 12:00:00 AM EDT tablet 90 TAKE ONE TABLET BY MOUTH EVERY MORNING ON AN EMPTY STOMACH TAKE ONE TABLET BY MOUTH EVERY MORNING O N AN EMPTY STOMACH SOLD: 06/23/2020 [facility] 20 mg 06/16/2020 12:00:00 AM EDT tablet 14 TAKE THREE TABLETS BY MOUTH EVERY DAY FOR 2 DAYS THEN TAKE TWO TABLETS EVERY DAY FOR 3 DAYS THEN ONE TABLET EVERY DAY FOR 2 DAYS TAKE THREE TABLETS BY MOUTH EVERY DAY FO R 2 DAYS THEN TAKE TWO TABLETS EVERY DAY FOR 3 DAYS THEN ONE TABLET EVERY DAY FOR 2 DAYS SOLD: 06/16/2020 [facility] Acetaminophen 325 MG / Hydrocodone Bitartrate 10 MG Or al Tablet 10-325 mg HYDROCODONE/ACETAMINOPHEN 05/27/2020 12:00:00 AM EDT tablet 120 TAKE ONE TABLET BY MOUTH EVERY 6 HOURS NEEDED MAXIMUM DAILY DOSE = 4 TABLETS TAKE ONE TABLET BY MOUTH EVERY 6 HOURS NEEDED MAXIMUM DAILY DOSE = 4 TABLETS SOLD: 05/27/2020 [facility] atorvastatin 40 MG Oral Tablet ATORVASTATIN CALCIUM 05/24/2020 1 2:00:00 AM EDT tablet 90 TAKE ONE TABLET BY MOUTH EVERY D AY TAKE ONE TABLET BY MOUTH EVERY DAY SOLD: 05/25/2020 [facility] Amlodipine 2.5 MG Oral Tablet AMLODIPINE BESYLATE 05/24/2020 12: 00:00 AM EDT tablet 90 TAKE ONE TABLET BY MOUTH EVERY M ORNING TAKE ONE TABLET BY MOUTH EVERY MORNING SOLD: 05/25/2020 [facility] atorvastatin 40 MG Oral Tablet ATORVASTATIN CALCIUM 05/24/2020 1 2:00:00 AM EDT tablet 90 TAKE ONE TABLET BY MOUTH EVERY D AY TAKE ONE TABLET BY MOUTH EVERY DAY SOLD: 08/21/2020 [facility] 2.5 mg 05/24/2020 12:00:00 AM EDT tablet 90 TAKE ONE TABLET BY MOUTH EVERY MORNING TAKE ONE TABLET BY MOUTH EVERY MORNING SOLD: 08/21/2020 [facility] Acetaminophen 325 MG / Hydrocodone Anya trate 10 MG Oral Tablet Hydrocodone- Acetaminophen 10-325 MG Hydrocodone-Acetaminophen 10-325 MG 05/22/2020 12:00:0 0 AM EDT 1.0 {tablet_as_needed} active Hydrocodone-Acetaminophen 10- 325 MG eCW1 ([facility]) Acetaminophen 325 MG / Hydrocodone Anya trate 10 MG Oral Tablet Hydrocodone- Acetaminophen 10-325 MG Hydrocodone-Acetaminophen 10-325 MG 05/22/2020 12:00:0 0 AM EDT 1.0 {tablet_as_needed} active Hydrocodone-Acetaminophen 10- 325 MG eCW1 ([facility]) Acetaminophen 325 MG / Hydrocodone Anya trate 10 MG Oral Tablet Hydrocodone- Acetaminophen 10-325 MG Hydrocodone-Acetaminophen 10-325 MG 05/22/2020 12:00:0 0 AM EDT 1.0 {tablet_as_needed} active Hydrocodone-Acetaminophen 10- 325 MG eCW1 ([facility]) 1,250 mcg (50,000 unit) 05/01/2020 12:00:00 AM EDT capsule 12 TAKE ONE CAPSULE BY MOUTH EVERY 7 DAYS TAKE ONE CAPSULE BY MOUTH EVERY 7 DAYS SOLD: 07/28/2020 [facility] 2 mg 05/01/2020 12:00:00 AM EDT capsule 60 TAKE ONE CAPSULE BY MOUTH TWICE A DAY NEEDED FOR DIARRHEA TAKE ONE CAPSULE BY MOUTH TWICE A DAY NEEDED FOR DIARRHEA SOLD: 05/06/2020 [facility] 1,250 mcg (50,000 unit) 05/01/2020 12:00:00 AM EDT capsule 12 TAKE ONE CAPSULE BY MOUTH EVERY 7 DAYS TAKE ONE CAPSULE BY MOUTH EVERY 7 DAYS SOLD: 05/06/2020 [facility] 2 mg 05/01/2020 12:00:00 AM EDT capsule 60 TAKE ONE CAPSULE BY MOUTH TWICE A DAY NEEDED FOR DIARRHEA TAKE ONE CAPSULE BY MOUTH TWICE A DAY NEEDED FOR DIARRHEA SOLD: 06/09/2020 [facility] 2 mg 05/01/2020 12:00:00 AM EDT capsule 60 TAKE ONE CAPSULE BY MOUTH TWICE A DAY NEEDED FOR DIARRHEA TAKE ONE CAPSULE BY MOUTH TWICE A DAY NEEDED FOR DIARRHEA SOLD: 07/14/2020 [facility] rivaroxaban 20 MG Oral Tablet [Xarelto] Xarelto 20 MG Xarelt o 20 MG 04/30/2020 12:00:00 AM EDT 1.0 {tablet_with_food} active Xarelto 20 MG eCW1 ([facility]) rivaroxaban 20 MG Oral Tablet [Xarelto] Xarelto 20 MG Xarelt o 20 MG 04/30/2020 12:00:00 AM EDT 1.0 {tablet_with_food} active Xarelto 20 MG eCW1 ([facility]) rivaroxaban 20 MG Oral Tablet [Xarelto] Xarelto 20 MG Xarelt o 20 MG 04/30/2020 12:00:00 AM EDT 1.0 {tablet_with_food} active Xarelto 20 MG eCW1 ([facility]) 10-325 mg 04/27/2020 12:00:00 AM EDT tablet 120 TAKE ONE TABLET BY MOUTH EVERY 6 HOURS NEEDED MAXIMUM DAILY DOSE = 4 TABLETS TAKE ONE TABLET BY MOUTH EVERY 6 HOURS NEEDED MAXIMUM DAILY DOSE = 4 TABLETS SOLD: 04/28/2020 [facility] Acetaminophen 325 MG / Hydrocodone Anya trate 10 MG Oral Tablet Hydrocodone- Acetaminophen 10-325 MG Hydrocodone-Acetaminophen 10-325 MG 04/24/2020 12:00:0 0 AM EDT 1.0 {tablet_as_needed} active Hydrocodone-Acetaminophen 10- 325 MG eCW1 ([facility]) Acetaminophen 325 MG / Hydrocodone Anya trate 10 MG Oral Tablet Hydrocodone- Acetaminophen 10-325 MG Hydrocodone-Acetaminophen 10-325 MG 04/24/2020 12:00:0 0 AM EDT 1.0 {tablet_as_needed} active Hydrocodone-Acetaminophen 10- 325 MG eCW1 ([facility]) 150 mg 04/07/2020 12:00:00 AM EST capsule 90 TAKE ONE CAPSULE BY MOUTH THREE TIMES A DAY MAXIMUM DAILY DOSE = 3 CAPSULES TAKE ONE CAPSULE BY MOUTH THREE TIMES A DAY MAXIMUM DAILY DOSE = 3 CAPSULES SOLD: 07/04/2020 [facility] 5 mg 04/07/2020 12:00:00 AM EST tablet 90 TAKE ONE TABLET BY MOUTH EVERY DAY TAKE ONE TABLET BY MOUTH EVERY DAY SOLD: 04/07/2020 [facility] 150 mg 04/07/2020 12:00:00 AM EST capsule 90 TAKE ONE CAPSULE BY MOUTH THREE TIMES A DAY MAXIMUM DAILY DOSE = 3 CAPSULES TAKE ONE CAPSULE BY MOUTH THREE TIMES A DAY MAXIMUM DAILY DOSE = 3 CAPSULES SOLD: 08/02/2020 [facility] 150 mg 04/07/2020 12:00:00 AM EST capsule 90 TAKE ONE CAPSULE BY MOUTH THREE TIMES A DAY MAXIMUM DAILY DOSE = 3 CAPSULES TAKE ONE CAPSULE BY MOUTH THREE TIMES A DAY MAXIMUM DAILY DOSE = 3 CAPSULES SOLD: 04/07/2020 [facility] 150 mg 04/07/2020 12:00:00 AM EST capsule 90 TAKE ONE CAPSULE BY MOUTH THREE TIMES A DAY MAXIMUM DAILY DOSE = 3 CAPSULES TAKE ONE CAPSULE BY MOUTH THREE TIMES A DAY MAXIMUM DAILY DOSE = 3 CAPSULES SOLD: 05/07/2020 [facility] 40 mg 04/04/2020 12:00:00 AM EST capsule,delayed release (DR/EC) 90 TAKE ONE CAPSULE BY MOUTH EVERY MORNING TAKE ONE CAPSULE BY MOUTH EVERY MORNING SOLD: 07/14/2020 [facility] 40 mg 04/04/2020 12:00:00 AM EST capsule,delayed release (DR/EC) 90 TAKE ONE CAPSULE BY MOUTH EVERY MORNING TAKE ONE CAPSULE BY MOUTH EVERY MORNING SOLD: 04/07/2020 [facility] Acetaminophen 325 MG / Hydrocodone Anya trate 10 MG Oral Tablet Hydrocodone- Acetaminophen 10-325 MG Hydrocodone-Acetaminophen 10-325 MG 03/30/2020 12:00:0 0 AM EST 1.0 {tablet_as_needed} active Hydrocodone-Acetaminophen 10- 325 MG eCW1 ([facility]) 10-325 mg 03/30/2020 12:00:00 AM EST tablet 120 TAKE 1 TABLET BY MOUTH EVERY 6 HOURS NEEDED MAXIMUM DAILY DOSE = 4 TABLETS TAKE 1 TABLET BY MOUTH EVERY 6 HOURS NEEDED MAXIMUM DAILY DOSE = 4 TABLETS SOLD: 03/30/2020 [facility] Acetaminophen 325 MG / Hydrocodone Anya trate 10 MG Oral Tablet Hydrocodone- Acetaminophen 10-325 MG Hydrocodone-Acetaminophen 10-325 MG 03/30/2020 12:00:0 0 AM EST 1.0 {tablet_as_needed} active Hydrocodone-Acetaminophen 10- 325 MG eCW1 ([facility]) Acetaminophen 325 MG / Hydrocodone Naya trate 10 MG Oral Tablet Hydrocodone- Acetaminophen 10-325 MG Hydrocodone-Acetaminophen 10-325 MG 03/30/2020 12:00:0 0 AM EST 1.0 {tablet_as_needed} active Hydrocodone-Acetaminophen 10- 325 MG eCW1 ([facility]) Acetaminophen 325 MG / Hydrocodone Anya trate 10 MG Oral Tablet Hydrocodone- Acetaminophen 10-325 MG Hydrocodone-Acetaminophen 10-325 MG 03/30/2020 12:00:0 0 AM EST 1.0 {tablet_as_needed} active Hydrocodone-Acetaminophen 10- 325 MG eCW1 ([facility]) tizanidine 4 MG Oral Tablet TIZANIDINE HCL 03/03/2020 12:00:00 AM EST tablet 90 TAKE ONE TABLET BY MOUTH THREE TIMES A DAY NEEDED T SOLITARIO ONE TABLET BY MOUTH THREE TIMES A DAY NEEDED SOLD: 04/30/2020 [facility] tizanidine 4 MG Oral Tablet TIZANIDINE HCL 03/03/2020 12:00:00 AM EST tablet 90 TAKE ONE TABLET BY MOUTH THREE TIMES A DAY NEEDED T SOLITARIO ONE TABLET BY MOUTH THREE TIMES A DAY NEEDED SOLD: 05/27/2020 [facility] tizanidine 4 MG Oral Tablet TIZANIDINE HCL 03/03/2020 12:00:00 AM EST tablet 90 TAKE ONE TABLET BY MOUTH THREE TIMES A DAY NEEDED T SOLITARIO ONE TABLET BY MOUTH THREE TIMES A DAY NEEDED SOLD: 03/03/2020 [facility] tizanidine 4 MG Oral Tablet TIZANIDINE HCL 03/03/2020 12:00:00 AM EST tablet 90 TAKE ONE TABLET BY MOUTH THREE TIMES A DAY NEEDED T SOLITARIO ONE TABLET BY MOUTH THREE TIMES A DAY NEEDED SOLD: 04/01/2020 [facility] 10-325 mg 03/01/2020 12:00:00 AM EST tablet 120 TAKE ONE TABLET BY MOUTH EVERY 6 HOURS NEEDED MAXIMUM DAILY DOSE = 4 TABLETS TAKE ONE TABLET BY MOUTH EVERY 6 HOURS NEEDED MAXIMUM DAILY DOSE = 4 TABLETS SOLD: 03/01/2020 [facility] Acetaminophen 325 MG / Hydrocodone Anya trate 10 MG Oral Tablet [[place]] [place] 10-325 MG [place] 10-325 MG 03/01/2020 12:00:00 AM EST 1.0 {tablet_as_ needed} active [place] 10-325 MG [id number] ([facility]) Acetaminophen 325 MG / Hydrocodone Anya trate 10 MG Oral Tablet [[place]ank] [place]ank 10-325 MG [place] 10-325 MG 03/01/2020 12:00:00 AM EST 1.0 {tablet_as_ needed} active [place] 10-325 MG eCW1 ([facility]) 10-325 mg 02/01/2020 12:00:00 AM EST tablet 120 TAKE ONE TABLET BY MOUTH EVERY 6 HOURS NEEDED MAXIMUM DAILY DOSE = 4 TABLETS TAKE ONE TABLET BY MOUTH EVERY 6 HOURS NEEDED MAXIMUM DAILY DOSE = 4 TABLETS SOLD: 02/02/2020 [facility] tizanidine 4 MG Oral Tablet TIZANIDINE HCL 01/27/2020 12:00:00 AM EST tablet 90 TAKE ONE TABLET BY MOUTH THREE TIMES A DAY NEEDED T SOLITARIO ONE TABLET BY MOUTH THREE TIMES A DAY NEEDED SOLD: 01/29/2020 [facility] Acetaminophen 325 MG / Hydrocodone Anya trate 10 MG Oral Tablet [[place]] [place] 10-325 MG [place] 10-325 MG 01/27/2020 12:00:00 AM EST 1.0 {tablet_as_ needed} active [place] 10-325 MG eCW1 ([facility]) 10-325 mg 01/03/2020 12:00:00 AM EST tablet 120 TAKE ONE TABLET BY MOUTH EVERY 6 HOURS NEEDED MAXIMUM DAILY DOSE = 4 TABLETS TAKE ONE TABLET BY MOUTH EVERY 6 HOURS NEEDED MAXIMUM DAILY DOSE = 4 TABLETS SOLD: 01/04/2020 [facility] Acetaminophen 325 MG / Hydrocodone Anya trate 10 MG Oral Tablet [[place]] [place] 10-325 MG [place] 10-325 MG 12/29/2019 12:00:00 AM EST 1.0 {tablet_as_ needed} active [place] 10-325 MG eCW1 ([facility]) Acetaminophen 325 MG / Hydrocodone Anya trate 10 MG Oral Tablet [[place]] [place] 10-325 MG [place] 10-325 MG 12/29/2019 12:00:00 AM EST 1.0 {tablet_as_ needed} active [place] 10-325 MG eCW1 ([facility]) 150 mg 12/12/2019 12:00:00 AM EST capsule 90 TAKE ONE CAPSULE BY MOUTH THREE TIMES A DAY MAXIMUM DAILY DOSE = 3 CAPSULES TAKE ONE CAPSULE BY MOUTH THREE TIMES A DAY MAXIMUM DAILY DOSE = 3 CAPSULES SOLD: 01/10/2020 [facility] 150 mg 12/12/2019 12:00:00 AM EST capsule 90 TAKE ONE CAPSULE BY MOUTH THREE TIMES A DAY MAXIMUM DAILY DOSE = 3 CAPSULES TAKE ONE CAPSULE BY MOUTH THREE TIMES A DAY MAXIMUM DAILY DOSE = 3 CAPSULES SOLD: 12/13/2019 [facility] 25 mcg 12/12/2019 12:00:00 AM EST tablet 90 TAKE ONE TABLET BY MOUTH EVERY MORNING ON EMPTY STOMACH TAKE ONE TABLET BY MOUTH EVERY MORNING O N EMPTY STOMACH SOLD: 12/13/2019 [facility] 25 mcg 12/12/2019 12:00:00 AM EST tablet 90 TAKE ONE TABLET BY MOUTH EVERY MORNING ON EMPTY STOMACH TAKE ONE TABLET BY MOUTH EVERY MORNING O N EMPTY STOMACH SOLD: 03/24/2020 [facility] 150 mg 12/12/2019 12:00:00 AM EST capsule 90 TAKE ONE CAPSULE BY MOUTH THREE TIMES A DAY MAXIMUM DAILY DOSE = 3 CAPSULES TAKE ONE CAPSULE BY MOUTH THREE TIMES A DAY MAXIMUM DAILY DOSE = 3 CAPSULES SOLD: 03/09/2020 [facility] 150 mg 12/12/2019 12:00:00 AM EST capsule 90 TAKE ONE CAPSULE BY MOUTH THREE TIMES A DAY MAXIMUM DAILY DOSE = 3 CAPSULES TAKE ONE CAPSULE BY MOUTH THREE TIMES A DAY MAXIMUM DAILY DOSE = 3 CAPSULES SOLD: 02/08/2020 [facility] Acetaminophen 325 MG / Hydrocodone Anya trate 10 MG Oral Tablet [[place]] [place] 10-325 MG [place] 10-325 MG 12/06/2019 12:00:00 AM EDT 1.0 {tablet_as_ needed} active [place] 10-325 MG eCW1 ([facility]) Acetaminophen 325 MG / Hydrocodone Anya trate 10 MG Oral Tablet [[place]] [place] 10-325 MG [place] 10-325 MG 12/06/2019 12:00:00 AM EDT 1.0 {tablet_as_ needed} active [place] 10-325 MG eCW1 ([facility]) 10-325 mg 12/06/2019 12:00:00 AM EDT tablet 120 TAKE ONE TABLET BY MOUTH EVERY 6 HOURS NEEDED MAXIMUM DAILY DOSE = 4 TABLETS TAKE ONE TABLET BY MOUTH EVERY 6 HOURS NEEDED MAXIMUM DAILY DOSE = 4 TABLETS SOLD: 12/06/2019 [facility] atorvastatin 40 MG Oral Tablet ATORVASTATIN CALCIUM 11/26/2019 1 2:00:00 AM EDT tablet 90 TAKE ONE TABLET BY MOUTH EVERY D AY TAKE ONE TABLET BY MOUTH EVERY DAY SOLD: 02/26/2020 [facility] atorvastatin 40 MG Oral Tablet ATORVASTATIN CALCIUM 11/26/2019 1 2:00:00 AM EDT tablet 90 TAKE ONE TABLET BY MOUTH EVERY D AY TAKE ONE TABLET BY MOUTH EVERY DAY SOLD: 11/26/2019 [facility] 2.5 mg 11/23/2019 12:00:00 AM EDT tablet 90 TAKE ONE TABLET BY MOUTH EVERY MORNING TAKE ONE TABLET BY MOUTH EVERY MORNING SOLD: 11/25/2019 [facility] 2.5 mg 11/23/2019 12:00:00 AM EDT tablet 90 TAKE ONE TABLET BY MOUTH EVERY MORNING TAKE ONE TABLET BY MOUTH EVERY MORNING SOLD: 02/26/2020 [facility] 150 mg 11/14/2019 12:00:00 AM EDT capsule 90 TAKE 1 CAPSULE BY MOUTH 3 TIMES A DAY MAX DAILY DOSE = 3 CAPSULES TAKE 1 CAPSULE BY MOUTH 3 TIMES A DAY MA X DAILY DOSE = 3 CAPSULES SOLD: 11/14/2019 [facility] 25 mcg 11/14/2019 12:00:00 AM EDT tablet 30 TAKE ONE TABLET BY MOUTH EVERY DAY TAKE ONE TABLET BY MOUTH EVERY DAY SOLD: 11/14/2019 [facility] 10-325 mg 11/07/2019 12:00:00 AM EDT tablet 120 TAKE ONE TABLET BY MOUTH FOUR TIMES A DAY MAXIMUM DAILY DOSE = 4 TABLETS TAKE ONE TABLET BY MOUTH FOUR TIMES A DAY MAXIMUM DAILY DOSE = 4 TABLETS SOLD: 11/07/2019 [facility] 5 mg 10/13/2019 12:00:00 AM EDT tablet 90 TAKE ONE TABLET BY MOUTH EVERY DAY TAKE ONE TABLET BY MOUTH EVERY DAY SOLD: 10/14/2019 [facility] 5 mg 10/13/2019 12:00:00 AM EDT tablet 90 TAKE ONE TABLET BY MOUTH EVERY DAY TAKE ONE TABLET BY MOUTH EVERY DAY SOLD: 01/10/2020 [facility] 4 mg 10/06/2019 12:00:00 AM EDT tablet 90 TAKE 1 TABLET BY MOUTH THREE TIMES A DAY TAKE 1 TABLET BY MOUTH THREE TIMES A DAY SOLD: 12/02/2019 [facility] tizanidine 4 MG Oral Tablet TIZANIDINE HCL 10/06/2019 12:00:00 AM EDT tablet 90 TAKE 1 TABLET BY MOUTH THREE TIMES A DAY TAKE 1 TABLET BY MOUTH THREE TIMES A DAY SOLD: 12/30/2019 [facility] 4 mg 10/06/2019 12:00:00 AM EDT tablet 90 TAKE 1 TABLET BY MOUTH THREE TIMES A DAY TAKE 1 TABLET BY MOUTH THREE TIMES A DAY SOLD: 11/04/2019 [facility] 150 mg 08/17/2019 12:00:00 AM EDT capsule 90 TAKE 1 CAPSULE BY MOUTH 3 TIMES A DAY MAX DAILY DOSE = 3 CAPSULES TAKE 1 CAPSULE BY MOUTH 3 TIMES A DAY MA X DAILY DOSE = 3 CAPSULES SOLD: 10/15/2019 [facility] 40 mg 07/16/2019 12:00:00 AM EDT capsule,delayed release (DR/EC) 90 TAKE ONE CAPSULE BY MOUTH EVERY MORNING TAKE ONE CAPSULE BY MOUTH EVERY MORNING SOLD: 10/14/2019 [facility] Insurance Providers Payer name Policy type / Coverage type Policy ID Covered republican ID Covered republican's relationship to tanner Policy Tanner Plan Information MEDICARE [id number] MEDICARE COMPLETE [id number] SP [id number] UN MEDICARE COMPLETE - CLINIC [id number] 18 [id number] MEDICARE PART A -O/P [id number] 18 [id number] MEDICAID -O/P [id number] 18 [id number] MEDICARE PART A -O/P [id number] 18 [id number] MEDICAID - CLINIC [id number] MEDICAID-O/P UNAVAILABLE UNAVA ILABLE MEDICARE PART A-CLINIC [id number] 18 [id number] MEDICARE COMPLETE [id number] SP [id number] NVS MEDICAID 00 SP 00 MEDICARE [id number] SP [id number] EMEDNY SELF PAY ONLY [id number] SP [id number] SELF PAY ONLY - SP1 SP MEDICARE [id number] SP [id number] MEDICAID [id number] MEDICARE C [id number] S [id number] MEDICAID M [id number] S [id number] [place] SVC OPTIONS C [id number] S [id number] ANSI-Medicare Part B [id number] ANSI-Medicaid [id number] ANSI-Medicaid [id number] ANSI-Medicare Part B [id number] ANSI-Medicaid [id number] ANSI-Medicare Part B [id number] ANSI-Medicaid [id number] ANSI-Medicare Part B [id number] ANSI-Medicaid [id number] ANSI-Medicare Part B [id number] ANSI-Medicaid [id number] ANSI-Medicare Part B [id number] ANSI-Medicare Part B [id number] ANSI-Medicaid [id number] ANSI-Medicare Part B [id number] ANSI-Medicaid [id number] ANSI-Medicare Part B [id number] ANSI-Medicaid [id number] ANSI-Medicaid [id number] ANSI-Medicare Part B [id number] ANSI-Medicaid [id number] ANSI-Medicare Part B [id number] ANSI-Medicare Part B [id number] ANSI-Medicaid [id number] ANSI-Medicare Part B [id number] ANSI-Medicaid [id number] ANSI-Medicaid [id number] ANSI-Medicare Part B [id number] ANSI-Medicare Part B [id number] ANSI-Medicaid [id number] ANSI-Medicare Part B [id number] ANSI-Medicaid [id number] ANSI-Medicare Part B [id number] ANSI-Medicaid [id number] ANSI-Medicaid [id number] ANSI-Medicare Part B [id number] ANSI-Medicare Part B [id number] ANSI-Medicaid [id number] ANSI-Medicare Part B [id number] ANSI-Medicaid [id number] ANSI-Medicare Part B [id number] ANSI-Medicaid [id number] ANSI-Medicaid [id number] ANSI-Medicare Part B [id number] ANSI-Medicare Part B [id number] ANSI-Medicaid [id number] ANSI-Medicaid [id number] ANSI-Medicare Part B [id number] ANSI-Medicare Part B [id number] ANSI-Medicaid [id number] ANSI-Medicaid [id number] ANSI-Medicare Part B [id number] MEDICAID UNAVAILABLE UNAVAILA BLE ANSI-Medicaid [id number] ANSI-Medicare Part B [id number] ANSI-Medicaid [id number] ANSI-Medicare Part B [id number] ANSI-Medicaid [id number] ANSI-Medicare Part B [id number] ANSI-Medicaid [id number] [facility] [id number] [facility]-Medicaid [id number] ANSI-Medicare Part B [id number] MEDICARE C [id number] S [id number] Medicaid [place] Medigap Part B [id number] Self [id number] Medicare [facility] Medicare Primary [id number] Self [id number] Medicare [facility] Medicare Primary [id number] Self [id number] MEDICARE [id number] SP [id number] M MEDICAID [id number] SP [id number] MEDICARE [id number] SP [id number] A MEDICARE COMPLETE [id number] SP [id number] Problems, Conditions, and Diagnoses Code Display Name Description Problem Type Effective Dates Data Source(s) Q70326 Personal history of other venous thrombo sis and embolism Personal history of other venous thrombosis and embolism Diagnosis 10/29/2020 08:40:00 PM EDT [facility] E876 Hypokalemia Hypokalemia Diagnosis 10/29/2020 08:40:00 PM EDT [facility] Z51.81 [id number] Encounter for therapeutic drug monitoring Problem 06/13/2020 12:00:00 AM EDT eCW1 ([facility]) Z79.01 [id number] 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 Pr oblem 06/13/2020 12:00:00 AM EDT eCW1 ([facility]) Z12.2 [id number] Encounter for screening for lung cancer Kassie dobbs 04/30/2020 12:00:00 AM EDT eCW1 ([facility]) Surgeries/Procedures Procedure Description Date Indications Data Source(s) ARTHRP KNE CONDYLE&PLATU MEDIAL&LAT CMPRTS 10/22/2020 12:00:00 AM [facility] OFFICE OUTPATIENT VISIT 25 MINUTES 09/12/2020 12:00:00 AM EDT [facility] ECG ROUTINE ECG W/LEAST 12 LDS W/I&R 08/02/2020 12:00: 00 AM EDT eCW1 ([facility]) OFFICE OUTPATIENT NEW 45 MINUTES 06/11/2020 12:00:00 A M EDT [facility] Results ID Date Data Source [id number] 10/29/2020 10:50:00 PM EDT [facility] Name Value Range Interpretation Code Description Data Edilia rce(s) Supporting Document(s) Magnesium [Mass/volume] in Serum or Plasma 1.5 MG/DL 1.7 - 2.2 L [facility] ID Date Data Source [id number] 10/29/2020 10:27:00 PM EDT [facility] Name Value Range Interpretation Code Description Data Edilia rce(s) Supporting Document(s) Prothrombin time (PT) 27.7 SECONDS 11.0 - 15.5 H [facility] INR in Platelet poor plasma by Coagulation assay 2.54 0.93 - 1. 23 H [facility] \\BLDo\\INR INTERPRETATION\\BLDx\\ Therapeutic range for Coumadin and related oral anticoagulants. - International Normalized Ratio (INR): 2.0 - 3.0 for Venous Thrombosis, Pulmonary Embolus, Tissue heart valves, Acute [place], Atrial Fibrillation, Valvular heart disease and recurrent Systemic Embolism. -International Normalized Ratio (INR): 2.5 - 3.5 for Mechanical Prosthetic valve. ID Date Data Source CBC with Auto Differential 08/07/2020 12:00:00 AM EDT eCW1 ( [facility]) Name Value Range Interpretation Code Description Data Edilia rce(s) Supporting Document(s) 5.9 4.0-10.0 WHITE BLOOD COUNT eCW1 ([facility]) 4.89 4.00-5.40 RED BLOOD COUNT eCW1 ([facility]) 96.9 80.0-96.0 MEAN CORPUSCULAR VOLUME e CW1 ([facility]) 15.8 12.0-15.5 HEMOGLOBIN eCW1 ([facility]) 32.3 27.0-33.0 MEAN CORPUSCULAR HEMOGLOB IN eCW1 ([facility]) 47.4 36.0-47.0 HEMATOCRIT eCW1 ([facility]) 33.3 32.0-36.5 MEAN CORPUSCULAR HGB CONC eCW1 ([facility]) 249 150-450 PLATELET COUNT, AUTOMATED eCW1 ([facility]) 13.1 11.5-14.5 RED CELL DISTRIBUTION WID TH eCW1 ([facility]) 48.6 36.0-66.0 NEUTROPHILS % eCW1 ([facility]) 13.3 2.0-8.0 MONO % eCW1 ([facility]) 34.2 24.0-44.0 LYMPH % eCW1 ([facility]) 0.3 0-3.0 IMMATURE GRANULOCYTE % eCW1 ([facility]) 0.5 0.0-1.0 BASO % eCW1 ([facility]) 3.1 0.0-3.0 EOS % eCW1 ([facility]) 2.0 1.5-5.0 LYMPH # eCW1 ([facility]) 0.8 0.0-0.8 MONO # eCW1 ([facility]) 0.0 0-0 NUCLEATED RED BLOOD CELL % eCW 1 ([facility]) 2.9 1.5-8.5 NEUTROPHILS # eCW1 ([facility]) 0.0 0.0-0.2 BASO # eCW1 ([facility]) 0.2 0.0-0.5 EOS # eCW1 ([facility]) ID Date Data Source LIPASE 08/07/2020 12:00:00 AM EDT eCW1 ([facility]) Name Value Range Interpretation Code Description Data Edilia rce(s) Supporting Document(s) 71 73-393 LIPASE eCW1 ([facility]) ID Date Data Source ERYTHROCYTE SEDIMENTATION RATE 08/07/2020 12:00:00 AM EDT eC W1 ([facility]) Name Value Range Interpretation Code Description Data Edilia rce(s) Supporting Document(s) 6 0-30 ERYTHROCYTE SEDIMENTATION RATE eCW1 ([facility]) ID Date Data Source C REACTIVE PROTEIN QUANTITATIV (At [facility]) 08/07/2020 12:00 :00 AM EDT eCW1 ([facility]) Name Value Range Interpretation Code Description Data Edilia rce(s) Supporting Document(s) 0.30 0.00-0.30 C REACTIVE PROTEIN QUANTI TATIV eCW1 ([facility]) ID Date Data Source Comprehensive Metabolic Profile (CMP) 08/07/2020 12:00:00 AM EDT eCW1 ([facility]) Name Value Range Interpretation Code Description Data Edilia rce(s) Supporting Document(s) 0.72 0.55-1.30 CREATININE FOR GFR eCW1 ([facility]) 90 70-100 GLUCOSE, FASTING eCW1 ([facility]) 13 7-18 BLOOD UREA NITROGEN eCW1 ([facility]) 144 136-145 SODIUM LEVEL eCW1 ([facility]) 3.7 3.5-5.1 POTASSIUM SERUM eCW1 ([facility]) > 60.0 >39 GLOMERULAR FILTRATION RATE eCW 1 ([facility]) 8.9 8.8-10.2 CALCIUM LEVEL eCW1 ([facility]) 30 21-32 CARBON DIOXIDE LEVEL eCW1 ([facility]) 109 98-107 CHLORIDE LEVEL eCW1 ([facility]) 97 45-117 ALKALINE PHOSPHATASE eCW1 ([facility]) 0.5 0.2-1.0 BILIRUBIN,TOTAL eCW1 ([facility]) 19 12-78 ALT/SGPT eCW1 ([facility]) 12 7-37 AST/SGOT eCW1 ([facility]) 1.1 1.2-2.2 ALBUMIN/GLOBULIN RATIO eCW1 ([facility]) 3.3 3.2-5.2 ALBUMIN eCW1 ([facility]) 6.2 6.4-8.2 TOTAL PROTEIN eCW1 ([facility]) Procedure Social History Code Duration Value Status Description Data Source(s ) Smoking 11/17/2020 12:00:00 AM EDT Former Smoker completed Former Smoker eCW1 ([facility]) Smoking 10/16/2020 12:00:00 AM EDT Former Smoker completed Former Smoker eCW1 ([facility]) Smoking 10/16/2020 12:00:00 AM EDT Former Smoker completed Former Smoker eCW1 ([facility]) Smoking 10/16/2020 12:00:00 AM EDT Former Smoker completed Former Smoker eCW1 ([facility]) Smoking 10/16/2020 12:00:00 AM EDT Former Smoker completed Former Smoker eCW1 ([facility]) Smoking 10/16/2020 12:00:00 AM EDT Former Smoker completed Former Smoker eCW1 ([facility]) Smoking 10/16/2020 12:00:00 AM EDT Former Smoker completed Former Smoker eCW1 ([facility]) Smoking 10/16/2020 12:00:00 AM EDT Former Smoker completed Former Smoker eCW1 ([facility]) Smoking 10/16/2020 12:00:00 AM EDT Former Smoker completed Former Smoker eCW1 ([facility]) Smoking 10/16/2020 12:00:00 AM EDT Former Smoker completed Former Smoker eCW1 ([facility]) Smoking 10/03/2020 12:00:00 AM EDT Former Smoker completed Former Smoker eCW1 ([facility]) Smoking 09/05/2020 12:00:00 AM EDT Former Smoker completed Former Smoker eCW1 ([facility]) Smoking 09/05/2020 12:00:00 AM EDT Former Smoker completed Former Smoker eCW1 ([facility]) Smoking 09/05/2020 12:00:00 AM EDT Former Smoker completed Former Smoker eCW1 ([facility]) Smoking 08/07/2020 12:00:00 AM EDT Former Smoker completed Former Smoker eCW1 ([facility]) Smoking 08/07/2020 12:00:00 AM EDT Former Smoker completed Former Smoker eCW1 ([facility]) Smoking 08/07/2020 12:00:00 AM EDT Former Smoker completed Former Smoker eCW1 ([facility]) Smoking 08/07/2020 12:00:00 AM EDT Former Smoker completed Former Smoker eCW1 ([facility]) Smoking 08/07/2020 12:00:00 AM EDT Former Smoker completed Former Smoker eCW1 ([facility]) Smoking 08/07/2020 12:00:00 AM EDT Former Smoker completed Former Smoker eCW1 ([facility]) Smoking 08/07/2020 12:00:00 AM EDT Former Smoker completed Former Smoker eCW1 ([facility]) Smoking 08/07/2020 12:00:00 AM EDT Former Smoker completed Former Smoker eCW1 ([facility]) Smoking 08/02/2020 12:00:00 AM EDT Former Smoker completed Former Smoker eCW1 ([facility]) Smoking 08/02/2020 12:00:00 AM EDT Former Smoker completed Former Smoker eCW1 ([facility]) Smoking 08/02/2020 12:00:00 AM EDT Former Smoker completed Former Smoker eCW1 ([facility]) Smoking 07/23/2020 12:00:00 AM EDT Former Smoker completed Former Smoker eCW1 ([facility]) Smoking 07/23/2020 12:00:00 AM EDT Former Smoker completed Former Smoker eCW1 ([facility]) Smoking 07/23/2020 12:00:00 AM EDT Former Smoker completed Former Smoker eCW1 ([facility]) Smoking 07/04/2020 12:00:00 AM EDT Former Smoker completed Former Smoker eCW1 ([facility]) Smoking 07/04/2020 12:00:00 AM EDT Former Smoker completed Former Smoker eCW1 ([facility]) Smoking 06/22/2020 12:00:00 AM EDT Former Smoker completed Former Smoker eCW1 ([facility]) Smoking 06/22/2020 12:00:00 AM EDT Former Smoker completed Former Smoker eCW1 ([facility]) Smoking 06/22/2020 12:00:00 AM EDT Former Smoker completed Former Smoker eCW1 ([facility]) Smoking 06/22/2020 12:00:00 AM EDT Former Smoker completed Former Smoker eCW1 ([facility]) Smoking 06/13/2020 12:00:00 AM EDT Former Smoker completed Former Smoker eCW1 ([facility]) Smoking 04/30/2020 12:00:00 AM EDT Former Smoker completed Former Smoker eCW1 ([facility]) Smoking 04/30/2020 12:00:00 AM EDT Former Smoker completed Former Smoker eCW1 ([facility]) Smoking 04/30/2020 12:00:00 AM EDT Former Smoker completed Former Smoker eCW1 ([facility]) Vital Signs ID Date Data Source UNK Name Value Range Interpretation Code Description Data Source(s) Body weight 159.8 [lb_av] 159.8 [lb_av] eCW1 ([facility]) Body weight 72.48 kg 72.48 kg eCW1 ([facility]) Body height 66 [in_i] 66 [in_i] eCW1 ([facility]) Body mass index (BMI) [Ratio] 25.79 kg/m2 25.79 kg/m2 W1 ([facility]) Heart rate 87 /min 87 /min eCW1 ([facility]) Respiratory rate 20 /min 20 /min eCW1 ([facility]) Body temperature 97.4 [degF] 97.4 [degF] eCW1 ( [facility]) Systolic blood pressure 138 mm[Hg] 138 mm[Hg] e CW1 ([facility]) Diastolic blood pressure 78 mm[Hg] 78 mm[Hg] eCW1 ([facility]) Body weight 159 [lb_av] 159 [lb_av] eCW1 ([facility]) Body weight 72.12 kg 72.12 kg eCW1 ([facility]) Body height 66 [in_i] 66 [in_i] eCW1 ([facility]) Body mass index (BMI) [Ratio] 25.66 kg/m2 25.66 kg/m2 eCW1 ([facility]) Heart rate 87 /min 87 /min eCW1 ([facility]) Respiratory rate 16 /min 16 /min eCW1 ([facility]) Body temperature 98.7 [degF] 98.7 [degF] eCW1 ( [facility]) Systolic blood pressure 124 mm[Hg] 124 mm[Hg] e CW1 ([facility]) Diastolic blood pressure 64 mm[Hg] 64 mm[Hg] eCW1 ([facility]) Body temperature 97.5 [degF] 97.5 [degF] MEDENT ([facility], ) Body weight 166 [lb_av] 166 [lb_av] eCW1 ([facility]) Body height 66 [in_i] 66 [in_i] eCW1 ([facility]) Body mass index (BMI) [Ratio] 26.79 kg/m2 26.79 kg/m2 eCW1 ([facility]) Heart rate 87 /min 87 /min eCW1 ([facility]) Respiratory rate 18 /min 18 /min eCW1 ([facility]) Body temperature 97 [degF] 97 [degF] eCW1 ([facility]) Systolic blood pressure 110 mm[Hg] 110 mm[Hg] e CW1 ([facility]) Diastolic blood pressure 70 mm[Hg] 70 mm[Hg] eCW1 ([facility]) Body weight 167 [lb_av] 167 [lb_av] eCW1 ([facility]) Body height 66 [in_i] 66 [in_i] eCW1 ([facility]) Body mass index (BMI) [Ratio] 26.95 kg/m2 26.95 kg/m2 eCW1 ([facility]) Heart rate 80 /min 80 /min eCW1 ([facility]) Respiratory rate 18 /min 18 /min eCW1 ([facility]) Body temperature 97.2 [degF] 97.2 [degF] eCW1 ( [facility]) Systolic blood pressure 130 mm[Hg] 130 mm[Hg] e CW1 ([facility]) Diastolic blood pressure 80 mm[Hg] 80 mm[Hg] eCW1 ([facility]) Body weight 168.8 [lb_av] 168.8 [lb_av] eCW1 ([facility]) Body height 66 [in_i] 66 [in_i] eCW1 ([facility]) Body mass index (BMI) [Ratio] 27.24 kg/m2 27.24 kg/m2 eCW1 ([facility]) Heart rate 82 /min 82 /min eCW1 ([facility]) Respiratory rate 18 /min 18 /min eCW1 ([facility]) Body temperature 97.5 [degF] 97.5 [degF] eCW1 ( [facility]) Systolic blood pressure 130 mm[Hg] 130 mm[Hg] e CW1 ([facility]) Diastolic blood pressure 68 mm[Hg] 68 mm[Hg] eCW1 ([facility]) Body weight 172.4 [lb_av] 172.4 [lb_av] eCW1 ([facility]) Body height 66 [in_i] 66 [in_i] eCW1 ([facility]) Body mass index (BMI) [Ratio] 27.82 kg/m2 27.82 kg/m2 eCW1 ([facility]) Heart rate 93 /min 93 /min eCW1 ([facility]) Respiratory rate 18 /min 18 /min eCW1 ([facility]) Body temperature 97.3 [degF] 97.3 [degF] eCW1 ( [facility]) Systolic blood pressure 128 mm[Hg] 128 mm[Hg] e CW1 ([facility]) Diastolic blood pressure 76 mm[Hg] 76 mm[Hg] eCW1 ([facility]) Body weight 179.4 [lb_av] 179.4 [lb_av] eCW1 ([facility]) Body height 66 [in_i] 66 [in_i] eCW1 ([facility]) Body mass index (BMI) [Ratio] 28.95 kg/m2 28.95 kg/m2 eCW1 ([facility]) Heart rate 76 /min 76 /min eCW1 ([facility]) Respiratory rate 18 /min 18 /min eCW1 ([facility]) Body temperature 97.8 [degF] 97.8 [degF] eCW1 ( [facility]) Systolic blood pressure 130 mm[Hg] 130 mm[Hg] e CW1 ([facility]) Diastolic blood pressure 72 mm[Hg] 72 mm[Hg] eCW1 ([facility]) Body weight 176.8 [lb_av] 176.8 [lb_av] eCW1 ([facility]) Body height 66 [in_i] 66 [in_i] eCW1 ([facility]) Body mass index (BMI) [Ratio] 28.53 kg/m2 28.53 kg/m2 eCW1 ([facility]) Heart rate 89 /min 89 /min eCW1 ([facility]) Respiratory rate 18 /min 18 /min eCW1 ([facility]) Body temperature 97.5 [degF] 97.5 [degF] eCW1 ( [facility]) Systolic blood pressure 136 mm[Hg] 136 mm[Hg] e CW1 ([facility]) Diastolic blood pressure 82 mm[Hg] 82 mm[Hg] eCW1 ([facility]) Body weight 176 [lb_av] 176 [lb_av] eCW1 ([facility]) Body height 66 [in_i] 66 [in_i] eCW1 ([facility]) Body mass index (BMI) [Ratio] 28.40 kg/m2 28.40 kg/m2 eCW1 ([facility]) Heart rate 85 /min 85 /min eCW1 ([facility]) Respiratory rate 18 /min 18 /min eCW1 ([facility]) Body temperature 97.8 [degF] 97.8 [degF] eCW1 ( [facility]) Systolic blood pressure 144 mm[Hg] 144 mm[Hg] e CW1 ([facility]) Diastolic blood pressure 86 mm[Hg] 86 mm[Hg] eCW1 ([facility]) Body height 63 [in_i] 63 [in_i] [facility] ([facility], ) 5'3" Body weight 167.00 [lb_av] 167.00 [lb_av] MEDEN T ([facility], ) [place] body weight 115 [lb_av] 115 [lb_av] MEDEN T ([facility], ) Body weight 75.751 kg 75.751 [facility] Body surface area Derived from formula 1.79 m2 1.79 m2 [facility] ([facility], ) Oxygen saturation in Arterial blood by Pulse oximetry 96 % 96 % [facility] ([facility], ) Body height 63 [in_i] 63 [in_i] [facility] ([facility], ) 5'3" Body weight 167.00 [lb_av] 167.00 [lb_av] MEDEN T ([facility], ) Body mass index (BMI) [Ratio] 29.6 kg/m2 29.6 k g/m2 [facility] ([facility]) [place] body weight 115 [lb_av] 115 [lb_av] MEDEN T ([facility]) Body weight 75.751 kg 75.751 kg [facility] ([facility]) Body surface area Derived from formula 1.79 m2 1.79 m2 [facility] ([facility]) Systolic blood pressure 149 mm[Hg] 149 mm[Hg] M EDENT ([facility]) Diastolic blood pressure 83 mm[Hg] 83 mm[Hg] [facility] ([facility]) Heart rate 81 /min 81 /min [facility] ([facility]) Oxygen saturation in Arterial blood by Pulse oximetry 96 % 96 % [facility] ([facility]) Respiratory rate 16 /min 16 /min [facility] ( [facility]) Body temperature 97.1 [degF] 97.1 [degF] [facility] ([facility]) Body mass index (BMI) [Ratio] 29.6 kg/m2 29.6 k g/m2 [facility] ([facility]) Respiratory rate 16 /min 16 /min [facility] ( [facility]) Body temperature 97.1 [degF] 97.1 [degF] [facility] ([facility]) Body weight 177 [lb_av] 177 [lb_av] eCW1 ([facility]) Body height 66 [in_i] 66 [in_i] eCW1 ([facility]) Body mass index (BMI) [Ratio] 28.57 kg/m2 28.57 kg/m2 eCW1 ([facility]) Heart rate 93 /min 93 /min eCW1 ([facility]) Respiratory rate 20 /min 20 /min eCW1 ([facility]) Body temperature 97.6 [degF] 97.6 [degF] eCW1 ( [facility]) Systolic blood pressure 132 mm[Hg] 132 mm[Hg] e CW1 ([facility]) Diastolic blood pressure 78 mm[Hg] 78 mm[Hg] eCW1 ([facility]) Patient Treatment Plan of Care Planned Activity Planned Date Details Description Data Source (s) Acetaminophen 325 MG / Oxycodone Hydrochloride 5 MG Or al Tablet [Percocet] 11/21/2020 12:00:00 AM EDT eCW1 ([facility]) Acetaminophen 325 MG / Hydrocodone Bitartrate 10 MG Or al Tablet 10/18/2020 12:00:00 AM EDT eCW1 ([facility]) Acetaminophen 325 MG / Hydrocodone Bitartrate 10 MG Or al Tablet 10/18/2020 12:00:00 AM EDT eCW1 ([facility]) Acetaminophen 325 MG / Hydrocodone Bitartrate 10 MG Or al Tablet 10/18/2020 12:00:00 AM EDT eCW1 ([facility]) Acetaminophen 325 MG / Hydrocodone Bitartrate 10 MG Or al Tablet 10/18/2020 12:00:00 AM EDT eCW1 ([facility]) Acetaminophen 325 MG / Hydrocodone Bitartrate 10 MG Or al Tablet 10/18/2020 12:00:00 AM EDT eCW1 ([facility]) Acetaminophen 325 MG / Hydrocodone Bitartrate 10 MG Or al Tablet 10/18/2020 12:00:00 AM EDT eCW1 ([facility]) Acetaminophen 325 MG / Hydrocodone Bitartrate 10 MG Or al Tablet 10/18/2020 12:00:00 AM EDT eCW1 ([facility]) Acetaminophen 325 MG / Hydrocodone Bitartrate 10 MG Or al Tablet 10/18/2020 12:00:00 AM EDT eCW1 ([facility]) [place] 10-325 MG 10/16/2020 12:00:00 AM EDT eCW1 ([facility]) pregabalin 150 MG Oral Capsule [Lyrica] 09/27/2020 12:00:00 AM EDT eCW1 ([facility]) Acetaminophen 325 MG / Hydrocodone Bitartrate 10 MG Or al Tablet 09/17/2020 12:00:00 AM EDT eCW1 ([facility]) Acetaminophen 325 MG / Hydrocodone Bitartrate 10 MG Or al Tablet 09/17/2020 12:00:00 AM EDT eCW1 ([facility]) Acetaminophen 325 MG / Hydrocodone Bitartrate 10 MG Or al Tablet 08/21/2020 12:00:00 AM EDT eCW1 ([facility]) Acetaminophen 325 MG / Hydrocodone Bitartrate 10 MG Or al Tablet 08/21/2020 12:00:00 AM EDT eCW1 ([facility]) Acetaminophen 325 MG / Hydrocodone Bitartrate 10 MG Or al Tablet 08/21/2020 12:00:00 AM EDT eCW1 ([facility]) [place] 10-325 MG 08/20/2020 12:00:00 AM EDT eCW1 ([facility]) Colesevelam hydrochloride 625 MG Oral Tablet [Welchol] 08/14/2020 12:00:00 AM EDT eCW1 ([facility]) Colesevelam hydrochloride 625 MG Oral Tablet [Welchol] 08/14/2020 12:00:00 AM EDT eCW1 ([facility]) Colesevelam hydrochloride 625 MG Oral Tablet [Welchol] 08/14/2020 12:00:00 AM EDT eCW1 ([facility]) Colesevelam hydrochloride 625 MG Oral Tablet [Welchol] 08/14/2020 12:00:00 AM EDT eCW1 ([facility]) Colesevelam hydrochloride 625 MG Oral Tablet [Welchol] 08/14/2020 12:00:00 AM EDT eCW1 ([facility]) [place] 10-325 MG 07/19/2020 12:00:00 AM EDT eCW1 ([facility]) Warfarin Sodium 2.5 MG Oral Tablet 06/22/2020 12:00:00 AM EDT eCW1 ([facility]) Acetaminophen 325 MG / Hydrocodone Bitartrate 10 MG Or al Tablet 06/22/2020 12:00:00 AM EDT eCW1 ([facility]) Warfarin Sodium 2.5 MG Oral Tablet 06/22/2020 12:00:00 AM EDT eCW1 ([facility]) Acetaminophen 325 MG / Hydrocodone Bitartrate 10 MG Or al Tablet 06/22/2020 12:00:00 AM EDT eCW1 ([facility]) Acetaminophen 325 MG / Hydrocodone Bitartrate 10 MG Or al Tablet 06/22/2020 12:00:00 AM EDT eCW1 ([facility]) Warfarin Sodium 2.5 MG Oral Tablet 06/22/2020 12:00:00 AM EDT eCW1 ([facility]) Acetaminophen 325 MG / Hydrocodone Bitartrate 10 MG Or al Tablet 06/22/2020 12:00:00 AM EDT eCW1 ([facility]) Warfarin Sodium 2.5 MG Oral Tablet 06/22/2020 12:00:00 AM EDT eCW1 ([facility]) Acetaminophen 325 MG / Hydrocodone Bitartrate 10 MG Or al Tablet 05/22/2020 12:00:00 AM EDT eCW1 ([facility]) Acetaminophen 325 MG / Hydrocodone Bitartrate 10 MG Or al Tablet 05/22/2020 12:00:00 AM EDT eCW1 ([facility]) rivaroxaban 20 MG Oral Tablet [Xarelto] 04/30/2020 12:00:00 AM EDT eCW1 ([facility]) rivaroxaban 20 MG Oral Tablet [Xarelto] 04/30/2020 12:00:00 AM EDT eCW1 ([facility]) rivaroxaban 20 MG Oral Tablet [Xarelto] 04/30/2020 12:00:00 AM EDT eCW1 ([facility]) Acetaminophen 325 MG / Hydrocodone Bitartrate 10 MG Or al Tablet 04/24/2020 12:00:00 AM EDT eCW1 ([facility]) Acetaminophen 325 MG / Hydrocodone Bitartrate 10 MG Or al Tablet 03/30/2020 12:00:00 AM EST eCW1 ([facility]) Acetaminophen 325 MG / Hydrocodone Bitartrate 10 MG Or al Tablet 03/30/2020 12:00:00 AM EST eCW1 ([facility]) Acetaminophen 325 MG / Hydrocodone Bitartrate 10 MG Or al Tablet 03/30/2020 12:00:00 AM EST eCW1 ([facility]) Acetaminophen 325 MG / Hydrocodone Bitartrate 10 MG Or al Tablet 03/30/2020 12:00:00 AM EST eCW1 ([facility]) Acetaminophen 325 MG / Hydrocodone Bitartrate 10 MG Or al Tablet [[place]] 03/01/2020 12:00:00 AM EST eCW1 ([facility]) Acetaminophen 325 MG / Hydrocodone Bitartrate 10 MG Or al Tablet [[place]] 03/01/2020 12:00:00 AM EST eCW1 ([facility]) Acetaminophen 325 MG / Hydrocodone Bitartrate 10 MG Or al Tablet [[place]] 01/27/2020 12:00:00 AM EST eCW1 ([facility]) Acetaminophen 325 MG / Hydrocodone Bitartrate 10 MG Or al Tablet [[place]] 12/29/2019 12:00:00 AM EST eCW1 ([facility]) Acetaminophen 325 MG / Hydrocodone Bitartrate 10 MG Or al Tablet [[place]] 12/29/2019 12:00:00 AM EST eCW1 ([facility]) Acetaminophen 325 MG / Hydrocodone Bitartrate 10 MG Or al Tablet [[place]] 12/06/2019 12:00:00 AM EDT eCW1 ([facility]) Acetaminophen 325 MG / Hydrocodone Bitartrate 10 MG Or al Tablet [[place]] 12/06/2019 12:00:00 AM EDT eCW1 ([facility])
[2020-12-11] MEDS ORDERED: LORazepam 2 MG/ML VIAL IV STA (17:00)
[2020-12-11] MEDS ORDERED: LORazepam 2 MG/ML VIAL As Ordered ONE (17:06)
[2020-12-11] MEDS ORDERED: POTASSIUM CHLORIDE 10MEQ SR TABLET PO ONE (17:15)
[2020-12-11] MEDS ORDERED: KCL 10MEQ/100ML SWI (KRUN) 10 MEQ in IV 1 EA IV ONE (17:15)
[2020-12-11 17:23] LABS: PROTHROMBIN TIME 54.8 SECONDS (12.7-14.5)
[2020-12-11 17:29] LABS: INR 6.2
[2020-12-11] MEDS ORDERED: ISOVUE-370 76% 100ML VIAL As Ordered ONE (18:01)
--- NOTE | 2020-12-11 19:21 | REPVR ---
PROCEDURE INFORMATION: Exam: CT Abdomen And Pelvis With Contrast Exam date and time: 12/11/2020 6:29 PM Age: 75 years old Clinical indication: Abdominal pain; Additional info: Left flank pain; ? Trauma; Bruising; Inr-6.2 TECHNIQUE: Imaging protocol: Computed tomography of the abdomen and pelvis with contrast. Radiation optimization: All CT scans at this facility use at least one of these dose optimization techniques: automated exposure control; mA and/or kV adjustment per patient size (includes targeted exams where dose is matched to clinical indication); or iterative reconstruction. Contrast material: ISOVUE 370; Contrast volume: 100 ml; Contrast route: INTRAVENOUS (IV); COMPARISON: [facility]RIANA HIP/KNEE RECONSTRUCTION 10/11/2020 3:16 PM FINDINGS: Liver: Normal. No mass. Gallbladder and bile ducts: There has been a cholecystectomy. Pancreas: Normal. No ductal dilation. Spleen: Normal. No splenomegaly. Adrenal glands: Normal. No mass. Kidneys and ureters: Normal. No hydronephrosis. Stomach and bowel: Unremarkable. No obstruction. No mucosal thickening. Appendix: No evidence of appendicitis. Intraperitoneal space: Unremarkable. No free air. No significant fluid collection. Vasculature: The aortoiliac vessels demonstrate moderate atherosclerotic calcification. Lymph nodes: Unremarkable. No enlarged lymph nodes. Urinary bladder: Unremarkable as visualized. Reproductive: Unremarkable as visualized. Bones/joints: Severe central spinal stenosis at L1-L2, moderate central spinal stenosis L2-L3, mild central spinal stenosis at L3-L4 and L4-L5. Soft tissues: Unremarkable. IMPRESSION: 1. There has been a cholecystectomy. 2. No acute findings. Electronically signed by: Rajesh Quigley On 12/11/2020 19:21:04 PM
[2020-12-11 19:50] LABS: RSV AMPLIFICATION NEGATIVE (NEGATIVE)
--- OUTSIDE RECORDS SUMMARY | 2020-12-11 22:44 | CCD ---
Author Author [facility] Organization [facility] Address Unknown Phone Unavailable Care Team Providers Care Admitting Officer Name Role Phone Stephane De La Cruz [...] is protected by Article 27-F of the [facility] Public Health law. If you continue you may have access to information: Regarding HIV / AIDS; Provided by facilities licensed or operated by the [facility] Office of Mental Health; or Provided by the [facility] Office for People With Developmental Disabilities. If such information is present, then the following [facility] mandated warning applies: This information has been [...] law may result in a fine or correction sentence or both. A general authorization for the release of medical or other information is NOT sufficient authorization for further disc losure. Allergies and Adverse Reactions Type Description Substance Reaction Status Data Source(s ) Propensity to adverse reactions CIPRO CIPRO [facility] Propensity to adverse reactions FLECTOR FLECTOR [facility] Propensity to adverse reactions DURAGESIC DURAGESIC [facility] Drug allergy PHENOBARBITAL PHENOBARBITAL [facility] Propensity to adverse reactions PENICILLINS (CLASS) PENICILLINS (CLAS S) [facility] Family History Family Member Name Family Member Gender Family Member Status Date o f Status Description Data Source(s) Unknown Unknown Problem MEDENT ([facility]) Encounters Encounter Providers Location Date Indications Data Source(s ) Unknown [address] [facility] [address] 11/19/2020 12:00:00 AM EDT eCW1 ([facility]) Office Visit Attender: Eliazar Mercado/Adelina/Justin/Patricia dl 11/05/2020 09:30:00 AM EDT MEDENT ([facility]) (PT/INR TV) Telephone Encounter Visit [address] [place] [address] 11/02/2020 12:00:00 AM EDT eCW1 ([facility]) Unknown [address] [facility] [place] [address] 11/02/2020 12:00:00 AM EDT eCW1 ([facility]) Outpatient Attender: Ayad Doyle rer: Ayad De La Cruz MDConsultant: Adina PEARSON 10/29/2020 08:40:00 PM EDT - 10/29/2020 08:50:00 PM EDT [facility] Unknown [address] [facility] [address] 10/26/2020 12:00:00 AM EDT eCW1 ([facility]) Unknown [address] [facility] [place] [address] 10/26/2020 12:00:00 AM EDT eCW1 ([facility]) Unknown [address] [facility] [place] [address] 10/24/2020 12:00:00 AM EDT eCW1 ([facility]) [place] [address] [facility] [address] 10/24/2020 12:00:00 AM EDT eCW1 ([facility]) Unknown [address] [facility] [address] 10/18/2020 12:00:00 AM EDT eCW1 ([facility]) Unknown [address] [facility] [address] 10/16/2020 12:00:00 AM EDT eCW1 ([facility]) Outpatient [address] [facility] [address] 10/16/2020 12:00:00 AM EDT eCW1 ([facility]) Office Visit, Est Pt., Level 3 PC [address] [place] [address] 10/03/2020 12:00:00 AM EDT eCW1 ([facility]) Unknown [address] [facility] [address] 09/26/2020 12:00:00 AM EDT eCW1 ([facility]) Unknown [address] [facility] [address] 09/17/2020 12:00:00 AM EDT eCW1 ([facility]) Outpatient Attender: Eliazar Mercado/Adelina/Justin/Patricia ro 09/12/2020 09:00:00 AM EDT MEDENT ([facility]) Office Visit, Est Pt., Level 2 PC [address] [place] [address] 09/05/2020 12:00:00 AM EDT eCW1 ([facility]) Unknown [address] [facility] [address] 09/03/2020 12:00:00 AM EDT eCW1 ([facility]) Unknown [address] [facility] [address] 08/28/2020 12:00:00 AM EDT eCW1 ([facility]) Unknown [address] [facility] [address] 08/21/2020 12:00:00 AM EDT [facility]CW1 [facility] [place] [address] [facility] [address] 08/20/2020 12:00:00 AM EDT eCW1 ([facility]) Unknown [address] [facility] [place] [address] 08/14/2020 12:00:00 AM EDT eCW1 ([facility]) Unknown [address] [facility] [place] [address] 08/08/2020 12:00:00 AM EDT eCW1 ([facility]) Office Visit, Est Pt., Level 3 PC [address] [place] [address] 08/07/2020 12:00:00 AM EDT eCW1 ([facility]) Unknown [address] [facility] [address] 08/07/2020 12:00:00 AM EDT eCW1 ([facility]) [place] [address] [facility] [address] 08/06/2020 12:00:00 AM EDT eCW1 ([facility]) Unknown [address] [facility] [place] [address] 08/06/2020 12:00:00 AM EDT eCW1 ([facility]) Outpatient [address] [facility] [place] [address] 08/02/2020 12:00:00 AM EDT eCW1 ([facility]) Unknown [address] [facility] [place] [address] 07/31/2020 12:00:00 AM EDT eCW1 ([facility]) Unknown [address] [facility] [place] [address] 07/23/2020 12:00:00 AM EDT eCW1 ([facility]) Office Visit, Est Pt., Level 2 PC [address] [place] [address] 07/23/2020 12:00:00 AM EDT eCW1 ([facility]) Unknown [address] [facility] [address] 07/19/2020 12:00:00 AM EDT [facility] Office Visit, Est Pt., Level 2 PC [address] [place] [address] 07/04/2020 12:00:00 AM EDT eCW1 ([facility]) Unknown [address] [place] [address] 06/25/2020 12:00:00 AM EDT eCW1 ([facility]) Office Visit, Est Pt., Level 2 PC [address] [place] [address] 06/22/2020 12:00:00 AM EDT eCW1 ([facility]) Unknown [address] [place] [address] 06/22/2020 12:00:00 AM EDT eCW1 ([facility]) Unknown [address] [place] [address] 06/22/2020 12:00:00 AM EDT eCW1 ([facility]) Office Visit, Est Pt., Level 2 PC [address] [place] [address] 06/13/2020 12:00:00 AM EDT eCW1 ([facility]) Outpatient Attender: Eliazar Mercado/Adelina/Justin/Patricia ro 06/11/2020 02:00:00 PM EDT MEDENT ([facility]) Unknown [address] [place] [address] 06/05/2020 12:00:00 AM EDT eCW1 ([facility]) Unknown [address] [place] [address] 05/22/2020 12:00:00 AM EDT eCW1 ([facility]) Outpatient [address] [place] [address] 04/30/2020 12:00:00 AM EDT eCW1 ([facility]) [place] [address] [facility] [place] [address] 04/24/2020 12:00:00 AM EDT eCW1 ([facility]) Unknown [address] [facility] [place] [address] 04/03/2020 12:00:00 AM EST eCW1 ([facility]) Unknown [address] [facility] [place] [address] 03/30/2020 12:00:00 AM EST eCW1 ([facility]) Unknown [address] [facility] [place] [address] 03/29/2020 12:00:00 AM EST eCW1 ([facility]) Unknown [address] [facility] [place] [address] 03/27/2020 12:00:00 AM EST eCW1 ([facility]) Unknown [address] [facility] [place] [address] 03/02/2020 12:00:00 AM EST eCW1 ([facility]) Unknown [address] [facility] [place] [address] 02/28/2020 12:00:00 AM EST eCW1 ([facility]) Unknown [address] [facility] [place] [address] 01/26/2020 12:00:00 AM EST eCW1 ([facility]) Unknown [address] [facility] [place] [address] 01/03/2020 12:00:00 AM EST eCW1 ([facility]) Unknown [address] [facility] [place] [address] 12/29/2019 12:00:00 AM EST eCW1 ([facility]) Unknown [address] [facility] [place] [address] 12/08/2019 12:00:00 AM EDT eCW1 ([facility]) Unknown [address] [facility] [place] [address] 12/05/2019 12:00:00 AM EDT eCW1 ([facility]) [place] [address] [facility] [place] [address] 11/22/2019 12:00:00 AM EDT eCW1 ([facility]) Unknown [address] [facility] [place] [address] 11/14/2019 12:00:00 AM EDT eCW1 ([facility]) Medications Medication Brand Name Start Date Product Form Dose Route Admi nistrative Instructions Pharmacy Instructions Status Indications Reaction Description Data Source(s) Acetaminophen 325 MG / Oxycodone Hydroch loride 5 MG Oral Tablet [Percocet] Percocet 5-325 MG Percocet 5-325 MG 11/21/2020 12:00:00 AM EDT 2 .0 {tablet_as_needed} active Percocet 5-32 5 MG eCW1 ([facility]) 5-325 mg 11/21/2020 12:00:00 AM EDT tablet 240 TAKE TWO TABLETS BY MOUTH EVERY 6 HOURS NEEDED MAXIMUM DAILY DOSE = 8 TABLETS TAKE TWO TABLETS BY MOUTH EVERY 6 HOURS NEEDED MAXIMUM DAILY DOSE = 8 TABLETS SOLD: 11/21/2020 [facility] atorvastatin 40 MG Oral Tablet ATORVASTATIN CALCIUM 11/17/2020 1 2:00:00 AM EDT tablet 90 TAKE ONE TABLET BY MOUTH EVERY D AY TAKE ONE TABLET BY MOUTH EVERY DAY SOLD: 11/21/2020 [facility] 5 mg 11/13/2020 12:00:00 AM EDT tablet 48 TAKE TWO TABLETS BY MOUTH EVERY 6 HOURS NEEDED FOR PAIN MAXIMUM DAILY DOSE = 8 TABLETS TAKE TWO TABLETS BY MOUTH EVERY 6 HOURS NEEDED FOR PAIN MAXIMUM DAILY DOSE = 8 TABLETS SOLD: 11/13/2020 [facility] Oxycodone Hydrochloride 5 MG Oral Tablet Oxycodone HCL 11/13/2020 12:00:00 AM EDT active MEDENT ([facility], ) Oxycodone Hydrochloride 5 MG Oral Tablet Oxycodone HCL 11/07/2020 12:00:00 AM EDT active MEDENT ([facility], ) 5 mg 11/06/2020 12:00:00 AM [...] HCL 11/01/2020 12:00:00 AM EDT active MEDENT ([facility], ) 5 mg 11/01/2020 12:00:00 AM [...] HCL 10/26/2020 12:00:00 AM EDT active MEDENT ([facility], ) Potassium Chloride 20 MEQ Extended Release Oral Tablet Potassium Chloride [facility] 10/24/2020 12:00:00 AM EDT ORAL active MEDENT ([facility], ) Acetaminophen 325 MG / Hydrocodone Anya trate 10 MG Oral Tablet HYDROcodone- Acetaminophen 10-325 MG HYDROcodone-Acetaminophen 10-325 MG 10/18/2020 12:00:0 0 AM EDT 1.0 {tablet_as_needed} active HYDROcodone-Acetaminophen 10- 325 MG eCW1 ([facility]) Acetaminophen 325 MG / Hydrocodone Anya trate 10 MG Oral Tablet HYDROcodone- Acetaminophen 10-325 MG HYDROcodone-Acetaminophen 10-325 MG 10/18/2020 12:00:0 0 AM EDT 1.0 {tablet_as_needed} active HYDROcodone-Acetaminophen 10- 325 MG eCW1 ([facility]) Acetaminophen 325 MG / Hydrocodone Anya trate 10 MG Oral Tablet HYDROcodone- Acetaminophen 10-325 MG HYDROcodone-Acetaminophen 10-325 MG 10/18/2020 12:00:0 0 AM EDT 1.0 {tablet_as_needed} active HYDROcodone-Acetaminophen 10- 325 MG eCW1 ([facility]) Acetaminophen 325 MG / Hydrocodone Bitartrate [...] {tablet_as_needed} active HYDROcodone-Acetaminophen 10- 325 MG eCW1 ([facility]) Acetaminophen 325 MG / Hydrocodone Anya trate 10 MG Oral Tablet HYDROcodone- Acetaminophen 10-325 MG HYDROcodone-Acetaminophen 10-325 MG 10/18/2020 12:00:0 0 AM EDT 1.0 {tablet_as_needed} active HYDROcodone-Acetaminophen 10- 325 MG eCW1 ([facility]) Acetaminophen 325 MG / Hydrocodone Anya trate 10 MG Oral Tablet HYDROcodone- Acetaminophen 10-325 MG HYDROcodone-Acetaminophen 10-325 MG 10/18/2020 12:00:0 0 AM EDT 1.0 {tablet_as_needed} active HYDROcodone-Acetaminophen 10- 325 MG eCW1 ([facility]) Acetaminophen 325 MG / Hydrocodone Anya trate 10 MG Oral Tablet HYDROcodone- Acetaminophen 10-325 MG HYDROcodone-Acetaminophen 10-325 MG 10/18/2020 12:00:0 0 AM EDT 1.0 {tablet_as_needed} active HYDROcodone-Acetaminophen 10- 325 MG eCW1 ([facility]) Acetaminophen 325 MG / Hydrocodone Anya trate 10 MG Oral Tablet HYDROcodone- Acetaminophen 10-325 MG HYDROcodone-Acetaminophen 10-325 MG 10/18/2020 12:00:0 0 AM EDT 1.0 {tablet_as_needed} active HYDROcodone-Acetaminophen 10- 325 MG eCW1 ([facility]) 2 mg 10/16/2020 12:00:00 AM EDT [...] FOR DIARRHEA SOLD: 11/21/2020 [facility] [place] 10-325 MG UNK 10/16/2020 12:00:00 AM EDT 1.0 {tablet_a s_needed} active [place] 10-325 MG eCW1 ([facility]) 1,250 mcg (50,000 unit) 10/16/2020 12:00:00 [...] {capsule} active L yrica 150 MG eCW1 ([facility]) pregabalin 150 MG Oral Capsule [Lyrica] Lyrica 150 MG Lyrica 150 MG 09/27/2020 12:00:00 AM EDT 1.0 {capsule} active L yrica 150 MG eCW1 ([facility]) tizanidine 4 MG Oral Tablet TIZANIDINE HCL 09/21/2020 12:00:00 AM EDT tablet 90 TAKE ONE TABLET BY MOUTH THREE TIMES A DAY NEEDED T SOLITARIO ONE TABLET BY MOUTH THREE TIMES A DAY NEEDED SOLD: 10/24/2020 [facility] tizanidine 4 MG Oral Tablet TIZANIDINE HCL 09/21/2020 12:00:00 AM EDT tablet 90 TAKE ONE TABLET BY MOUTH THREE TIMES A DAY NEEDED T SOLITARIO ONE TABLET BY MOUTH THREE TIMES A DAY NEEDED SOLD: 09/25/2020 [facility] tizanidine 4 MG Oral Tablet TIZANIDINE HCL 09/21/2020 12:00:00 AM EDT tablet 90 TAKE ONE TABLET BY MOUTH THREE TIMES A DAY NEEDED T SOLITARIO ONE TABLET BY MOUTH THREE TIMES A DAY NEEDED SOLD: 11/21/2020 [facility] Acetaminophen 325 MG / Hydrocodone Bitartrate 10 MG Or al Tablet 10-325 mg HYDROCODONE/ACETAMINOPHEN 09/20/2020 12:00:00 AM EDT tablet 120 TAKE ONE TABLET BY MOUTH EVERY 6 HOURS NEEDED MAXIMUM DAILY DOSE = 4 TABLETS TAKE ONE TABLET BY MOUTH EVERY 6 HOURS NEEDED MAXIMUM DAILY DOSE = 4 TABLETS SOLD: 09/20/2020 [facility] Acetaminophen 325 MG / Hydrocodone Anya trate 10 MG Oral Tablet HYDROcodone- Acetaminophen 10-325 MG HYDROcodone-Acetaminophen 10-325 MG 09/17/2020 12:00:0 0 AM EDT 1.0 {tablet_as_needed} active HYDROcodone-Acetaminophen 10- 325 MG eCW1 ([facility]) Acetaminophen 325 MG / Hydrocodone Anya trate 10 MG Oral Tablet HYDROcodone- Acetaminophen 10-325 MG HYDROcodone-Acetaminophen 10-325 MG 09/17/2020 12:00:0 0 AM EDT 1.0 {tablet_as_needed} active HYDROcodone-Acetaminophen 10- 325 MG eCW1 ([facility]) Acetaminophen 325 MG / Hydrocodone Anya trate 10 MG Oral Tablet HYDROcodone- Acetaminophen 10-325 MG HYDROcodone-Acetaminophen 10-325 MG 09/17/2020 12:00:0 0 AM EDT 1.0 {tablet_as_needed} active HYDROcodone-Acetaminophen 10- 325 MG eCW1 ([facility]) 150 mg 08/31/2020 12:00:00 AM EDT capsule 90 TAKE ONE CAPSULE BY MOUTH THREE TIMES A DAY MAXIMUM DAILY DOSE = 3 TAKE ONE CAPSULE BY MOUTH THREE TIMES A DAY MAXIMUM DAILY DOSE = 3 SOLD: 11/27/2020 [facility] 150 mg 08/31/2020 12:00:00 AM [...] MAXIMUM DAILY DOSE = 3 SOLD: 10/29/2020 [facility] 2 mg 08/22/2020 12:00:00 AM [...] {tablet_as_needed} active HYDROcodone-Acetaminophen 10- 325 MG eCW1 ([facility]) Acetaminophen 325 MG / Hydrocodone Anya trate 10 MG Oral Tablet HYDROcodone- Acetaminophen 10-325 MG HYDROcodone-Acetaminophen 10-325 MG 08/21/2020 12:00:0 0 AM EDT 1.0 {tablet_as_needed} active HYDROcodone-Acetaminophen 10- 325 MG eCW1 ([facility]) Acetaminophen 325 MG / Hydrocodone Anya trate 10 MG Oral Tablet HYDROcodone- Acetaminophen 10-325 MG HYDROcodone-Acetaminophen 10-325 MG 08/21/2020 12:00:0 0 AM EDT 1.0 {tablet_as_needed} active HYDROcodone-Acetaminophen 10- 325 MG eCW1 ([facility]) Acetaminophen 325 MG / Hydrocodone Anya trate 10 MG Oral Tablet HYDROcodone- Acetaminophen 10-325 MG HYDROcodone-Acetaminophen 10-325 MG 08/21/2020 12:00:0 0 AM EDT 1.0 {tablet_as_needed} active HYDROcodone-Acetaminophen 10- 325 MG eCW1 ([facility]) Acetaminophen 325 MG / Hydrocodone Anya trate 10 MG Oral Tablet HYDROcodone- Acetaminophen 10-325 MG HYDROcodone-Acetaminophen 10-325 MG 08/21/2020 12:00:0 0 AM EDT 1.0 {tablet_as_needed} active HYDROcodone-Acetaminophen 10- 325 MG eCW1 ([facility]) Acetaminophen 325 MG / Hydrocodone Anya trate 10 MG Oral Tablet HYDROcodone- Acetaminophen 10-325 MG HYDROcodone-Acetaminophen 10-325 MG 08/21/2020 12:00:0 0 AM EDT 1.0 {tablet_as_needed} active HYDROcodone-Acetaminophen 10- 325 MG eCW1 ([facility]) Acetaminophen 325 MG / Hydrocodone Anya trate 10 MG Oral Tablet HYDROcodone- Acetaminophen 10-325 MG HYDROcodone-Acetaminophen 10-325 MG 08/21/2020 12:00:0 0 AM EDT 1.0 {tablet_as_needed} active HYDROcodone-Acetaminophen 10- 325 MG eCW1 ([facility]) Acetaminophen 325 MG / Hydrocodone Anya trate 10 MG Oral Tablet HYDROcodone- Acetaminophen 10-325 MG HYDROcodone-Acetaminophen 10-325 MG 08/21/2020 12:00:0 0 AM EDT 1.0 {tablet_as_needed} active HYDROcodone-Acetaminophen 10- 325 MG eCW1 ([facility]) 2.5 mg 08/20/2020 12:00:00 AM EDT tablet 30 TAKE 1 TABLET BY MOUTH ONCE A DAY TAKE 1 TABLET BY MOUTH ONCE A DAY SOLD: 08/21/2020 [facility] [place] 10-325 MG UNK 08/20/2020 12:00:00 AM EDT 1.0 {tablet_a s_needed} active [place] 10-325 MG eCW1 ([facility]) 625 mg 08/15/2020 12:00:00 AM EDT tablet 120 TAKE TWO TABLETS BY MOUTH TWICE A DAY TAKE TWO TABLETS BY MOUTH TWICE A DAY SOLD: 08/17/2020 [facility] Colesevelam hydrochloride 625 MG Oral Tablet [Welchol] Welchol 625 MG Welchol 625 MG 08/14/2020 12:00:00 AM EDT 2.0 {tablets} acti ve Welchol 625 MG eCW1 ([facility]) Colesevelam hydrochloride 625 MG Oral Tablet [Welchol] Welchol 625 MG Welchol 625 MG 08/14/2020 12:00:00 AM EDT 2.0 {tablets} acti ve Welchol 625 MG eCW1 ([facility]) Colesevelam hydrochloride 625 MG Oral Tablet [Welchol] Welchol 625 MG Welchol 625 MG 08/14/2020 12:00:00 AM EDT 2.0 {tablets} acti ve Welchol 625 MG eCW1 ([facility]) Colesevelam hydrochloride 625 MG Oral Tablet [Welchol] Welchol 625 MG Welchol 625 MG 08/14/2020 12:00:00 AM EDT 2.0 {tablets} acti ve Welchol 625 MG eCW1 ([facility]) Colesevelam hydrochloride 625 MG Oral Tablet [Welchol] Welchol 625 MG Welchol 625 MG 08/14/2020 12:00:00 AM EDT 2.0 {tablets} acti ve Welchol 625 MG eCW1 ([facility]) Colesevelam hydrochloride 625 MG Oral Tablet [Welchol] Welchol 625 MG Welchol 625 MG 08/14/2020 12:00:00 AM EDT 2.0 {tablets} acti ve Welchol 625 MG eCW1 ([facility]) Colesevelam hydrochloride 625 MG Oral Tablet [Welchol] Welchol 625 MG Welchol 625 MG 08/14/2020 12:00:00 AM EDT 2.0 {tablets} acti ve Welchol 625 MG eCW1 ([facility]) Colesevelam hydrochloride 625 MG Oral Tablet [Welchol] Welchol 625 MG Welchol 625 MG 08/14/2020 12:00:00 AM EDT 2.0 {tablets} acti ve Welchol 625 MG eCW1 ([facility]) Colesevelam hydrochloride 625 MG Oral Tablet [Welchol] Welchol 625 MG Welchol 625 MG 08/14/2020 12:00:00 AM EDT 2.0 {tablets} acti ve Welchol 625 MG eCW1 ([facility]) Colesevelam hydrochloride 625 MG Oral Tablet [Welchol] Welchol 625 MG Welchol 625 MG 08/14/2020 12:00:00 AM EDT 2.0 {tablets} acti ve Welchol 625 MG eCW1 ([facility]) Colesevelam hydrochloride 625 MG Oral Tablet [Welchol] Welchol 625 MG Welchol 625 MG 08/14/2020 12:00:00 AM EDT 2.0 {tablets} acti ve Welchol 625 MG eCW1 ([facility]) Colesevelam hydrochloride 625 MG Oral Tablet [Welchol] Welchol 625 MG Welchol 625 MG 08/14/2020 12:00:00 AM EDT 2.0 {tablets} acti ve Welchol 625 MG eCW1 ([facility]) Colesevelam hydrochloride 625 MG Oral Tablet [Welchol] Welchol 625 MG Welchol 625 MG 08/14/2020 12:00:00 AM EDT 2.0 {tablets} acti ve Welchol 625 MG eCW1 ([facility]) Colesevelam hydrochloride 625 MG Oral Tablet [Welchol] Welchol 625 MG Welchol 625 MG 08/14/2020 12:00:00 AM EDT 2.0 {tablets} acti ve Welchol 625 MG eCW1 ([facility]) Colesevelam hydrochloride 625 MG Oral Tablet [Welchol] Welchol 625 MG Welchol 625 MG 08/14/2020 12:00:00 AM EDT 2.0 {tablets} acti ve Welchol 625 MG eCW1 ([facility]) Colesevelam hydrochloride 625 MG Oral Tablet [Welchol] Welchol 625 MG Welchol 625 MG 08/14/2020 12:00:00 AM EDT 2.0 {tablets} acti ve Welchol 625 MG eCW1 ([facility]) Colesevelam hydrochloride 625 MG Oral Tablet [Welchol] Welchol 625 MG Welchol 625 MG 08/14/2020 12:00:00 AM EDT 2.0 {tablets} acti ve Welchol 625 MG eCW1 ([facility]) Colesevelam hydrochloride 625 MG Oral Tablet [Welchol] Welchol 625 MG Welchol 625 MG 08/14/2020 12:00:00 AM EDT 2.0 {tablets} acti ve Welchol 625 MG eCW1 ([facility]) Colesevelam hydrochloride 625 MG Oral Tablet [Welchol] Welchol 625 MG Welchol 625 MG 08/14/2020 12:00:00 AM EDT 2.0 {tablets} acti ve Welchol 625 MG eCW1 ([facility]) Acetaminophen 325 MG / Hydrocodone Bitartrate 10 MG Or al Tablet 10-325 mg HYDROCODONE/ACETAMINOPHEN 07/23/2020 12:00:00 AM EDT tablet 120 TAKE ONE TABLET BY MOUTH EVERY 6 HOURS NEEDED MAXIMUM DAILY DOSE = 4 TABLETS TAKE ONE TABLET BY MOUTH EVERY 6 HOURS NEEDED MAXIMUM DAILY DOSE = 4 TABLETS SOLD: 07/24/2020 [facility] [place] 10-325 MG UNK 07/19/2020 12:00:00 AM EDT 1.0 {tablet_a s_needed} active [place] 10-325 MG eCW1 ([facility]) [place] 10-325 MG UNK 07/19/2020 12:00:00 AM EDT 1.0 {tablet_a s_needed} active [place] 10-325 MG eCW1 ([facility]) [place] 10-325 MG UNK 07/19/2020 12:00:00 AM EDT 1.0 {tablet_a s_needed} active [place] 10-325 MG eCW1 ([facility]) [place] 10-325 MG UNK 07/19/2020 12:00:00 AM EDT 1.0 {tablet_a s_needed} active [place] 10-325 MG eCW1 ([facility]) tizanidine 4 MG Oral Tablet TIZANIDINE HCL 06/25/2020 12:00:00 AM EDT tablet 90 TAKE ONE TABLET BY MOUTH THREE TIMES A DAY NEEDED T SOLITARIO ONE TABLET BY MOUTH THREE TIMES A DAY NEEDED SOLD: 06/26/2020 [facility] tizanidine 4 MG Oral Tablet TIZANIDINE HCL 06/25/2020 12:00:00 AM EDT tablet 90 TAKE ONE TABLET BY MOUTH THREE TIMES A DAY NEEDED T SOLITARIO ONE TABLET BY MOUTH THREE TIMES A DAY NEEDED SOLD: 07/28/2020 [facility] tizanidine 4 MG Oral Tablet TIZANIDINE HCL 06/25/2020 12:00:00 AM EDT tablet 90 TAKE ONE TABLET BY MOUTH THREE TIMES A DAY NEEDED T SOLITARIO ONE TABLET BY MOUTH THREE TIMES A DAY NEEDED SOLD: 08/25/2020 [facility] Acetaminophen 325 MG / Hydrocodone Bitartrate 10 MG Or al Tablet 10-325 mg HYDROCODONE/ACETAMINOPHEN 06/24/2020 12:00:00 AM EDT tablet 120 TAKE ONE TABLET BY MOUTH EVERY 6 HOURS NEEDED MAXIMUM DAILY DOSE = 4 TABLETS TAKE ONE TABLET BY MOUTH EVERY 6 HOURS NEEDED MAXIMUM DAILY DOSE = 4 TABLETS SOLD: 06/25/2020 [facility] Acetaminophen 325 MG / Hydrocodone Anya trate 10 MG Oral Tablet HYDROcodone- Acetaminophen 10-325 MG HYDROcodone-Acetaminophen 10-325 MG 06/22/2020 12:00:0 0 AM EDT 1.0 {tablet_as_needed} active HYDROcodone-Acetaminophen 10- 325 MG eCW1 ([facility]) 2.5 mg 06/22/2020 12:00:00 AM EDT tablet 30 TAKE 1 TABLET BY MOUTH ONCE DAILY FOR 30 DAYS TAKE 1 TABLET BY MOUTH ONCE DAILY FOR 30 DAYS SOLD: [facility] Acetaminophen 325 MG / Hydrocodone Anya trate 10 MG Oral Tablet HYDROcodone- Acetaminophen 10-325 MG HYDROcodone-Acetaminophen 10-325 MG 06/22/2020 12:00:0 0 AM EDT 1.0 {tablet_as_needed} active HYDROcodone-Acetaminophen 10- 325 MG eCW1 ([facility]) Acetaminophen 325 MG / Hydrocodone Anya trate 10 MG Oral Tablet HYDROcodone- Acetaminophen 10-325 MG HYDROcodone-Acetaminophen 10-325 MG 06/22/2020 12:00:0 0 AM EDT 1.0 {tablet_as_needed} active HYDROcodone-Acetaminophen 10- 325 MG eCW1 ([facility]) Acetaminophen 325 MG / Hydrocodone Anya trate 10 MG Oral Tablet HYDROcodone- Acetaminophen 10-325 MG HYDROcodone-Acetaminophen 10-325 MG 06/22/2020 12:00:0 0 AM EDT 1.0 {tablet_as_needed} active HYDROcodone-Acetaminophen 10- 325 MG eCW1 ([facility]) Acetaminophen 325 MG / Hydrocodone Anya trate 10 MG Oral Tablet HYDROcodone- Acetaminophen 10-325 MG HYDROcodone-Acetaminophen 10-325 MG 06/22/2020 12:00:0 0 AM EDT 1.0 {tablet_as_needed} active HYDROcodone-Acetaminophen 10- 325 MG eCW1 ([facility]) Warfarin Sodium 2.5 MG Oral Tablet Warfarin Sodium 2.5 MG 12:00:00 AM EDT 1.0 {tablet} active Warfarin So dium 2.5 MG eCW1 ([facility]) Acetaminophen 325 MG / Hydrocodone Anya trate 10 MG Oral Tablet HYDROcodone- Acetaminophen 10-325 MG HYDROcodone-Acetaminophen 10-325 MG 06/22/2020 12:00:0 0 AM EDT 1.0 {tablet_as_needed} active HYDROcodone-Acetaminophen 10- 325 MG eCW1 ([facility]) Acetaminophen 325 MG / Hydrocodone Anya trate 10 MG Oral Tablet HYDROcodone- Acetaminophen 10-325 MG HYDROcodone-Acetaminophen 10-325 MG 06/22/2020 12:00:0 0 AM EDT 1.0 {tablet_as_needed} active HYDROcodone-Acetaminophen 10- 325 MG eCW1 ([facility]) Acetaminophen 325 MG / Hydrocodone Anya trate 10 MG Oral Tablet HYDROcodone- Acetaminophen 10-325 MG HYDROcodone-Acetaminophen 10-325 MG 06/22/2020 12:00:0 0 AM EDT 1.0 {tablet_as_needed} active HYDROcodone-Acetaminophen 10- 325 MG eCW1 ([facility]) Acetaminophen 325 MG / Hydrocodone Anya trate 10 MG Oral Tablet HYDROcodone- Acetaminophen 10-325 MG HYDROcodone-Acetaminophen 10-325 MG 06/22/2020 12:00:0 0 AM EDT 1.0 {tablet_as_needed} active HYDROcodone-Acetaminophen 10- 325 MG eCW1 ([facility]) Acetaminophen 325 MG / Hydrocodone Anya trate 10 MG Oral Tablet Hydrocodone- Acetaminophen 10-325 MG Hydrocodone-Acetaminophen 10-325 MG 06/22/2020 12:00:0 0 AM EDT 1.0 {tablet_as_needed} active Hydrocodone-Acetaminophen 10- 325 MG eCW1 ([facility]) Acetaminophen 325 MG / Hydrocodone Anya trate 10 MG Oral Tablet HYDROcodone- Acetaminophen 10-325 MG HYDROcodone-Acetaminophen 10-325 MG 06/22/2020 12:00:0 0 AM EDT 1.0 {tablet_as_needed} active HYDROcodone-Acetaminophen 10- 325 MG eCW1 ([facility]) 2.5 mg 06/22/2020 12:00:00 AM EDT tablet 30 TAKE 1 TABLET BY MOUTH ONCE DAILY FOR 30 DAYS TAKE 1 TABLET BY MOUTH ONCE DAILY FOR 30 DAYS SOLD: [facility] Acetaminophen 325 MG / Hydrocodone Anya trate 10 MG Oral Tablet HYDROcodone- Acetaminophen 10-325 MG HYDROcodone-Acetaminophen 10-325 MG 06/22/2020 12:00:0 0 AM EDT 1.0 {tablet_as_needed} active HYDROcodone-Acetaminophen 10- 325 MG eCW1 ([facility]) Acetaminophen 325 MG / Hydrocodone Anya trate 10 MG Oral Tablet HYDROcodone- Acetaminophen 10-325 MG HYDROcodone-Acetaminophen 10-325 MG 06/22/2020 12:00:0 0 AM EDT 1.0 {tablet_as_needed} active HYDROcodone-Acetaminophen 10- 325 MG eCW1 ([facility]) Warfarin Sodium 2.5 MG Oral Tablet Warfarin Sodium 2.5 MG 12:00:00 AM EDT 1.0 {tablet} active eCW1 ([facility]) Acetaminophen 325 MG / Hydrocodone Anya trate 10 MG Oral Tablet HYDROcodone- Acetaminophen 10-325 MG HYDROcodone-Acetaminophen 10-325 MG 06/22/2020 12:00:0 0 AM EDT 1.0 {tablet_as_needed} active HYDROcodone-Acetaminophen 10- 325 MG eCW1 ([facility]) Acetaminophen 325 MG / Hydrocodone Anya trate 10 MG Oral Tablet HYDROcodone- Acetaminophen 10-325 MG HYDROcodone-Acetaminophen 10-325 MG 06/22/2020 12:00:0 0 AM EDT 1.0 {tablet_as_needed} active HYDROcodone-Acetaminophen 10- 325 MG eCW1 ([facility]) Acetaminophen 325 MG / Hydrocodone Anya trate 10 MG Oral Tablet Hydrocodone- Acetaminophen 10-325 MG Hydrocodone-Acetaminophen 10-325 MG 06/22/2020 12:00:0 0 AM EDT 1.0 {tablet_as_needed} active Hydrocodone-Acetaminophen 10- 325 MG eCW1 ([facility]) Acetaminophen 325 MG / Hydrocodone Anya trate 10 MG Oral Tablet HYDROcodone- Acetaminophen 10-325 MG HYDROcodone-Acetaminophen 10-325 MG 06/22/2020 12:00:0 0 AM EDT 1.0 {tablet_as_needed} active HYDROcodone-Acetaminophen 10- 325 MG eCW1 ([facility]) Warfarin Sodium 2.5 MG Oral Tablet Warfarin Sodium 2.5 MG 12:00:00 AM EDT 1.0 {tablet} active Warfarin So dium 2.5 MG eCW1 ([facility]) Acetaminophen 325 MG / Hydrocodone Anya trate 10 MG Oral Tablet HYDROcodone- Acetaminophen 10-325 MG HYDROcodone-Acetaminophen 10-325 MG 06/22/2020 12:00:0 0 AM EDT 1.0 {tablet_as_needed} active HYDROcodone-Acetaminophen 10- 325 MG eCW1 ([facility]) Warfarin Sodium 2.5 MG Oral Tablet Warfarin Sodium 2.5 MG 12:00:00 AM EDT 1.0 {tablet} active Warfarin So dium 2.5 MG eCW1 ([facility]) Acetaminophen 325 MG / Hydrocodone Anya trate 10 MG Oral Tablet Hydrocodone- Acetaminophen 10-325 MG Hydrocodone-Acetaminophen 10-325 MG 06/22/2020 12:00:0 0 AM EDT 1.0 {tablet_as_needed} active eCW1 ([facility]) Acetaminophen 325 MG / Hydrocodone Anya trate 10 MG Oral Tablet Hydrocodone- Acetaminophen 10-325 MG Hydrocodone-Acetaminophen 10-325 MG 06/22/2020 12:00:0 0 AM EDT 1.0 {tablet_as_needed} active Hydrocodone-Acetaminophen 10- 325 MG eCW1 ([facility]) Acetaminophen 325 MG / Hydrocodone Anya trate 10 MG Oral Tablet Hydrocodone- Acetaminophen 10-325 MG Hydrocodone-Acetaminophen 10-325 MG 06/22/2020 12:00:0 0 AM EDT 1.0 {tablet_as_needed} active Hydrocodone-Acetaminophen 10- 325 MG W1 ([facility]) 25 mcg 06/19/2020 12:00:00 AM EDT tablet 90 TAKE ONE TABLET BY MOUTH EVERY MORNING ON AN EMPTY STOMACH TAKE ONE TABLET BY MOUTH EVERY MORNING O N AN EMPTY STOMACH SOLD: 06/23/2020 [facility] 20 mg 06/16/2020 12:00:00 AM [...] {tablet_as_needed} active Hydrocodone-Acetaminophen 10- 325 MG eCW1 ([facility]) Acetaminophen 325 MG / Hydrocodone Anya trate 10 MG Oral Tablet Hydrocodone- Acetaminophen 10-325 MG Hydrocodone-Acetaminophen 10-325 MG 05/22/2020 12:00:0 0 AM EDT 1.0 {tablet_as_needed} active Hydrocodone-Acetaminophen 10- 325 MG eCW1 ([facility]) Acetaminophen 325 MG / Hydrocodone Anya trate 10 MG Oral Tablet Hydrocodone- Acetaminophen 10-325 MG Hydrocodone-Acetaminophen 10-325 MG 05/22/2020 12:00:0 0 AM EDT 1.0 {tablet_as_needed} active Hydrocodone-Acetaminophen 10- 325 MG eCW1 ([facility]) 1,250 mcg (50,000 unit) 05/01/2020 12:00:00 [...] 1.0 {tablet_with_food} active Xarelto 20 MG eCW1 ([facility]) rivaroxaban 20 MG Oral Tablet [Xarelto] Xarelto 20 MG Xarelt o 20 MG 04/30/2020 12:00:00 AM EDT 1.0 {tablet_with_food} active Xarelto 20 MG eCW1 ([facility]) rivaroxaban 20 MG Oral Tablet [Xarelto] Xarelto 20 MG Xarelt o 20 MG 04/30/2020 12:00:00 AM EDT 1.0 {tablet_with_food} active Xarelto 20 MG eCW1 ([facility]) 10-325 mg 04/27/2020 12:00:00 AM EDT [...] {tablet_as_needed} active Hydrocodone-Acetaminophen 10- 325 MG eCW1 ([facility]) Acetaminophen 325 MG / Hydrocodone Anya trate 10 MG Oral Tablet Hydrocodone- Acetaminophen 10-325 MG Hydrocodone-Acetaminophen 10-325 MG 04/24/2020 12:00:0 0 AM EDT 1.0 {tablet_as_needed} active Hydrocodone-Acetaminophen 10- 325 MG eCW1 ([facility]) 150 mg 04/07/2020 12:00:00 AM EST [...] {tablet_as_needed} active Hydrocodone-Acetaminophen 10- 325 MG eCW1 ([facility]) 10-325 mg 03/30/2020 12:00:00 AM EST [...] {tablet_as_needed} active Hydrocodone-Acetaminophen 10- 325 MG eCW1 ([facility]) Acetaminophen 325 MG / Hydrocodone Anya trate 10 MG Oral Tablet Hydrocodone- Acetaminophen 10-325 MG Hydrocodone-Acetaminophen 10-325 MG 03/30/2020 12:00:0 0 AM EST 1.0 {tablet_as_needed} active Hydrocodone-Acetaminophen 10- 325 MG eCW1 ([facility]) Acetaminophen 325 MG / Hydrocodone Anya trate 10 MG Oral Tablet Hydrocodone- Acetaminophen 10-325 MG Hydrocodone-Acetaminophen 10-325 MG 03/30/2020 12:00:0 0 AM EST 1.0 {tablet_as_needed} active Hydrocodone-Acetaminophen 10- 325 MG eCW1 ([facility]) tizanidine 4 MG Oral Tablet TIZANIDINE HCL 03/03/2020 12:00:00 AM EST tablet 90 TAKE ONE TABLET BY MOUTH THREE TIMES A DAY NEEDED T SOLITARIO ONE TABLET BY MOUTH THREE TIMES A DAY NEEDED SOLD: 04/30/2020 [facility] tizanidine 4 MG Oral Tablet TIZANIDINE HCL 03/03/2020 12:00:00 AM EST tablet 90 TAKE ONE TABLET BY MOUTH THREE TIMES A DAY NEEDED T SOLITARIO ONE TABLET BY MOUTH THREE TIMES A DAY NEEDED SOLD: 05/27/2020 [facility] tizanidine 4 MG Oral Tablet TIZANIDINE HCL 03/03/2020 12:00:00 AM EST tablet 90 TAKE ONE TABLET BY MOUTH THREE TIMES A DAY NEEDED T SOLITARIO ONE TABLET BY MOUTH THREE TIMES A DAY NEEDED SOLD: 03/03/2020 [facility] tizanidine 4 MG Oral Tablet TIZANIDINE HCL 03/03/2020 12:00:00 AM EST tablet 90 TAKE ONE TABLET BY MOUTH THREE TIMES A DAY NEEDED T SOLITARIO ONE TABLET BY MOUTH THREE TIMES A DAY NEEDED SOLD: 04/01/2020 [facility] 10-325 mg 03/01/2020 12:00:00 AM EST tablet 120 TAKE ONE TABLET BY MOUTH EVERY 6 HOURS NEEDED MAXIMUM DAILY DOSE = 4 TABLETS TAKE ONE TABLET BY MOUTH EVERY 6 HOURS NEEDED MAXIMUM DAILY DOSE = 4 TABLETS SOLD: 03/01/2020 [facility] Acetaminophen 325 MG / Hydrocodone Anya trate 10 MG Oral Tablet [Manlius] Manlius 10-325 MG Manlius 10-325 MG 03/01/2020 12:00:00 AM EST 1.0 {tablet_as_ needed} active Manlius 10-325 MG eCW1 ([facility]) Acetaminophen 325 MG / Hydrocodone Anya trate 10 MG Oral Tablet [Manlius] Manlius 10-325 MG Manlius 10-325 MG 03/01/2020 12:00:00 AM EST 1.0 {tablet_as_ needed} active Manlius 10-325 MG eCW1 ([facility]) 10-325 mg 02/01/2020 12:00:00 AM EST tablet 120 TAKE ONE TABLET BY MOUTH EVERY 6 HOURS NEEDED MAXIMUM DAILY DOSE = 4 TABLETS TAKE ONE TABLET BY MOUTH EVERY 6 HOURS NEEDED MAXIMUM DAILY DOSE = 4 TABLETS SOLD: 02/02/2020 [facility] tizanidine 4 MG Oral Tablet TIZANIDINE HCL 01/27/2020 12:00:00 AM EST tablet 90 TAKE ONE TABLET BY MOUTH THREE TIMES A DAY NEEDED T SOLITARIO ONE TABLET BY MOUTH THREE TIMES A DAY NEEDED SOLD: 01/29/2020 [facility] Acetaminophen 325 MG / Hydrocodone Anya trate 10 MG Oral Tablet [Manlius] Manlius 10-325 MG Man[facility]us 10-325 MG 01/27/2020 12:00:00 AM EST 1.0 {tablet_as_ needed} active Manlius 10-325 MG eCW1 ([facility]) 10-325 mg 01/03/2020 12:00:00 AM EST tablet 120 TAKE ONE TABLET BY MOUTH EVERY 6 HOURS NEEDED MAXIMUM DAILY DOSE = 4 TABLETS TAKE ONE TABLET BY MOUTH EVERY 6 HOURS NEEDED MAXIMUM DAILY DOSE = 4 TABLETS SOLD: 01/04/2020 [facility] Acetaminophen 325 MG / Hydrocodone Anya trate 10 MG Oral Tablet [Manlius] Manlius 10-325 MG Man[facility]us 10-325 MG 12/29/2019 12:00:00 AM EST 1.0 {tablet_as_ needed} active Manlius 10-325 MG eCW1 ([facility]) Acetaminophen 325 MG / Hydrocodone Anya trate 10 MG Oral Tablet [Manlius] Manlius 10-325 MG [facility] 10-325 MG 12/29/2019 12:00:00 AM EST 1.0 {tablet_as_ needed} active Manlius 10-325 MG eCW1 ([facility]) 150 mg 12/12/2019 12:00:00 AM EST capsule [...] Hydrocodone Anya trate 10 MG Oral Tablet [Manlius] Manlius 10-325 MG [facility]us 10-325 MG 12/06/2019 12:00:00 AM EDT 1.0 {tablet_as_ needed} active Manlius 10-325 MG eCW1 ([facility]) Acetaminophen 325 MG / Hydrocodone Anya trate 10 MG Oral Tablet [Manlius] Manlius 10-325 MG [facility]us 10-325 MG 12/06/2019 12:00:00 AM EDT 1.0 {tablet_as_ needed} active Manlius 10-325 MG eCW1 ([facility]) 10-325 mg 12/06/2019 12:00:00 AM EDT tablet [...] type / Coverage type Policy ID Covered alliance party ID Covered alliance party's relationship to tanner Policy Tanner Plan Information MEDICARE [id number] MEDICARE COMPLETE [id number] SP [id number] [place] MEDICARE COMPLETE - CLINIC [id number] 18 [id number] MEDICARE PART A -O/P [id number] 18 [id number] MEDICAID -O/P [id number] MEDICARE PART A -O/P [id number] 18 [id number] MEDICAID - CLINIC [id number] MEDICAID-O/P UNAVAILABLE UNAVA ILABLE MEDICARE PART A-CLINIC [id number] 18 [id number] MEDICARE COMPLETE [id number] SP [id number] HIS MEDICAID 00 SP 00 MEDICARE [id number] SP [id number] [place] SELF PAY ONLY [id number] SP [id number] SELF PAY ONLY - SP1 SP MEDICARE [id number] SP [id number] MEDICAID [id number] MEDICARE C [id number] S [id number] MEDICAID M [id number] S [id number] [place] SVC OPTIONS C [id number] S [id number] ANSI-Medicare Part B [id number] ANSI-Medicaid [id number] ANSI-Medicaid [id number] ANSI-Medicare Part B [id number] ANSI-Medicaid [id number] ANSI-Medicare Part B [id number] ANSI-Medicaid [id number] ANSI-Medicare Part B [id number] ANSI-Medicaid [id number] ANSI-Medicare Part B [id number] ANSI-Medicaid [id number] ANSI-Medicare Part B [id number] ANSI-Medicare Part B [id number] ANSI-Medicaid [id number] ANSI-Medicare Part B [id number] ANSI-Medicaid [id number] ANSI-Medicare Part B [id number] ANSI-Medicaid [id number] ANSI-Medicaid [id number] ANSI-Medicare Part B [id number] ANSI-Medicaid [id number] ANSI-Medicare Part B [id number] ANSI-Medicare Part B [id number] ANSI-Medicaid [id number] ANSI-Medicare Part B [id number] ANSI-Medicaid [id number] ANSI-Medicaid [id number] ANSI-Medicare Part B [id number] ANSI-Medicare Part B [id number] ANSI-Medicaid [id number] ANSI-Medicare Part B [id number] ANSI-Medicaid [id number] ANSI-Medicare Part B [id number] ANSI-Medicaid [id number] ANSI-Medicaid [id number] ANSI-Medicare Part B [id number] ANSI-Medicare Part B [id number] ANSI-Medicaid [id number] ANSI-Medicare Part B [id number] ANSI-Medicaid [id number] ANSI-Medicare Part B [id number] ANSI-Medicaid [id number] ANSI-Medicaid [id number] ANSI-Medicare Part B [id number] ANSI-Medicare Part B [id number] ANSI-Medicaid [id number] ANSI-Medicaid [id number] ANSI-Medicare Part B [id number] ANSI-Medicare Part B [id number] ANSI-Medicaid [id number] ANSI-Medicaid [id number] ANSI-Medicare Part B [id number] MEDICAID UNAVAILABLE UNAVAILA BLE ANSI-Medicaid [id number] ANSI-Medicare Part B [id number] ANSI-Medicaid [id number] ANSI-Medicare Part B [id number] ANSI-Medicaid [id number] ANSI-Medicare Part B [id number] ANSI-Medicaid [id number] [facility] [id number] [facility]-Medicaid [id number] ANSI-Medicare Part B [id number] MEDICARE C [id number] S [id number] Medicaid [place] Medigap Part B [id number] Self [id number] Medicare [facility] Medicare Primary [id number] Self [id number] Medicare [facility] Medicare Primary [id number] Self [id number] MEDICARE [id number] SP [id number] M MEDICAID [id number] SP [id number] MEDICARE [id number] SP [id number] MEDICARE COMPLETE [id number] SP [id number] Problems, Conditions, and Diagnoses Code Display Name Description Problem Type Effective Dates Data Source(s) I21250 Personal history of other venous thrombo sis and embolism Personal history of other venous thrombosis and embolism Diagnosis 10/29/2020 08:40:00 PM EDT [facility] E876 Hypokalemia Hypokalemia Diagnosis 10/29/2020 08:40:00 PM EDT [facility] Z51.81 [id number] Encounter for therapeutic drug monitoring Problem 06/13/2020 12:00:00 AM EDT eCW1 ([facility]) 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 06/13/2020 12:00:00 AM EDT eCW1 ([facility]) Z12.2 [id number] Encounter for screening for lung cancer Kassie dobbs 04/30/2020 12:00:00 AM EDT eCW1 ([facility]) Surgeries/Procedures Procedure Description Date Indications Data Source(s) ARTHRP KNE CONDYLE&PLATU MEDIAL&LAT CMPRTS 10/22/2020 12:00:00 [facility] OFFICE OUTPATIENT VISIT 25 MINUTES 09/12/2020 12:00:00 AM [facility] ECG ROUTINE ECG W/LEAST 12 LDS W/I&R 08/02/2020 12:00: 00 AM EDT eCW1 ([facility]) OFFICE OUTPATIENT NEW 45 MINUTES 06/11/2020 12:00:00 A M [facility] Results ID Date Data Source [id number] 10/29/2020 10:50:00 PM EDT [facility] Name Value Range Interpretation Code Description Data Edilia rce(s) Supporting Document(s) Magnesium [Mass/volume] in Serum or Plasma 1.5 MG/DL 1.7 - 2.2 L [facility] ID Date Data Source [id number] 10/29/2020 10:27:00 PM EDT [facility] Name Value Range Interpretation Code Description Data Edilia rce(s) Supporting Document(s) Prothrombin time (PT) 27.7 SECONDS 11.0 - 15.5 H [facility] INR in Platelet poor plasma by Coagulation assay 2.54 0.93 - 1. 23 H [facility] \\BLDo\\INR INTERPRETATION\\BLDx\\ Therapeutic range for Coumadin and related oral anticoagulants. - International Normalized Ratio (INR): 2.0 - 3.0 for Venous Thrombosis, Pulmonary Embolus, Tissue heart valves, Acute DC, Atrial Fibrillation, Valvular heart disease and recurrent Systemic Embolism. -International Normalized Ratio (INR): 2.5 - 3.5 for Mechanical Prosthetic valve. ID Date Data Source CBC with Auto Differential 08/07/2020 12:00:00 AM EDT eCW1 ( [facility]) Name Value Range Interpretation Code Description Data Edilia rce(s) Supporting Document(s) 5.9 4.0-10.0 WHITE BLOOD COUNT eCW1 ([facility]) 4.89 4.00-5.40 RED BLOOD COUNT eCW1 ([facility]) 96.9 80.0-96.0 MEAN CORPUSCULAR VOLUME e CW1 ([facility]) 15.8 12.0-15.5 HEMOGLOBIN eCW1 ([facility]) 32.3 27.0-33.0 MEAN CORPUSCULAR HEMOGLOB IN eCW1 ([facility]) 47.4 36.0-47.0 HEMATOCRIT eCW1 ([facility]) 33.3 32.0-36.5 MEAN CORPUSCULAR HGB CONC eCW1 ([facility]) 249 150-450 PLATELET COUNT, AUTOMATED eCW1 ([facility]) 13.1 11.5-14.5 RED CELL DISTRIBUTION WID TH eCW1 ([facility]) 48.6 36.0-66.0 NEUTROPHILS % eCW1 ([facility]) 13.3 2.0-8.0 MONO % eCW1 ([facility]ly [facility]) 34.2 24.0-44.0 LYMPH % eCW1 ([facility]ly [facility]) 0.3 0-3.0 IMMATURE GRANULOCYTE % eCW1 ([facility]) 0.5 0.0-1.0 BASO % eCW1 ([facility]ly [facility]) 3.1 0.0-3.0 EOS % eCW1 ([facility]ly [facility]) 2.0 1.5-5.0 LYMPH # eCW1 ([facility]ly [facility]) 0.8 0.0-0.8 MONO # eCW1 ([facility]) 0.0 0-0 NUCLEATED RED BLOOD CELL % eCW 1 ([facility]) 2.9 1.5-8.5 NEUTROPHILS # eCW1 ([facility]) 0.0 0.0-0.2 BASO # eCW1 ([facility]ly [facility]) 0.2 0.0-0.5 EOS # eCW1 ([facility]ly [facility]) ID Date Data Source LIPASE 08/07/2020 12:00:00 AM EDT eCW1 ([facility]) Name Value Range Interpretation Code Description Data Edilia rce(s) Supporting Document(s) 71 73-393 LIPASE eCW1 ([facility]ly [facility]) ID Date Data Source ERYTHROCYTE SEDIMENTATION RATE 08/07/2020 12:00:00 AM EDT eC W1 ([facility]) Name Value Range Interpretation Code Description Data Edilia rce(s) Supporting Document(s) 6 0-30 ERYTHROCYTE SEDIMENTATION RATE eCW1 ([facility]) ID Date Data Source C REACTIVE PROTEIN QUANTITATIV (At [facility]) 08/07/2020 12:00 :00 AM EDT eCW1 ([facility]) Name Value Range Interpretation Code Description Data Edilia rce(s) Supporting Document(s) 0.30 0.00-0.30 C REACTIVE PROTEIN QUANTI TATIV eCW1 ([facility]) ID Date Data Source Comprehensive Metabolic Profile (CMP) 08/07/2020 12:00:00 AM EDT eCW1 ([facility]) Name Value Range Interpretation Code Description Data Edilia rce(s) Supporting Document(s) 0.72 0.55-1.30 CREATININE FOR GFR eCW1 (Formerly [facility]) 90 70-100 GLUCOSE, FASTING eCW1 ([facility]) 13 7-18 BLOOD UREA NITROGEN eCW1 ([facility]) 144 136-145 SODIUM LEVEL eCW1 ([facility]) 3.7 3.5-5.1 POTASSIUM SERUM eCW1 ([facility]) > 60.0 >39 GLOMERULAR FILTRATION RATE eCW 1 ([facility]) 8.9 8.8-10.2 CALCIUM LEVEL eCW1 ([facility]) 30 21-32 CARBON DIOXIDE LEVEL eCW1 (formerly [facility]) 109 98-107 CHLORIDE LEVEL eCW1 ([facility]) 97 45-117 ALKALINE PHOSPHATASE eCW1 (formerly [facility]) 0.5 0.2-1.0 BILIRUBIN,TOTAL eCW1 ([facility]) 19 12-78 ALT/SGPT eCW1 ([facility]ly [facility]) 12 7-37 AST/SGOT eCW1 ([facility]ly [facility]) 1.1 1.2-2.2 ALBUMIN/GLOBULIN RATIO eCW1 ([facility] hospital) 3.3 3.2-5.2 ALBUMIN eCW1 ([facility]) 6.2 6.4-8.2 TOTAL PROTEIN eCW1 ([facility]) Procedure Social History Code Duration Value Status Description Data Source(s ) Smoking 11/17/2020 12:00:00 AM EDT Former Smoker completed Former Smoker eCW1 ([facility]) Smoking 10/16/2020 12:00:00 AM EDT Former Smoker completed Former Smoker eCW1 ([facility]) Smoking 10/16/2020 12:00:00 AM EDT Former Smoker completed Former Smoker eCW1 ([facility]) Smoking 10/16/2020 12:00:00 AM EDT Former Smoker completed Former Smoker eCW1 ([facility]) Smoking 10/16/2020 12:00:00 AM EDT Former Smoker completed Former Smoker eCW1 ([facility]) Smoking 10/16/2020 12:00:00 AM EDT Former Smoker completed Former Smoker eCW1 ([facility]) Smoking 10/16/2020 12:00:00 AM EDT Former Smoker completed Former Smoker eCW1 ([facility]) Smoking 10/16/2020 12:00:00 AM EDT Former Smoker completed Former Smoker eCW1 ([facility]) Smoking 10/16/2020 12:00:00 AM EDT Former Smoker completed Former Smoker eCW1 ([facility]) Smoking 10/16/2020 12:00:00 AM EDT Former Smoker completed Former Smoker eCW1 ([facility]) Smoking 10/03/2020 12:00:00 AM EDT Former Smoker completed Former Smoker eCW1 ([facility]) Smoking 09/05/2020 12:00:00 AM EDT Former Smoker completed Former Smoker eCW1 ([facility]) Smoking 09/05/2020 12:00:00 AM EDT Former Smoker completed Former Smoker eCW1 ([facility]) Smoking 09/05/2020 12:00:00 AM EDT Former Smoker completed Former Smoker eCW1 ([facility]) Smoking 08/07/2020 12:00:00 AM EDT Former Smoker completed Former Smoker eCW1 ([facility]) Smoking 08/07/2020 12:00:00 AM EDT Former Smoker completed Former Smoker eCW1 ([facility]) Smoking 08/07/2020 12:00:00 AM EDT Former Smoker completed Former Smoker eCW1 ([facility]) Smoking 08/07/2020 12:00:00 AM EDT Former Smoker completed Former Smoker eCW1 ([facility]) Smoking 08/07/2020 12:00:00 AM EDT Former Smoker completed Former Smoker eCW1 ([facility]) Smoking 08/07/2020 12:00:00 AM EDT Former Smoker completed Former Smoker eCW1 ([facility]) Smoking 08/07/2020 12:00:00 AM EDT Former Smoker completed Former Smoker eCW1 ([facility]) Smoking 08/07/2020 12:00:00 AM EDT Former Smoker completed Former Smoker eCW1 ([facility]) Smoking 08/02/2020 12:00:00 AM EDT Former Smoker completed Former Smoker eCW1 ([facility]) Smoking 08/02/2020 12:00:00 AM EDT Former Smoker completed Former Smoker eCW1 ([facility]) Smoking 08/02/2020 12:00:00 AM EDT Former Smoker completed Former Smoker eCW1 ([facility]) Smoking 07/23/2020 12:00:00 AM EDT Former Smoker completed Former Smoker eCW1 ([facility]) Smoking 07/23/2020 12:00:00 AM EDT Former Smoker completed Former Smoker eCW1 ([facility]) Smoking 07/23/2020 12:00:00 AM EDT Former Smoker completed Former Smoker eCW1 ([facility]) Smoking 07/04/2020 12:00:00 AM EDT Former Smoker completed Former Smoker eCW1 ([facility]) Smoking 07/04/2020 12:00:00 AM EDT Former Smoker completed Former Smoker eCW1 ([facility]) Smoking 06/22/2020 12:00:00 AM EDT Former Smoker completed Former Smoker eCW1 ([facility]) Smoking 06/22/2020 12:00:00 AM EDT Former Smoker completed Former Smoker eCW1 ([facility]) Smoking 06/22/2020 12:00:00 AM EDT Former Smoker completed Former Smoker eCW1 ([facility]) Smoking 06/22/2020 12:00:00 AM EDT Former Smoker completed Former Smoker eCW1 ([facility]) Smoking 06/13/2020 12:00:00 AM EDT Former Smoker completed Former Smoker eCW1 ([facility]) Smoking 04/30/2020 12:00:00 AM EDT Former Smoker completed Former Smoker eCW1 ([facility]) Smoking 04/30/2020 12:00:00 AM EDT Former Smoker completed Former Smoker eCW1 ([facility]) Smoking 04/30/2020 12:00:00 AM EDT Former Smoker completed Former Smoker eCW1 ([facility]) Vital Signs ID Date Data Source UNK Name Value Range Interpretation Code Description Data Source(s) Body weight 159.8 [lb_av] 159.8 [lb_av] eCW1 ([facility]) Body weight 72.48 kg 72.48 kg eCW1 ([facility]) Body height 66 [in_i] 66 [in_i] eCW1 ([facility]) Body mass index (BMI) [Ratio] 25.79 kg/m2 25.79 kg/m2 W1 ([facility]) Heart rate 87 /min 87 /min eCW1 ([facility]) Respiratory rate 20 /min 20 /min eCW1 ([facility]) Body temperature 97.4 [degF] 97.4 [degF] eCW1 ( [facility]) Systolic blood pressure 138 mm[Hg] 138 mm[Hg] e CW1 ([facility]) Diastolic blood pressure 78 mm[Hg] 78 mm[Hg] eCW1 ([facility]) Body weight 159 [lb_av] 159 [lb_av] eCW1 (Formerly [facility]) Body weight 72.12 kg 72.12 kg eCW1 ([facility]) Body height 66 [in_i] 66 [in_i] eCW1 ([facility]) Body mass index (BMI) [Ratio] 25.66 kg/m2 25.66 kg/m2 eCW1 ([facility]) Heart rate 87 /min 87 /min eCW1 ([facility]) Respiratory rate 16 /min 16 /min eCW1 ([facility]) Body temperature 98.7 [degF] 98.7 [degF] eCW1 ( [facility]) Systolic blood pressure 124 mm[Hg] 124 mm[Hg] e CW1 ([facility]) Diastolic blood pressure 64 mm[Hg] 64 mm[Hg] eCW1 ([facility]) Body temperature 97.5 [degF] 97.5 [degF] MEDENT ([facility], ) Body weight 166 [lb_av] 166 [lb_av] eCW1 (Formerly [facility]) Body height 66 [in_i] 66 [in_i] eCW1 ([facility]) Body mass index (BMI) [Ratio] 26.79 kg/m2 26.79 kg/m2 eCW1 ([facility]) Heart rate 87 /min 87 /min eCW1 ([facility]) Respiratory rate 18 /min 18 /min eCW1 ([facility]) Body temperature 97 [degF] 97 [degF] eCW1 ([facility]) Systolic blood pressure 110 mm[Hg] 110 mm[Hg] e CW1 ([facility]) Diastolic blood pressure 70 mm[Hg] 70 mm[Hg] eCW1 ([facility]) Respiratory rate 18 /min 18 /min eCW1 ([facility]) Body temperature 97.2 [degF] 97.2 [degF] eCW1 ( [facility]) Systolic blood pressure 130 mm[Hg] 130 mm[Hg] e CW1 ([facility]) Diastolic blood pressure 80 mm[Hg] 80 mm[Hg] eCW1 ([facility]) Body height 66 [in_i] 66 [in_i] eCW1 ([facility]) Body mass index (BMI) [Ratio] 26.95 kg/m2 26.95 kg/m2 eCW1 ([facility]) Heart rate 80 /min 80 /min eCW1 ([facility]) Body weight 167 [lb_av] 167 [lb_av] eCW1 ([facility]ly [facility]) Respiratory rate 18 /min 18 /min eCW1 ([facility]) Body weight 168.8 [lb_av] 168.8 [lb_av] eCW1 ([facility]) Body temperature 97.5 [degF] 97.5 [degF] eCW1 ( [facility]) Body height 66 [in_i] 66 [in_i] eCW1 ([facility]) Body mass index (BMI) [Ratio] 27.24 kg/m2 27.24 kg/m2 eCW1 ([facility]) Heart rate 82 /min 82 /min eCW1 ([facility]) Systolic blood pressure 130 mm[Hg] 130 mm[Hg] e CW1 ([facility]) Diastolic blood pressure 68 mm[Hg] 68 mm[Hg] eCW1 ([facility]) Body height 66 [in_i] 66 [in_i] eCW1 ([facility]) Body weight 172.4 [lb_av] 172.4 [lb_av] eCW1 ([facility]) Body mass index (BMI) [Ratio] 27.82 kg/m2 27.82 kg/m2 eCW1 ([facility]) Heart rate 93 /min 93 /min eCW1 ([facility]) Respiratory rate 18 /min 18 /min eCW1 ([facility]) Body temperature 97.3 [degF] 97.3 [degF] eCW1 ( [facility]) Systolic blood pressure 128 mm[Hg] 128 mm[Hg] e CW1 ([facility]) Diastolic blood pressure 76 mm[Hg] 76 mm[Hg] eCW1 ([facility]) Heart rate 76 /min 76 /min eCW1 ([facility]) Respiratory rate 18 /min 18 /min eCW1 ([facility]) Body temperature 97.8 [degF] 97.8 [degF] eCW1 ( [facility]) Systolic blood pressure 130 mm[Hg] 130 mm[Hg] e CW1 ([facility]) Diastolic blood pressure 72 mm[Hg] 72 mm[Hg] eCW1 ([facility]) Body weight 179.4 [lb_av] 179.4 [lb_av] eCW1 ([facility]) Body height 66 [in_i] 66 [in_i] eCW1 ([facility]) Body mass index (BMI) [Ratio] 28.95 kg/m2 28.95 kg/m2 eCW1 ([facility]) Body temperature 97.5 [degF] 97.5 [degF] eCW1 ( [facility]) Body weight 176.8 [lb_av] 176.8 [lb_av] eCW1 ([facility]) Systolic blood pressure 136 mm[Hg] 136 mm[Hg] e CW1 ([facility]) Body height 66 [in_i] 66 [in_i] eCW1 ([facility]) Body mass index (BMI) [Ratio] 28.53 kg/m2 28.53 kg/m2 eCW1 ([facility]) Heart rate 89 /min 89 /min eCW1 ([facility]) Respiratory rate 18 /min 18 /min eCW1 ([facility]) Diastolic blood pressure 82 mm[Hg] 82 mm[Hg] eCW1 ([facility]) Body weight 176 [lb_av] 176 [lb_av] eCW1 ([facility]ly [facility]) Body height 66 [in_i] 66 [in_i] eCW1 ([facility]) Body mass index (BMI) [Ratio] 28.40 kg/m2 28.40 kg/m2 eCW1 ([facility]) Heart rate 85 /min 85 /min eCW1 ([facility]) Respiratory rate 18 /min 18 /min eCW1 ([facility]) Body temperature 97.8 [degF] 97.8 [degF] eCW1 ( [facility]) Systolic blood pressure 144 mm[Hg] 144 mm[Hg] e CW1 ([facility]) Diastolic blood pressure 86 mm[Hg] 86 mm[Hg] eCW1 ([facility]) Body height 63 [in_i] 63 [in_i] [facility] ([facility], ) 5'3" Body weight 167.00 [lb_av] 167.00 [lb_av] MEDEN T ([facility], ) [place] body weight 115 [lb_av] 115 [lb_av] MEDEN T ([facility], ) Body weight 75.751 kg 75.751 kg [facility] ([facility], ) Body surface area Derived from formula 1.79 m2 1.79 m2 [facility] ([facility], ) Oxygen saturation in Arterial blood by Pulse oximetry 96 % 96 % [facility] ([facility], ) Body height 63 [in_i] 63 [in_i] [facility] ([facility], ) 5'3" Body weight 167.00 [lb_av] 167.00 [lb_av] MEDEN T ([facility], ) Body mass index (BMI) [Ratio] 29.6 kg/m2 29.6 k g/m2 [facility] ([facility]) Systolic blood pressure 149 mm[Hg] 149 mm[Hg] M EDENT ([facility]) Diastolic blood pressure 83 mm[Hg] 83 mm[Hg] [facility] ([facility]) Heart rate 81 /min 81 /min [facility] ([facility]) Oxygen saturation in Arterial blood by Pulse oximetry 96 % 96 % [facility] ([facility]) Respiratory rate 16 /min 16 /min [facility] ( [facility]) Body temperature 97.1 [degF] 97.1 [degF] [facility] ([facility]) [place] body weight 115 [lb_av] 115 [lb_av] MEDEN T ([facility]) Body weight 75.751 kg 75.751 kg [facility] ([facility]) Body surface area Derived from formula 1.79 m2 1.79 m2 [facility] ([facility]) Body mass index (BMI) [Ratio] 29.6 kg/m2 29.6 k g/m2 [facility] ([facility]) Respiratory rate 16 /min 16 /min [facility] ( [facility]) Body temperature 97.1 [degF] 97.1 [degF] [facility] ([facility]) Body weight 177 [lb_av] 177 [lb_av] eCW1 ([facility]ly [facility]) Body height 66 [in_i] 66 [in_i] eCW1 ([facility]) Body mass index (BMI) [Ratio] 28.57 kg/m2 28.57 kg/m2 W1 ([facility]) Heart rate 93 /min 93 /min eCW1 ([facility]) Respiratory rate 20 /min 20 /min eCW1 ([facility]) Body temperature 97.6 [degF] 97.6 [degF] eCW1 ( [facility]) Systolic blood pressure 132 mm[Hg] 132 mm[Hg] e CW1 ([facility]) Diastolic blood pressure 78 mm[Hg] 78 mm[Hg] eCW1 ([facility]) Patient Treatment Plan of Care Planned Activity Planned Date Details Description Data Source (s) Acetaminophen 325 MG / Oxycodone Hydrochloride 5 MG Or al Tablet [Percocet] 11/21/2020 12:00:00 AM EDT eCW1 ([facility]) Acetaminophen 325 MG / Hydrocodone Bitartrate 10 MG Or al Tablet 10/18/2020 12:00:00 AM EDT eCW1 ([facility]ly [facility]) Acetaminophen 325 MG / Hydrocodone Bitartrate 10 MG Or al Tablet 10/18/2020 12:00:00 AM EDT eCW1 ([facility]ly [facility]) Acetaminophen 325 MG / Hydrocodone Bitartrate 10 MG Or al Tablet 10/18/2020 12:00:00 AM EDT eCW1 ([facility]ly [facility]) Acetaminophen 325 MG / Hydrocodone Bitartrate 10 MG Or al Tablet 10/18/2020 12:00:00 AM EDT eCW1 ([facility]ly [facility]) Acetaminophen 325 MG / Hydrocodone Bitartrate 10 MG Or al Tablet 10/18/2020 12:00:00 AM EDT eCW1 ([facility]) Acetaminophen 325 MG / Hydrocodone Bitartrate 10 MG Or al Tablet 10/18/2020 12:00:00 AM EDT eCW1 ([facility]) Acetaminophen 325 MG / Hydrocodone Bitartrate 10 MG Or al Tablet 10/18/2020 12:00:00 AM EDT eCW1 ([facility]) Acetaminophen 325 MG / Hydrocodone Bitartrate 10 MG Or al Tablet 10/18/2020 12:00:00 AM EDT eCW1 ([facility]) Manlius 10-325 MG 10/16/2020 12:00:00 AM EDT eCW1 ([facility]) pregabalin 150 MG Oral Capsule [Lyrica] 09/27/2020 12:00:00 AM EDT eCW1 ([facility]) Acetaminophen 325 MG / Hydrocodone Bitartrate 10 MG Or al Tablet 09/17/2020 12:00:00 AM EDT eCW1 ([facility]) Acetaminophen 325 MG / Hydrocodone Bitartrate 10 MG Or al Tablet 09/17/2020 12:00:00 AM EDT eCW1 ([facility]) Acetaminophen 325 MG / Hydrocodone Bitartrate 10 MG Or al Tablet 08/21/2020 12:00:00 AM EDT eCW1 ([facility]) Acetaminophen 325 MG / Hydrocodone Bitartrate 10 MG Or al Tablet 08/21/2020 12:00:00 AM EDT eCW1 ([facility]) Acetaminophen 325 MG / Hydrocodone Bitartrate 10 MG Or al Tablet 08/21/2020 12:00:00 AM EDT eCW1 ([facility]) Manlius 10-325 MG 08/20/2020 12:00:00 AM EDT eCW1 ([facility]) Colesevelam hydrochloride 625 MG Oral Tablet [Welchol] 08/14/2020 12:00:00 AM EDT eCW1 ([facility]) Colesevelam hydrochloride 625 MG Oral Tablet [Welchol] 08/14/2020 12:00:00 AM EDT eCW1 ([facility]) Colesevelam hydrochloride 625 MG Oral Tablet [Welchol] 08/14/2020 12:00:00 AM EDT eCW1 ([facility]) Colesevelam hydrochloride 625 MG Oral Tablet [Welchol] 08/14/2020 12:00:00 AM EDT eCW1 ([facility]) Colesevelam hydrochloride 625 MG Oral Tablet [Welchol] 08/14/2020 12:00:00 AM EDT eCW1 ([facility]) Manlius 10-325 MG 07/19/2020 12:00:00 AM EDT eCW1 ([facility]) Warfarin Sodium 2.5 MG Oral Tablet 06/22/2020 12:00:00 AM EDT eCW1 ([facility]) Acetaminophen 325 MG / Hydrocodone Bitartrate 10 MG Or al Tablet 06/22/2020 12:00:00 AM EDT eCW1 ([facility]) Warfarin Sodium 2.5 MG Oral Tablet 06/22/2020 12:00:00 AM EDT eCW1 ([facility]) Acetaminophen 325 MG / Hydrocodone Bitartrate 10 MG Or al Tablet 06/22/2020 12:00:00 AM EDT eCW1 ([facility]) Acetaminophen 325 MG / Hydrocodone Bitartrate 10 MG Or al Tablet 06/22/2020 12:00:00 AM EDT eCW1 ([facility]) Warfarin Sodium 2.5 MG Oral Tablet 06/22/2020 12:00:00 AM EDT eCW1 ([facility]) Acetaminophen 325 MG / Hydrocodone Bitartrate 10 MG Or al Tablet 06/22/2020 12:00:00 AM EDT eCW1 ([facility]) Warfarin Sodium 2.5 MG Oral Tablet 06/22/2020 12:00:00 AM EDT eCW1 ([facility]) Acetaminophen 325 MG / Hydrocodone Bitartrate 10 MG Or al Tablet 05/22/2020 12:00:00 AM EDT eCW1 ([facility]) Acetaminophen 325 MG / Hydrocodone Bitartrate 10 MG Or al Tablet 05/22/2020 12:00:00 AM EDT eCW1 ([facility]) rivaroxaban 20 MG Oral Tablet [Xarelto] 04/30/2020 12:00:00 AM EDT eCW1 ([facility]) rivaroxaban 20 MG Oral Tablet [Xarelto] 04/30/2020 12:00:00 AM EDT eCW1 ([facility]) rivaroxaban 20 MG Oral Tablet [Xarelto] 04/30/2020 12:00:00 AM EDT eCW1 ([facility]) Acetaminophen 325 MG / Hydrocodone Bitartrate 10 MG Or al Tablet 04/24/2020 12:00:00 AM EDT eCW1 ([facility]) Acetaminophen 325 MG / Hydrocodone Bitartrate 10 MG Or al Tablet 03/30/2020 12:00:00 AM EST eCW1 ([facility]) Acetaminophen 325 MG / Hydrocodone Bitartrate 10 MG Or al Tablet 03/30/2020 12:00:00 AM EST eCW1 ([facility]) Acetaminophen 325 MG / Hydrocodone Bitartrate 10 MG Or al Tablet 03/30/2020 12:00:00 AM EST eCW1 ([facility]) Acetaminophen 325 MG / Hydrocodone Bitartrate 10 MG Or al Tablet 03/30/2020 12:00:00 AM EST eCW1 ([facility]) Acetaminophen 325 MG / Hydrocodone Bitartrate 10 MG Or al Tablet [Manlius] 03/01/2020 12:00:00 AM EST eCW1 ([facility]) Acetaminophen 325 MG / Hydrocodone Bitartrate 10 MG Or al Tablet [Manlius] 03/01/2020 12:00:00 AM EST eCW1 ([facility]) Acetaminophen 325 MG / Hydrocodone Bitartrate 10 MG Or al Tablet [Manlius] 01/27/2020 12:00:00 AM EST eCW1 ([facility]) Acetaminophen 325 MG / Hydrocodone Bitartrate 10 MG Or al Tablet [Manlius] 12/29/2019 12:00:00 AM EST eCW1 ([facility]) Acetaminophen 325 MG / Hydrocodone Bitartrate 10 MG Or al Tablet [Manlius] 12/29/2019 12:00:00 AM EST eCW1 ([facility]) Acetaminophen 325 MG / Hydrocodone Bitartrate 10 MG Or al Tablet [Manlius] 12/06/2019 12:00:00 AM EDT eCW1 ([facility]) Acetaminophen 325 MG / Hydrocodone Bitartrate 10 MG Or al Tablet [Manlius] 12/06/2019 12:00:00 AM EDT eCW1 ([facility])
[2020-12-11] MEDS ORDERED: HOME MED LIST COMPLETE! XX SCH (23:05)
[2020-12-11 23:50] LABS: HEMOGLOBIN A1c 4.9 %
[2020-12-12 00:16] LABS: ALBUMIN 3.3 GM/DL (3.2-5.2); ALT/SGPT 23 U/L (12-78); BILIRUBIN,TOTAL 0.6 MG/DL (0.2-1.0); BLOOD UREA NITROGEN 6 MG/DL (7-18); CALCIUM LEVEL 7.9 MG/DL (8.8-10.2); CARBON DIOXIDE LEVEL 25 MEQ/L (21-32); CHLORIDE LEVEL 102 MEQ/L (98-107); CREATININE FOR GFR 0.82 MG/DL (0.55-1.30); GLOMERULAR FILTRATION RATE > 60.0 (>39); GLUCOSE, FASTING 161 MG/DL (70-100); MAGNESIUM LEVEL 0.3 MG/DL (1.8-2.4); POTASSIUM SERUM 2.2 MEQ/L (3.5-5.1); SODIUM LEVEL 140 MEQ/L (136-145); TOTAL PROTEIN 6.5 GM/DL (6.4-8.2)
[2020-12-12] MEDS ORDERED: MAGNESIUM OXIDE 400MG TAB (MAG-OX) PO ONE (00:45)
[2020-12-12] MEDS ORDERED: NS 1,000 ML IV ONE (00:50)
[2020-12-12] MEDS ORDERED: NS 1,000 ML IV SCH (00:50)
--- NOTE | 2020-12-12 00:56 | HPEPDOC ---
General Date of Admission 12/11/20 Date of Service: Dec 11, 2020 Chief Complaint The patient is a 75-year-old female admitted with a reason for visit of AMS. Source: Patient, Family History of Present Illness Latisha Carrasco 75-year-old female with significant medical history of cataracts, CVA, hard of hearing, dementia, migraines, history DVT/PE on Coumadin and GERD who presents with generalized weakness x1 day. Majority of information gathered from fellow staff, chart review and patient's daughter whom she lives with as patient is only oriented to self. Patient reportedly has been at baseline until Thursday. On Thursday she was noted to have some nausea and daughter felt this may be related to also on Thursday the loss of the family dog which the patient was very close to. Patient also has had reported episodes of diarrhea however this is not uncommon for her and she is described as having diarrhea episodes at baseline. Today, patient was notably having some generalized weakness and fell back into a chair assisted by patient's . During assessment patient had just gotten back into bed after beginning to show some owning behavior and given Ativan in ED. Reportedly, she had gotten herself on the stretcher and pulled out her IV. She is alert and oriented to self. She is agreeable to exam there is notable small bruise on left chest. She otherwise has intact range of motion of extremities and denies complaints. CT head, CT abdomen pelvis and chest x-ray nonacute. EKG sinus tach. Initial lab work significant for WBC 11.5, hemoglobin 16, potassium 2.2, INR 6.2, magnesium 0.3. Patient will be admitted for further evaluation management of presenting concerns. Home Medications Scheduled Amlodipine Besylate (Amlodipine Besylate) 2.5 Mg Tablet, 2.5 MG PO DAILY, (Reported) Atorvastatin Calcium (Atorvastatin Calcium) 40 Mg Tablet, 40 MG PO QHS, (Report ed) Ergocalciferol (Vitamin D2) (Vitamin D2) 50,000 Units Cap, 50,000 UNITS PO QWEEK, (Reported) THURSDAYS Levothyroxine Sodium (Levothyroxine Sodium) 25 Mcg Tablet, 25 MCG PO DAILY, (Reported) Omeprazole (Omeprazole) 40 Mg Capsule.dr, 40 MG PO QPM, (Reported) Pregabalin (Lyrica) 150 Mg Cap, 150 MG PO TID, (Reported) Warfarin Sodium (Warfarin Sodium) 5 Mg Tablet, 5 MG PO QPM, (Reported) Scheduled PRN Albuterol Sulfate (Proair Hfa) 8.5 Gm Hfa.aer.ad, 2 PUFF INH Q4H PRN for SHORTNESS OF BREATH, (Reported) Loperamide HCl (Loperamide) 2 Mg Capsule, 2 MG PO BID PRN for DIARRHEA, (Reported) Nystatin (Nystatin Powder) 100,000 Unit/Gm Pow, 1 DOSE TOP BID PRN for RASH, (Reported) UNDER BELLY AND BREASTS Oxycodone HCl/Acetaminophen (Oxycodone-Acetaminophen 5-325) 1 Each Tablet, 2 TAB PO Q6H PRN for SEVERE PAIN (PS 8-10), (Reported) Tizanidine HCl (Zanaflex) 4 Mg Tab, 4 MG PO TID PRN for MUSCLE SPASMS, (Reported) Allergies Coded Allergies: shellfish derived (Verified Allergy, Severe, ANAPHALAXIS, 12/11/20) latex (Verified Allergy, Intermediate, swelling/rash, 12/11/20) Sulfa (Sulfonamide Antibiotics) (Verified Allergy, Mild, RASH, 12/11/20) ciprofloxacin (Verified Allergy, Mild, RASH, 12/11/20) Penicillins (Verified Allergy, Unknown, 12/11/20) phenobarbital (Verified Adverse Reaction, Intermediate, INCREASES ANXIETY AND HEART RATE, 12/11/20) PER DAUGHTER Past Medical History Medical History cataracts, CVA, hard of hearing, dementia, migraines, history DVT/PE on Coumadin and GERD who presents with generalized weakness Surgical History Right knee replacement October 22, 2020, lap lora, tonsillectomy and adenoidectomy and hernia repair Family History Significant Family History: No pertinent family hx Social History * Smoker: Denies Alcohol: Denies Drugs: denies Recent Travel/Sick Contacts: Denies: Recent travel, Recent sick contacts Pets in the home: Dog(s) (Dog recently ) Psychosocial History: Dementia Patient lives with her daughter Tg Morris who is her bridge inspector and power of commonwealth attorney. A-FIB/CHADSVASC A-FIB History Current/History of A-Fib/PAF?: No Current PO Anticoag Therapy: Yes Review of Systems Other systems Unable to obtain Physical Examination General Exam: Positive: Alert, Cooperative, No Acute Distress Eye Exam: Positive: PERRLA, Conjunctiva & lids normal, EOMI; Negative: Sclera icteric ENT Exam: Positive: Atraumatic, Mucous membr. moist/pink, Pharynx Normal Neck Exam: Positive: Supple; Negative: JVD, thyromegaly Chest Exam: Positive: Normal air movement Heart Exam: Positive: Rate Normal, Regular Rhythm, Normal S1, Normal S2; Negative: Murmurs, Rubs Telemetry: Positive: No significant arrhythmia Abdomen Exam: Positive: Normal bowel sounds, Soft; Negative: Tenderness, Hepatospenomegaly Extremity Exam: Positive: Normal pulses; Negative: Clubbing, Cyanosis, Edema Skin Exam: Positive: Nl turgor and temperature; Negative: Breakdown, Lesion Neuro Exam: Positive: Normal Gait, Strength at 5/5 X4 ext; Negative: Normal Speech (Patient speech at baseline) Psych Exam: Positive: Anxiety; Negative: Oriented x 3 (Oriented to self; at baseline) Vital Signs Vital Signs Date Time Temp Pulse Resp B/P (MAP) Pulse Ox O2 Delivery O2 Flow Rate FiO2 12/11/20 18:45 104 16 156/72 (100) 94 Room Air 12/11/20 16:09 96.8 Laboratory Data Labs 24H Laboratory Tests 2 12/11/20 15:54: Immature Granulocyte % (Auto) 0.4, Neutrophils (%) (Auto) 60.2, Lymphocytes (%) (Auto) 27.3, Monocytes (%) (Auto) 10.7H, Eosinophils (%) (Auto) 0.8, Basophils (%) (Auto) 0.6, Neutrophils # (Auto) 6.9, Lymphocytes # (Auto) 3.2, Monocytes # (Auto) 1.2H, Eosinophils # (Auto) 0.1, Basophils # (Auto) 0.1, Nucleated Red Blood Cells % (auto) 0.0, Prothrombin Time 54.8H, Prothromb Time International Ratio 6.20*H, Activated Partial Thromboplast Time 61.4H, Total Creatine Kinase 161, Creatine Kinase MB 4.2H, Creatine Kinase MB Relative Index 2.61, Troponin I 0.08 12/11/20 15:59: Bedside Glucose (Misc Panel) 192H 12/11/20 16:05: POC Glucose (Misc Panel) 163H, POC Sodium (Misc Panel) 140, POC Potassium (Misc Panel) 2.2*L, POC Chloride (Misc Panel) 98, POC Total CO2 (Misc Panel) 25.0, POC Blood Urea Nitrogen (Misc Panel 5L, POC Ionized Calcium (Misc Panel) 3.7L, POC Creatinine (Misc Panel) 0.6, POC Hematocrit (Misc Panel) 49.0 12/11/20 18:24: Coronavirus (COVID-19)(PCR) NEGATIVE, Influenza Type A (RT-PCR) NEGATIVE, Influenza Type B (RT-PCR) NEGATIVE, Respiratory Syncytial Virus (PCR) NEGATIVE 12/11/20 20:36: Urine Color COLORLESS, Urine Appearance CLEAR, Urine pH 7.0, Urine Specific [place] 1.017, Urine Protein NEGATIVE, Urine Glucose (UA) NEGATIVE, Urine Ketones NEGATIVE, Urine Blood 1+H, Urine Nitrite NEGATIVE, Urine Bilirubin NEGATIVE, Urine Urobilinogen 0.2, Urine Leukocyte Esterase NEGATIVE, Urine WBC (Auto) 0, Urine RBC (Auto) 2, Urine Hyaline Casts (Auto) 0, Urine Bacteria (Auto) NEGATIVE, Urine Squamous Epithelial Cells 0, Urine Sperm (Auto) CBC/BMP Laboratory Tests 12/11/20 15:54 Assessment/Plan 1. Generalized weakness in setting of electrolyte disturbance: CT head nonacute. No focal weakness appreciated. -Tele, fall precautions -PT eval and tx appreciated; pt reportedly having deconditioning since her Knee surgery oct 2020. 2. Hypokalemia and hypomagnesemia in setting of GI losses: pt with reported diarrhea at baseline. She has had new nausea since thursday, but no observed emesis. -Plan for repletion, tele monitoring, hydration and consider underlying causes. 3. Leukocytosis and lactic acidosis: UA nonacute, chest x-ray nonacute. Blood culture to be sent. Likely in setting of magnesium deficiency contributing. -Anticipate repletion plus IVF hydration labs will normalize. -Given patient had nausea and diarrhea, will send GI panel. Consider empiric coverage accordingly. 4. Supratherapeutic INR: Patient takes warfarin in setting of history of DVT bilaterally and PE greater than 1 year ago. -Plan to monitor for any overt bleeding. -Hold warfarin. -PT/INR trend. Goal for INR 2-3. 5. 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 -Reorient/ redirect as able 6. Pain: Continue home medications zanaflex, percocet and lyrica with monitoring parameters. *7. Chest pain: During course of admission patient reported some chest discomfort overlying where she had the superficial bruising to left chest. Initial troponin 0.08 without significant CK/CK-MB elevation, repeat troponin ordered and EKG given her electrolyte imbalance and reported chest discomfort. Of note, no telemetry changes appreciated and patient actively requesting pain medication for other chronic pain prior to endorsing chest pain to nurse. -Should patient have elevated troponin trend or ischemic EKG changes would obtai n recommendations from cardiology. Fortunately, she is already anticoagulated. DVT prophylaxis: SCDs, Coumadin on hold as supratherapeutic CODE STATUS: Patient will remain full code, patient's daughter, Tg Mora can be reached at [phone] she is next of kin and power of commonwealth attorney. Disposition planning: Home once clinically stable, anticipate 1-2 midnights. Plan / VTE VTE Prophylaxis Ordered?: Yes MCKINLEY MARQUES NP Dec 11, 2020 22:14
[2020-12-12] MEDS: MAG SULF 1GM/100ML (MAG RUN) 1 GM in IV 1 EA IV SCH ×4 (01:44→05:05)
[2020-12-12 02:27] VITALS: BP 154/73
[2020-12-12] MEDS ORDERED: tiZANidine 4 MG TAB PO PRN (03:35)
[2020-12-12] MEDS ORDERED: NYSTATIN 100,000 UNITS/GM TOPICAL PWD 15 GM TOP PRN (03:35)
[2020-12-12] MEDS ORDERED: ALBUTEROL 90 MCG/ACT 8GM HFA INHALER INH PRN (03:35)
[2020-12-12] MEDS: OMEPRAZOLE 20 MG CAP PO SCH ×2 (03:42→21:04)
[2020-12-12] MEDS: ATORVASTATIN 20 MG TAB PO SCH ×2 (03:45→21:04)
[2020-12-12] MEDS: PERCOCET 5MG/325MG TAB PO PRN ×3 (03:45→21:05)
[2020-12-12 04:15] LABS: BASO % 0.2 % (0.0-1.0); EOS % 0.2 % (0.0-3.0); LYMPH # 1.7 10^3/uL (1.5-5.0); MEAN CORPUSCULAR HEMOGLOBIN 32.8 pg (27.0-33.0); MEAN CORPUSCULAR HGB CONC 34.7 g/dl (32.0-36.5); MEAN CORPUSCULAR VOLUME 94.3 fl (80.0-96.0); MONO # 1.3 10^3/uL (0.0-0.8); MONO % 15.1 % (2.0-8.0); NEUTROPHILS # 5.5 10^3/uL (1.5-8.5); NEUTROPHILS % 64.1 % (36.0-66.0); RED BLOOD COUNT 4.03 10^6/uL (4.00-5.40); WHITE BLOOD COUNT 8.6 10^3/uL (4.0-10.0)
[2020-12-12 04:21] LABS: HEMOGLOBIN 13.2 g/dl (12.0-15.5); PLATELET COUNT, AUTOMATED 251 10^3/uL (150-450)
[2020-12-12 04:38] LABS: BLOOD UREA NITROGEN 4 MG/DL (7-18); CALCIUM LEVEL 7.5 MG/DL (8.8-10.2); CARBON DIOXIDE LEVEL 28 MEQ/L (21-32); CHLORIDE LEVEL 107 MEQ/L (98-107); CREATININE FOR GFR 0.49 MG/DL (0.55-1.30); GLOMERULAR FILTRATION RATE > 60.0 (>39); GLUCOSE, FASTING 136 MG/DL (70-100); MAGNESIUM LEVEL 1.5 MG/DL (1.8-2.4); POTASSIUM SERUM 2.2 MEQ/L (3.5-5.1); SODIUM LEVEL 141 MEQ/L (136-145); TROPONIN I 0.12 NG/ML (< 0.10)
[2020-12-12 05:00] LABS: PROTHROMBIN TIME 61.9 SECONDS (12.7-14.5)
[2020-12-12] MEDS: POTASSIUM CHLORIDE 10MEQ SR TABLET PO SCH ×2 (05:05→06:42)
--- NOTE | 2020-12-12 05:41 | ECGEPIP ---
[facility] - ED Test Date: 2020-12-11 Pat Name: ALEKSANDER LOUIS Department: Room: - Gender: Female Occupational Therapy Specialist: ABDELRAHMAN : 1945 Requested By: Kathy Jones Order Number: [id number] Reading MD: Leland Guerra Measurements Intervals [place] Rate: 107 P: 80 NH: 180 QRS: 39 QRSD: 82 T: 66 QT: 360 QTc: 480 Interpretive Statements Sinus tachycardia Inferior-posterior infarct , age undetermined SIMILAR TO 07/30/19 Electronically Signed on 12-12-2020 5:40:28 EDT by Leland Guerra
[2020-12-12] MEDS: LEVOTHYROXINE 25MCG TABLET (0.025MG) PO SCH (05:57)
[2020-12-12 06:00] VITALS: BP 149/71
[2020-12-12 06:03] LABS: INR 7.28
[2020-12-12] MEDS: KCL 10MEQ/100ML SWI (KRUN) 10 MEQ in IV 1 EA IV SCH ×2 (06:41→07:45)
[2020-12-12] MEDS ORDERED: PHYTONADIONE 5 MG TAB PO ONE (07:10)
[2020-12-12] MEDS: ACETAMINOPHEN TAB 650MG DOSE (2X325MG) PO PRN (08:39)
[2020-12-12] MEDS: PREGABALIN 75 MG CAP(LYRICA) PO SCH ×3 (08:40→21:04)
[2020-12-12] MEDS ORDERED: POTASSIUM CHLORIDE 10MEQ SR TABLET PO SCH (09:00)
[2020-12-12 09:15] LABS: MAGNESIUM LEVEL 2.1 MG/DL (1.8-2.4)
[2020-12-12 09:17] LABS: PROTHROMBIN TIME 58.7 SECONDS (12.7-14.5)
[2020-12-12 09:21] LABS: BLOOD UREA NITROGEN 4 MG/DL (7-18); CALCIUM LEVEL 7.6 MG/DL (8.8-10.2); CARBON DIOXIDE LEVEL 30 MEQ/L (21-32); CHLORIDE LEVEL 106 MEQ/L (98-107); CREATININE FOR GFR 0.45 MG/DL (0.55-1.30); GLOMERULAR FILTRATION RATE > 60.0 (>39); GLUCOSE, FASTING 95 MG/DL (70-100); MAGNESIUM LEVEL 2.1 MG/DL (1.8-2.4); SODIUM LEVEL 141 MEQ/L (136-145)
[2020-12-12 09:22] LABS: CHOLESTEROL RISK RATIO 2.408 (<5)
[2020-12-12 10:26] LABS: PTH INTACT 89.2 PG/ML (18.5-88.0)
[2020-12-12 10:32] LABS: INR 6.8
--- NOTE | 2020-12-12 11:38 | IPNPDOC ---
Text Note Date of Service The patient was seen on 12/12/20. 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 Based on the history, patient has a history of intermittent diarrhea. In the ER patient was noted to have lactic acidosis and severe hypokalemia. Patient was admitted to the hospitalist service for further evaluation and treatment. Patient was seen and examined at the bedside. Currently she appears to be cooperative. Oriented to person and following instructions. She denies any significant pain. No nausea, vomiting, is unsure of whether she had a bowel movement. Denies any cough or shortness of breath. Objective: Vitals (See below) General: Lying in bed, appears comfortable, awake / alert HEENT: NC, AT CVS: +S1S2 Lungs: Fair air entry b/l, no wheezing, rales or rhonchi Abdomen: Soft, ND, NT Extremities: - Edema, - Calf tenderness Imaging: CXR 12/11: No acute pulmonary disease.Stable chronic findings as above. CT head 12/11: 1. Mild atrophy, age-appropriate proportionate ventricular size. 2. Chronic small vessel white matter ischemic changes. 3. There is no definite acute infarct, intracranial hemorrhage, mass or mass effect. 4. Skull base and calvarium without acute findings. CT abdomen / pelvis 12/11: 1. There has been a cholecystectomy. 2. No acute findings. Assessment and plan: Generalized weakness - likely 2/2 dehydration and electrolyte imbalance - No focal deficits - Imaging noted above - Will have PT / OT once INR improves Hypokalemia - c/w Telemetry monitoring - c/w Supplementation s/p Hypomagnesemia Leukocytosis - likely 2/2 reactive etiology, less likely 2/2 infectious - ROS negative - Hemodynamically stable / Afebrile - Will check GI panel in the setting of outpatient intermittent diarrhea - Will hold antibiotic therapy at this time s/p Lactic acidosis - possibly 2/2 hypovolemia - s/p IV fluids Supra-therapeutic INR - Hx of DVT/PE > 1 year ago - s/p Coumadin - INR remains supra-therapeutic - Fall precautions / Bedside sitter / Bed rest orders until INR improves - Will give single dose of oral Vitamin K Chest pain - Physical reveals evidence of superficial bruising and tenderness can be elicited on palpation - EKG reviewed - Troponin trend negative - c/w Telemetry monitoring Dementia - Patient's baseline is usually oriented to person - Patient appears to be cooperative this morning Difficulty hearing - c/w hearing aids Chronic pain - c/w Tizanidine / Pregabalin / Percocet HTN - BP well controlled - c/w Amlodipine with hold parameters DLP - c/w Atorvastatin Hypothyroidism - c/w Levothyroxine Insomnia - c/w Ramelteon GERD - c/w Omeprazole DVT prophylaxis - s/p Coumadin (re: Supratherapeutic INR) - c/w TEDs/Sequentials Code status: - Full Code Disposition: - Tg Mora / Daughter at [phone] VS,Cain, I+O VS, Cain, I+O Laboratory Tests 12/11/20 15:54 12/12/20 03:57 12/12/20 08:17 Vital Signs Date Time Temp Pulse Resp B/P (MAP) Pulse Ox O2 Delivery O2 Flow Rate FiO2 12/12/20 08:39 94 143/77 12/12/20 06:00 97.4 18 97 Room Air I&O- Last 24 Hours up to 6 AM 12/12/20 06:00 Intake Total 500 ml Output Total 1250 ml Balance -750 ml FRANKI VILLAFANA MD Dec 12, 2020 11:38
[2020-12-12 13:17] LABS: BLOOD UREA NITROGEN 3 MG/DL (7-18); CALCIUM LEVEL 7.8 MG/DL (8.8-10.2); CARBON DIOXIDE LEVEL 29 MEQ/L (21-32); CHLORIDE LEVEL 112 MEQ/L (98-107); CREATININE FOR GFR 0.42 MG/DL (0.55-1.30); GLOMERULAR FILTRATION RATE > 60.0 (>39); GLUCOSE, FASTING 96 MG/DL (70-100); POTASSIUM SERUM 4.1 MEQ/L (3.5-5.1); SODIUM LEVEL 143 MEQ/L (136-145)
[2020-12-12 14:00] VITALS: BP 139/67
[2020-12-12] MEDS: RAMELTEON 8 MG TAB (ROZEREM) PO PRN (21:04)
[2020-12-12 22:00] VITALS: BP 139/76
--- NOTE | 2020-12-12 22:10 | ECGEPIP ---
[facility] Test Date: 2020-12-12 Pat Name: ALEKSANDER LOUIS Department: Room: Q4302-17 Gender: Female Procurement Clerk: : 1945 Requested By: MCKINLEY Ruiz Order Number: [id number] Reading MD: Rajwinder Wright Measurements Intervals [place] Rate: 88 P: 43 TX: 186 QRS: 4 QRSD: 84 T: 26 QT: 386 QTc: 467 Interpretive Statements Sinus rhythm T wave abnormality, consider anterior ischemia T wave abnormality new since 12/11/2020 Electronically Signed on 12-12-2020 22:09:45 EDT by Rajwinder Wright
--- NOTE | 2020-12-12 22:16 | ECGEPIP ---
[facility] Test Date: 2020-12-12 Pat Name: ALEKSANDER LOUIS Department: Room: [place] [address] Gender: Female Chemical Laboratory Assistant: deborah : 1945 Requested By: MCKINLEY Ruiz Order Number: [id number] Reading MD: Rajwinder Wright Measurements Intervals [place] Rate: 98 P: 56 NE: 172 QRS: 34 QRSD: 74 T: 44 QT: 374 QTc: 477 Interpretive Statements Sinus rhythm with occasional premature ventricular complexes Compared to 3:56 same day there has been resolution of T wave inversions in V1-V4 Electronically Signed on 12-12-2020 22:15:51 EDT by Rajwinder Wright
[2020-12-13] MEDS: PERCOCET 5MG/325MG TAB PO PRN ×3 (03:15→22:20)
[2020-12-13] MEDS: ACETAMINOPHEN TAB 650MG DOSE (2X325MG) PO PRN ×2 (05:33→20:31)
[2020-12-13] MEDS: LEVOTHYROXINE 25MCG TABLET (0.025MG) PO SCH (05:34)
[2020-12-13 06:00] VITALS: BP 126/73
[2020-12-13 06:45] LABS: BASO # 0.1 10^3/uL (0.0-0.2); BASO % 0.9 % (0.0-1.0); EOS # 0.2 10^3/uL (0.0-0.5); EOS % 3.1 % (0.0-3.0); HEMOGLOBIN 12.2 g/dl (12.0-15.5); LYMPH # 1.7 10^3/uL (1.5-5.0); MEAN CORPUSCULAR HEMOGLOBIN 32.6 pg (27.0-33.0); MEAN CORPUSCULAR VOLUME 98.9 fl (80.0-96.0); MONO # 0.8 10^3/uL (0.0-0.8); MONO % 12.6 % (2.0-8.0); NEUTROPHILS # 3.8 10^3/uL (1.5-8.5); PLATELET COUNT, AUTOMATED 231 10^3/uL (150-450); RED BLOOD COUNT 3.74 10^6/uL (4.00-5.40); WHITE BLOOD COUNT 6.7 10^3/uL (4.0-10.0)
[2020-12-13 06:57] LABS: INR 3.48; PROTHROMBIN TIME 35.3 SECONDS (12.7-14.5)
[2020-12-13 07:09] LABS: BLOOD UREA NITROGEN 6 MG/DL (7-18); CALCIUM LEVEL 7.5 MG/DL (8.8-10.2); CARBON DIOXIDE LEVEL 28 MEQ/L (21-32); CHLORIDE LEVEL 113 MEQ/L (98-107); CREATININE FOR GFR 0.42 MG/DL (0.55-1.30); GLOMERULAR FILTRATION RATE > 60.0 (>39); GLUCOSE, FASTING 74 MG/DL (70-100); MAGNESIUM LEVEL 1.5 MG/DL (1.8-2.4); POTASSIUM SERUM 3.2 MEQ/L (3.5-5.1); SODIUM LEVEL 145 MEQ/L (136-145)
[2020-12-13] MEDS ORDERED: MAG SULF 1GM/100ML (MAG RUN) 1 GM in IV 1 EA IV ONE (09:00)
[2020-12-13] MEDS: PREGABALIN 75 MG CAP(LYRICA) PO SCH ×3 (09:08→20:30)
[2020-12-13] MEDS: POTASSIUM CHLORIDE 10MEQ SR TABLET PO SCH (09:08)
[2020-12-13] MEDS ORDERED: MAGN400T2 PO (09:29)
[2020-12-13] MEDS ORDERED: WARF-23 PO (09:29)
[2020-12-13] MEDS ORDERED: K-TA1TAB PO (09:29)
[2020-12-13] MEDS: MAGNESIUM OXIDE 400MG TAB (MAG-OX) PO SCH ×2 (09:29→20:30)
[2020-12-13 14:00] VITALS: BP 120/58
--- NOTE | 2020-12-13 14:05 | IPNPDOC ---
Text Note Date of Service The patient was seen on 12/13/20. 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 Based on the history, patient has a history of intermittent diarrhea. In the ER patient was noted to have lactic acidosis and severe hypokalemia. Patient was admitted to the hospitalist service for further evaluation and treatment. Patient was seen and examined at the bedside. Currently patient denies any nausea, vomiting, abdominal pain, has had a single bowel movements earlier. Denies any urinary discomfort. Denies any chest pain, shortness breath or palpitations. Objective: Vitals (See below) General: Patient is sitting up in bed, appears to be comfortable without any acute distress, awake, alert, oriented 3 HEENT: Normocephalic and atraumatic CVS: +S1S2 Lungs: Air entry appears to be fair bilaterally without any evidence of wheezing, crackles or rhonchi Abdomen: Soft, without distention or tenderness Extremities: No edema appreciated Imaging: CXR 12/11: No acute pulmonary disease.Stable chronic findings as above. CT head 12/11: 1. Mild atrophy, age-appropriate proportionate ventricular size. 2. Chronic small vessel white matter ischemic changes. 3. There is no definite acute infarct, intracranial hemorrhage, mass or mass effect. 4. Skull base and calvarium without acute findings. CT abdomen / pelvis 12/11: 1. There has been a cholecystectomy. 2. No acute findings. Assessment and plan: Generalized weakness - likely 2/2 dehydration and electrolyte imbalance - No focal deficits - Imaging noted above - PT / OT; recommending 1-2 more sessions until she is cleared to go home with 24/7 care Hypokalemia - Will DC Telemetry monitoring - c/w Supplementation Hypomagnesemia - c/w Supplementation Leukocytosis - likely 2/2 reactive etiology, less likely 2/2 infectious - ROS negative - Hemodynamically stable / Afebrile - GI panel negative - No indication for antibiotic therapy at this time s/p Lactic acidosis - possibly 2/2 hypovolemia - s/p IV fluids s/p Supra-therapeutic INR - Hx of DVT/PE > 1 year ago - INR improving - s/p Vitamin K - c/w Fall precautions - Coumadin will be resumed in 24 hours s/p Chest pain - Physical reveals evidence of superficial bruising and tenderness can be elicited on palpation - EKG reviewed - Troponin trend negative - c/w Telemetry monitoring Dementia - Patient's baseline is usually oriented to person - Patient appears to be cooperative this morning Difficulty hearing - c/w hearing aids Chronic pain - c/w Tizanidine / Pregabalin / Percocet HTN - BP well controlled - c/w Amlodipine with hold parameters DLP - c/w Atorvastatin Hypothyroidism - c/w Levothyroxine Insomnia - c/w Ramelteon GERD - c/w Omeprazole DVT prophylaxis - s/p Coumadin (re: Supratherapeutic INR) - c/w TEDs/Sequentials Code status: - Full Code Disposition: - Tg Mora / Daughter at [phone] - Anticipate discharge within 24 hours VS,Ludivinae, I+O VS, Fishbone, I+O Laboratory Tests 12/13/20 05:29 Vital Signs Date Time Temp Pulse Resp B/P (MAP) Pulse Ox O2 Delivery O2 Flow Rate FiO2 12/13/20 09:09 77 129/72 12/13/20 06:00 97.8 18 96 Room Air I&O- Last 24 Hours up to 6 AM 12/13/20 05:59 Intake Total 1995 ml Output Total 2250 ml Balance -255 ml FRANKI VILLAFANA MD Dec 13, 2020 14:05
[2020-12-13 19:59] LABS: INR 2.16; PROTHROMBIN TIME 24.4 SECONDS (12.7-14.5)
[2020-12-13 20:16] LABS: BLOOD UREA NITROGEN 9 MG/DL (7-18); CALCIUM LEVEL 8.1 MG/DL (8.8-10.2); CARBON DIOXIDE LEVEL 29 MEQ/L (21-32); CHLORIDE LEVEL 111 MEQ/L (98-107); CREATININE FOR GFR 0.67 MG/DL (0.55-1.30); GLOMERULAR FILTRATION RATE > 60.0 (>39); GLUCOSE, FASTING 101 MG/DL (70-100); POTASSIUM SERUM 4.4 MEQ/L (3.5-5.1); SODIUM LEVEL 145 MEQ/L (136-145)
[2020-12-13] MEDS: RAMELTEON 8 MG TAB (ROZEREM) PO PRN (20:29)
[2020-12-13] MEDS: OMEPRAZOLE 20 MG CAP PO SCH (20:30)
[2020-12-13] MEDS: ATORVASTATIN 20 MG TAB PO SCH (20:30)
[2020-12-13] MEDS ORDERED: LOPERAMIDE 2 MG CAPLET PO PRN (20:35)
[2020-12-13] MEDS ORDERED: WARFARIN SOD 5MG TAB PO ONE (21:10)
[2020-12-13 22:00] VITALS: BP 120/58
[2020-12-13] MEDS: FIBER-CON 625 MG TAB PO SCH (22:19)
[2020-12-14] MEDS: PERCOCET 5MG/325MG TAB PO PRN ×2 (04:26→10:49)
[2020-12-14 05:35] LABS: BASO % 0.5 % (0.0-1.0); EOS # 0.2 10^3/uL (0.0-0.5); EOS % 2.9 % (0.0-3.0); HEMATOCRIT 36.1 % (36.0-47.0); HEMOGLOBIN 11.9 g/dl (12.0-15.5); LYMPH # 2.2 10^3/uL (1.5-5.0); LYMPH % 35.9 % (24.0-44.0); MEAN CORPUSCULAR HEMOGLOBIN 33.1 pg (27.0-33.0); MEAN CORPUSCULAR VOLUME 100.6 fl (80.0-96.0); MONO # 0.7 10^3/uL (0.0-0.8); NEUTROPHILS % 48.4 % (36.0-66.0); PLATELET COUNT, AUTOMATED 223 10^3/uL (150-450); RED BLOOD COUNT 3.59 10^6/uL (4.00-5.40); WHITE BLOOD COUNT 6.2 10^3/uL (4.0-10.0)
[2020-12-14] MEDS: LEVOTHYROXINE 25MCG TABLET (0.025MG) PO SCH (05:43)
[2020-12-14 05:45] LABS: INR 2.12; PROTHROMBIN TIME 24.1 SECONDS (12.7-14.5)
[2020-12-14 06:00] VITALS: BP 159/71
[2020-12-14 06:05] LABS: BLOOD UREA NITROGEN 11 MG/DL (7-18); CALCIUM LEVEL 7.7 MG/DL (8.8-10.2); CARBON DIOXIDE LEVEL 29 MEQ/L (21-32); CHLORIDE LEVEL 111 MEQ/L (98-107); CREATININE FOR GFR 0.45 MG/DL (0.55-1.30); GLOMERULAR FILTRATION RATE > 60.0 (>39); GLUCOSE, FASTING 78 MG/DL (70-100); MAGNESIUM LEVEL 1.4 MG/DL (1.8-2.4); POTASSIUM SERUM 3.8 MEQ/L (3.5-5.1); SODIUM LEVEL 143 MEQ/L (136-145)
[2020-12-14] MEDS: MAG SULF 1GM/100ML (MAG RUN) 1 GM in IV 1 EA IV SCH ×2 (08:01→09:20)
[2020-12-14 08:02] VITALS: BP 169/93
[2020-12-14] MEDS: FIBER-CON 625 MG TAB PO SCH (08:02)
[2020-12-14] MEDS: PREGABALIN 75 MG CAP(LYRICA) PO SCH (08:02)
[2020-12-14] MEDS: POTASSIUM CHLORIDE 10MEQ SR TABLET PO SCH (08:03)
[2020-12-14] MEDS ORDERED: MAGNESIUM OXIDE 400MG TAB (MAG-OX) PO SCH (09:00)
--- NOTE | 2020-12-14 13:45 | REP ---
INDICATION: Left knee swelling COMPARISON: 11/05/2020 TECHNIQUE: Four views FINDINGS: The knee arthroplasty is unchanged in alignment and position. There is no acute abnormality. IMPRESSION: No change in the appearance of the osseous structures. There is evidence of suprapatellar soft tissue swelling which needs to be correlated clinically. <Electronically signed by Jeff Perales > 12/14/20 [id number]
[2020-12-14] MEDS ORDERED: MAGN400T2 PO (13:47)
[2020-12-14] MEDS ORDERED: FIBE625T PO (13:50)
--- NOTE | 2020-12-14 13:52 | DS.PDOC ---
Discharge Summary General Date of Admission Dec 12, 2020 at 11:39 Date of Discharge 12/14/2020 Discharge Summary PROCEDURES PERFORMED DURING STAY: None ADMITTING DIAGNOSES / DISCHARGE DIAGNOSES: Generalized weakness - likely 2/2 dehydration and electrolyte imbalance - possibly 2/2 diarrhea s/p Diarrhea s/p Hypokalemia Hypomagnesemia s/p Leukocytosis - likely 2/2 reactive etiology, less likely 2/2 infectious s/p Lactic acidosis - possibly 2/2 hypovolemia s/p Supra-therapeutic INR s/p Chest pain Dementia Difficulty hearing Chronic pain HTN DLP Hypothyroidism Insomnia GERD DVT prophylaxis COMPLICATIONS/CHIEF COMPLAINT: Weakness HISTORY OF PRESENT ILLNESS: Patient is a 75-year-old female with a PMHx of Dementia, CVA, 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 Based on the history, patient has a history of intermittent diarrhea. In the ER patient was noted to have lactic acidosis and severe hypokalemia. Patient was admitted to the hospitalist service for further evaluation and treatment. Patient was seen and examined at the bedside. Currently patient reports that the y have had an uneventful night. Denies any nausea, vomiting, abdominal pain have not experienced any significant diarrhea while in the hospital. Denies any chest pain, shortness breath or palpitations. HOSPITAL COURSE: Generalized weakness - likely 2/2 dehydration and electrolyte imbalance - possi katherine 2/2 diarrhea - No focal deficits - Imaging noted above - c/w PT / OT; cleared to go home with 01/09 care - Will have outpatient follow-up with primary care provider within the next 7 days s/p Diarrhea - Patient is experiencing significant diarrhea while in hospital - They deny any nausea and vomiting and physical does not reveal any abdominal tenderness - No leukocytosis - GI panel 12/13: Negative - c/w Loperamide and Fibercon s/p Hypokalemia - c/w Supplementation on discharge Hypomagnesemia - c/w Supplementation on discharge s/p Leukocytosis - likely 2/2 reactive etiology, less likely 2/2 infectious - ROS negative - Hemodynamically stable / Afebrile - GI panel negative - No indication for antibiotic therapy at this time s/p Lactic acidosis - possibly 2/2 hypovolemia - s/p IV fluids s/p Supra-therapeutic INR - Hx of DVT/PE > 1 year ago - INR now therapeutic - s/p Vitamin K - c/w Fall precautions - c/w Coumadin - Will have outpatient INR check within 2 days and follow up with primary provider s/p Chest pain - likely 2/2 bruising - Physical reveals evidence of superficial bruising and tenderness can be elicited on palpation - Patient reports that she may have bumped her chest when she had fallen - EKG reviewed - Troponin trend negative - c/w Telemetry monitoring Mild L knee discomfort - likely 2/2 bursitis, no evidence of septic arthritis - Patient is able to walk on her left knee - Patient did report that since her Surgery on 10/2020 she has been having swelling / mild redness - Physical reveal mild warmth, swelling (chronic as per patient), no significant tenderness on palpation, full ROM - No fever and patient remains hemodynamically stable - No leukocytosis - Discussed case with Dr. Elizabeth and Dr. Arreola; imaged were reviewed and case discussed - c/w raising leg at bedtime, ice-pack, Tylenol PRN - Will have outpatient follow-up with orthopedic surgery within the next 7 days Dementia - Patient's appears to be oriented to person / place / time Difficulty hearing - c/w hearing aids Chronic pain - c/w Tizanidine / Pregabalin / Percocet HTN - BP well controlled - c/w Amlodipine with hold parameters DLP - c/w Atorvastatin Hypothyroidism - c/w Levothyroxine Insomnia - c/w Ramelteon GERD - c/w Omeprazole DVT prophylaxis - c/w Coumadin DISCHARGE MEDICATIONS: Please see below. ALLERGIES: Please see below. PHYSICAL EXAMINATION ON DISCHARGE: Vitals (See below) General: Patient is sitting up in bed, appears to be comfortable without any acute distress, awake, alert, oriented 3 HEENT: Normocephalic and atraumatic CVS: +S1S2 Lungs: Air entry appears to be fair bilaterally without any evidence of wheezing, crackles or rhonchi Abdomen: Soft, without distention or tenderness Extremities: No LE edema, L knee with some swelling / faint erythema and warmth / Full ROM / Can walk on it LABORATORY DATA: Please see below. IMAGING: CXR 12/11: No acute pulmonary disease.Stable chronic findings as above. CT head 12/11: 1. Mild atrophy, age-appropriate proportionate ventricular size. 2. Chronic small vessel white matter ischemic changes. 3. There is no definite acute infarct, intracranial hemorrhage, mass or mass effect. 4. Skull base and calvarium without acute findings. CT abdomen / pelvis 12/11: 1. There has been a cholecystectomy. 2. No acute findings. XR R Knee 12/14: No change in the appearance of the osseous structures. There is evidence of suprapatellar soft tissue swelling which needs to be correlated clinically. ACTIVITY: [As tolerated]. DISCHARGE PLAN: Follow-up with primary care provider and Orthopedic surgery within the next 7 days Remain compliant with treatment plan and medications Repeat lab work on 12/16/2020 Return to the ER if you experience any problems DISPOSITION: Home with services DISCHARGE CONDITION: [Stable]. TIME SPENT ON DISCHARGE: 35 minutes. Vital Signs/I&Os Vital Signs Date Time Temp Pulse Resp B/P (MAP) Pulse Ox O2 Delivery O2 Flow Rate FiO2 12/14/20 11:53 20 Room Air 12/14/20 08:02 79 169/93 12/14/20 06:00 98.0 96 I&O- Last 24 Hours up to 6 AM 12/14/20 05:59 Intake Total 1830 ml Output Total 2150 ml Balance -320 ml Laboratory Data Labs 24H Laboratory Tests 2 12/13/20 19:15: Prothrombin Time 24.4H, Prothromb Time International Ratio 2.16, Anion Gap 5L, Glomerular Filtration Rate > 60.0, Calcium Level 8.1L 12/14/20 05:22: Prothrombin Time 24.1H, Prothromb Time International Ratio 2.12, Anion Gap 3L, Glomerular Filtration Rate > 60.0, Calcium Level 7.7L, Immature Granulocyte % (Auto) 0.3, Neutrophils (%) (Auto) 48.4, Lymphocytes (%) (Auto) 35.9, Monocytes (%) (Auto) 12.0H, Eosinophils (%) (Auto) 2.9, Basophils (%) (Auto) 0.5, Neutrophils # (Auto) 3.0, Lymphocytes # (Auto) 2.2, Monocytes # (Auto) 0.7, Eosinophils # (Auto) 0.2, Basophils # (Auto) 0.0, Nucleated Red Blood Cells % (auto) 0.0, Magnesium Level 1.4L CBC/BMP Laboratory Tests 12/13/20 19:15 12/14/20 05:22 Microbiology Microbiology 12/13/20 Gastrointestinal Tract Panel (PCR) - Final, Complete 12/12/20 Blood Culture - Preliminary, Resulted No Growth after 48 hours. All Specime... Discharge Medications Scheduled Amlodipine Besylate (Amlodipine Besylate) 2.5 Mg Tablet, 2.5 MG PO DAILY, (Reported) Atorvastatin Calcium (Atorvastatin Calcium) 40 Mg Tablet, 40 MG PO QHS, (Reported) Calcium Polycarbophil (Fibercon) 625 Mg Tablet, 2 TAB PO BID Ergocalciferol (Vitamin D2) (Vitamin D2) 50,000 Units Cap, 50,000 UNITS PO QWEEK, (Reported) THURSDAYS Levothyroxine Sodium (Levothyroxine Sodium) 25 Mcg Tablet, 25 MCG PO DAILY, (Reported) Magnesium Oxide (Magnesium Oxide) 400 Mg Tablet, 800 MG PO BID Omeprazole (Omeprazole) 40 Mg Capsule.dr, 40 MG PO QPM, (Reported) Potassium Chloride (K-Tab ER) 20 Meq Tablet.er, 2 TAB PO DAILY Pregabalin (Lyrica) 150 Mg Cap, 150 MG PO TID, (Reported) Warfarin Sodium (Warfarin Sodium) 5 Mg Tablet, 5 MG PO QPM To be resumed on 12/15/2020 Scheduled PRN Albuterol Sulfate (Proair Hfa) 8.5 Gm Hfa.aer.ad, 2 PUFF INH Q4H PRN for SHOR TNESS OF BREATH, (Reported) Loperamide HCl (Loperamide) 2 Mg Capsule, 2 MG PO BID PRN for DIARRHEA, (Reported) Nystatin (Nystatin Powder) 100,000 Unit/Gm Pow, 1 DOSE TOP BID PRN for RASH, (Reported) UNDER BELLY AND BREASTS Oxycodone HCl/Acetaminophen (Oxycodone-Acetaminophen 5-325) 1 Each Tablet, 2 TAB PO Q6H PRN for SEVERE PAIN (PS 8-10), (Reported) Tizanidine HCl (Zanaflex) 4 Mg Tab, 4 MG PO TID PRN for MUSCLE SPASMS, (Reported) Allergies Coded Allergies: shellfish derived (Verified Allergy, Severe, ANAPHALAXIS, 12/11/20) latex (Verified Allergy, Intermediate, swelling/rash, 12/11/20) Sulfa (Sulfonamide Antibiotics) (Verified Allergy, Mild, RASH, 12/11/20) ciprofloxacin (Verified Allergy, Mild, RASH, 12/11/20) Penicillins (Verified Allergy, Unknown, 12/11/20) phenobarbital (Verified Adverse Reaction, Intermediate, INCREASES ANXIETY AND HEART RATE, 12/11/20) PER DAUGHTER FRANKI VILLAFANA MD Dec 14, 2020 13:52
[2020-12-14] MEDS ORDERED: WARFARIN SOD 5MG TAB PO ONE (17:00)
== END 2020-12-14 15:26 | disposition home or self-care (01) | DRG 641 ==
LOC: M ED 15:35 → M ED INP 15:36 → ENRESERV 23:03 → M MSPAV 12-12 02:27 → OBSVTOIN 12-12 11:39
PROVIDERS: ADMIT Family Medicine; ATTEND Internal Medicine
DX: E86.0 Dehydration (principal); R53.1 Weakness; E87.6 Hypokalemia; E83.42 Hypomagnesemia; E87.2 Acidosis; F03.90 Unspecified dementia, unspecified severity, without behavioral disturbance, psychotic disturbance, mood disturbance, and anxiety; Z86.711 Personal history of pulmonary embolism; Z86.718 Personal history of other venous thrombosis and embolism; R07.89 Other chest pain; Z98.41 Cataract extraction status, right eye; Z98.42 Cataract extraction status, left eye; Z86.73 Personal history of transient ischemic attack (TIA), and cerebral infarction without residual deficits; G43.909 Migraine, unspecified, not intractable, without status migrainosus; K21.9 Gastro-esophageal reflux disease without esophagitis; Z96.651 Presence of right artificial knee joint; Z79.01 Long term (current) use of anticoagulants; Z79.899 Other long term (current) drug therapy; Z88.0 Allergy status to penicillin; Z88.1 Allergy status to other antibiotic agents; Z88.2 Allergy status to sulfonamides; Z88.8 Allergy status to other drugs, medicaments and biological substances; Z91.040 Latex allergy status; Z91.013 Allergy to seafood; Z20.822 Contact with and (suspected) exposure to COVID-19; I10 Essential (primary) hypertension; E78.5 Hyperlipidemia, unspecified; E03.9 Hypothyroidism, unspecified; G47.00 Insomnia, unspecified; D72.829 Elevated white blood cell count, unspecified

== ENCOUNTER → 2020-12-24 | Outpatient (CLI) | payer MEDICARE ==
[~2020-12-24] MED LIST changes: +FIBE625T PO; +K-TA1TAB PO; +MAGN400T2 PO; +OXYC1TAB23 PO
[2020-12-24 11:41] LABS: BASO # 0.1 10^3/uL (0.0-0.2); BASO % 1.1 % (0.0-1.0); EOS # 0.3 10^3/uL (0.0-0.5); EOS % 4.5 % (0.0-3.0); HEMATOCRIT 42.1 % (36.0-47.0); LYMPH # 2.2 10^3/uL (1.5-5.0); LYMPH % 34.4 % (24.0-44.0); MEAN CORPUSCULAR HGB CONC 33.3 g/dl (32.0-36.5); MEAN CORPUSCULAR VOLUME 99.3 fl (80.0-96.0); MONO # 0.7 10^3/uL (0.0-0.8); MONO % 10.7 % (2.0-8.0); NEUTROPHILS # 3.1 10^3/uL (1.5-8.5); PLATELET COUNT, AUTOMATED 269 10^3/uL (150-450); RED BLOOD COUNT 4.24 10^6/uL (4.00-5.40); WHITE BLOOD COUNT 6.4 10^3/uL (4.0-10.0)
[2020-12-24 11:51] LABS: INR 1.49; PROTHROMBIN TIME 18.5 SECONDS (12.7-14.5)
[2020-12-24 12:09] LABS: ALBUMIN 3.1 GM/DL (3.2-5.2); ALT/SGPT 23 U/L (12-78); BILIRUBIN,TOTAL 0.2 MG/DL (0.2-1.0); BLOOD UREA NITROGEN 9 MG/DL (7-18); CALCIUM LEVEL 8.8 MG/DL (8.8-10.2); CARBON DIOXIDE LEVEL 27 MEQ/L (21-32); CHLORIDE LEVEL 107 MEQ/L (98-107); CREATININE FOR GFR 0.76 MG/DL (0.55-1.30); GLOMERULAR FILTRATION RATE > 60.0 (>39); GLUCOSE, FASTING 95 MG/DL (70-100); MAGNESIUM LEVEL 0.7 MG/DL (1.8-2.4); NT-PRO BNP 167 PG/ML (<450); POTASSIUM SERUM 3.2 MEQ/L (3.5-5.1); SODIUM LEVEL 141 MEQ/L (136-145); TOTAL PROTEIN 6.1 GM/DL (6.4-8.2)
[2020-12-24 12:10] LABS: FERRITIN 118 NG/ML (8-252)
[2020-12-24 12:12] LABS: VITAMIN B12 LEVEL 614 PG/ML (247-911)
== END ==
LOC: M LAB 10:56
PROVIDERS: ATTEND Family Medicine
DX: I10 Essential (primary) hypertension (principal); K52.9 Noninfective gastroenteritis and colitis, unspecified; Z51.81 Encounter for therapeutic drug level monitoring

== ENCOUNTER → 2020-12-30 | Outpatient (CLI) | payer MEDICARE ==
[~2020-12-30] MED LIST changes: +POTA20TA6 PO
[2020-12-30 13:08] LABS: BASO # 0.1 10^3/uL (0.0-0.2); BASO % 0.8 % (0.0-1.0); EOS # 0.1 10^3/uL (0.0-0.5); EOS % 2.1 % (0.0-3.0); HEMATOCRIT 41.9 % (36.0-47.0); INR 2.89; LYMPH # 2.2 10^3/uL (1.5-5.0); LYMPH % 33.9 % (24.0-44.0); MEAN CORPUSCULAR HEMOGLOBIN 33.4 pg (27.0-33.0); MEAN CORPUSCULAR HGB CONC 33.4 g/dl (32.0-36.5); MONO # 0.7 10^3/uL (0.0-0.8); MONO % 11.5 % (2.0-8.0); NEUTROPHILS # 3.3 10^3/uL (1.5-8.5); NEUTROPHILS % 51.4 % (36.0-66.0); PARTIAL THROMBOPLASTIN TIME 43.9 SECONDS (25.9-37.0); PLATELET COUNT, AUTOMATED 275 10^3/uL (150-450); PROTHROMBIN TIME 30.6 SECONDS (12.7-14.5); RED BLOOD COUNT 4.19 10^6/uL (4.00-5.40); WHITE BLOOD COUNT 6.3 10^3/uL (4.0-10.0)
[2020-12-30 13:25] LABS: ERYTHROCYTE SEDIMENTATION RATE 8 mm/hr (0-30)
[2020-12-30 13:52] LABS: ALT/SGPT 18 U/L (12-78); BILIRUBIN,TOTAL 0.3 MG/DL (0.2-1.0); BLOOD UREA NITROGEN 7 MG/DL (7-18); CALCIUM LEVEL 8.3 MG/DL (8.8-10.2); CARBON DIOXIDE LEVEL 29 MEQ/L (21-32); CHLORIDE LEVEL 109 MEQ/L (98-107); CREATININE FOR GFR 0.66 MG/DL (0.55-1.30); FERRITIN 83 NG/ML (8-252); GLOMERULAR FILTRATION RATE > 60.0 (>39); GLUCOSE, FASTING 78 MG/DL (70-100); MAGNESIUM LEVEL 0.5 MG/DL (1.8-2.4); NT-PRO BNP 750 PG/ML (<450); POTASSIUM SERUM 3.6 MEQ/L (3.5-5.1); SODIUM LEVEL 143 MEQ/L (136-145); TOTAL PROTEIN 5.7 GM/DL (6.4-8.2)
== END ==
LOC: M LAB 12:17
PROVIDERS: ATTEND Family Medicine
DX: K52.9 Noninfective gastroenteritis and colitis, unspecified (principal)

== ENCOUNTER 2020-12-31 11:56 | Inpatient (IN) | payer MEDICARE ==
[~2020-12-31] VITALS: Ht 162.6 cm; Wt 67.8 kg
[~2020-12-31 11:56] MED LIST changes: +LOSA50TA28 PO; -LOSA50TA88 PO; -OMEP-221 PO; +OMEP40CA5 PO; -POTA20TA6 PO
[2020-12-31 13:42] LABS: HEMATOCRIT 39.6 % (36.0-47.0); HEMOGLOBIN 13.3 g/dl (12.0-15.5); MEAN CORPUSCULAR HEMOGLOBIN 33.7 pg (27.0-33.0); MEAN CORPUSCULAR HGB CONC 33.6 g/dl (32.0-36.5); MEAN CORPUSCULAR VOLUME 100.3 fl (80.0-96.0); PLATELET COUNT, AUTOMATED 238 10^3/uL (150-450); RED BLOOD COUNT 3.95 10^6/uL (4.00-5.40); WHITE BLOOD COUNT 5.7 10^3/uL (4.0-10.0)
[2020-12-31 14:12] LABS: ALBUMIN 2.8 GM/DL (3.2-5.2); ALT/SGPT 17 U/L (12-78); BILIRUBIN,DIRECT < 0.1 MG/DL (0.0-0.2); BILIRUBIN,TOTAL 0.2 MG/DL (0.2-1.0); BLOOD UREA NITROGEN 9 MG/DL (7-18); CALCIUM LEVEL 7.9 MG/DL (8.8-10.2); CARBON DIOXIDE LEVEL 29 MEQ/L (21-32); CHLORIDE LEVEL 110 MEQ/L (98-107); CREATININE FOR GFR 0.72 MG/DL (0.55-1.30); GLOMERULAR FILTRATION RATE > 60.0 (>39); GLUCOSE, FASTING 97 MG/DL (70-100); MAGNESIUM LEVEL 0.6 MG/DL (1.8-2.4); POTASSIUM SERUM 3.9 MEQ/L (3.5-5.1); SODIUM LEVEL 144 MEQ/L (136-145); TOTAL PROTEIN 5.3 GM/DL (6.4-8.2)
[2020-12-31] MEDS ORDERED: MAG SULF 1GM/100ML (MAG RUN) 1 GM in IV 1 EA IV ONE (14:40)
[2020-12-31 15:07] LABS: FREE T4 1.12 NG/DL (0.76-1.46)
[2020-12-31 15:42] LABS: RSV AMPLIFICATION NEGATIVE (NEGATIVE)
[2020-12-31] MEDS ORDERED: POTASSIUM CHLORIDE 10MEQ SR TABLET PO ONE (17:40)
[2020-12-31] MEDS ORDERED: HOME MED LIST COMPLETE! XX SCH (17:45)
[2020-12-31] MEDS ORDERED: ACETAMINOPHEN TAB 650MG DOSE (2X325MG) PO ONE (18:10)
[2020-12-31] MEDS: MAG SULF 1GM/100ML (MAG RUN) 1 GM in IV 1 EA IV SCH ×3 (18:27→20:58)
[2020-12-31] MEDS ORDERED: MAGN400T35 PO (18:31)
[2020-12-31] MEDS ORDERED: FIBE625T PO (18:31)
[2020-12-31] MEDS ORDERED: POTA-151 PO (18:31)
[2020-12-31] MEDS ORDERED: PERCOCET 5MG/325MG TAB PO PRN (18:35)
[2020-12-31] MEDS ORDERED: tiZANidine 4 MG TAB PO PRN (18:35)
[2020-12-31 21:31] VITALS: BP 148/76
[2020-12-31] MEDS: POTASSIUM CHLORIDE 10MEQ SR TABLET PO SCH (22:09)
[2020-12-31] MEDS: PREGABALIN 75 MG CAP(LYRICA) PO SCH (22:10)
[2020-12-31] MEDS: ATORVASTATIN 20 MG TAB PO SCH (22:10)
[2020-12-31 22:39] LABS: BLOOD UREA NITROGEN 10 MG/DL (7-18); CALCIUM LEVEL 8.3 MG/DL (8.8-10.2); CARBON DIOXIDE LEVEL 29 MEQ/L (21-32); CHLORIDE LEVEL 108 MEQ/L (98-107); CREATININE FOR GFR 0.64 MG/DL (0.55-1.30); GLOMERULAR FILTRATION RATE > 60.0 (>39); GLUCOSE, FASTING 124 MG/DL (70-100); MAGNESIUM LEVEL 2.9 MG/DL (1.8-2.4); POTASSIUM SERUM 3.8 MEQ/L (3.5-5.1); SODIUM LEVEL 141 MEQ/L (136-145)
[2021-01-01] VITALS (8 sets, daily range): BP systolic 134–160; BP diastolic 64–80
[2021-01-01] MEDS: PERCOCET 5MG/325MG TAB PO PRN ×3 (01:08→16:34)
[2021-01-01 05:32] LABS: BASO # 0.1 10^3/uL (0.0-0.2); EOS # 0.2 10^3/uL (0.0-0.5); HEMATOCRIT 39.3 % (36.0-47.0); HEMOGLOBIN 12.9 g/dl (12.0-15.5); LYMPH # 1.9 10^3/uL (1.5-5.0); LYMPH % 31.7 % (24.0-44.0); MEAN CORPUSCULAR HGB CONC 32.8 g/dl (32.0-36.5); MEAN CORPUSCULAR VOLUME 100.5 fl (80.0-96.0); MONO # 0.9 10^3/uL (0.0-0.8); MONO % 14.5 % (2.0-8.0); NEUTROPHILS % 49.5 % (36.0-66.0); PLATELET COUNT, AUTOMATED 236 10^3/uL (150-450); RED BLOOD COUNT 3.91 10^6/uL (4.00-5.40)
[2021-01-01] MEDS: LEVOTHYROXINE 25MCG TABLET (0.025MG) PO SCH (05:51)
[2021-01-01 05:59] LABS: BLOOD UREA NITROGEN 6 MG/DL (7-18); CALCIUM LEVEL 8.3 MG/DL (8.8-10.2); CARBON DIOXIDE LEVEL 28 MEQ/L (21-32); CHLORIDE LEVEL 112 MEQ/L (98-107); CREATININE FOR GFR 0.52 MG/DL (0.55-1.30); GLOMERULAR FILTRATION RATE > 60.0 (>39); GLUCOSE, FASTING 87 MG/DL (70-100); MAGNESIUM LEVEL 2.2 MG/DL (1.8-2.4); POTASSIUM SERUM 4.6 MEQ/L (3.5-5.1); SODIUM LEVEL 144 MEQ/L (136-145)
[2021-01-01] MEDS: PREGABALIN 75 MG CAP(LYRICA) PO SCH ×3 (09:49→20:19)
[2021-01-01] MEDS: MAGNESIUM OXIDE 400MG TAB (MAG-OX) PO SCH (09:50)
[2021-01-01] MEDS: POTASSIUM CHLORIDE 10MEQ SR TABLET PO SCH (10:46)
[2021-01-01] MEDS ORDERED: FLUBLOK(EGG FREE)(QUAD)INFLUENZA VACC 0.5ML SYRINGE 18YRS & OLDER IM ONE (11:00)
[2021-01-01] MEDS: ATORVASTATIN 20 MG TAB PO SCH (20:19)
[2021-01-02] VITALS: BP 144/78
[2021-01-02] MEDS: PERCOCET 5MG/325MG TAB PO PRN ×3 (02:03→14:14)
[2021-01-02 04:00] VITALS: BP 153/69
[2021-01-02 05:10] LABS: BASO # 0.1 10^3/uL (0.0-0.2); BASO % 0.7 % (0.0-1.0); EOS # 0.2 10^3/uL (0.0-0.5); EOS % 3.3 % (0.0-3.0); HEMATOCRIT 38.4 % (36.0-47.0); HEMOGLOBIN 12.6 g/dl (12.0-15.5); LYMPH % 27.1 % (24.0-44.0); MEAN CORPUSCULAR HEMOGLOBIN 33.2 pg (27.0-33.0); MEAN CORPUSCULAR HGB CONC 32.8 g/dl (32.0-36.5); MEAN CORPUSCULAR VOLUME 101.1 fl (80.0-96.0); MONO # 0.9 10^3/uL (0.0-0.8); MONO % 12.7 % (2.0-8.0); NEUTROPHILS # 4.1 10^3/uL (1.5-8.5); NEUTROPHILS % 55.9 % (36.0-66.0); PLATELET COUNT, AUTOMATED 242 10^3/uL (150-450); WHITE BLOOD COUNT 7.2 10^3/uL (4.0-10.0)
[2021-01-02 05:31] LABS: BLOOD UREA NITROGEN 9 MG/DL (7-18); CALCIUM LEVEL 8.7 MG/DL (8.8-10.2); CARBON DIOXIDE LEVEL 26 MEQ/L (21-32); CHLORIDE LEVEL 114 MEQ/L (98-107); CREATININE FOR GFR 0.57 MG/DL (0.55-1.30); GLOMERULAR FILTRATION RATE > 60.0 (>39); GLUCOSE, FASTING 103 MG/DL (70-100); POTASSIUM SERUM 4.4 MEQ/L (3.5-5.1); SODIUM LEVEL 144 MEQ/L (136-145)
[2021-01-02] MEDS: LEVOTHYROXINE 25MCG TABLET (0.025MG) PO SCH (06:31)
[2021-01-02 08:00] VITALS: BP 133/74
[2021-01-02] MEDS: MAGNESIUM OXIDE 400MG TAB (MAG-OX) PO SCH (08:14)
[2021-01-02] MEDS: PREGABALIN 75 MG CAP(LYRICA) PO SCH ×2 (08:14→16:41)
[2021-01-02] MEDS: POTASSIUM CHLORIDE 10MEQ SR TABLET PO SCH ×2 (09:00→09:50)
[2021-01-02] MEDS ORDERED: FAMO40TA3 PO (10:16)
[2021-01-02 10:17] LABS: INR 1.31; PROTHROMBIN TIME 16.7 SECONDS (12.7-14.5)
[2021-01-02] MEDS ORDERED: JANT5TAB PO (10:25)
[2021-01-02 11:33] VITALS: BP 170/77
[2021-01-02] MEDS ORDERED: ONDANSETRON 4 MG TAB PO PRN (13:25)
[2021-01-02] MEDS ORDERED: ZOFR4TAB16 PO (14:20)
[2021-01-02] MEDS ORDERED: WARFARIN SOD 5MG TAB PO SCH (17:00)
[2021-01-02 17:36] LABS: CREATININE, URINE 33.5 MG/DL; MAGNESIUM, URINE 1.3 MG/DL
== END 2021-01-02 17:23 | disposition home or self-care (01) | DRG 641 ==
LOC: M ED 11:56 → M ED INP 16:53 → M PCU 21:26
PROVIDERS: ADMIT Internal Medicine Nephrology; ATTEND Family Medicine
DX: E83.42 Hypomagnesemia (principal); D59.12 Cold autoimmune hemolytic anemia; K59.09 Other constipation; Z86.711 Personal history of pulmonary embolism; Z86.718 Personal history of other venous thrombosis and embolism; E78.5 Hyperlipidemia, unspecified; I10 Essential (primary) hypertension; I73.00 Raynaud's syndrome without gangrene; K21.9 Gastro-esophageal reflux disease without esophagitis; M54.50 Low back pain, unspecified; E03.9 Hypothyroidism, unspecified; Z86.73 Personal history of transient ischemic attack (TIA), and cerebral infarction without residual deficits; Z79.01 Long term (current) use of anticoagulants; G43.909 Migraine, unspecified, not intractable, without status migrainosus; J44.9 Chronic obstructive pulmonary disease, unspecified; F32.A Depression, unspecified; H91.93 Unspecified hearing loss, bilateral; M19.90 Unspecified osteoarthritis, unspecified site; Z20.822 Contact with and (suspected) exposure to COVID-19; Z79.899 Other long term (current) drug therapy; Z88.0 Allergy status to penicillin; Z88.2 Allergy status to sulfonamides; Z88.1 Allergy status to other antibiotic agents; Z88.8 Allergy status to other drugs, medicaments and biological substances; Z91.040 Latex allergy status; Z98.41 Cataract extraction status, right eye; Z98.42 Cataract extraction status, left eye; Z96.652 Presence of left artificial knee joint; Z90.49 Acquired absence of other specified parts of digestive tract; Z87.891 Personal history of nicotine dependence; F03.90 Unspecified dementia, unspecified severity, without behavioral disturbance, psychotic disturbance, mood disturbance, and anxiety; K52.9 Noninfective gastroenteritis and colitis, unspecified

== ENCOUNTER → 2021-01-09 | Outpatient (CLI) | payer MEDICARE ==
[~2021-01-09] MED LIST changes: +FAMO40TA3 PO; +JANT5TAB PO; +POTA-151 PO; +ZOFR4TAB16 PO
[2021-01-12 01:07] LABS: H PYLORI SERUM QUANT IgG ABY 0.12 (0.00-0.79)
== END ==
LOC: M LAB 17:03
PROVIDERS: ATTEND Family Medicine
DX: K52.9 Noninfective gastroenteritis and colitis, unspecified (principal); R63.0 Anorexia

== ENCOUNTER → 2021-01-11 | Outpatient (CLI) | payer MEDICARE ==
[~2021-01-11] MED LIST changes: -LOSA50TA28 PO; +LOSA50TA88 PO; +OMEP-221 PO; -OMEP40CA5 PO; -POTA-151 PO; +POTA20TA6 PO
[2021-01-11 16:00] LABS: BLOOD UREA NITROGEN 12 MG/DL (7-18); CALCIUM LEVEL 9.6 MG/DL (8.8-10.2); CARBON DIOXIDE LEVEL 27 MEQ/L (21-32); CHLORIDE LEVEL 106 MEQ/L (98-107); CREATININE FOR GFR 0.79 MG/DL (0.55-1.30); GLOMERULAR FILTRATION RATE > 60.0 (>39); GLUCOSE, FASTING 103 MG/DL (70-100); MAGNESIUM LEVEL 2.1 MG/DL (1.8-2.4); POTASSIUM SERUM 5.5 MEQ/L (3.5-5.1); SODIUM LEVEL 139 MEQ/L (136-145)
== END ==
LOC: M PLALAB 12:36
PROVIDERS: ATTEND Nurse Practitioner Family
DX: E83.42 Hypomagnesemia (principal)
CPT/HCPCS: 36415; 80048; 83735; G0463

== ENCOUNTER → 2021-03-04 | Outpatient (CLI) | payer MEDICARE ==
[~2021-03-04] MED LIST changes: +LOSA50TA28 PO; -LOSA50TA88 PO; -OMEP-221 PO; +OMEP40CA5 PO; +POTA-151 PO; -POTA20TA6 PO
== END ==
LOC: M LABSMTC 12:15
PROVIDERS: ATTEND Pediatrics
DX: Z11.52 Encounter for screening for COVID-19 (principal)

== ENCOUNTER → 2021-03-18 | Outpatient (CLI) | payer MEDICARE ==
[2021-03-18 15:43] LABS: BASO # 0.1 10^3/uL (0.0-0.2); BASO % 1.3 % (0.0-1.0); EOS # 0.3 10^3/uL (0.0-0.5); HEMATOCRIT 40.9 % (36.0-47.0); HEMOGLOBIN 13.2 g/dl (12.0-15.5); LYMPH # 2.6 10^3/uL (1.5-5.0); LYMPH % 41.1 % (24.0-44.0); MEAN CORPUSCULAR HEMOGLOBIN 32.2 pg (27.0-33.0); MEAN CORPUSCULAR HGB CONC 32.3 g/dl (32.0-36.5); MEAN CORPUSCULAR VOLUME 99.8 fl (80.0-96.0); MONO # 0.8 10^3/uL (0.0-0.8); MONO % 12.8 % (2.0-8.0); NEUTROPHILS # 2.5 10^3/uL (1.5-8.5); NEUTROPHILS % 39.5 % (36.0-66.0); PLATELET COUNT, AUTOMATED 241 10^3/uL (150-450); WHITE BLOOD COUNT 6.3 10^3/uL (4.0-10.0)
[2021-03-18 15:53] LABS: INR 1.27; PROTHROMBIN TIME 16.3 SECONDS (12.7-14.5)
== END ==
LOC: M LAB 14:53
PROVIDERS: ATTEND Family Medicine
DX: Z86.718 Personal history of other venous thrombosis and embolism (principal)

== ENCOUNTER → 2021-04-11 | Outpatient (CLI) | payer MEDICARE ==
[2021-04-11 12:53] LABS: BASO # 0.1 10^3/uL (0.0-0.2); EOS # 0.4 10^3/uL (0.0-0.5); EOS % 5.5 % (0.0-3.0); HEMATOCRIT 45.2 % (36.0-47.0); HEMOGLOBIN 14.9 g/dl (12.0-15.5); LYMPH # 2.4 10^3/uL (1.5-5.0); LYMPH % 35.5 % (24.0-44.0); MEAN CORPUSCULAR VOLUME 97.2 fl (80.0-96.0); MONO # 0.8 10^3/uL (0.0-0.8); MONO % 12.1 % (2.0-8.0); NEUTROPHILS # 3.1 10^3/uL (1.5-8.5); NEUTROPHILS % 45.6 % (36.0-66.0); PLATELET COUNT, AUTOMATED 227 10^3/uL (150-450); RED BLOOD COUNT 4.65 10^6/uL (4.00-5.40); WHITE BLOOD COUNT 6.9 10^3/uL (4.0-10.0)
[2021-04-11 13:21] LABS: INR 1.01; PARTIAL THROMBOPLASTIN TIME 33.4 SECONDS (25.9-37.0); PROTHROMBIN TIME 13.7 SECONDS (12.7-14.5)
[2021-04-11 13:26] LABS: MAGNESIUM LEVEL 2.7 MG/DL (1.8-2.4); THYROID STIMULATING HORMONE 1.28 uIU/ML (0.358-3.740)
[2021-04-11 13:40] LABS: PTH INTACT 33.5 PG/ML (18.5-88.0); TOTAL 25(OH) VITAMIN D 95.4 NG/ML (30.0-100.0)
[2021-04-11 17:57] LABS: FREE T4 1.05 NG/DL (0.76-1.46)
== END ==
LOC: M LAB 11:37
PROVIDERS: ATTEND Family Medicine
DX: Z86.718 Personal history of other venous thrombosis and embolism (principal); E07.9 Disorder of thyroid, unspecified; D50.9 Iron deficiency anemia, unspecified

== ENCOUNTER → 2021-04-12 | Outpatient (CLI) | payer MEDICARE ==
[2021-04-12 14:09] LABS: ALBUMIN 3.5 GM/DL (3.2-5.2); ALT/SGPT 21 U/L (12-78); BILIRUBIN,TOTAL 0.4 MG/DL (0.2-1.0); BLOOD UREA NITROGEN 18 MG/DL (7-18); CALCIUM LEVEL 9.3 MG/DL (8.8-10.2); CARBON DIOXIDE LEVEL 30 MEQ/L (21-32); CHLORIDE LEVEL 109 MEQ/L (98-107); CREATININE FOR GFR 0.72 MG/DL (0.55-1.30); GLOMERULAR FILTRATION RATE > 60.0 (>39); GLUCOSE, FASTING 84 MG/DL (70-100); POTASSIUM SERUM 5.1 MEQ/L (3.5-5.1); SODIUM LEVEL 141 MEQ/L (136-145); TOTAL PROTEIN 6.4 GM/DL (6.4-8.2)
== END ==
LOC: M PLALAB 11:28
PROVIDERS: ATTEND Nurse Practitioner Family
DX: I10 Essential (primary) hypertension (principal)

== ENCOUNTER → 2021-07-01 | Outpatient (CLI) | payer MEDICARE ==
[2021-07-01 15:58] LABS: INR 2.97; PROTHROMBIN TIME 31.2 SECONDS (12.7-14.5)
[2021-07-01 16:15] LABS: ALBUMIN 3.3 GM/DL (3.2-5.2); BLOOD UREA NITROGEN 14 MG/DL (7-18); CALCIUM LEVEL 8.5 MG/DL (8.8-10.2); CARBON DIOXIDE LEVEL 27 MEQ/L (21-32); CHLORIDE LEVEL 112 MEQ/L (98-107); CREATININE FOR GFR 0.78 MG/DL (0.55-1.30); GLOMERULAR FILTRATION RATE > 60.0 (>39); GLUCOSE, FASTING 79 MG/DL (70-100); MAGNESIUM LEVEL 1.9 MG/DL (1.8-2.4); PHOSPHORUS LEVEL 3.1 MG/DL (2.5-4.9); POTASSIUM SERUM 4.8 MEQ/L (3.5-5.1); SODIUM LEVEL 142 MEQ/L (136-145)
== END ==
LOC: M PLALAB 12:26
PROVIDERS: ATTEND Physician Assistant
DX: E83.42 Hypomagnesemia (principal); I10 Essential (primary) hypertension; Z79.01 Long term (current) use of anticoagulants

== ENCOUNTER → 2021-07-02 | Outpatient (CLI) | payer MEDICARE | LOC: M RAD 07:21 | PROVIDERS: ATTEND Family Medicine | DX: K52.9 Noninfective gastroenteritis and colitis, unspecified (principal) | CPT/HCPCS: 78803; 78804; A9572 ==

== ENCOUNTER → 2021-08-20 | Outpatient (REF) | payer MEDICARE | LOC: M SFHCPLAZ 17:32 | PROVIDERS: ATTEND Physician Assistant | DX: R05.1 Acute cough (principal) ==

== ENCOUNTER 2021-09-25 20:19 | Emergency (ER) | payer MEDICARE ==
[~2021-09-25] VITALS: Ht 162.6 cm; Wt 67.3 kg
[2021-09-25] MEDS ORDERED: ONDANSETRON 4MG 2ML VIAL IV ONE (23:10)
[2021-09-25 23:33] LABS: BASO % 0.1 % (0.0-1.0); EOS % 0.3 % (0.0-3.0); HEMATOCRIT 45.1 % (36.0-47.0); HEMOGLOBIN 15.2 g/dl (12.0-15.5); LYMPH # 1.1 10^3/uL (1.5-5.0); LYMPH % 16.6 % (24.0-44.0); MEAN CORPUSCULAR HEMOGLOBIN 32.9 pg (27.0-33.0); MEAN CORPUSCULAR HGB CONC 33.7 g/dl (32.0-36.5); MEAN CORPUSCULAR VOLUME 97.6 fl (80.0-96.0); MONO # 0.7 10^3/uL (0.0-0.8); NEUTROPHILS % 72.7 % (36.0-66.0); PLATELET COUNT, AUTOMATED 207 10^3/uL (150-450); RED BLOOD COUNT 4.62 10^6/uL (4.00-5.40); WHITE BLOOD COUNT 6.8 10^3/uL (4.0-10.0)
[2021-09-25 23:46] LABS: INR 3.52; PROTHROMBIN TIME 35.6 SECONDS (12.7-14.5)
[2021-09-25 23:47] LABS: PARTIAL THROMBOPLASTIN TIME 54.7 SECONDS (25.9-37.0)
[2021-09-26 00:15] LABS: CK-MB VALUE MASS < 1.0 NG/ML (<3.6); CPK CREATINE PHOSPHOKINASE 168 U/L (26-192)
[2021-09-26 00:51] LABS: ALBUMIN 3.3 GM/DL (3.2-5.2); BILIRUBIN,TOTAL 0.4 MG/DL (0.2-1.0); BLOOD UREA NITROGEN 10 MG/DL (7-18); CALCIUM LEVEL 9.4 MG/DL (8.8-10.2); CARBON DIOXIDE LEVEL 28 MEQ/L (21-32); CHLORIDE LEVEL 106 MEQ/L (98-107); CREATININE FOR GFR 0.69 MG/DL (0.55-1.30); GLOMERULAR FILTRATION RATE > 60.0 (>39); GLUCOSE, FASTING 123 MG/DL (70-100); SODIUM LEVEL 139 MEQ/L (136-145); TOTAL PROTEIN 6.7 GM/DL (6.4-8.2)
[2021-09-26 01:03] LABS: ALT/SGPT 28 IU/L (0-32)
[2021-09-26] MEDS ORDERED: BENZONATATE 100MG CAPSULE PO ONE (01:45)
[2021-09-26] MEDS ORDERED: METOCLOPRAMIDE INJ 10MG/2ML VIAL (J2765 PER 1) IV ONE (01:45)
[2021-09-26 02:31] VITALS: BP 160/88
[2021-09-26] MEDS ORDERED: BENZ200C70 PO (02:46)
== END 2021-09-26 02:59 | disposition home or self-care (01) ==
LOC: M ED 20:19
DX: U07.1 COVID-19 (principal); R05.9 Cough, unspecified; T37.5X5A Adverse effect of antiviral drugs, initial encounter; I10 Essential (primary) hypertension; J44.9 Chronic obstructive pulmonary disease, unspecified; G47.33 Obstructive sleep apnea (adult) (pediatric); K21.9 Gastro-esophageal reflux disease without esophagitis; K27.9 Peptic ulcer, site unspecified, unspecified as acute or chronic, without hemorrhage or perforation; Z86.711 Personal history of pulmonary embolism; Z86.718 Personal history of other venous thrombosis and embolism; Z87.442 Personal history of urinary calculi; H91.93 Unspecified hearing loss, bilateral; Z88.0 Allergy status to penicillin; Z88.1 Allergy status to other antibiotic agents; Z88.2 Allergy status to sulfonamides; Z88.8 Allergy status to other drugs, medicaments and biological substances; Z91.018 Allergy to other foods; Z91.040 Latex allergy status; Z79.899 Other long term (current) drug therapy; Z79.890 Hormone replacement therapy; Z79.01 Long term (current) use of anticoagulants; F17.200 Nicotine dependence, unspecified, uncomplicated
CPT/HCPCS: 71045; 80053; 82550; 82553; 84484; 85025; 85610; 85730; 87426; 93005; 96374; 96375; 99284; J2405; J2765

== ENCOUNTER 2021-09-27 12:00 | Outpatient (CLI) | payer MEDICARE ==
[~2021-09-27] VITALS: Ht 162.6 cm; Wt 68.0 kg
[~2021-09-27 12:00] MED LIST changes: +ACETAMINOPHEN TAB 650MG DOSE (2X325MG) PO ONE; +ACETAMINOPHEN TAB 650MG DOSE (2X325MG) PO PRN; +ALBUTEROL 90 MCG/ACT 8GM HFA INHALER INH PRN; +ALBUTEROL SULFATE 2.5 MG/0.5 ML INH NEB SOLN INH PRN; +BEBTELOVIMAB 175MG 2ML VIAL (EUA) IV ONE; +BENZ200C70 PO; +EPINEPHrine INJ 1 MG/ML 1ML AMP IM PRN; +NS 1,000 ML IV SCH; +diphenhydrAMINE 25MG CAP PO ONE; +diphenhydrAMINE 50MG/ML VIAL (J1200) IV PRN; +methylPREDNISolone 125MG 2ML VIAL IV PRN
[2021-09-27 13:15] VITALS: BP 146/68
[2021-09-27 14:10] VITALS: BP 148/82
[2021-09-27 14:15] VITALS: BP 146/68
[2021-09-27 14:45] VITALS: BP 137/65
[2021-09-27 15:15] VITALS: BP_SYST 136; BP_SYST 138; BP_DIAS 66; BP_DIAS 68
== END 2021-09-27 15:50 | disposition home or self-care (01) ==
LOC: M OPCLI4PR 12:00 → M ICU 12:26 → M OPCLI4PR 15:50
PROVIDERS: ATTEND Family Medicine
DX: U07.1 COVID-19 (principal); Z88.0 Allergy status to penicillin; Z88.2 Allergy status to sulfonamides; Z88.1 Allergy status to other antibiotic agents; Z88.8 Allergy status to other drugs, medicaments and biological substances
CPT/HCPCS: 96361; M0222

== ENCOUNTER → 2022-01-30 | Outpatient (CLI) | payer MEDICARE ==
[~2022-01-30] MED LIST changes: -ACETAMINOPHEN TAB 650MG DOSE (2X325MG) PO ONE; -ACETAMINOPHEN TAB 650MG DOSE (2X325MG) PO PRN; +ALBU8.5H; -ALBUTEROL 90 MCG/ACT 8GM HFA INHALER INH PRN; -ALBUTEROL SULFATE 2.5 MG/0.5 ML INH NEB SOLN INH PRN; -BEBTELOVIMAB 175MG 2ML VIAL (EUA) IV ONE; -EPINEPHrine INJ 1 MG/ML 1ML AMP IM PRN; -NS 1,000 ML IV SCH; -diphenhydrAMINE 25MG CAP PO ONE; -diphenhydrAMINE 50MG/ML VIAL (J1200) IV PRN; -methylPREDNISolone 125MG 2ML VIAL IV PRN
[2022-01-30 22:50] LABS: BASO # 0.1 10^3/uL (0.0-0.2); BASO % 0.9 % (0.0-1.0); EOS # 0.3 10^3/uL (0.0-0.5); EOS % 3.9 % (0.0-3.0); HEMOGLOBIN 15.2 g/dl (12.0-15.5); LYMPH # 2.8 10^3/uL (1.5-5.0); LYMPH % 35.5 % (24.0-44.0); MEAN CORPUSCULAR HGB CONC 32.3 g/dl (32.0-36.5); MONO # 0.9 10^3/uL (0.0-0.8); MONO % 10.6 % (2.0-8.0); NEUTROPHILS # 3.9 10^3/uL (1.5-8.5); NEUTROPHILS % 48.7 % (36.0-66.0); PLATELET COUNT, AUTOMATED 216 10^3/uL (150-450); RED BLOOD COUNT 4.61 10^6/uL (4.00-5.40)
[2022-01-30 23:11] LABS: ALBUMIN 3.8 G/DL (3.2-5.2); ALKALINE PHOSPHATASE 83 U/L (46-116); ALT/SGPT 19 U/L (7.0-40); AST/SGOT 21 U/L (<34); BILIRUBIN,TOTAL 0.6 MG/DL (0.3-1.2); BLOOD UREA NITROGEN 13 MG/DL (9-23); CALCIUM LEVEL 9.2 MG/DL (8.3-10.6); CARBON DIOXIDE LEVEL 25 MMOL/L (20-31); CHLORIDE LEVEL 107 MMOL/L (98-107); CHOLESTEROL LEVEL 128 MG/DL (<200); CHOLESTEROL RISK RATIO 2.65 (<5); CREATININE FOR GFR 0.82 MG/DL (0.55-1.30); GLOMERULAR FILTRATION RATE > 60.0 (>39); GLUCOSE, FASTING 79 MG/DL (74-106); HDL CHOLESTEROL 48.3 MG/DL (>40); LDL CHOLESTEROL 47.7 MG/DL (<100); NON-HDL-C 80 MG/DL; POTASSIUM SERUM 4.6 MMOL/L (3.5-5.1); SODIUM LEVEL 140 MMOL/L (136-145); TOTAL PROTEIN 6.2 G/DL (5.7-8.2); TRIGLYCERIDES LEVEL 160 MG/DL (<150)
[2022-01-30 23:13] LABS: FREE T4 1.06 NG/DL (0.89-1.76); THYROID STIMULATING HORMONE 1.657 uIU/ML (0.55-4.78)
[2022-01-30 23:14] LABS: FERRITIN 40.9 NG/ML (7.3-270.7)
== END ==
LOC: M WUC 15:14
PROVIDERS: ATTEND Family Medicine
DX: Z51.81 Encounter for therapeutic drug level monitoring (principal); R73.01 Impaired fasting glucose; I10 Essential (primary) hypertension

== ENCOUNTER 2022-03-08 15:45 | Emergency (ER) | payer MEDICARE ==
[~2022-03-08] VITALS: Ht 162.6 cm; Wt 65.0 kg
[~2022-03-08 15:45] MED LIST changes: -ALBU8.5H; +ALBU8.5H INH; +OXYC10TA3 PO; +POTA1TAB14 PO; +PREG150C PO; +WARF-60 PO
[2022-03-08] MEDS ORDERED: IPRATROPIUM 0.5MG/ALBUTEROL 2.5MG INH SOL UD 3ML (DUONEB) NEB ONE (17:20)
[2022-03-08] MEDS ORDERED: NS 1,000 ML IV ONE (17:20)
[2022-03-08] MEDS ORDERED: methylPREDNISolone 125MG 2ML VIAL IV ONE (17:20)
[2022-03-08 18:36] LABS: BASO % 0.5 % (0.0-1.0); EOS % 0.9 % (0.0-3.0); LYMPH % 22.4 % (24.0-44.0); MEAN CORPUSCULAR HEMOGLOBIN 32.7 pg (27.0-33.0); MEAN CORPUSCULAR HGB CONC 33.3 g/dl (32.0-36.5); MEAN CORPUSCULAR VOLUME 98.1 fl (80.0-96.0); MONO # 0.8 10^3/uL (0.0-0.8); MONO % 18.2 % (2.0-8.0); NEUTROPHILS # 2.5 10^3/uL (1.5-8.5); NEUTROPHILS % 57.5 % (36.0-66.0); PLATELET COUNT, AUTOMATED 163 10^3/uL (150-450); RED BLOOD COUNT 4.28 10^6/uL (4.00-5.40); WHITE BLOOD COUNT 4.3 10^3/uL (4.0-10.0)
[2022-03-08 18:47] LABS: INR 4.59; PROTHROMBIN TIME 44.1 SECONDS (12.5-14.5)
[2022-03-08] MEDS ORDERED: ACETAMINOPHEN 500 MG TAB PO ONE (18:50)
[2022-03-08 18:58] LABS: ALBUMIN 3.4 G/DL (3.2-5.2); BILIRUBIN,DIRECT 0.1 MG/DL (<0.4); BILIRUBIN,TOTAL 0.2 MG/DL (0.3-1.2); TOTAL PROTEIN 6.1 G/DL (5.7-8.2)
[2022-03-08] MEDS ORDERED: BENZ200C70 PO (19:38)
[2022-03-08] MEDS ORDERED: PRED20TA PO (19:38)
[2022-03-08] MEDS ORDERED: OSEL75CA PO (19:38)
[2022-03-08 19:47] VITALS: BP 150/67
== END 2022-03-08 20:00 | disposition home or self-care (01) ==
LOC: M ED 15:45
DX: J09.X2 Influenza due to identified novel influenza A virus with other respiratory manifestations (principal); J44.1 Chronic obstructive pulmonary disease with (acute) exacerbation; I50.9 Heart failure, unspecified; I10 Essential (primary) hypertension; G47.33 Obstructive sleep apnea (adult) (pediatric); K21.9 Gastro-esophageal reflux disease without esophagitis; Z88.0 Allergy status to penicillin; Z88.2 Allergy status to sulfonamides; Z91.040 Latex allergy status; Z91.013 Allergy to seafood; Z88.5 Allergy status to narcotic agent; F17.200 Nicotine dependence, unspecified, uncomplicated; Z79.51 Long term (current) use of inhaled steroids; Z79.899 Other long term (current) drug therapy

== ENCOUNTER → 2022-05-07 | Outpatient (CLI) | payer MEDICARE ==
[~2022-05-07] MED LIST changes: +OSEL75CA PO
== END ==
LOC: M LABSMTC 09:47
PROVIDERS: ATTEND Anesthesiology
DX: Z01.812 Encounter for preprocedural laboratory examination (principal)

== ENCOUNTER 2022-05-12 10:07 | Day surgery (SDC) | payer MEDICARE ==
[~2022-05-12] VITALS: Ht 162.6 cm; Wt 66.2 kg
[~2022-05-12 10:07] MED LIST changes: +LIDOCAINE 2% 100MG/5ML SDV (FOR ANES.) As Ordered ONE; +NS 1,000 ML IV ONE; +fentaNYL 100 MCG/2 ML INJECTION As Ordered ONE; +propofoL 200 MG/20 ML VIAL As Ordered ONE; +propofoL 500 MG/50 ML VIAL As Ordered ONE
[2022-05-12 12:25] VITALS: BP 128/59
== END 2022-05-12 12:35 | disposition home or self-care (01) ==
LOC: M OPP 10:07
PROVIDERS: ATTEND Internal Medicine Gastroenterology
DX: Z86.010 Personal history of colon polyps (principal); D12.4 Benign neoplasm of descending colon; K63.5 Polyp of colon; K64.8 Other hemorrhoids; K57.30 Diverticulosis of large intestine without perforation or abscess without bleeding; R63.4 Abnormal weight loss; G47.33 Obstructive sleep apnea (adult) (pediatric); Z99.89 Dependence on other enabling machines and devices; E55.9 Vitamin D deficiency, unspecified; F17.200 Nicotine dependence, unspecified, uncomplicated; Z87.11 Personal history of peptic ulcer disease; Z86.19 Personal history of other infectious and parasitic diseases; Z86.14 Personal history of Methicillin resistant Staphylococcus aureus infection; Z79.02 Long term (current) use of antithrombotics/antiplatelets; Z79.51 Long term (current) use of inhaled steroids; Z79.899 Other long term (current) drug therapy; Z88.0 Allergy status to penicillin; Z88.1 Allergy status to other antibiotic agents; Z88.2 Allergy status to sulfonamides; Z88.8 Allergy status to other drugs, medicaments and biological substances; Z91.013 Allergy to seafood; Z91.040 Latex allergy status
CPT/HCPCS: 43235; 45380; 45385; 88305; J3010

== ENCOUNTER → 2022-07-02 | Outpatient (CLI) | payer MEDICARE ==
[~2022-07-02] MED LIST changes: -LIDOCAINE 2% 100MG/5ML SDV (FOR ANES.) As Ordered ONE; -NS 1,000 ML IV ONE; +POTA-298 PO; -POTA1TAB14 PO; -fentaNYL 100 MCG/2 ML INJECTION As Ordered ONE; -propofoL 200 MG/20 ML VIAL As Ordered ONE; -propofoL 500 MG/50 ML VIAL As Ordered ONE
[2022-07-02 17:56] LABS: BASO # 0.1 10^3/uL (0.0-0.2); BASO % 0.8 % (0.0-1.0); EOS # 0.2 10^3/uL (0.0-0.5); EOS % 2.7 % (0.0-3.0); HEMATOCRIT 47.9 % (36.0-47.0); HEMOGLOBIN 15.7 g/dl (12.0-15.5); LYMPH # 2.6 10^3/uL (1.5-5.0); LYMPH % 32.7 % (24.0-44.0); MEAN CORPUSCULAR HEMOGLOBIN 32.9 pg (27.0-33.0); MEAN CORPUSCULAR HGB CONC 32.8 g/dl (32.0-36.5); MEAN CORPUSCULAR VOLUME 100.4 fl (80.0-96.0); MONO # 0.8 10^3/uL (0.0-0.8); MONO % 10.3 % (2.0-8.0); NEUTROPHILS # 4.2 10^3/uL (1.5-8.5); NEUTROPHILS % 53.2 % (36.0-66.0); PLATELET COUNT, AUTOMATED 212 10^3/uL (150-450); RED BLOOD COUNT 4.77 10^6/uL (4.00-5.40); WHITE BLOOD COUNT 7.9 10^3/uL (4.0-10.0)
[2022-07-02 18:12] LABS: ALBUMIN 3.9 G/DL (3.2-5.2); ALKALINE PHOSPHATASE 93 U/L (46-116); ALT/SGPT 26 U/L (7.0-40); AST/SGOT 20 U/L (<34); BILIRUBIN,TOTAL 0.5 MG/DL (0.3-1.2); BLOOD UREA NITROGEN 11 MG/DL (9-23); CALCIUM LEVEL 9.3 MG/DL (8.3-10.6); CARBON DIOXIDE LEVEL 28 MMOL/L (20-31); CHLORIDE LEVEL 110 MMOL/L (98-107); CREATININE FOR GFR 0.95 MG/DL (0.55-1.30); GLOMERULAR FILTRATION RATE > 60.0 (>39); GLUCOSE, FASTING 70 MG/DL (74-106); POTASSIUM SERUM 4.2 MMOL/L (3.5-5.1); PTH INTACT 60.3 PG/ML (18.5-88.0); SODIUM LEVEL 136 MMOL/L (136-145); TOTAL PROTEIN 6.4 G/DL (5.7-8.2)
[2022-07-02 18:13] LABS: TOTAL 25(OH) VITAMIN D 52.8 NG/ML (20.0-100.0)
[2022-07-02 18:14] LABS: FERRITIN 42.3 NG/ML (7.3-270.7); VITAMIN B12 LEVEL 506 PG/ML (211-911)
== END ==
LOC: M WUC 14:03
PROVIDERS: ATTEND Family Medicine
DX: I10 Essential (primary) hypertension (principal); D75.89 Other specified diseases of blood and blood-forming organs

== ENCOUNTER → 2022-10-23 | Outpatient (REF) | payer MEDICARE ==
[~2022-10-23] MED LIST changes: -AMIT25TA17 PO; +AMIT25TA19 PO; -K-TA10TA PO; +POTA-164 PO; -PREG150C PO; +PREG150C2 PO
== END ==
LOC: M SFHCPLAZ 16:41
PROVIDERS: ATTEND Family Medicine
DX: I10 Essential (primary) hypertension (principal); D50.9 Iron deficiency anemia, unspecified

== ENCOUNTER → 2023-04-10 | Outpatient (REF) | payer MEDICARE | LOC: M SFHCPLAZ 10:08 | PROVIDERS: ATTEND Family Medicine | DX: D50.9 Iron deficiency anemia, unspecified (principal); I10 Essential (primary) hypertension ==

== ENCOUNTER → 2023-08-14 | Outpatient (CLI) | payer MEDICARE ==
[~2023-08-14] MED LIST changes: -SENN1TAB41 PO; +SENN1TAB85 PO
== END ==
LOC: M RAD 12:14
PROVIDERS: ATTEND Physician Assistant
DX: M53.3 Sacrococcygeal disorders, not elsewhere classified (principal); M54.50 Low back pain, unspecified

== ENCOUNTER → 2023-08-14 | Outpatient (CLI) | payer MEDICARE ==
[2023-08-14 13:56] LABS: BASO # 0.1 10^3/uL (0.0-0.2); BASO % 1.3 % (0.0-1.0); EOS # 1.1 10^3/uL (0.0-0.5); EOS % 15.5 % (0.0-3.0); HEMATOCRIT 43.3 % (36.0-47.0); HEMOGLOBIN 14.9 g/dl (12.0-15.5); LYMPH # 2.5 10^3/uL (1.5-5.0); LYMPH % 35.7 % (24.0-44.0); MEAN CORPUSCULAR HEMOGLOBIN 33.7 pg (27.0-33.0); MEAN CORPUSCULAR HGB CONC 34.4 g/dl (32.0-36.5); MONO # 0.8 10^3/uL (0.0-0.8); MONO % 10.6 % (2.0-8.0); NEUTROPHILS # 2.6 10^3/uL (1.5-8.5); NEUTROPHILS % 36.8 % (36.0-66.0); PLATELET COUNT, AUTOMATED 259 10^3/uL (150-450); RED BLOOD COUNT 4.42 10^6/uL (4.00-5.40); WHITE BLOOD COUNT 7.1 10^3/uL (4.0-10.0)
[2023-08-14 14:13] LABS: C REACTIVE PROTEIN QUANTITATIV < 0.40 MG/DL (<1.0)
[2023-08-14 14:14] LABS: ALKALINE PHOSPHATASE 87 U/L (46-116); ALT/SGPT 17 U/L (7.0-40); AST/SGOT 11 U/L (<34); BILIRUBIN,TOTAL 0.4 MG/DL (0.3-1.2); BLOOD UREA NITROGEN 10 MG/DL (9-23); CALCIUM LEVEL 8.8 MG/DL (8.3-10.6); CARBON DIOXIDE LEVEL 32 MMOL/L (20-31); CHLORIDE LEVEL 105 MMOL/L (98-107); CREATININE FOR GFR 0.76 MG/DL (0.55-1.30); GLOMERULAR FILTRATION RATE > 60.0 (>39); GLUCOSE, FASTING 91 MG/DL (74-106); POTASSIUM SERUM 3.7 MMOL/L (3.5-5.1); SODIUM LEVEL 139 MMOL/L (136-145); TOTAL PROTEIN 5.6 G/DL (5.7-8.2)
[2023-08-14 14:18] LABS: FERRITIN 51.4 NG/ML (7.3-270.7); THYROID STIMULATING HORMONE 1.059 uIU/ML (0.55-4.78)
[2023-08-14 14:19] LABS: FREE T4 1.23 NG/DL (0.89-1.76)
== END ==
LOC: M LAB 12:12
PROVIDERS: ATTEND Family Medicine
DX: D50.9 Iron deficiency anemia, unspecified (principal); I10 Essential (primary) hypertension; R63.4 Abnormal weight loss

== ENCOUNTER → 2023-12-17 | Outpatient (CLI) | payer MEDICARE ==
[~2023-12-17] MED LIST changes: +NYST1POW3 TOP; -NYST1POW9 TOP
[2023-12-17 15:34] LABS: BASO # 0.1 10^3/uL (0.0-0.2); BASO % 1.1 % (0.0-1.0); EOS # 0.5 10^3/uL (0.0-0.5); EOS % 5.4 % (0.0-3.0); HEMATOCRIT 46.4 % (36.0-47.0); HEMOGLOBIN 15.9 g/dl (12.0-15.5); LYMPH # 2.5 10^3/uL (1.5-5.0); LYMPH % 25.9 % (24.0-44.0); MEAN CORPUSCULAR HGB CONC 34.3 g/dl (32.0-36.5); MEAN CORPUSCULAR VOLUME 99.1 fl (80.0-96.0); MONO % 10.4 % (2.0-8.0); NEUTROPHILS # 5.5 10^3/uL (1.5-8.5); PLATELET COUNT, AUTOMATED 223 10^3/uL (150-450); RED BLOOD COUNT 4.68 10^6/uL (4.00-5.40); WHITE BLOOD COUNT 9.6 10^3/uL (4.0-10.0)
[2023-12-17 16:02] LABS: ALBUMIN 3.5 G/DL (3.2-5.2); ALKALINE PHOSPHATASE 84 U/L (35-104); ALT/SGPT 14 U/L (7.0-40); AST/SGOT 11 U/L (<34); BILIRUBIN,TOTAL 0.4 MG/DL (0.3-1.2); BLOOD UREA NITROGEN 12 MG/DL (9-23); CALCIUM LEVEL 9.6 MG/DL (8.3-10.6); CARBON DIOXIDE LEVEL 28 MMOL/L (20-31); CHLORIDE LEVEL 110 MMOL/L (98-107); CHOLESTEROL LEVEL 116 MG/DL (<200); CHOLESTEROL RISK RATIO 2.54 (<5); CREATININE FOR GFR 0.83 MG/DL (0.55-1.30); GLOMERULAR FILTRATION RATE > 60.0 (>39); GLUCOSE, FASTING 88 MG/DL (74-106); HDL CHOLESTEROL 45.5 MG/DL (>40); LDL CHOLESTEROL 55.3 MG/DL (<100); NON-HDL-C 70.5 MG/DL; POTASSIUM SERUM 4.4 MMOL/L (3.5-5.1); SODIUM LEVEL 142 MMOL/L (136-145); TOTAL PROTEIN 6.4 G/DL (5.7-8.2); TRIGLYCERIDES LEVEL 76 MG/DL (<150)
[2023-12-17 16:05] LABS: VITAMIN B12 LEVEL 545 PG/ML (211-911)
[2023-12-19 06:34] LABS: PROTEIN, TOTAL SO 6.3 g/dL (6.1-8.1)
== END ==
LOC: M LAB 15:09
PROVIDERS: ATTEND Family Medicine
DX: D50.9 Iron deficiency anemia, unspecified (principal); I10 Essential (primary) hypertension

== ENCOUNTER → 2024-01-01 | Outpatient (CLI) | payer MEDICARE ==
[~2024-01-01] MED LIST changes: +ISOVUE-370 76% 100ML VIAL As Ordered ONE
== END ==
LOC: M RAD 13:57
PROVIDERS: ATTEND Family Medicine
DX: R10.84 Generalized abdominal pain (principal); R05.3 Chronic cough; J98.11 Atelectasis
CPT/HCPCS: 71260; 74177; Q9967

== ENCOUNTER 2024-03-10 12:54 | Emergency (ER) | payer MEDICARE ==
[~2024-03-10] VITALS: Ht 162.6 cm; Wt 44.5 kg
[~2024-03-10 12:54] MED LIST changes: -ISOVUE-370 76% 100ML VIAL As Ordered ONE
[2024-03-10 12:56] VITALS: BP 170/77
[2024-03-10 15:08] LABS: BASO % 0.4 % (0.0-1.0); EOS # 0.5 10^3/uL (0.0-0.5); EOS % 7.3 % (0.0-3.0); HEMATOCRIT 43.2 % (36.0-47.0); HEMOGLOBIN 14.6 g/dl (12.0-15.5); LYMPH # 2.4 10^3/uL (1.5-5.0); LYMPH % 32.1 % (24.0-44.0); MEAN CORPUSCULAR HEMOGLOBIN 33.6 pg (27.0-33.0); MEAN CORPUSCULAR HGB CONC 33.8 g/dl (32.0-36.5); MEAN CORPUSCULAR VOLUME 99.5 fl (80.0-96.0); MONO # 0.8 10^3/uL (0.0-0.8); NEUTROPHILS # 3.6 10^3/uL (1.5-8.5); NEUTROPHILS % 49.1 % (36.0-66.0); PLATELET COUNT, AUTOMATED 202 10^3/uL (150-450); RED BLOOD COUNT 4.34 10^6/uL (4.00-5.40); WHITE BLOOD COUNT 7.4 10^3/uL (4.0-10.0)
[2024-03-10 15:36] LABS: CPK CREATINE PHOSPHOKINASE 38 U/L (34-145)
[2024-03-10 15:37] LABS: ALBUMIN 3.4 G/DL (3.2-5.2); ALKALINE PHOSPHATASE 91 U/L (35-104); ALT/SGPT 25 U/L (7.0-40); AST/SGOT 17 U/L (<34); BILIRUBIN,DIRECT 0.1 MG/DL (<0.4); BILIRUBIN,TOTAL 0.3 MG/DL (0.3-1.2); BLOOD UREA NITROGEN 17 MG/DL (9-23); CALCIUM LEVEL 8.8 MG/DL (8.3-10.6); CARBON DIOXIDE LEVEL 25 MMOL/L (20-31); CHLORIDE LEVEL 105 MMOL/L (98-107); CK-MB VALUE MASS < 1.0 NG/ML (<3.6); CREATININE FOR GFR 0.81 MG/DL (0.55-1.30); GLOMERULAR FILTRATION RATE > 60.0 (>39); GLUCOSE, FASTING 78 MG/DL (74-106); MB/CK RELATIVE INDEX 2.63 (< OR =4); POTASSIUM SERUM 4.2 MMOL/L (3.5-5.1); SODIUM LEVEL 140 MMOL/L (136-145); TOTAL PROTEIN 6.4 G/DL (5.7-8.2)
[2024-03-10 15:38] LABS: THYROID STIMULATING HORMONE 1.765 uIU/ML (0.55-4.78)
[2024-03-10 15:39] LABS: THYROXINE (T4) 10.6 UG/DL (4.5-10.9)
[2024-03-10] MEDS: methylPREDNISolone 125MG 2ML VIAL IV ONE (17:05)
[2024-03-10] MEDS: IPRATROPIUM 0.5MG/ALBUTEROL 2.5MG INH SOL UD 3ML (DUONEB) NEB ONE (17:23)
[2024-03-10 18:06] VITALS: O2SAT 98
[2024-03-10] MEDS ORDERED: AZIT-12 PO (18:30)
[2024-03-10] MEDS ORDERED: PRED20TA PO (18:30)
[2024-03-10 19:00] VITALS: TEMP 98.4; O2SAT 96
== END 2024-03-10 19:01 | disposition home or self-care (01) ==
LOC: M ED 12:54
DX: J20.9 Acute bronchitis, unspecified (principal); J44.1 Chronic obstructive pulmonary disease with (acute) exacerbation; I10 Essential (primary) hypertension; F17.200 Nicotine dependence, unspecified, uncomplicated; Z79.899 Other long term (current) drug therapy; Z88.0 Allergy status to penicillin; Z88.2 Allergy status to sulfonamides; Z88.1 Allergy status to other antibiotic agents; Z88.8 Allergy status to other drugs, medicaments and biological substances; Z91.013 Allergy to seafood; Z91.040 Latex allergy status
CPT/HCPCS: 71045; 80048; 80076; 82550; 82553; 83605; 83880; 84436; 84443; 84484; 85025; 87040; 87486; 87581; 87633; 87798; 93005; 93041; 94640; 94760; 96374; 99284; J2919

== ENCOUNTER → 2024-03-15 | Outpatient (CLI) | payer MEDICARE ==
[~2024-03-15] MED LIST changes: +AZIT-12 PO
[2024-03-15 13:35] LABS: BASO % 0.1 % (0.0-1.0); LYMPH # 1.8 10^3/uL (1.5-5.0); LYMPH % 22.7 % (24.0-44.0); MEAN CORPUSCULAR HEMOGLOBIN 34.1 pg (27.0-33.0); MEAN CORPUSCULAR HGB CONC 34.1 g/dl (32.0-36.5); MONO # 1.1 10^3/uL (0.0-0.8); MONO % 14.3 % (2.0-8.0); NEUTROPHILS % 62.3 % (36.0-66.0); PLATELET COUNT, AUTOMATED 337 10^3/uL (150-450)
[2024-03-15 14:09] LABS: ALBUMIN 3.4 G/DL (3.2-5.2); ALKALINE PHOSPHATASE 79 U/L (35-104); ALT/SGPT 22 U/L (7.0-40); AST/SGOT 16 U/L (<34); BILIRUBIN,TOTAL 0.4 MG/DL (0.3-1.2); BLOOD UREA NITROGEN 22 MG/DL (9-23); CALCIUM LEVEL 8.9 MG/DL (8.3-10.6); CARBON DIOXIDE LEVEL 28 MMOL/L (20-31); CHLORIDE LEVEL 110 MMOL/L (98-107); CREATININE FOR GFR 0.69 MG/DL (0.55-1.30); GLOMERULAR FILTRATION RATE > 60.0 (>39); GLUCOSE, FASTING 80 MG/DL (74-106); POTASSIUM SERUM 4.8 MMOL/L (3.5-5.1); SODIUM LEVEL 143 MMOL/L (136-145); TOTAL PROTEIN 6.4 G/DL (5.7-8.2)
[2024-03-15 14:11] LABS: FERRITIN 103.5 NG/ML (7.3-270.7)
[2024-03-15 14:29] LABS: CA19-9 TUMOR MARKER,CARBOHYDRA < 1.2 U/ML (<35.0)
== END ==
LOC: M LAB 12:11
PROVIDERS: ATTEND Family Medicine
DX: K86.89 Other specified diseases of pancreas (principal); D50.9 Iron deficiency anemia, unspecified; I10 Essential (primary) hypertension; F17.210 Nicotine dependence, cigarettes, uncomplicated; J44.9 Chronic obstructive pulmonary disease, unspecified; R63.4 Abnormal weight loss; K59.09 Other constipation; R10.84 Generalized abdominal pain; K74.00 Hepatic fibrosis, unspecified; G89.4 Chronic pain syndrome; K21.9 Gastro-esophageal reflux disease without esophagitis; M47.816 Spondylosis without myelopathy or radiculopathy, lumbar region; D12.6 Benign neoplasm of colon, unspecified; K52.9 Noninfective gastroenteritis and colitis, unspecified; M17.0 Bilateral primary osteoarthritis of knee; I73.00 Raynaud's syndrome without gangrene; I67.1 Cerebral aneurysm, nonruptured; E03.9 Hypothyroidism, unspecified; M47.22 Other spondylosis with radiculopathy, cervical region; M19.041 Primary osteoarthritis, right hand; G56.03 Carpal tunnel syndrome, bilateral upper limbs; F41.1 Generalized anxiety disorder; R90.89 Other abnormal findings on diagnostic imaging of central nervous system; E78.2 Mixed hyperlipidemia; B37.2 Candidiasis of skin and nail; Z86.718 Personal history of other venous thrombosis and embolism; R97.0 Elevated carcinoembryonic antigen [CEA]; R97.8 Other abnormal tumor markers

== ENCOUNTER → 2024-12-13 | Outpatient (CLI) | payer MEDICARE ==
[2024-12-13 17:39] LABS: BASO # 0.1 10^3/uL (0.0-0.2); BASO % 1.0 % (0.0-1.0); EOS # 0.5 10^3/uL (0.0-0.5); EOS % 7.9 % (0.0-3.0); LYMPH # 1.6 10^3/uL (1.5-5.0); LYMPH % 27.6 % (24.0-44.0); MONO # 0.7 10^3/uL (0.0-0.8); MONO % 11.6 % (2.0-8.0); NEUTROPHILS # 3.1 10^3/uL (1.5-8.5); NEUTROPHILS % 51.7 % (36.0-66.0); PLATELET COUNT, AUTOMATED 196 10^3/uL (150-450)
[2024-12-13 18:05] LABS: C REACTIVE PROTEIN QUANTITATIV < 0.50 MG/DL (<1.0)
[2024-12-13 18:06] LABS: ALT/SGPT 92 U/L (7.0-40); AST/SGOT 68 U/L (<34); CALCIUM LEVEL 8.4 MG/DL (8.3-10.6); CARBON DIOXIDE LEVEL 28 MMOL/L (20-31); CHLORIDE LEVEL 108 MMOL/L (98-107); CREATININE FOR GFR 0.89 MG/DL (0.55-1.30); GLOMERULAR FILTRATION RATE 65.9 (>39); IRON (FE) 81 UG/DL (50-170); PERCENT SATURATION 27.1 % (13.2-45.0); POTASSIUM SERUM 4.0 MMOL/L (3.5-5.1); SODIUM LEVEL 140 MMOL/L (136-145)
[2024-12-13 18:07] LABS: FREE T4 1.17 NG/DL (0.89-1.76)
== END ==
LOC: M LAB 15:47
PROVIDERS: ATTEND Family Medicine
DX: D50.9 Iron deficiency anemia, unspecified (principal); K86.89 Other specified diseases of pancreas; I10 Essential (primary) hypertension; R63.4 Abnormal weight loss; R97.0 Elevated carcinoembryonic antigen [CEA]